=== PATIENT | male | born 1985 | race American Indian/Alaskan Native ===

== ENCOUNTER 2017-12-13 10:10 | Emergency (ER) | payer MEDICAID, OTHER ==
[2017-12-13 10:37] VITALS: BP 133/91
--- NOTE | 2017-12-13 10:47 | EDM.PDOC ---
ED HPI GENERAL MEDICAL PROBLEM - General Chief Complaint: Laceration Stated Complaint: HOLE/CUT IN TOE ON RT FOOT Time Seen by Provider: 12/13/17 10:35 Source of Information: Reports: Patient History Limitations: Reports: No Limitations - History of Present Illness INITIAL COMMENTS - FREE TEXT/NARRATIVE: 32 yo NA male with poorly controlled AODM presents with a one week duration of a shallow ulcer on the bottom of his R great toe. He states it is hurting more now than before. He is not sure how he got it. He cannot get into his primary in [place] until Jan 20, but has a podiatry appt for 12/21. His blood sugars are recently in the 200's which is for him apparently an improvement. 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 (see below) (soaking in water and later applied a bandage.) Right Feet Pain Score (Numeric/FACES): 6 - Related Data Allergies Allergy/AdvReac Type Severity Reaction Status Date / Time amoxicillin [Amoxicillin] Allergy Severe Cannot Verified 12/13/17 10:22 Remember Penicillins Allergy Severe Cannot Verified 12/13/17 10:22 Remember venom-honey bee Allergy Severe Swelling Verified 12/13/17 10:22 [bee venom (honey bee)] Home Meds: Home Meds Ibuprofen [Motrin] 800 mg PO TID PRN 04/23/13 [History] metFORMIN [Glucophage] 2,000 mg PO DAILY 04/23/13 [History] Albuterol Sulfate [Albuterol Sulfate HFA] 2 puff INH Q4H PRN 07/01/13 [History] Mometasone/Formoterol [Dulera 100-5 MCG] 2 puff INH BID 07/01/13 [History] Insulin Detemir [Levemir] 100 units SQ DAILY 12/13/17 [History] Liraglutide [Victoza 3-Juan M] 1.8 mg SQ DAILY 12/13/17 [History] glipiZIDE [Glucotrol XL] 5 mg PO DAILY 12/13/17 [History] Past Medical History HEENT History: Reports: Impaired Vision Respiratory History: Reports: COPD, Sleep Apnea Gastrointestinal History: Reports: None Musculoskeletal History: Reports: Arthritis, Back Pain, Chronic Psychiatric History: Reports: Anxiety, Depression, Panic Attack Endocrine/Metabolic History: Reports: Diabetes, Type II, Obesity/BMI 30+ Dermatologic History: Reports: Other (See Below) - Infectious Disease History Infectious Disease History: Reports: Chicken Pox, MRSA Other Infectious Disease History: MRSA to right upper back - Past Surgical History Head Surgeries/Procedures: Reports: None HEENT Surgical History: Reports: None Respiratory Surgical History: Reports: None GI Surgical History: Reports: Appendectomy Endocrine Surgical History: Reports: None Musculoskeletal Surgical History: Reports: None Dermatological Surgical History: Reports: None Social & Family History - Tobacco Use Smoking Status *Q: Current Some Day Smoker Years of Tobacco use: 18 Packs/Tins Daily: 0.2 Used Tobacco, but Quit: No Second Hand Smoke Exposure: Yes - Caffeine Use Caffeine Use: Reports: Coffee - Recreational Drug Use Recreational Drug Use: No ED ROS GENERAL - Review of Systems Review Of Systems: See Below Constitutional: Reports: No Symptoms Musculoskeletal: Reports: Foot Pain (R great toe pain) Skin: Reports: Wound (ulcer to bottom of R great toe, approx 0.25 cm, not deep) Neurological: Reports: No Symptoms ED EXAM, SKIN/RASH Exam: See Below Exam Limited By: No Limitations General Appearance: Alert, WD/WN, No Apparent Distress, Obese Extremities: Other (0.25 cm shallow ulcer to the sole of his R great toe, no drainage or erythema. ) Neurological: Alert, Oriented, CN II-XII Intact, Normal Cognition, No Motor/ Sensory Deficits Psychiatric: Normal Affect, Normal Mood Skin: Warm, Dry, Normal Color, No Rash, Wound/Incision (ulcer) Location, Skin: Lower Extremity, Right Associated features: Tenderness. No: Warmth, Swelling, Induration, Inflammation , Weeping Course - Vital Signs Last Recorded V/S: Last Vital Signs Temp 35.7 C 12/13/17 10:36 Pulse 84 12/13/17 10:36 Resp 16 12/13/17 10:36 BP 133/91 H 12/13/17 10:36 Pulse Ox 98 12/13/17 10:36 - Orders/Labs/Meds Orders: Active Orders 24 hr Category Date Time Status Toes Great Toe Rt T5 [CR] Stat Exams 12/13/17 10:40 Taken Meds: Medications Discontinued Medications Generic Name Dose Route Start Last Admin Trade Name Tova PRN Reason Stop Dose Admin Bacitracin 1 dose 12/13/17 11:02 Bacitracin Oint 1 Gm TOP 12/13/17 11:03 ONETIME ONE - Radiology Interpretation Free Text/Narrative:: R great toe X-ray-neg(reviewed with radiology) Departure - Departure Time of Disposition: 11:10 Disposition: Home, Self-Care 01 Condition: Good Clinical Impression: Toe ulcer Qualifiers: Laterality: right Non-pressure ulcer stage: limited to breakdown of skin Qualified Code(s): L97.511 - Non-pressure chronic ulcer of other part of right foot limited to breakdown of skin - Discharge Information *PRESCRIPTION DRUG MONITORING PROGRAM REVIEWED*: Not Applicable *COPY OF PRESCRIPTION DRUG MONITORING REPORT IN PATIENT MAURICIO: Not Applicable Instructions: Diabetes Mellitus and Foot Care Referrals: PCP,None [Primary Care Provider] - Forms: ED Department Discharge Additional Instructions: Wash foot with soap and water twice daily. Dry thoroughly and apply Bacitracin ointment then a new bandage. Keep your appt with Podiatry as scheduled. Take acetaminophen up to 1000 mg every 6 hrs as needed for pain relief. Keep blood sugars under good control to reduce your infection risk. - My Orders Last 24 Hours: My Active Orders 12/13/17 10:40 Toes Great Toe Rt T5 [CR] Stat - Assessment/Plan Last 24 Hours: My Active Orders 12/13/17 10:40 Toes Great Toe Rt T5 [CR] Stat
[2017-12-13] MEDS ORDERED: Bacitracin Oint 1 GM U/D Packet TOP ONE (11:02)
--- NOTE | 2017-12-13 11:06 | CR ---
Toes Great Toe Rt CLINICAL HISTORY: Pain, swelling, diabetes FINDINGS: There is moderate soft tissue swelling of the first toe. There may be some mild swelling of the distal aspect of the second toe. There is a soft tissue defect on the inferior medial aspect of the first toe. No bony erosion is identified. IMPRESSION: Soft tissue swelling Soft tissue defect likely an ulcer in the inferior medial aspect of the great toe no obvious evidence of osteomyelitis
[2017-12-13] MEDS ORDERED: Diphtheria,Pertussis(Acell),Tetanus Vaccine 0.5 ML SDV IM ONE (11:11)
== END 2017-12-13 11:20 | disposition home or self-care (01) ==
LOC: JP.ED 10:10
DX: E11.621 Type 2 diabetes mellitus with foot ulcer (principal); L97.511 Non-pressure chronic ulcer of other part of right foot limited to breakdown of skin; Z23 Encounter for immunization
CPT/HCPCS: 73660-26-T5; 73660-T5; 90471; 90715; 99284-25

== ENCOUNTER 2018-08-13 14:32 | Inpatient (IN) | payer MEDICAID ==
[2018-08-13] MEDS ORDERED: Sodium Chloride 0.9% 1,000 ML IV SCH (15:15)
--- NOTE | 2018-08-13 15:15 | EDM.PDOC ---
ED HPI GENERAL MEDICAL PROBLEM - General Chief Complaint: Skin Complaint Stated Complaint: VIA [facility] Time Seen by Provider: 08/13/18 15:11 Source of Information: Reports: Patient History Limitations: Reports: No Limitations - History of Present Illness INITIAL COMMENTS - FREE TEXT/NARRATIVE: pt arrived with a very infected left arm in the anticubutal area. He injected Meth and he developed a infection in the site/ He has been having chills. He was seen at the clinic and given antibiotic shot and was placed on doxycyline bid. He does not think he has improved. Onset: Gradual, Other ( This has gotten progrssively worse. ) Duration: Hour(s): Location: Reports: Upper Extremity, Left Associated Symptoms: Reports: Fever/Chills Left Middle Arm Pain Score (Numeric/FACES): 7 - Related Data Allergies Allergy/AdvReac Type Severity Reaction Status Date / Time amoxicillin [Amoxicillin] Allergy Severe Cannot Verified 08/13/18 14:46 Remember Penicillins Allergy Severe Cannot Verified 08/13/18 14:46 Remember venom-honey bee Allergy Severe Swelling Verified 08/13/18 14:46 [bee venom (honey bee)] Home Meds: Home Meds Liraglutide [Victoza 3-Juan M] 1.8 mg SQ DAILY 12/13/17 [History] Insuln Asp Prot/Insulin Aspart [NovoLOG Mix 70-30] 50 units SUBCUT BID 02/21/18 [History] Nortriptyline HCl [Pamelor] 10 mg PO BEDTIME 02/21/18 [History] Pregabalin [Lyrica] 300 mg PO BID 02/21/18 [History] Zolpidem Tartrate [Ambien] 10 mg PO BEDTIME 02/21/18 [History] Doxycycline [Vibramycin] 1 tab PO BID 08/13/18 [History] busPIRone [Buspar] 1 tab PO TID 08/13/18 [History] metFORMIN HCl [Metformin ER Osmotic] 2,000 mg PO ACBREAKFAST 08/13/18 [History] Past Medical History HEENT History: Reports: Impaired Vision Respiratory History: Reports: COPD, Sleep Apnea Gastrointestinal History: Reports: None Musculoskeletal History: Reports: Arthritis, Back Pain, Chronic, Fracture Neurological History: Reports: None Psychiatric History: Reports: Addiction, Anxiety, Depression, Panic Attack Endocrine/Metabolic History: Reports: Diabetes, Type II, Obesity/BMI 30+ Oncologic (Cancer) History: Reports: Malignant Melanoma Other Oncologic History: patient states he had a mole removed from right wrist area that was melanoma Dermatologic History: Reports: None - Infectious Disease History Infectious Disease History: Reports: Chicken Pox, MRSA Other Infectious Disease History: MRSA to right upper back - Past Surgical History Head Surgeries/Procedures: Reports: None HEENT Surgical History: Reports: None Respiratory Surgical History: Reports: None GI Surgical History: Reports: Appendectomy Endocrine Surgical History: Reports: None Neurological Surgical History: Reports: Scoliosis Musculoskeletal Surgical History: Reports: None Dermatological Surgical History: Reports: Skin Biopsy Social & Family History - Family History Family Medical History: Noncontributory - Tobacco Use Smoking Status *Q: Current Some Day Smoker Years of Tobacco use: 10 Packs/Tins Daily: 0.1 - Caffeine Use Caffeine Use: Reports: Coffee, Energy Drinks, Soda, Tea - Recreational Drug Use Recreational Drug Use: Yes Drug Use in Last 12 Months: Yes Recreational Drug Type: Reports: Marijuana/Hashish, Methamphetamine Recreational Drug Use Frequency: Daily ED ROS GENERAL - Review of Systems Review Of Systems: See Below Constitutional: Reports: Chills, Malaise HEENT: Reports: No Symptoms Respiratory: Reports: No Symptoms Cardiovascular: Reports: No Symptoms Endocrine: Reports: No Symptoms GI/Abdominal: Reports: No Symptoms : Reports: No Symptoms Musculoskeletal: Reports: Other (pt has a very painful left arm. This is the site of a meth injection) Neurological: Reports: No Symptoms Psychiatric: Reports: No Symptoms ED EXAM, SKIN/RASH Exam: See Below Text/Narrative:: pt arrived with marked swelling and some drainage present. He is on doxycyline and is not responding l Exam Limited By: No Limitations General Appearance: Alert, Moderate Distress Ears: Normal TMs Nose: Normal Inspection Throat/Mouth: Normal Inspection Head: Atraumatic Neck: Normal Inspection Respiratory/Chest: No Respiratory Distress Cardiovascular: Regular Rate, Rhythm, Tachycardia Peripheral Pulses: 0: Radial (R) GI/Abdominal: Soft, Non-Tender (Male) Exam: Deferred Rectal (Males) Exam: Deferred Back Exam: Normal Inspection Extremities: Other (pt has sig pain and swelling in the left anticuital) Neurological: Alert, Oriented, Normal Cognition Course - Vital Signs Last Recorded V/S: Last Vital Signs Temp 35.9 C 08/14/18 03:00 Pulse 100 08/14/18 03:00 Resp 20 08/14/18 03:00 BP 159/92 H 08/14/18 03:00 Pulse Ox 99 08/14/18 03:00 - Orders/Labs/Meds Orders: Active Orders 24 hr Category Date Time Status EKG 12 Lead [EK] Routine Ther 08/13/18 15:28 Stop Req Medication Orders Acetaminophen (Tylenol) 650 mg PO Q4H PRN PRN Reason: Pain (Mild 1-3)/fever Last Admin: 08/14/18 02:50 Dose: 650 mg Admin: 08/13/18 22:39 Dose: 650 mg Buspirone HCl (Buspar) 10 mg PO TID [facility] Last Admin: 08/13/18 21:07 Dose: 10 mg Clindamycin Phosphate 900 mg/ (Sodium Chloride) 106 mls @ 200 mls/hr IV Q8H [facility] Last Admin: 08/14/18 01:00 Dose: 200 mls/hr Sodium Chloride (Normal Saline) 1,000 mls @ 125 mls/hr IV ASDIRECTED [facility] Last Admin: 08/14/18 05:55 Dose: 125 mls/hr Infusion: 08/14/18 03:29 Dose: 125 mls/hr Admin: 08/13/18 19:29 Dose: 125 mls/hr Vancomycin HCl 2 gm/ Sodium (Chloride) 500 mls @ 250 mls/hr IV Q12H [facility] Insulin Human Lispro (Humalog) 0 unit SUBCUT QIDACANDBED [facility]; Protocol Last Admin: 08/13/18 21:08 Dose: 10 units Ketorolac Tromethamine (Toradol) 30 mg IVPUSH Q6H PRN PRN Reason: Pain (severe 7-10) Lactobacillus Rhamnosus (Culturelle) 1 cap PO BID [facility] Last Admin: 08/13/18 21:07 Dose: 1 cap Liraglutide (Victoza) 1.8 mg SUBCUT DAILY [facility] Metformin HCl (Glucophage Xr) 2,000 mg PO ACBREAKFAST [facility] Nicotine (Habitrol) 14 mg TRDERM Q24H [facility] Non-Formulary Medication (Nortriptyline Hcl [Pamelor]) 10 mg PO BEDTIME [facility] Ondansetron HCl (Zofran Odt) 4 mg PO Q6H PRN PRN Reason: Nausea able to take PO Oxycodone HCl (Oxycodone) 5 - 10 mg PO Q4H PRN PRN Reason: Pain (moderate 4-6) Last Admin: 08/14/18 02:50 Dose: 10 mg Pregabalin (Lyrica) 300 mg PO BID [facility] Last Admin: 08/13/18 21:07 Dose: 300 mg Zolpidem Tartrate (Ambien) 10 mg PO BEDTIME [facility] Last Admin: 08/13/18 21:07 Dose: 10 mg Labs: Laboratory Tests 08/13/18 08/13/18 Range/Units 15:41 15:41 WBC 17.5 H (4.5-11.0) K/uL RBC 5.56 (4.30-5.90) M/uL Hgb 14.9 (12.0-15.0) g/dL Hct 44.8 (40.0-54.0) % MCV 81 (80-98) fL MCH 27 (27-31) pg MCHC 33 (32-36) % Plt Count 344 (150-400) K/uL Neut % (Auto) 79 H (36-66) % Lymph % (Auto) 13 L (24-44) % Holmes % (Auto) 8 H (2-6) % Eos % (Auto) 0 L (2-4) % Baso % (Auto) 0 (0-1) % Sodium 132 L (140-148) mmol/L Potassium 4.0 (3.6-5.2) mmol/L Chloride 95 L (100-108) mmol/L Carbon Dioxide 25 (21-32) mmol/L Anion Gap 16.0 H (5.0-14.0) mmol/L BUN 12 (7-18) mg/dL Creatinine 0.8 (0.8-1.3) mg/dL Est Cr Clr Drug Dosing 127.06 mL/min Estimated GFR (MDRD) > 60 (>60) Glucose 314 H (74-106) mg/dL Calcium 9.3 (8.5-10.1) mg/dL Total Bilirubin 0.6 (0.2-1.0) mg/dL AST 18 (15-37) U/L ALT 52 (12-78) U/L Alkaline Phosphatase 167 H (46-116) U/L Total Protein 7.9 (6.4-8.2) g/dL Albumin 2.9 L (3.4-5.0) g/dL Globulin 5.0 H (2.3-3.5) g/dL Albumin/Globulin Ratio 0.6 L (1.2-2.2) Meds: Medications Generic Name Dose Route Start Last Admin Trade Name Freq PRN Reason Stop Dose Admin Acetaminophen 650 mg 08/13/18 18:21 08/14/18 02:50 Tylenol PO 650 mg Q4H PRN Administration Pain (Mild 1-3)/fever Buspirone HCl 10 mg 08/13/18 21:00 08/13/18 21:07 Buspar PO 10 mg TID [facility] Administration Clindamycin Phosphate 900 mg/ 106 mls @ 200 mls/hr 08/14/18 01:00 08/14/18 01 :00 Sodium Chloride IV 200 mls/hr Q8H [facility] Administration Sodium Chloride 1,000 mls @ 125 mls/hr 08/13/18 18:21 08/14/18 05:55 Normal Saline IV 125 mls/hr ASDIRECTED [facility] Administration Vancomycin HCl 2 gm/ Sodium 500 mls @ 250 mls/hr 08/14/18 07:00 Chloride IV Q12H [facility] Insulin Human Lispro 0 unit 08/13/18 20:00 08/13/18 21:08 Humalog SUBCUT 10 units QIDACANDBED [facility] Administration Protocol Ketorolac Tromethamine 30 mg 08/13/18 18:21 Toradol IVPUSH Q6H PRN Pain (severe 7-10) Lactobacillus Rhamnosus 1 cap 08/13/18 21:00 08/13/18 21:07 Culturelle PO 1 cap BID [facility] Administration Liraglutide 1.8 mg 08/14/18 09:00 Victoza SUBCUT DAILY [facility] Metformin HCl 2,000 mg 08/14/18 07:30 Glucophage Xr PO ACBREAKFAST [facility] Nicotine 14 mg 08/14/18 21:00 Habitrol TRDERM Q24H [facility] Non-Formulary Medication 10 mg 08/13/18 21:00 Nortriptyline Hcl [Pamelor] PO BEDTIME [facility] Ondansetron HCl 4 mg 08/13/18 18:21 Zofran Odt PO Q6H PRN Nausea able to take PO Oxycodone HCl 5 - 10 mg 08/13/18 18:21 08/14/18 02:50 Oxycodone PO 10 mg Q4H PRN Administration Pain (moderate 4-6) Pregabalin 300 mg 08/13/18 21:00 08/13/18 21:07 Lyrica PO 300 mg BID [facility] Administration Zolpidem Tartrate 10 mg 08/13/18 21:00 08/13/18 21:07 Ambien PO 10 mg BEDTIME [facility] Administration Discontinued Medications Generic Name Dose Route Start Last Admin Trade Name Tova PRN Reason Stop Dose Admin Sodium Chloride 1,000 mls @ 999 mls/hr 08/13/18 15:15 08/13/18 15:42 Normal Saline IV 999 mls/hr ASDIRECTED [facility] Administration Clindamycin Phosphate 600 mg/ 54 mls @ 100 mls/hr 08/13/18 15:49 08/13/18 16: 34 Sodium Chloride IV 08/13/18 16:21 100 mls/hr ONETIME ONE Administration Vancomycin HCl 2.5 gm/ Sodium 500 mls @ 200 mls/hr 08/13/18 19:00 08/13/18 20 :01 Chloride IV 08/13/18 21:29 200 mls/hr ONETIME ONE Administration Sodium Chloride Confirm 08/13/18 19:52 08/13/18 20:01 Normal Saline Administered 08/13/18 19:53 Not Given Dose 250 mls @ as directed .ROUTE .STK-MED ONE Insulin Glargine 20 units 08/13/18 21:00 08/13/18 21:08 Lantus Solostar SUBCUT 08/13/18 21:01 20 units BEDTIME [facility] Administration Insulin Human Regular 5 unit 08/13/18 16:25 08/13/18 20:45 Humulin R SUBCUT 08/13/18 16:26 Not Given ONETIME ONE Insulin Human Regular 10 unit 08/13/18 17:28 08/13/18 17:31 Humulin R SUBCUT 08/13/18 17:29 10 units ONETIME ONE Administration Ketorolac Tromethamine 30 mg 08/13/18 15:24 08/13/18 15:43 Toradol IVPUSH 08/13/18 15:25 30 mg ONETIME ONE Administration Lactobacillus Rhamnosus 1 cap 08/14/18 15:50 Culturelle PO 08/14/18 15:51 DAILY ONE Nicotine 14 mg 08/13/18 22:00 08/13/18 22:00 Habitrol TRDERM 08/13/18 22:01 14 mg ONETIME ONE Administration Oxycodone/Acetaminophen 1 tab 08/13/18 15:24 08/13/18 15:43 Percocet 325-5 Mg PO 08/13/18 15:25 1 tab ONETIME ONE Administration Vancomycin HCl Confirm 08/13/18 19:45 08/13/18 19:54 Vancomycin Administered 08/13/18 19:46 Not Given Dose 3 gm .ROUTE .[facility]-MED ONE - Re-Assessments/Exams Free Text/Narrative Re-Assessment/Exam: 08/13/18 16:28 wbc is elevated. His bs is 380. He has not been eating or drinking well. Departure - Departure Time of Disposition: 06:00 Disposition: Admitted As Inpatient 66 Condition: Fair Clinical Impression: Abscess of left arm - Discharge Information - My Orders Last 24 Hours: My Active Orders 08/13/18 15:28 EKG 12 Lead [EK] Routine - Assessment/Plan Last 24 Hours: My Active Orders 08/13/18 15:28 EKG 12 Lead [EK] Routine
[2018-08-13] MEDS ORDERED: Ketorolac 30 MG/ML SDV IVPUSH ONE (15:24)
[2018-08-13] MEDS ORDERED: Acetaminophen/oxyCODONE 325-5 MG Tab PO ONE (15:24)
[2018-08-13] MEDS ORDERED: Insulin Regular, Human 100 Units/ML 3 ML Vial SUBCUT ONE ×2 (16:25→17:28)
--- NOTE | 2018-08-13 17:40 | CRLUS ---
Indication: Possible abscess left inner elbow region. Technique: Ultrasound imaging of the area of concern at the left elbow was performed. Comparison: No comparison Findings and impression: Ultrasound of the inner left elbow in the area of erythema demonstrates a heterogeneous hypoechoic fluid collection without internal vascularity measuring 2.9 x 1.6 x 3.3 cm. This could represent abscess or hematoma if there is a history of trauma. There is overlying skin thickening and surrounding tissues appear edematous suggestive of an infectious or inflammatory process. Numerous prominent blood vessels are seen near the area of concern which may be secondary to reactive hyperemia. Dictated by Joe Cm MD @ 08/13/2018 5:39:21 PM Dictated by: Joe Cm MD @ 08/13/2018 17:39:30 (Electronically Signed)
--- NOTE | 2018-08-13 17:42 | PCM.HP ---
H&P History of Present Illness - General Date of Service: 08/13/18 Admit Problem/Dx: Admission Diagnosis/Problem Admission Diagnosis/Problem Abscess Source of Information: Patient, Provider History Limitations: Reports: No Limitations - History of Present Illness Initial Comments - Free Text/Narative: Chief complaint: My arm is infected Nick presents to the emergency room today with approximately one week of left arm redness, swelling and pain. He reports injecting methamphetamine intravenously in the left antecubital fossa about 10 days ago. 2 days later he started to develop some redness and swelling. This redness and swelling has progressed over the past 10 days to the point that he sought medical attention 2 days ago. He was started on doxycycline but despite this things have gotten worse. He describes severe pain in the left elbow which is sharp and throbbing. The pain radiates both up and down his arm from the elbow. He hasn't been taking anything at home to help the pain. Any sort of movement makes the pain worse. He has great difficulty moving his elbow because of the pain. He has had shaking chills but is not aware of any fevers. Appetite has been decreased the past 2 days and he's had very little to eat or drink. Stools were loose this morning but none since that time. No complaints of abdominal pain or nausea. He has not checked his blood sugars in the last week so is not sure how his diabetes has been doing. Workup in the emergency room revealed leukocytosis and ultrasound evidence for abscess in the left antecubital fossa. He has received clindamycin in the emergency room and will be admitted for IV antibiotics and surgical intervention in the morning. - Related Data Allergies/Adverse Reactions: Allergies Allergy/AdvReac Type Severity Reaction Status Date / Time amoxicillin [Amoxicillin] Allergy Severe Cannot Verified 08/13/18 14:46 Remember Penicillins Allergy Severe Cannot Verified 08/13/18 14:46 Remember venom-honey bee Allergy Severe Swelling Verified 08/13/18 14:46 [bee venom (honey bee)] Home Medications: Home Meds Liraglutide [Victoza 3-Juan M] 1.8 mg SQ DAILY 12/13/17 [History] Insuln Asp Prot/Insulin Aspart [NovoLOG Mix 70-30] 50 units SUBCUT BID 02/21/18 [History] Nortriptyline HCl [Pamelor] 10 mg PO BEDTIME 02/21/18 [History] Pregabalin [Lyrica] 300 mg PO BID 02/21/18 [History] Zolpidem Tartrate [Ambien] 10 mg PO BEDTIME 02/21/18 [History] Doxycycline [Vibramycin] 1 tab PO BID 08/13/18 [History] busPIRone [Buspar] 1 tab PO TID 08/13/18 [History] metFORMIN HCl [Metformin ER Osmotic] 2,000 mg PO ACBREAKFAST 08/13/18 [History] Past Medical History HEENT History: Reports: Impaired Vision Respiratory History: Reports: COPD, Sleep Apnea Gastrointestinal History: Reports: None Musculoskeletal History: Reports: Arthritis, Back Pain, Chronic, Fracture Neurological History: Reports: None Psychiatric History: Reports: Addiction, Anxiety, Depression, Panic Attack Endocrine/Metabolic History: Reports: Diabetes, Type II, Obesity/BMI 30+ Oncologic (Cancer) History: Reports: Malignant Melanoma Other Oncologic History: patient states he had a mole removed from right wrist area that was melanoma Dermatologic History: Reports: None - Infectious Disease History Infectious Disease History: Reports: Chicken Pox, MRSA Other Infectious Disease History: MRSA to right upper back - Past Surgical History Head Surgeries/Procedures: Reports: None HEENT Surgical History: Reports: None Respiratory Surgical History: Reports: None GI Surgical History: Reports: Appendectomy Endocrine Surgical History: Reports: None Neurological Surgical History: Reports: Scoliosis Musculoskeletal Surgical History: Reports: None Dermatological Surgical History: Reports: Skin Biopsy Social & Family History - Family History Family Medical History: Noncontributory - Tobacco Use Smoking Status *Q: Current Some Day Smoker Years of Tobacco use: 10 Packs/Tins Daily: 0.1 - Caffeine Use Caffeine Use: Reports: Coffee, Energy Drinks, Soda, Tea - Alcohol Use Alcohol Use History: Yes Days Per Week of Alcohol Use: 2 - Recreational Drug Use Recreational Drug Use: Yes Drug Use in Last 12 Months: Yes Recreational Drug Type: Reports: Marijuana/Hashish, Methamphetamine Recreational Drug Use Frequency: Daily H&P Review of Systems - Review of Systems: Review Of Systems: See Below Free Text/Narrative: A complete 12 point review of systems was obtained. Pertinent positives and negatives are noted in the history of present illness. All other systems were reviewed and were negative except as noted. Exam - Exam Exam: See Below - Vital Signs Vital Signs: Last Vital Signs Temp 36.5 C 08/13/18 14:59 Pulse 97 04/27/19 14:59 Resp 14 08/13/18 14:59 BP 149/94 H 08/13/18 14:59 Pulse Ox 97 08/13/18 14:59 Weight: 138.346 kg - Exam Quality Assessment: No: Supplemental Oxygen General: Alert, Oriented, Cooperative. No: Mild Distress HEENT: Conjunctiva Clear, Mucosa Moist & Magnet. No: Scleral Icterus Neck: Trachea Midline. No: Lymphadenopathy Lungs: Clear to Auscultation, Normal Respiratory Effort Cardiovascular: Regular Rate, Regular Rhythm GI/Abdominal Exam: Normal Bowel Sounds, Soft, Non-Tender, No Distention, Other ( Obese) Extremities: No Pedal Edema, Increased Warmth (Left antecubital fossa), Other ( Swelling, redness and warmth as well as some denuded skin with mild drainage from the left antecubital fossa) Skin: Warm, Dry, Rash (Redness, warmth and swelling involving the antecubital fossa) Neuro Extensive - Mental Status: Alert, Oriented x3, Nl Response to Commands Neuro Extensive - Motor, Sensory, Reflexes: No: Dysarthria, Abnormal Motor, Tremor Psychiatric: Alert, Normal Affect - Patient Data Lab Results Last 24 hrs: Laboratory Results - last 24 hr 08/13/18 08/13/18 Range/Units 15:41 15:41 WBC 17.5 H (4.5-11.0) K/uL RBC 5.56 (4.30-5.90) M/uL Hgb 14.9 (12.0-15.0) g/dL Hct 44.8 (40.0-54.0) % MCV 81 (80-98) fL MCH 27 (27-31) pg MCHC 33 (32-36) % Plt Count 344 (150-400) K/uL Neut % (Auto) 79 H (36-66) % Lymph % (Auto) 13 L (24-44) % Sebastian % (Auto) 8 H (2-6) % Eos % (Auto) 0 L (2-4) % Baso % (Auto) 0 (0-1) % Sodium 132 L (140-148) mmol/L Potassium 4.0 (3.6-5.2) mmol/L Chloride 95 L (100-108) mmol/L Carbon Dioxide 25 (21-32) mmol/L Anion Gap 16.0 H (5.0-14.0) mmol/L BUN 12 (7-18) mg/dL Creatinine 0.8 (0.8-1.3) mg/dL Est Cr Clr Drug Dosing 127.06 mL/min Estimated GFR (MDRD) > 60 (>60) Glucose 314 H (74-106) mg/dL Calcium 9.3 (8.5-10.1) mg/dL Total Bilirubin 0.6 (0.2-1.0) mg/dL AST 18 (15-37) U/L ALT 52 (12-78) U/L Alkaline Phosphatase 167 H (46-116) U/L Total Protein 7.9 (6.4-8.2) g/dL Albumin 2.9 L (3.4-5.0) g/dL Globulin 5.0 H (2.3-3.5) g/dL Albumin/Globulin Ratio 0.6 L (1.2-2.2) Result Diagrams: 08/13/18 15:41 08/13/18 15:41 Imaging Impressions Last 24 hrs: Ultrasound left antecubital fossa - images personally reviewed - there is evidence for fluid and debris in the antecubital fossa concerning for abscess. *Q Meaningful Use (ADM) - VTE *Q VTE Pharmacological Contraindications *Q: Patient Scheduled Surgery - VTE Risk Assess *Q Each Risk Factor Represents 1 Point: Minor Surgery Planned, Obesity ( BMI > 25 kg/m2) Total Score 1 Point Risk Factors: 2 Each Risk Factor Represents 2 Points: None Total Score 2 Point Risk Factors: 0 Each Risk Factor Represents 3 Points: None Total Score 3 Point Risk Factors: 0 Each Risk Factor Represents 5 Points: None Total Score 5 Point Risk Factors: 0 Venous Thromboembolism Risk Factor Score *Q: 2 - Problem List (1) Abscess of left arm SNOMED Code(s): 836660538 ICD Code: L02.414 - CUTANEOUS ABSCESS OF LEFT UPPER LIMB Status: Acute Current Visit: Yes (2) Poorly controlled type 2 diabetes mellitus SNOMED Code(s): 28097139, 508332889 ICD Code: E11.65 - TYPE 2 DIABETES MELLITUS WITH HYPERGLYCEMIA Status: Chronic Current Visit: Yes (3) Morbid obesity with BMI of 45.0-49.9, adult SNOMED Code(s): 658888510, 88206684770392 ICD Code: E66.01 - MORBID (SEVERE) OBESITY DUE TO EXCESS CALORIES; Z68.42 - BODY MASS INDEX (BMI) 45.0-49.9, ADULT Status: Chronic Current Visit: Yes Problem List Initiated/Reviewed/Updated: Yes Orders Last 24hrs: Active Orders 24 hr Category Date Time Status Patient Status Manage Transfer [TRANSFER] Routine ADT 08/13/18 17:29 Ordered EKG Documentation Completion [RC] ASDIRECTED Care 08/13/18 15:28 Active Lactobacillus Rhamnosus GG [Culturelle] Med 08/14/18 15:50 Once 1 cap PO DAILY ONE Sodium Chloride 0.9% [Normal Saline] 1,000 ml Med 08/13/18 15:15 Active IV ASDIRECTED Resuscitation Status Routine Resus Stat 08/13/18 17:34 Ordered EKG 12 Lead [EK] Routine Ther 08/13/18 15:28 Stop Req Medication Orders Sodium Chloride (Normal Saline) 1,000 mls @ 999 mls/hr IV ASDIRECTED SUKHDEV Last Admin: 08/13/18 15:42 Dose: 999 mls/hr Lactobacillus Rhamnosus (Culturelle) 1 cap PO DAILY ONE Stop: 08/14/18 15:51 Assessment/Plan Comment:: ASSESSMENT AND PLAN - Abscess and cellulitis of the left antecubital fossa - infection a result of injection of IV drugs about 10 days ago. He has leukocytosis but no other evidence for sepsis. Ultrasound confirmed the presence of abscess at the site. Surgical intervention is planned for tomorrow. -Vancomycin and clindamycin -Nothing by mouth after midnight -Surgical intervention with Dr. Bustamante tomorrow for incision and drainage -Pain control -Cultures will be obtained at the time of surgery Poorly controlled type 2 diabetes mellitus - patient does not check sugars regularly. Blood sugars over 300, likely some contribution from his active infection. -10 units of regular insulin now -20 units of Lantus tonight -Medium dose sliding scale insulin -Restart home dosing tomorrow when he is eating Morbid obesity with BMI between 46 and 50 - Maintenance issues - - DVT prophylaxis - mechanical - GI prophylaxis - not indicated - Nutrition - consistent carbohydrate diet now, nothing by mouth after midnight - Bautista catheter - not indicated CODE STATUS - full code Admission justification - This patient will be admitted for inpatient services and is medically appropriate meeting medical necessity for inpatient admission as outlined in my documentation. I reasonably expect the patient will require inpatient services that span a period time over 2 midnights. I reasonably expect this patient to be discharged or transferred within 96 hours [facility]. Disposition - I would anticipate discharge home after the hospital stay Primary care physician - Dr. Bustamante that [facility] Brandan Jimenez M.D.
[2018-08-13] MEDS ORDERED: Ondansetron 4 MG Tab.DIS PO PRN (18:21)
[2018-08-13] MEDS ORDERED: Vancomycin 2.5 GM in Sodium Chloride 0.9% 500 ML IV ONE (19:00)
[2018-08-13] MEDS: Sodium Chloride 0.9% 1,000 ML IV SCH (19:29)
[2018-08-13] MEDS ORDERED: Vancomycin 1 GM SDV ONE (19:45)
[2018-08-13] MEDS ORDERED: Sodium Chloride 0.9% 250 ML ONE (19:52)
[2018-08-13] MEDS ORDERED: Insulin Glargine,Human Rec. Analog 100 Units/ML 3 ML Pen SUBCUT SCH (21:00)
[2018-08-13] MEDS: Pregabalin 100 MG Cap PO SCH (21:07)
[2018-08-13] MEDS: Zolpidem 5 MG Tab PO SCH (21:07)
[2018-08-13] MEDS: Lactobacillus Rhamnosus GG (Probiotic) Cap PO SCH (21:07)
[2018-08-13] MEDS: busPIRone 10 MG Tab PO SCH (21:07)
[2018-08-13] MEDS: Insulin Lispro 100 Unit/ML 3 ML KwikPen SUBCUT SCH (21:08)
[2018-08-13] MEDS ORDERED: Nicotine 14 MG/24 Hr Patch TRDERM ONE (22:00)
[2018-08-13] MEDS: Acetaminophen 325 MG Tab PO PRN (22:39)
[2018-08-14] MEDS: Clindamycin Phosphate 900 MG in Sodium Chloride 0.9% 100 ML IV SCH ×3 (01:00→16:33)
[2018-08-14] MEDS: oxyCODONE 5 MG Tab PO PRN ×2 (02:50→07:23)
[2018-08-14] MEDS: Acetaminophen 325 MG Tab PO PRN ×2 (02:50→07:22)
[2018-08-14] MEDS: Sodium Chloride 0.9% 1,000 ML IV SCH ×2 (05:55→20:32)
[2018-08-14] MEDS ORDERED: Vancomycin 2 GM in Sodium Chloride 0.9% 500 ML IV SCH ×2 (07:00→08:30)
[2018-08-14] MEDS ORDERED: metFORMIN 500 MG Tab.ER PO SCH ×2 (07:30→17:00)
[2018-08-14] MEDS: busPIRone 10 MG Tab PO SCH ×3 (08:30→21:05)
[2018-08-14] MEDS: Pregabalin 100 MG Cap PO SCH ×2 (08:30→21:04)
[2018-08-14] MEDS: Insulin Lispro 100 Unit/ML 3 ML KwikPen SUBCUT SCH ×4 (08:32→21:08)
[2018-08-14] MEDS: Lactobacillus Rhamnosus GG (Probiotic) Cap PO SCH ×2 (08:37→21:05)
--- NOTE | 2018-08-14 11:10 | PCM.PN ---
- General Info Date of Service: 08/14/18 Subjective Update: There were no acute events overnight. Patient still has significant pain and swelling in the left arm. Redness is a little better today. Pain is a little better today and he was able to get some sleep. No fevers overnight. Surgical intervention planned later in the morning. Blood sugars have improved some but remain elevated. Functional Status: Reports: Pain Controlled, Tolerating Diet - Review of Systems General: Denies: Fever - Patient Data Vitals - Most Recent: Last Vital Signs Temp 36.1 C 08/14/18 07:09 Pulse 83 08/14/18 07:09 Resp 18 08/14/18 07:09 BP 135/73 08/14/18 07:09 Pulse Ox 99 08/14/18 07:09 Weight - Most Recent: 138.346 kg I&O - Last 24 Hours: Intake & Output 08/13/18 08/14/18 08/14/18 22:59 06:59 14:59 Intake Total 2040 1500 600 Output Total 550 Balance 2040 950 600 Lab Results Last 24 Hours: Laboratory Results - last 24 hr 08/13/18 08/13/18 08/14/18 Range/Units 15:41 15:41 05:49 WBC 17.5 H 15.7 H (4.5-11.0) K/uL RBC 5.56 4.80 (4.30-5.90) M/uL Hgb 14.9 13.1 (12.0-15.0) g/dL Hct 44.8 39.3 L (40.0-54.0) % MCV 81 82 (80-98) fL MCH 27 27 (27-31) pg MCHC 33 33 (32-36) % Plt Count 344 322 (150-400) K/uL Neut % (Auto) 79 H (36-66) % Lymph % (Auto) 13 L (24-44) % Cook % (Auto) 8 H (2-6) % Eos % (Auto) 0 L (2-4) % Baso % (Auto) 0 (0-1) % Sodium 132 L (140-148) mmol/L Potassium 4.0 (3.6-5.2) mmol/L Chloride 95 L (100-108) mmol/L Carbon Dioxide 25 (21-32) mmol/L Anion Gap 16.0 H (5.0-14.0) mmol/L BUN 12 (7-18) mg/dL Creatinine 0.8 (0.8-1.3) mg/dL Est Cr Clr Drug Dosing 127.06 mL/min Estimated GFR (MDRD) > 60 (>60) Glucose 314 H (74-106) mg/dL Calcium 9.3 (8.5-10.1) mg/dL Total Bilirubin 0.6 (0.2-1.0) mg/dL AST 18 (15-37) U/L ALT 52 (12-78) U/L Alkaline Phosphatase 167 H (46-116) U/L Total Protein 7.9 (6.4-8.2) g/dL Albumin 2.9 L (3.4-5.0) g/dL Globulin 5.0 H (2.3-3.5) g/dL Albumin/Globulin Ratio 0.6 L (1.2-2.2) 08/14/18 Range/Units 05:49 WBC (4.5-11.0) K/uL RBC (4.30-5.90) M/uL Hgb (12.0-15.0) g/dL Hct (40.0-54.0) % MCV (80-98) fL MCH (27-31) pg MCHC (32-36) % Plt Count (150-400) K/uL Neut % (Auto) (36-66) % Lymph % (Auto) (24-44) % Cook % (Auto) (2-6) % Eos % (Auto) (2-4) % Baso % (Auto) (0-1) % Sodium 135 L (140-148) mmol/L Potassium 4.2 (3.6-5.2) mmol/L Chloride 102 (100-108) mmol/L Carbon Dioxide 23 (21-32) mmol/L Anion Gap 14.2 H (5.0-14.0) mmol/L BUN 12 (7-18) mg/dL Creatinine 0.8 (0.8-1.3) mg/dL Est Cr Clr Drug Dosing 127.06 mL/min Estimated GFR (MDRD) > 60 (>60) Glucose 263 H (74-106) mg/dL Calcium 8.3 L (8.5-10.1) mg/dL Total Bilirubin (0.2-1.0) mg/dL AST (15-37) U/L ALT (12-78) U/L Alkaline Phosphatase (46-116) U/L Total Protein (6.4-8.2) g/dL Albumin (3.4-5.0) g/dL Globulin (2.3-3.5) g/dL Albumin/Globulin Ratio (1.2-2.2) Med Orders - Current: Current Medications Acetaminophen (Tylenol) 650 mg PO Q4H PRN PRN Reason: Pain (Mild 1-3)/fever Last Admin: 08/14/18 07:22 Dose: 650 mg Buspirone HCl (Buspar) 10 mg PO TID [facility] Last Admin: 08/14/18 08:30 Dose: 10 mg Clindamycin Phosphate 900 mg/ (Sodium Chloride) 106 mls @ 200 mls/hr IV Q8H [facility] Last Admin: 08/14/18 08:30 Dose: 200 mls/hr Sodium Chloride (Normal Saline) 1,000 mls @ 125 mls/hr IV ASDIRECTED [facility] Last Admin: 08/14/18 05:55 Dose: 125 mls/hr Vancomycin HCl 2 gm/ Sodium (Chloride) 500 mls @ 250 mls/hr IV Q12H [facility] Last Admin: 08/14/18 09:18 Dose: 250 mls/hr Insulin Human Lispro (Humalog) 0 unit SUBCUT QIDACANDBED [facility]; Protocol Last Admin: 08/14/18 08:32 Dose: 6 units Ketorolac Tromethamine (Toradol) 30 mg IVPUSH Q6H PRN PRN Reason: Pain (severe 7-10) Stop: 08/18/18 18:22 Lactobacillus Rhamnosus (Culturelle) 1 cap PO BID [facility] Last Admin: 08/14/18 08:37 Dose: 1 cap Liraglutide (Victoza) 1.8 mg SUBCUT DAILY [facility] Metformin HCl (Glucophage Xr) 2,000 mg PO QPM [facility] Nicotine (Habitrol) 14 mg TRDERM Q24H [facility] Non-Formulary Medication (Nortriptyline Hcl [Pamelor]) 10 mg PO BEDTIME [facility] Ondansetron HCl (Zofran Odt) 4 mg PO Q6H PRN PRN Reason: Nausea able to take PO Oxycodone HCl (Oxycodone) 5 - 10 mg PO Q4H PRN PRN Reason: Pain (moderate 4-6) Last Admin: 08/14/18 07:23 Dose: 10 mg Pregabalin (Lyrica) 300 mg PO BID [facility] Last Admin: 08/14/18 08:30 Dose: 300 mg Zolpidem Tartrate (Ambien) 10 mg PO BEDTIME [facility] Last Admin: 08/13/18 21:07 Dose: 10 mg Discontinued Medications Sodium Chloride (Normal Saline) 1,000 mls @ 999 mls/hr IV ASDIRECTED [facility] Last Admin: 08/13/18 15:42 Dose: 999 mls/hr Clindamycin Phosphate 600 mg/ (Sodium Chloride) 54 mls @ 100 mls/hr IV ONETIME ONE Stop: 08/13/18 16:21 Last Admin: 08/13/18 16:34 Dose: 100 mls/hr Vancomycin HCl 2.5 gm/ Sodium (Chloride) 500 mls @ 200 mls/hr IV ONETIME ONE Stop: 08/13/18 21:29 Last Admin: 08/13/18 20:01 Dose: 200 mls/hr Sodium Chloride (Normal Saline) Confirm Administered Dose 250 mls @ as directed .ROUTE .STK-MED ONE Stop: 08/13/18 19:53 Last Admin: 08/13/18 20:01 Dose: Not Given Insulin Glargine (Lantus Solostar) 20 units SUBCUT BEDTIME SUKHDEV Stop: 08/13/18 21:01 Last Admin: 08/13/18 21:08 Dose: 20 units Insulin Human Regular (Humulin R) 5 unit SUBCUT ONETIME ONE Stop: 08/13/18 16:26 Last Admin: 08/13/18 20:45 Dose: Not Given Insulin Human Regular (Humulin R) 10 unit SUBCUT ONETIME ONE Stop: 08/13/18 17:29 Last Admin: 08/13/18 17:31 Dose: 10 units Ketorolac Tromethamine (Toradol) 30 mg IVPUSH ONETIME ONE Stop: 08/13/18 15:25 Last Admin: 08/13/18 15:43 Dose: 30 mg Lactobacillus Rhamnosus (Culturelle) 1 cap PO DAILY ONE Stop: 08/14/18 15:51 Metformin HCl (Glucophage Xr) 2,000 mg PO ACBREAKFAST [facility] Last Admin: 08/14/18 08:29 Dose: 2,000 mg Nicotine (Habitrol) 14 mg TRDERM ONETIME ONE Stop: 08/13/18 22:01 Last Admin: 08/13/18 22:00 Dose: 14 mg Oxycodone/Acetaminophen (Percocet 325-5 Mg) 1 tab PO ONETIME ONE Stop: 08/13/18 15:25 Last Admin: 08/13/18 15:43 Dose: 1 tab Vancomycin HCl (Vancomycin) Confirm Administered Dose 3 gm .ROUTE .STK-MED ONE Stop: 08/13/18 19:46 Last Admin: 08/13/18 19:54 Dose: Not Given - Exam Quality Assessment: No: Supplemental Oxygen General: Alert, Oriented, Cooperative, No Acute Distress Lungs: Normal Respiratory Effort GI/Abdominal Exam: Soft, No Distention Extremities: No Pedal Edema, Other (left arm with redness, warmth and swelling in the AC fossa) Psy/Mental Status: Alert, Normal Affect - Problem List & Annotations (1) Abscess of left arm SNOMED Code(s): 001905868 Code(s): L02.414 - CUTANEOUS ABSCESS OF LEFT UPPER LIMB Status: Acute Current Visit: Yes (2) Poorly controlled type 2 diabetes mellitus SNOMED Code(s): 34775094, 112450737 Code(s): E11.65 - TYPE 2 DIABETES MELLITUS WITH HYPERGLYCEMIA Status: Chronic Current Visit: Yes (3) Morbid obesity with BMI of 45.0-49.9, adult SNOMED Code(s): 340228589, 85102786871181 Code(s): E66.01 - MORBID (SEVERE) OBESITY DUE TO EXCESS CALORIES; Z68.42 - BODY MASS INDEX (BMI) 45.0-49.9, ADULT Status: Chronic Current Visit: Yes - Problem List Review Problem List Initiated/Reviewed/Updated: Yes - My Orders Last 24 Hours: My Active Orders 08/13/18 17:34 Resuscitation Status Routine 08/13/18 18:21 Patient Status [ADT] Routine Antiembolic Devices [RC] .Routine Communication Order [RC] PRN Communication Order [RC] PRN Diabetes Education [RC] Click to Edit Intake and Output [RC] QSHIFT Notify Provider Consults [RC] ASDIRECTED Notify Provider Vital Signs [RC] ASDIRECTED Notify Provider [RC] PRN Oxygen Therapy [RC] PRN Up ad Roselia [RC] ASDIRECTED Vital Signs [RC] Q4H Consult to Physician [CONS] Routine Acetaminophen [Tylenol] 650 mg PO Q4H PRN Ketorolac [Toradol] 30 mg IVPUSH Q6H PRN Ondansetron [Zofran ODT] 4 mg PO Q6H PRN Sodium Chloride 0.9% [Normal Saline] 1,000 ml IV ASDIRECTED oxyCODONE 5 - 10 mg PO Q4H PRN Sequential Compression Device [OM.PC] Per Unit Routine VTE Pharmacological Contraindications [AST] Per Unit Routine 08/13/18 20:00 Insulin Lispro [HumaLOG] See Protocol SUBCUT QIDACANDBED 08/13/18 21:00 Lactobacillus Rhamnosus GG [Culturelle] 1 cap PO BID Nortriptyline HCl [Pamelor] 10 mg PO BEDTIME Pregabalin [Lyrica] 300 mg PO BID Zolpidem [Ambien] 10 mg PO BEDTIME busPIRone [Buspar] 10 mg PO TID 08/13/18 Dinner Nothing per Oral After Midnight Diet [DIET] 08/14/18 01:00 Clindamycin Phosphate [Cleocin] 900 mg Sodium Chloride 0.9% [Normal Saline] 100 ml IV Q8H 08/14/18 08:30 Vancomycin 2 gm Sodium Chloride 0.9% [Normal Saline] 500 ml IV Q12H 08/14/18 09:00 Liraglutide [Victoza] 1.8 mg SUBCUT DAILY 08/14/18 11:30 GLUCOSE POC LAB TO COLLECT [POC] QIDACANDBED 08/14/18 16:30 GLUCOSE POC LAB TO COLLECT [POC] QIDACANDBED 08/14/18 21:00 GLUCOSE POC LAB TO COLLECT [POC] QIDACANDBED 08/15/18 05:00 BASIC METABOLIC PANEL,BMP [CHEM] Timed CBC W/O DIFF,HEMOGRAM [HEME] Timed (1) 08/15/18 07:30 GLUCOSE POC LAB TO COLLECT [POC] QIDACANDBED 08/15/18 11:30 GLUCOSE POC LAB TO COLLECT [POC] QIDACANDBED 08/15/18 16:30 GLUCOSE POC LAB TO COLLECT [POC] QIDACANDBED 08/15/18 17:00 metFORMIN [Glucophage XR] 2,000 mg PO QPM 08/15/18 21:00 GLUCOSE POC LAB TO COLLECT [POC] QIDACANDBED 08/16/18 07:30 GLUCOSE POC LAB TO COLLECT [POC] QIDACANDBED 08/16/18 11:30 GLUCOSE POC LAB TO COLLECT [POC] QIDACANDBED 08/16/18 16:30 GLUCOSE POC LAB TO COLLECT [POC] QIDACANDBED 08/16/18 21:00 GLUCOSE POC LAB TO COLLECT [POC] QIDACANDBED 08/17/18 07:30 GLUCOSE POC LAB TO COLLECT [POC] QIDACANDBED 08/17/18 11:30 GLUCOSE POC LAB TO COLLECT [POC] QIDACANDBED 08/17/18 16:30 GLUCOSE POC LAB TO COLLECT [POC] QIDACANDBED 08/17/18 21:00 GLUCOSE POC LAB TO COLLECT [POC] QIDACANDBED 08/18/18 07:30 GLUCOSE POC LAB TO COLLECT [POC] QIDACANDBED 08/18/18 11:30 GLUCOSE POC LAB TO COLLECT [POC] QIDACANDBED 08/18/18 16:30 GLUCOSE POC LAB TO COLLECT [POC] QIDACANDBED 08/18/18 21:00 GLUCOSE POC LAB TO COLLECT [POC] QIDACANDBED 08/19/18 07:30 GLUCOSE POC LAB TO COLLECT [POC] QIDACANDBED - Plan Plan:: ASSESSMENT AND PLAN - Abscess and cellulitis of the left antecubital fossa - infection a result of injection of IV drugs about 10 days ago. White blood cell count slightly better this morning. Significant swelling but pain is better. Surgical intervention planned later this morning. -Vancomycin and clindamycin -Nothing by mouth after until after surgery -Surgical intervention with Dr. Bustamante later today for incision and drainage -Pain control -Cultures will be obtained at the time of surgery Poorly controlled type 2 diabetes mellitus - patient does not check sugars regularly and sugars have not been well-controlled. -20 units of Lantus tonight -Medium dose sliding scale insulin -Restart home dosing tomorrow when he is eating Morbid obesity with BMI between 46 and 50 - Maintenance issues - - DVT prophylaxis - mechanical - GI prophylaxis - not indicated - Nutrition - consistent carbohydrate diet now, nothing by mouth after midnight - Bautista catheter - not indicated Disposition - I would anticipate discharge home after the hospital stay Primary care physician - Dr. Bustamante that [facility] Brandan Jimenez M.D.
[2018-08-14] MEDS: Liraglutide (rDNA Origin) 0.6 MG/0.1 ML 3 ML Pen SUBCUT SCH (11:12)
[2018-08-14] MEDS: Ketorolac 30 MG/ML SDV IVPUSH PRN (12:37)
[2018-08-14] MEDS ORDERED: Bupivacaine 0.5%/EPINEPHrine 1:200,000 50 ML MDV ONE (12:41)
[2018-08-14] MEDS ORDERED: fentaNYL 250 MCG/5 ML SDV ONE (12:45)
[2018-08-14] MEDS ORDERED: Ondansetron 4 MG/2 ML SDV ONE (12:48)
[2018-08-14] MEDS ORDERED: Succinylcholine 200 MG/10 ML MDV ONE (12:48)
[2018-08-14] MEDS ORDERED: Neostigmine Methylsulfate 1 MG/ML 5 ML Syringe ONE (12:48)
[2018-08-14] MEDS ORDERED: Glycopyrrolate 0.2 MG/ML 5 ML MDV ONE (12:48)
[2018-08-14] MEDS ORDERED: Propofol 200 MG/20 ML SDV ONE (12:48)
[2018-08-14] MEDS ORDERED: Dexamethasone 4 MG/ML SDV ONE (12:48)
[2018-08-14] MEDS ORDERED: Rocuronium 50 MG/5 ML Vial ONE (12:48)
[2018-08-14] MEDS: [UNRECOGNIZED DRUG - REMARK] PO SCH ×2 (13:46→21:07)
[2018-08-14] MEDS ORDERED: Lactated Ringers 1,000 ML ONE (14:02)
[2018-08-14] MEDS ORDERED: fentaNYL 100 MCG/2 ML SDV ONE (14:17)
[2018-08-14] MEDS: Linezolid 600 MG in Premix Bag 1 BAG IV SCH (14:45)
[2018-08-14] MEDS ORDERED: HYDROmorphone/Normal Saline 15 MG/30 ML PCA IV PRN (15:42)
[2018-08-14] MEDS ORDERED: Naloxone 0.4 MG/ML SDV IV PRN (15:42)
[2018-08-14] MEDS ORDERED: Lactobacillus Rhamnosus GG (Probiotic) Cap PO ONE (15:50)
[2018-08-14] MEDS: Zolpidem 5 MG Tab PO SCH (21:04)
[2018-08-14] MEDS: Nicotine 14 MG/24 Hr Patch TRDERM SCH (21:06)
[2018-08-14] MEDS: Insulin Glargine,Human Rec. Analog 100 Units/ML 3 ML Pen SUBCUT SCH (21:08)
[2018-08-15] MEDS: Clindamycin Phosphate 900 MG in Sodium Chloride 0.9% 100 ML IV SCH ×3 (01:01→16:33)
[2018-08-15] MEDS: Linezolid 600 MG in Premix Bag 1 BAG IV SCH ×2 (02:21→15:15)
[2018-08-15] MEDS ORDERED: Ondansetron 4 MG/2 ML SDV IVPUSH PRN (04:17)
[2018-08-15] MEDS: Ketorolac 30 MG/ML SDV IVPUSH PRN ×2 (04:41→19:43)
[2018-08-15] MEDS ORDERED: Meperidine PF 50 MG/ML Syringe IVPUSH PRN (04:50)
[2018-08-15] MEDS: Sodium Chloride 0.9% 1,000 ML IV SCH ×2 (04:54→21:27)
[2018-08-15] MEDS ORDERED: fentaNYL 100 MCG/2 ML SDV ONE (07:13)
[2018-08-15] MEDS ORDERED: Propofol 200 MG/20 ML SDV ONE ×3 (07:13→09:54)
[2018-08-15] MEDS ORDERED: Midazolam 1 MG/ML 2 ML SDV ONE (07:13)
[2018-08-15] MEDS: Insulin Lispro 100 Unit/ML 3 ML KwikPen SUBCUT SCH ×4 (08:38→21:52)
[2018-08-15] MEDS ORDERED: Lidocaine 1% with EPINEPHrine 1:100,000 50 ML MDV ONE (08:56)
[2018-08-15] MEDS ORDERED: Bupivacaine 0.5% 50 ML MDV ONE (08:56)
[2018-08-15] MEDS ORDERED: Lactated Ringers 1,000 ML ONE (09:45)
--- NOTE | 2018-08-15 10:18 | PN ---
DATE OF SERVICE: 08/15/2018 SUBJECTIVE: Demarcus is n.p.o. He will be having a dressing change in his left upper arm, under general anesthesia. He has had difficulty with the Dilaudid every time he pushes the [employer] button, he would have an emesis. Demerol has been working well for him. He did also have a shot of Toradol. Blood sugars were 166, prior to that it was 254 and 195 and 293. Gram stain showed gram-positive cocci and gram-positive rods. He is on IV clindamycin and linezolid. REVIEW OF SYSTEMS: Remainder of review of systems negative for any pertinent positives. OBJECTIVE: GENERAL: Demarcus Diallo is a 33-year-old male, alert, orientated. VITAL SIGNS: TPR is 95.3, 81, 16, blood pressure 140/91. HEENT: Negative. NECK: Supple. HEART: Regular rate and rhythm. LUNGS: Clear. MUSCULOSKELETAL: Left mid and upper arm dressing have drained through the wrapped Kerlix and it is a light pink clear drainage. States swelling is much less. He can move his hand and fingers without feeling so tight. Extremities without peripheral edema. ASSESSMENT: Abscess, left arm; debridement of abscess, left arm on 08/14/2018. Surgeon, Darryl Bustamante MD. PLAN: 1. Dressing will be changed under general anesthesia. Orders to be written after that. 2. We will evaluate p.r.n. or in a.m. Rayna Beverly PA-C /[id number]
[2018-08-15] MEDS: Lactobacillus Rhamnosus GG (Probiotic) Cap PO SCH ×2 (10:49→22:05)
[2018-08-15] MEDS: busPIRone 10 MG Tab PO SCH ×3 (10:49→22:05)
[2018-08-15] MEDS: Pregabalin 100 MG Cap PO SCH ×2 (10:50→21:54)
[2018-08-15] MEDS: Liraglutide (rDNA Origin) 0.6 MG/0.1 ML 3 ML Pen SUBCUT SCH (10:52)
[2018-08-15] MEDS: oxyCODONE 5 MG Tab PO PRN ×3 (12:39→21:54)
[2018-08-15] MEDS: metFORMIN 500 MG Tab.ER PO SCH (16:32)
--- NOTE | 2018-08-15 17:03 | PCM.PN ---
- General Info Date of Service: 08/15/18 Subjective Update: Mr. Diallo feels significantly improved over the last 24 hours. He did go back to the operating room for further debridement and wound packing this morning. - Review of Systems General: Denies: Fever, Weakness, Chills Pulmonary: Reports: No Symptoms Cardiovascular: Reports: No Symptoms Gastrointestinal: Reports: No Symptoms Musculoskeletal: Reports: Arm Pain - Patient Data Vitals - Most Recent: Last Vital Signs Temp 96.4 F 08/15/18 15:17 Pulse 87 08/15/18 15:17 Resp 18 08/15/18 15:17 BP 133/76 08/15/18 15:17 Pulse Ox 99 08/15/18 15:17 Weight - Most Recent: 305 lb 0.011 oz I&O - Last 24 Hours: Intake & Output 08/15/18 08/15/18 08/15/18 06:59 14:59 22:59 Intake Total 1771 Balance 1771 Lab Results Last 24 Hours: Laboratory Results - last 24 hr 08/15/18 08/15/18 Range/Units 05:45 05:45 WBC 11.8 H (4.5-11.0) K/uL RBC 4.60 (4.30-5.90) M/uL Hgb 12.4 (12.0-15.0) g/dL Hct 37.9 L (40.0-54.0) % MCV 82 (80-98) fL MCH 27 (27-31) pg MCHC 33 (32-36) % Plt Count 326 (150-400) K/uL Sodium 138 L (140-148) mmol/L Potassium 4.0 (3.6-5.2) mmol/L Chloride 102 (100-108) mmol/L Carbon Dioxide 28 (21-32) mmol/L Anion Gap 12.0 (5.0-14.0) mmol/L BUN 11 (7-18) mg/dL Creatinine 0.6 L (0.8-1.3) mg/dL Est Cr Clr Drug Dosing 169.42 mL/min Estimated GFR (MDRD) > 60 (>60) Glucose 179 H (74-106) mg/dL Calcium 8.4 L (8.5-10.1) mg/dL Servando Results Last 24 Hours: Microbiology 08/14/18 13:33 Gram Stain - Final Arm, Left - Upper Med Orders - Current: Current Medications Acetaminophen (Tylenol) 650 mg PO Q4H PRN PRN Reason: Pain (Mild 1-3)/fever Last Admin: 08/14/18 07:22 Dose: 650 mg Bacitracin (Bacitracin Oint) 0 gm TOP BID [facility] Buspirone HCl (Buspar) 10 mg PO TID [facility] Last Admin: 08/15/18 13:33 Dose: 10 mg Clindamycin Phosphate 900 mg/ (Sodium Chloride) 106 mls @ 200 mls/hr IV Q8H [facility] Last Admin: 08/15/18 16:33 Dose: 200 mls/hr Sodium Chloride (Normal Saline) 1,000 mls @ 125 mls/hr IV ASDIRECTED [facility] Last Admin: 08/15/18 04:54 Dose: 125 mls/hr Linezolid 600 mg/ Premix 300 mls @ 300 mls/hr IV Q12H [facility] Last Admin: 08/15/18 15:15 Dose: 300 mls/hr Insulin Glargine (Lantus Solostar) 30 units SUBCUT BEDTIME [facility] Last Admin: 08/14/18 21:08 Dose: 30 units Insulin Human Lispro (Humalog) 0 unit SUBCUT QIDACANDBED [facility]; Protocol Last Admin: 08/15/18 16:33 Dose: 2 units Ketorolac Tromethamine (Toradol) 30 mg IVPUSH Q6H PRN PRN Reason: Pain (severe 7-10) Stop: 08/18/18 18:22 Last Admin: 08/15/18 04:41 Dose: 30 mg Lactobacillus Rhamnosus (Culturelle) 1 cap PO BID [facility] Last Admin: 08/15/18 10:49 Dose: 1 cap Liraglutide (Victoza) 1.8 mg SUBCUT DAILY [facility] Last Admin: 08/15/18 10:52 Dose: 1.8 unit Meperidine HCl (Demerol) 50 mg IVPUSH Q2H PRN PRN Reason: Pain Last Admin: 08/15/18 05:59 Dose: 50 mg Metformin HCl (Glucophage Xr) 2,000 mg PO QPM [facility] Last Admin: 08/15/18 16:32 Dose: 2,000 mg Nicotine (Habitrol) 14 mg TRDERM Q24H [facility] Last Admin: 08/14/18 21:06 Dose: 14 mg Non-Form: Nortriptyline Hcl 10 Mg Cap 10 mg PO BEDTIME [facility] Last Admin: 08/14/18 21:07 Dose: 10 mg Ondansetron HCl (Zofran Odt) 4 mg PO Q6H PRN PRN Reason: Nausea able to take PO Last Admin: 08/15/18 04:16 Dose: 4 mg Ondansetron HCl (Zofran) 4 mg IVPUSH Q4H PRN PRN Reason: Nausea/Vomiting Last Admin: 08/15/18 04:36 Dose: 4 mg Oxycodone HCl (Oxycodone) 5 - 10 mg PO Q4H PRN PRN Reason: Pain (moderate 4-6) Last Admin: 08/15/18 16:32 Dose: 10 mg Pregabalin (Lyrica) 300 mg PO BID [facility] Last Admin: 08/15/18 10:50 Dose: 300 mg Zolpidem Tartrate (Ambien) 10 mg PO BEDTIME [facility] Last Admin: 08/14/18 21:04 Dose: 10 mg Discontinued Medications Bupivacaine HCl (Marcaine 0.5%) Confirm Administered Dose 50 ml .ROUTE .STK-MED ONE Stop: 08/15/18 08:57 Bupivacaine HCl/Epinephrine Bitart (Marcaine 0.5%/Epinephrine 1:200,000) Confirm Administered Dose 50 ml .ROUTE .STK-MED ONE Stop: 08/14/18 12:42 Dexamethasone (Dexamethasone) Confirm Administered Dose 4 mg .ROUTE .STK-MED ONE Stop: 08/14/18 12:49 Fentanyl (Sublimaze) Confirm Administered Dose 250 mcg .ROUTE .STK-MED ONE Stop: 08/14/18 12:46 Fentanyl (Sublimaze) Confirm Administered Dose 100 mcg .ROUTE .STK-MED ONE Stop: 08/14/18 14:18 Fentanyl (Sublimaze) Confirm Administered Dose 100 mcg .ROUTE .STK-MED ONE Stop: 08/15/18 07:14 Glycopyrrolate (Robinul) Confirm Administered Dose 1 mg .ROUTE .STK-MED ONE Stop: 08/14/18 12:49 Hydromorphone HCl (Dilaudid [employer] Business Analyst 15 Mg In Ns 30 Ml) 0 mg IV ASDIRECTED PRN; Protocol PRN Reason: [employer]SE [employer] PAIN CONTROL Last Admin: 04/28/19 16:14 Dose: 15 mg Sodium Chloride (Normal Saline) 1,000 mls @ 999 mls/hr IV ASDIRECTED [facility] Last Admin: 08/13/18 15:42 Dose: 999 mls/hr Clindamycin Phosphate 600 mg/ (Sodium Chloride) 54 mls @ 100 mls/hr IV ONETIME ONE Stop: 08/13/18 16:21 Last Admin: 08/13/18 16:34 Dose: 100 mls/hr Vancomycin HCl 2.5 gm/ Sodium (Chloride) 500 mls @ 200 mls/hr IV ONETIME ONE Stop: 08/13/18 21:29 Last Admin: 08/13/18 20:01 Dose: 200 mls/hr Sodium Chloride (Normal Saline) Confirm Administered Dose 250 mls @ as directed .ROUTE .STK-MED ONE Stop: 08/13/18 19:53 Last Admin: 08/13/18 20:01 Dose: Not Given Vancomycin HCl 2 gm/ Sodium (Chloride) 500 mls @ 250 mls/hr IV Q12H [facility] Last Admin: 08/14/18 09:18 Dose: 250 mls/hr Linezolid (Zyvox) Confirm Administered Dose 300 mls @ as directed .ROUTE .STK- MED ONE Stop: 08/14/18 12:41 Lactated Ringer's (Ringers, Lactated) Confirm Administered Dose 1,000 mls @ as directed .ROUTE .STK-MED ONE Stop: 08/14/18 14:03 Linezolid (Zyvox) Confirm Administered Dose 300 mls @ as directed .ROUTE .STK- MED ONE Stop: 08/15/18 08:48 Lactated Ringer's (Ringers, Lactated) Confirm Administered Dose 1,000 mls @ as directed .ROUTE .STK-MED ONE Stop: 08/15/18 09:46 Insulin Glargine (Lantus Solostar) 20 units SUBCUT BEDTIME [facility] Stop: 08/13/18 21:01 Last Admin: 08/13/18 21:08 Dose: 20 units Insulin Human Regular (Humulin R) 5 unit SUBCUT ONETIME ONE Stop: 08/13/18 16:26 Last Admin: 08/13/18 20:45 Dose: Not Given Insulin Human Regular (Humulin R) 10 unit SUBCUT ONETIME ONE Stop: 08/13/18 17:29 Last Admin: 08/13/18 17:31 Dose: 10 units Ketorolac Tromethamine (Toradol) 30 mg IVPUSH ONETIME ONE Stop: 08/13/18 15:25 Last Admin: 08/13/18 15:43 Dose: 30 mg Lactobacillus Rhamnosus (Culturelle) 1 cap PO DAILY ONE Stop: 08/14/18 15:51 Lidocaine/Epinephrine (Xylocaine 1% With Epinephrine 1:100,000) Confirm Administered Dose 50 ml .ROUTE .STK-MED ONE Stop: 08/15/18 08:57 Linezolid (Zyvox) 600 mg IRR .STK-MED ONE Stop: 08/14/18 14:01 Last Admin: 08/15/18 10:01 Dose: 600 mg Metformin HCl (Glucophage Xr) 2,000 mg PO ACBREAKFAST [facility] Last Admin: 08/14/18 08:29 Dose: 2,000 mg Midazolam HCl (Versed 1 Mg/Ml) Confirm Administered Dose 2 mg .ROUTE .STK-MED ONE Stop: 08/15/18 07:14 Naloxone HCl (Narcan) 0.1 mg IV ASDIRECTED PRN PRN Reason: decreased respiratory rate Neostigmine Methylsulfate (Neostigmine) Confirm Administered Dose 5 mg .ROUTE .STK-MED ONE Stop: 08/14/18 12:49 Nicotine (Habitrol) 14 mg TRDERM ONETIME ONE Stop: 08/13/18 22:01 Last Admin: 08/13/18 22:00 Dose: 14 mg Ondansetron HCl (Zofran) Confirm Administered Dose 4 mg .ROUTE .STK-MED ONE Stop: 08/14/18 12:49 Oxycodone/Acetaminophen (Percocet 325-5 Mg) 1 tab PO ONETIME ONE Stop: 08/13/18 15:25 Last Admin: 08/13/18 15:43 Dose: 1 tab Propofol (Diprivan 20 Ml) Confirm Administered Dose 200 mg .ROUTE .STK-MED ONE Stop: 08/14/18 12:49 Propofol (Diprivan 20 Ml) Confirm Administered Dose 200 mg .ROUTE .STK-MED ONE Stop: 08/15/18 07:14 Propofol (Diprivan 20 Ml) Confirm Administered Dose 200 mg .ROUTE .STK-MED ONE Stop: 08/15/18 09:40 Propofol (Diprivan 20 Ml) Confirm Administered Dose 200 mg .ROUTE .STK-MED ONE Stop: 08/15/18 09:55 Rocuronium [place] (Zemuron) Confirm Administered Dose 50 mg .ROUTE .STK-MED ONE Stop: 08/14/18 12:49 Succinylcholine Chloride (Quelicin) Confirm Administered Dose 200 mg .ROUTE .STK -MED ONE Stop: 08/14/18 12:49 Vancomycin HCl (Vancomycin) Confirm Administered Dose 3 gm .ROUTE .STK-MED ONE Stop: 08/13/18 19:46 Last Admin: 08/13/18 19:54 Dose: Not Given - Exam General: Alert, Oriented, Cooperative, Mild Distress Lungs: Clear to Auscultation, Normal Respiratory Effort Cardiovascular: Regular Rate, Regular Rhythm, No Murmurs GI/Abdominal Exam: Soft, Non-Tender, No Organomegaly, No Distention Extremities: Arm Pain (Surgical dressing in place left arm) - Problem List Review Problem List Initiated/Reviewed/Updated: Yes - Plan Plan:: ASSESSMENT AND PLAN - Abscess and cellulitis of the left antecubital fossa - infection a result of injection of IV drugs about 10 days ago. Improved significantly over the last 24 hours, afebrile, white blood cell count almost normal -Vancomycin and clindamycin -Surgical follow-up per Dr. Bustamante -Pain control -Cultures pending Poorly controlled type 2 diabetes mellitus - patient does not check sugars regularly and sugars have not been well-controlled. -20 units of Lantus at bedtime -Medium dose sliding scale insulin -Restart home dosing tomorrow when he is eating -Continue metformin Morbid obesity with BMI between 46 and 50 - Maintenance issues - - DVT prophylaxis - mechanical - GI prophylaxis - not indicated - Nutrition - consistent carbohydrate diet now, nothing by mouth after midnight - Bautista catheter - not indicated Disposition - I would anticipate discharge home after the hospital stay Primary care physician - Dr. Bustamante [facility]
[2018-08-15] MEDS: Bacitracin Oint 28.35 GM Tube TOP SCH ×2 (17:31→21:56)
[2018-08-15] MEDS ORDERED: LORazepam 1 MG Tab PO SCH (19:00)
[2018-08-15] MEDS ORDERED: LORazepam 2 MG/ML SDV IV SCH (19:00)
[2018-08-15] MEDS: Gabapentin 400 MG Cap PO SCH (19:39)
[2018-08-15] MEDS: Thiamine 100 MG Tab PO SCH (19:39)
[2018-08-15] MEDS: Folic Acid 1 MG Tab PO SCH (19:39)
[2018-08-15] MEDS: LORazepam 2 MG/ML SDV IVPUSH PRN (19:40)
[2018-08-15] MEDS: Zolpidem 5 MG Tab PO SCH (21:53)
[2018-08-15] MEDS: Nicotine 14 MG/24 Hr Patch TRDERM SCH (21:55)
[2018-08-15] MEDS: [UNRECOGNIZED DRUG - REMARK] PO SCH (21:55)
[2018-08-15] MEDS: Insulin Glargine,Human Rec. Analog 100 Units/ML 3 ML Pen SUBCUT SCH (21:57)
[2018-08-16] MEDS: Clindamycin Phosphate 900 MG in Sodium Chloride 0.9% 100 ML IV SCH ×3 (01:09→17:31)
[2018-08-16] MEDS: Linezolid 600 MG in Premix Bag 1 BAG IV SCH ×2 (02:12→15:34)
[2018-08-16] MEDS: oxyCODONE 5 MG Tab PO PRN ×4 (02:13→19:13)
[2018-08-16] MEDS: Gabapentin 400 MG Cap PO SCH ×3 (06:26→17:31)
[2018-08-16] MEDS: Acetaminophen 325 MG Tab PO PRN ×2 (07:43→21:15)
[2018-08-16] MEDS: LORazepam 2 MG/ML SDV IVPUSH PRN ×2 (07:43→21:16)
[2018-08-16] MEDS: Insulin Lispro 100 Unit/ML 3 ML KwikPen SUBCUT SCH ×4 (08:04→21:00)
[2018-08-16] MEDS: Liraglutide (rDNA Origin) 0.6 MG/0.1 ML 3 ML Pen SUBCUT SCH (09:13)
[2018-08-16] MEDS: Bacitracin Oint 28.35 GM Tube TOP SCH ×2 (09:13→21:03)
[2018-08-16] MEDS: busPIRone 10 MG Tab PO SCH ×3 (09:15→21:02)
[2018-08-16] MEDS: Lactobacillus Rhamnosus GG (Probiotic) Cap PO SCH ×2 (09:15→21:02)
[2018-08-16] MEDS: Folic Acid 1 MG Tab PO SCH (09:15)
[2018-08-16] MEDS: Thiamine 100 MG Tab PO SCH (09:15)
[2018-08-16] MEDS: Pregabalin 100 MG Cap PO SCH ×2 (09:15→21:15)
--- NOTE | 2018-08-16 14:41 | PCM.PN ---
- General Info Date of Service: 08/16/18 Subjective Update: Mr. Diallo is remaining stable since yesterday. Anxiety better managed with use of lorazepam as needed. Final culture results and sensitivities are pending - Review of Systems General: Denies: Fever, Chills Pulmonary: Reports: No Symptoms Cardiovascular: Reports: No Symptoms Gastrointestinal: Reports: No Symptoms Musculoskeletal: Reports: Arm Pain - Patient Data Vitals - Most Recent: Last Vital Signs Temp 96.7 F 08/16/18 14:18 Pulse 93 08/16/18 14:18 Resp 16 08/16/18 14:18 BP 146/91 H 08/16/18 14:18 Pulse Ox 100 08/16/18 14:18 Weight - Most Recent: 305 lb 0.011 oz I&O - Last 24 Hours: Intake & Output 08/15/18 08/16/18 08/16/18 22:59 06:59 14:59 Intake Total 2200 2461 Balance 2200 2461 Servando Results Last 24 Hours: Microbiology 08/14/18 13:33 Gram Stain - Final Arm, Left - Upper Wound Culture - Preliminary Anaerobic Culture - Preliminary NO GROWTH AFTER 1 DAY Med Orders - Current: Current Medications Acetaminophen (Tylenol) 650 mg PO Q4H PRN PRN Reason: Pain (Mild 1-3)/fever Last Admin: 08/16/18 07:43 Dose: 650 mg Bacitracin (Bacitracin Oint) 0 gm TOP BID [facility] Last Admin: 08/16/18 09:13 Dose: 1 appful Buspirone HCl (Buspar) 10 mg PO TID [facility] Last Admin: 08/16/18 14:17 Dose: 10 mg Folic Acid (Folic Acid) 1 mg PO DAILY [facility] Last Admin: 08/16/18 09:15 Dose: 1 mg Gabapentin (Neurontin) 400 mg PO Q8H [facility] Last Admin: 08/16/18 09:15 Dose: 400 mg Clindamycin Phosphate 900 mg/ (Sodium Chloride) 106 mls @ 200 mls/hr IV Q8H [facility] Last Admin: 08/16/18 09:13 Dose: 200 mls/hr Linezolid 600 mg/ Premix 300 mls @ 300 mls/hr IV Q12H [facility] Last Admin: 08/16/18 02:12 Dose: 300 mls/hr Insulin Glargine (Lantus Solostar) 30 units SUBCUT BEDTIME [facility] Last Admin: 08/15/18 21:57 Dose: 30 units Insulin Human Lispro (Humalog) 0 unit SUBCUT QIDACANDBED [facility]; Protocol Last Admin: 08/16/18 11:28 Dose: Not Given Ketorolac Tromethamine (Toradol) 30 mg IVPUSH Q6H PRN PRN Reason: Pain (severe 7-10) Stop: 08/18/18 18:22 Last Admin: 08/15/18 19:43 Dose: 30 mg Lactobacillus Rhamnosus (Culturelle) 1 cap PO BID [facility] Last Admin: 08/16/18 09:15 Dose: 1 cap Liraglutide (Victoza) 1.8 mg SUBCUT DAILY [facility] Last Admin: 08/16/18 09:13 Dose: 1.8 unit Lorazepam (Ativan) 1 mg IVPUSH Q2H PRN PRN Reason: Anxiety Last Admin: 08/16/18 07:43 Dose: 1 mg Meperidine HCl (Demerol) 50 mg IVPUSH Q2H PRN PRN Reason: Pain Last Admin: 08/15/18 05:59 Dose: 50 mg Metformin HCl (Glucophage Xr) 2,000 mg PO QPM [facility] Last Admin: 08/15/18 16:32 Dose: 2,000 mg Nicotine (Habitrol) 14 mg TRDERM Q24H [facility] Last Admin: 08/15/18 21:55 Dose: 14 mg Non-Form: Nortriptyline Hcl 10 Mg Cap 10 mg PO BEDTIME [facility] Last Admin: 08/15/18 21:55 Dose: 10 mg Ondansetron HCl (Zofran Odt) 4 mg PO Q6H PRN PRN Reason: Nausea able to take PO Last Admin: 08/15/18 04:16 Dose: 4 mg Ondansetron HCl (Zofran) 4 mg IVPUSH Q4H PRN PRN Reason: Nausea/Vomiting Last Admin: 08/15/18 04:36 Dose: 4 mg Oxycodone HCl (Oxycodone) 5 - 10 mg PO Q4H PRN PRN Reason: Pain (moderate 4-6) Last Admin: 08/16/18 14:17 Dose: 10 mg Pregabalin (Lyrica) 300 mg PO BID [facility] Last Admin: 08/16/18 09:15 Dose: 300 mg Thiamine HCl (Vitamin B-1) 100 mg PO DAILY [facility] Last Admin: 08/16/18 09:15 Dose: 100 mg Zolpidem Tartrate (Ambien) 10 mg PO BEDTIME [facility] Last Admin: 08/15/18 21:53 Dose: 10 mg Discontinued Medications Bupivacaine HCl (Marcaine 0.5%) Confirm Administered Dose 50 ml .ROUTE .STK-MED ONE Stop: 08/15/18 08:57 Bupivacaine HCl/Epinephrine Bitart (Marcaine 0.5%/Epinephrine 1:200,000) Confirm Administered Dose 50 ml .ROUTE .STK-MED ONE Stop: 08/14/18 12:42 Dexamethasone (Dexamethasone) Confirm Administered Dose 4 mg .ROUTE .STK-MED ONE Stop: 08/14/18 12:49 Fentanyl (Sublimaze) Confirm Administered Dose 250 mcg .ROUTE .STK-MED ONE Stop: 08/14/18 12:46 Fentanyl (Sublimaze) Confirm Administered Dose 100 mcg .ROUTE .STK-MED ONE Stop: 08/14/18 14:18 Fentanyl (Sublimaze) Confirm Administered Dose 100 mcg .ROUTE .STK-MED ONE Stop: 08/15/18 07:14 Gabapentin (Neurontin) 400 mg PO Q8H [facility] Last Admin: 08/16/18 06:26 Dose: Not Given Glycopyrrolate (Robinul) Confirm Administered Dose 1 mg .ROUTE .STK-MED ONE Stop: 08/14/18 12:49 Hydromorphone HCl (Dilaudid [place] Roll Maker 15 Mg In Ns 30 Ml) 0 mg IV ASDIRECTED PRN; Protocol PRN Reason: [employer]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 PAIN CONTROL Last Admin: 08/14/18 16:14 Dose: 15 mg Sodium Chloride (Normal Saline) 1,000 mls @ 999 mls/hr IV ASDIRECTED [facility] Last Admin: 08/13/18 15:42 Dose: 999 mls/hr Clindamycin Phosphate 600 mg/ (Sodium Chloride) 54 mls @ 100 mls/hr IV ONETIME ONE Stop: 08/13/18 16:21 Last Admin: 08/13/18 16:34 Dose: 100 mls/hr Sodium Chloride (Normal Saline) 1,000 mls @ 125 mls/hr IV ASDIRECTED [facility] Last Admin: 08/15/18 21:27 Dose: 125 mls/hr Vancomycin HCl 2.5 gm/ Sodium (Chloride) 500 mls @ 200 mls/hr IV ONETIME ONE Stop: 08/13/18 21:29 Last Admin: 08/13/18 20:01 Dose: 200 mls/hr Sodium Chloride (Normal Saline) Confirm Administered Dose 250 mls @ as directed .ROUTE .STK-MED ONE Stop: 08/13/18 19:53 Last Admin: 08/13/18 20:01 Dose: Not Given Vancomycin HCl 2 gm/ Sodium (Chloride) 500 mls @ 250 mls/hr IV Q12H [facility] Last Admin: 08/14/18 09:18 Dose: 250 mls/hr Linezolid (Zyvox) Confirm Administered Dose 300 mls @ as directed .ROUTE .STK- MED ONE Stop: 08/14/18 12:41 Lactated Ringer's (Ringers, Lactated) Confirm Administered Dose 1,000 mls @ as directed .ROUTE .STK-MED ONE Stop: 08/14/18 14:03 Linezolid (Zyvox) Confirm Administered Dose 300 mls @ as directed .ROUTE .STK- MED ONE Stop: 08/15/18 08:48 Lactated Ringer's (Ringers, Lactated) Confirm Administered Dose 1,000 mls @ as directed .ROUTE .STK-MED ONE Stop: 08/15/18 09:46 Insulin Glargine (Lantus Solostar) 20 units SUBCUT BEDTIME [facility] Stop: 08/13/18 21:01 Last Admin: 08/13/18 21:08 Dose: 20 units Insulin Human Regular (Humulin R) 5 unit SUBCUT ONETIME ONE Stop: 08/13/18 16:26 Last Admin: 08/13/18 20:45 Dose: Not Given Insulin Human Regular (Humulin R) 10 unit SUBCUT ONETIME ONE Stop: 08/13/18 17:29 Last Admin: 08/13/18 17:31 Dose: 10 units Ketorolac Tromethamine (Toradol) 30 mg IVPUSH ONETIME ONE Stop: 08/13/18 15:25 Last Admin: 08/13/18 15:43 Dose: 30 mg Lactobacillus Rhamnosus (Culturelle) 1 cap PO DAILY ONE Stop: 08/14/18 15:51 Lidocaine/Epinephrine (Xylocaine 1% With Epinephrine 1:100,000) Confirm Administered Dose 50 ml .ROUTE .STK-MED ONE Stop: 08/15/18 08:57 Linezolid (Zyvox) 600 mg IRR .STK-MED ONE Stop: 08/14/18 14:01 Last Admin: 08/15/18 10:01 Dose: 600 mg Lorazepam (Ativan) 0 mg IV ASDIRECTED [facility]; Protocol Lorazepam (Ativan) 0 mg PO ASDIRECTED [facility]; Protocol Metformin HCl (Glucophage Xr) 2,000 mg PO ACBREAKFAST [facility] Last Admin: 08/14/18 08:29 Dose: 2,000 mg Midazolam HCl (Versed 1 Mg/Ml) Confirm Administered Dose 2 mg .ROUTE .STK-MED ONE Stop: 08/15/18 07:14 Naloxone HCl (Narcan) 0.1 mg IV ASDIRECTED PRN PRN Reason: decreased respiratory rate Neostigmine Methylsulfate (Neostigmine) Confirm Administered Dose 5 mg .ROUTE .STK-MED ONE Stop: 08/14/18 12:49 Nicotine (Habitrol) 14 mg TRDERM ONETIME ONE Stop: 08/13/18 22:01 Last Admin: 08/13/18 22:00 Dose: 14 mg Ondansetron HCl (Zofran) Confirm Administered Dose 4 mg .ROUTE .STK-MED ONE Stop: 08/14/18 12:49 Oxycodone/Acetaminophen (Percocet 325-5 Mg) 1 tab PO ONETIME ONE Stop: 08/13/18 15:25 Last Admin: 08/13/18 15:43 Dose: 1 tab Propofol (Diprivan 20 Ml) Confirm Administered Dose 200 mg .ROUTE .STK-MED ONE Stop: 08/14/18 12:49 Propofol (Diprivan 20 Ml) Confirm Administered Dose 200 mg .ROUTE .STK-MED ONE Stop: 08/15/18 07:14 Propofol (Diprivan 20 Ml) Confirm Administered Dose 200 mg .ROUTE .STK-MED ONE Stop: 08/15/18 09:40 Propofol (Diprivan 20 Ml) Confirm Administered Dose 200 mg .ROUTE .STK-MED ONE Stop: 08/15/18 09:55 Rocuronium [place] (Zemuron) Confirm Administered Dose 50 mg .ROUTE .STK-MED ONE Stop: 08/14/18 12:49 Succinylcholine Chloride (Quelicin) Confirm Administered Dose 200 mg .ROUTE .STK -MED ONE Stop: 08/14/18 12:49 Vancomycin HCl (Vancomycin) Confirm Administered Dose 3 gm .ROUTE .STK-MED ONE Stop: 08/13/18 19:46 Last Admin: 08/13/18 19:54 Dose: Not Given - Exam General: Alert, Oriented, Cooperative, No Acute Distress Lungs: Clear to Auscultation, Normal Respiratory Effort Cardiovascular: Regular Rate, Regular Rhythm, No Murmurs GI/Abdominal Exam: Soft, Non-Tender, No Organomegaly, No Distention Extremities: Arm Pain (Surgical dressing in place left arm) Skin: Warm, Dry - Problem List Review Problem List Initiated/Reviewed/Updated: Yes - My Orders Last 24 Hours: My Active Orders 08/15/18 18:46 CIWAA Assessment [RC] Q4H Cardiac Monitoring [RC] .As Directed Notify Provider [RC] .PRN 08/15/18 19:00 Folic Acid 1 mg PO DAILY Thiamine [Vitamin B-1] 100 mg PO DAILY 08/15/18 19:21 LORazepam [Ativan] 1 mg IVPUSH Q2H PRN 08/16/18 09:00 Gabapentin [Neurontin] 400 mg PO Q8H 08/16/18 14:36 Convert IV to Saline Lock [OM.PC] Routine - Plan Plan:: ASSESSMENT AND PLAN - Abscess and cellulitis of the left antecubital fossa - infection a result of injection of IV drug use. Much improved over the last 2 days, final ID and sensitivities and culture pending -Vancomycin and clindamycin -Surgical follow-up per Dr. Bustamante -Pain control -Cultures pending Poorly controlled type 2 diabetes mellitus - patient does not check sugars regularly and sugars have not been well-controlled. -20 units of Lantus at bedtime -Medium dose sliding scale insulin -Restart home dosing tomorrow when he is eating -Continue metformin Morbid obesity with BMI between 46 and 50 - Maintenance issues - - DVT prophylaxis - mechanical - GI prophylaxis - not indicated - Nutrition - consistent carbohydrate diet now, nothing by mouth after midnight - Bautista catheter - not indicated Disposition - I would anticipate discharge home after the hospital stay Primary care physician - Dr. Bustamante [facility]
[2018-08-16] MEDS: metFORMIN 500 MG Tab.ER PO SCH (17:32)
--- NOTE | 2018-08-16 19:04 | PN ---
DATE OF SERVICE: 08/16/2018 This is a response to a consult by Dr. Darryl Bustamante and Dr. Eran Callahan regarding diabetic foot care. Thank you Dr. Callahan and Dr. Bustamante for the referral of this patient to our service. SUBJECTIVE: The patient is alert and oriented x3. In no acute distress. The patient relates that he has not had routine foot care for his feet anytime recently. Relates he has a sore on the bottom of his right big toe and has some cracks and calluses, that his nails are thick and long. PAST MEDICAL HISTORY: Significant for obesity. REVIEW OF SYSTEMS: ENDOCRINE: Patient relates history of diabetes mellitus. NEUROLOGICAL: Patient relates history of numbness and tingling in his feet. FAMILY HISTORY: Patient denies history of bleeding or clotting disorders. SOCIAL HISTORY: The patient has a history of illicit drug use. OBJECTIVE: GENERAL: Patient is alert and oriented x3. In no acute distress. VITAL SIGNS: Per EMR. VASCULAR: Examination revealed the pedal pulses were palpable DP and PT bilaterally. Capillary fill time was less than 3 seconds digits 1, 4, 5 on the left and 1, 3, 4, 5 on the right. DERMATOLOGICAL: Examination revealed that there was a fissure with an opening ended on the plantar aspect of the right great toe. This measures approximately 1 mm x 15 mm and after removal of the hyperkeratotic and necrotic edges had healthy bleeding tissue. There is no purulence. No malodor. No signs of infection. Hyperkeratotic lesions with fissuring is present on the great toe bilaterally on the right 3rd toe and also on the left 4th toe. After these were debrided there was healthy intact skin underneath. There was no purulence. No malodor. No signs of infection. Nails were thickened with yellow discoloration elongated 1, 3, 4, 5 on the right and 1, 4, 5 on the left. ASSESSMENT: 1. Diabetes mellitus. 2. Diabetic polyneuropathy. 3. Noncompliance. 4. Calluses for a total of five. 5. Onychomycosis. 6. Fissure with open wound plantar aspect, right great toe. No signs of infection. PLAN: Patient was examined and evaluated. Calluses are debrided for a total of five nails were debrided for a total of seven. Mycotic nails were debrided for a total of seven and dressings were applied. There was a small amount of bleeding after debriding the calluses, so these areas were dressed with bacitracin ointment, 4x4s and Coban. The patient was told that we highly recommend that he follow up with a retail project merchandiser immediately after discharge, so he can set up a regular routine care and we recommend that he follow up with if possible Dr. Charo mayes Tolar. He related that he thinks that he can get in to Dr. Charo mayes Tolar after discharge. We told him that is a good option for him. The patient was agreeable to this. The patient was told to call if he has any other questions or concerns. Kartik Chang DPM /[id number]
[2018-08-16] MEDS ORDERED: Nortriptyline 10 MG Cap PO SCH (21:00)
[2018-08-16] MEDS: Nicotine 14 MG/24 Hr Patch TRDERM SCH (21:03)
[2018-08-16] MEDS: Insulin Glargine,Human Rec. Analog 100 Units/ML 3 ML Pen SUBCUT SCH (21:05)
[2018-08-16] MEDS: Zolpidem 5 MG Tab PO SCH (21:15)
[2018-08-17] MEDS: Clindamycin Phosphate 900 MG in Sodium Chloride 0.9% 100 ML IV SCH (02:06)
[2018-08-17] MEDS: Gabapentin 400 MG Cap PO SCH ×2 (02:07→09:58)
[2018-08-17] MEDS: oxyCODONE 5 MG Tab PO PRN ×2 (02:11→06:52)
[2018-08-17] MEDS: Linezolid 600 MG in Premix Bag 1 BAG IV SCH (03:11)
[2018-08-17] MEDS: Insulin Lispro 100 Unit/ML 3 ML KwikPen SUBCUT SCH (07:56)
[2018-08-17 08:13] VITALS: BP 153/83
[2018-08-17] MEDS ORDERED: Sulfamethoxazole/Trimethoprim 800-160 MG Tab PO SCH (09:00)
[2018-08-17] MEDS: Bacitracin Oint 28.35 GM Tube TOP SCH (09:57)
[2018-08-17] MEDS: busPIRone 10 MG Tab PO SCH (09:57)
[2018-08-17] MEDS: Liraglutide (rDNA Origin) 0.6 MG/0.1 ML 3 ML Pen SUBCUT SCH (09:57)
[2018-08-17] MEDS: Folic Acid 1 MG Tab PO SCH (09:57)
[2018-08-17] MEDS: Lactobacillus Rhamnosus GG (Probiotic) Cap PO SCH (09:57)
[2018-08-17] MEDS: Thiamine 100 MG Tab PO SCH (09:57)
[2018-08-17] MEDS: Pregabalin 100 MG Cap PO SCH (10:15)
--- NOTE | 2018-08-17 12:24 | DISCH ---
ADMISSION DIAGNOSES: 1. Abscess, left arm. 2. Impaired vision. 3. Chronic obstructive pulmonary disease. 4. Sleep apnea. 5. Arthritis. 6. Chronic back pain. 7. Diabetes type 2, uncontrolled. 8. History of malignant melanoma. 9. Psychiatric history positive for anxiety, depression, panic attack, and methamphetamine addiction. DISCHARGE DIAGNOSES: 1. Drainage and debridement of deep subfacial abscess, left antecubital fascia associated with developing pseudoaneurysm of brachial artery and necrosis of basilic vein. He had a ligation developing into pseudoaneurysm of the left brachial artery. Date of surgery: 08/14/2018. Darryl Bustamante MD, surgeon. 2. Debridement of necrotizing infection, left antecubital fossa and dressing change under general anesthesia on 08/15/2018. HISTORY: Demarcus presented to the emergency room on 08/13/2018, stating his arm was infected and it was swollen and painful. He states he was injecting methamphetamine intravenously into the left antecubital fossa about 10 days ago. Two days later, he developed redness and swelling. The redness and swelling have progressed over the past 10 days. He was started on doxycycline, but the infection continued to increase. After preoperative evaluation and discussion of possible risks and possible complications, he wished to proceed with surgical procedure on 08/14 and again on 08/15. Diabetes has not been controlled. He was treated with insulin coverage appropriately. He remained afebrile. Vital signs were stable. Pain was managed. Dressings were changed twice a day. He had no developing complications. Culture of the wound did show methicillin-resistant Staphylococcus aureus and Streptococcus viridans. On 08/16/2018, he did have a Podiatry consult, Dr. Kartik Chang, did see the patient and calluses were debrided for a total of 5 nails were debrided. Mycotic nails were debrided x7. He will be followed up with Dr. Mancilla at [place]. Demarcus Diallo was able to be discharged to home with home health care on 08/17/2018. PHYSICAL EXAMINATION: GENERAL: Demarcus Diallo is a pleasant 33-year-old male. VITAL SIGNS: Height 5 feet 8.11 inches, weight is 305 pounds. TPR 94 to 95, 16, blood pressure 153/83. HEENT: Negative. NECK: Supple. HEART: Regular rate and rhythm. LUNGS: Clear. SKIN: Left antecubital area incision is deep, clean, dry, healing well. No signs of infection. Dressings on feet were clean and dry. ABDOMEN: Negative. EXTREMITIES: Otherwise negative. DISPOSITION: Discharged to home with home health care. FOLLOWUP APPOINTMENT: With Darryl Bustamante MD on 08/24/2018 at 10:15 a.m. HOME PRESCRIPTIONS: 1. Tylenol 650 mg every 4 hours p.r.n. pain. 2. Bacitracin ointment to use as directed twice daily. 3. Oxycodone 5 mg oral q.4 hours p.r.n. pain #42. 4. Septra DS 1 tablet b.i.d. for 14 days, 20 pills given. 5. He is to resume NovoLog Mix 70/30, 50 units subcu twice daily. 6. Victoza 1.8 subcu daily/. 7. Nortriptyline/Pamelor 10 mg oral at bedtime. 8. Lyrica 300 mg oral twice daily. 9. Ambien 10 mg at bedtime. 10.BuSpar 1 tablet oral 3 times a day, 10 mg tablets. 11.Metformin 2000 mg daily for breakfast. DISCHARGE DIET: Diet after discharge: Diabetic diet. Drink 8 to 10 glasses of water a day. Activity as tolerated. Driving: Do not drive while on narcotic pain medication. Shower/bathing: May shower. DISCHARGE INSTRUCTIONS: 1. Notify provider if any fever, increased pain, nausea, or vomiting. Keep site clean and dry. Wound incision care is change dressing on the left arm twice a day. May shower, then pat off excessive water and place dry gauze on open incision and wrap with Kerlix. 2. Change dressing on toes and feet once a day. 3. Use incentive spirometer 10 times every hour while awake.
--- NOTE | 2018-08-17 18:18 | PN ---
DATE OF SERVICE: 08/16/2018 The patient has been afebrile with stable vital signs. The wound is fairly clean at this point. We will begin b.i.d. dressing changes. Sensitivities are not yet back, so we will continue the Zyvox and clindamycin pending C and S results. We will also begin to get some discharge planning set up. We will likely have help with the dressing changes upon discharge, which may be toward the end of the week. Darryl Bustamante MD /[id number]
--- NOTE | 2018-08-18 09:16 | OR ---
DATE OF PROCEDURE: 08/14/2018 SURGEON: Darryl Bustamante MD PREOPERATIVE DIAGNOSIS: Abscess, left antecubital fossa. POSTOPERATIVE DIAGNOSES: Deep/subfascial abscess, left antecubital fossa, associated with developing pseudoaneurysm of brachial artery. OPERATIVE PROCEDURES: 1. Drainage and debridement of subfascial abscess, left antecubital fossa (83192). 2. Ligation and excision of pseudoaneurysm, left brachial artery ([id number]). ANESTHESIA: General. EMS EDUCATOR: KOSTA Cason. INDICATION FOR PROCEDURE: This is a 33-year-old who had been injecting some methamphetamine into his area around the basilic vein in the left antecubital fossa, where he must have had some extravasation of the area, and has developed a large abscess in the antecubital fossa. He has history of MRSA in the past. The plan is to proceed with drainage of this and any additional procedures that might be necessary based on the present anatomy and the operative findings. Potential risks of the procedure including bleeding, infection, possible injury to the nerves or arteries in this area were gone over, and the patient wishes to proceed. DETAILS OF PROCEDURE: The patient was taken to the operating room, and after general endotracheal anesthesia was induced, initially an oblique incision was made over the abscess. A large amount of creamy and purulent material was obtained. Culture of this was sent. An ellipse of skin over the length of the abscess was then excised to facilitate subsequent wound care. The patient was noted to have a more or less destroyed basilic vein, which was divided and ligated proximally and distally to the incision. Underneath the plane where the nerves and brachial artery pass, there was some additional purulent material, and that strand of tissue containing the brachial artery and adjacent nerves was more or less out away from any other tissue, i.e., fully open to the air upon drainage of the abscess. The brachial artery did have some blood around it, and it had a small amount of leakage consistent with a pseudoaneurysm developing at that area. This was felt best to be excised and the ends buried into the surrounding soft tissues. The artery was divided proximally and distally to the point where it was going in and out of the wound, and that area was excised. The remaining ends were then buried in the soft tissues with all of this being done with 3-0 Vicryl sutures. At that point, no further problems were noted. He was confirmed to have a nonpalpable, but triphasic radial artery signal by Doppler, and his hand appeared to be clinically well perfused, i.e., there appeared to be no evidence of significant ischemia, and he likely has satisfactory collaterals around the area of the elbow to provide blood flow to the more distal forearm and hand. Given this, reconstructive efforts regarding brachial artery in this case would not be necessary. The wound was then packed with iodoform gauze. The plan will be to reexplore this tomorrow, to at least do dressing change under anesthesia. Darryl Bustamante MD /[id number]
--- NOTE | 2018-08-22 11:36 | OR ---
DATE OF PROCEDURE: 08/15/2018 PREOPERATIVE DIAGNOSIS: Necrotizing infection left antecubital fossa. POSTOPERATIVE DIAGNOSIS: 1. Debridement and drainage of necrotizing infection of left antecubital fossa (58951). 2. Dressing change under anesthesia ([id number]). ANESTHESIA: Local plus IV sedation. INDICATION FOR PROCEDURE: This is a 33-year-old, presenting with extensive necrosis and abscess formation along with a brachial artery pseudoaneurysm related to methamphetamine injection into the left antecubital fossa. The patient underwent drainage of this along with excision of the brachial artery involvement pseudoaneurysm yesterday. He is to undergo a second look at this area where the patient as indicated and dressing change under anesthesia. Potential risks of the procedure were reviewed with the patient and he wishes to proceed. DETAILS OF PROCEDURE: The patient was taken to the operating room. After some IV sedation was administered, the operative dressing from yesterday was taken down. There were some scattered areas of necrotic tissue, which were then debrided. This included down to the level of the deep fascia and a plane behind where the artery and nerves had been passing through. The nerves in this area appeared to be intact and the coverage of the excised artery remained satisfactory in terms of coverage over those ends. The area was irrigated with Zyvox containing saline solution, and following this then packed open with Nu Gauze soaked with Zyvox solution as well and the dressing then applied. Small amount of local anesthetic had been placed along the wound edges where the debridement was undertaken. Otherwise, the patient had primarily IV sedation for the Anesthesia. The patient was taken to the recovery room in satisfactory condition. There were no evident complications. Darryl Bustamante MD /[id number]
== END 2018-08-17 10:30 | disposition home health service (06) | DRG 580 ==
LOC: JP.ED 14:32 → JP.MS 17:29
PROVIDERS: ADMIT Internal Medicine; ATTEND Hospitalist
PROC: 0K9B0ZX Drainage of Left Lower Arm and Wrist Muscle, Open Approach, Diagnostic (ICD-10-PCS; principal; 2018-08-14)
PROC: 03L80ZZ Occlusion of Left Brachial Artery, Open Approach (ICD-10-PCS; 2018-08-14)
PROC: 03B80ZZ Excision of Left Brachial Artery, Open Approach (ICD-10-PCS; 2018-08-14)
PROC: 03L80ZZ Occlusion of Left Brachial Artery, Open Approach (ICD-10-PCS; 2018-08-14)
PROC: 03B80ZZ Excision of Left Brachial Artery, Open Approach (ICD-10-PCS; 2018-08-14)
PROC: 0JDH0ZZ Extraction of Left Lower Arm Subcutaneous Tissue and Fascia, Open Approach (ICD-10-PCS; 2018-08-15)
PROC: 2W0 Placement, Anatomical Regions, Change (ICD-10-PCS; 2018-08-15)
PROC: 0HBRXZZ Excision of Toe Nail, External Approach (ICD-10-PCS; 2018-08-16)
PROC: 0HBRXZZ Excision of Toe Nail, External Approach (ICD-10-PCS; 2018-08-16)
PROC: 0HBRXZZ Excision of Toe Nail, External Approach (ICD-10-PCS; 2018-08-16)
PROC: 0HBRXZZ Excision of Toe Nail, External Approach (ICD-10-PCS; 2018-08-16)
PROC: 0HBRXZZ Excision of Toe Nail, External Approach (ICD-10-PCS; 2018-08-16)
PROC: 0HBRXZZ Excision of Toe Nail, External Approach (ICD-10-PCS; 2018-08-16)
PROC: 0HBRXZZ Excision of Toe Nail, External Approach (ICD-10-PCS; 2018-08-16)
PROC: 0HBNXZZ Excision of Left Foot Skin, External Approach (ICD-10-PCS; 2018-08-16)
PROC: 0HBMXZZ Excision of Right Foot Skin, External Approach (ICD-10-PCS; 2018-08-16)
DX: L02.414 Cutaneous abscess of left upper limb (principal); Z68.42 Body mass index [BMI] 45.0-49.9, adult; F15.20 Other stimulant dependence, uncomplicated; E11.52 Type 2 diabetes mellitus with diabetic peripheral angiopathy with gangrene; I96 Gangrene, not elsewhere classified; L03.114 Cellulitis of left upper limb; B95.4 Other streptococcus as the cause of diseases classified elsewhere; B95.62 Methicillin resistant Staphylococcus aureus infection as the cause of diseases classified elsewhere; I72.8 Aneurysm of other specified arteries; E11.65 Type 2 diabetes mellitus with hyperglycemia; Z79.4 Long term (current) use of insulin; L84 Corns and callosities; R23.4 Changes in skin texture; B35.1 Tinea unguium; L60.8 Other nail disorders; F17.210 Nicotine dependence, cigarettes, uncomplicated; Z86.14 Personal history of Methicillin resistant Staphylococcus aureus infection; M19.90 Unspecified osteoarthritis, unspecified site; M54.9 Dorsalgia, unspecified; G89.29 Other chronic pain; F32.9 Major depressive disorder, single episode, unspecified; F41.9 Anxiety disorder, unspecified; H54.7 Unspecified visual loss; E66.01 Morbid (severe) obesity due to excess calories; Z88.1 Allergy status to other antibiotic agents; Z91.030 Bee allergy status; Z88.0 Allergy status to penicillin; E11.42 Type 2 diabetes mellitus with diabetic polyneuropathy; Z91.19 Patient's noncompliance with other medical treatment and regimen; J44.9 Chronic obstructive pulmonary disease, unspecified; G47.30 Sleep apnea, unspecified
CPT/HCPCS: 36415; 76881-RT; 80048; 80053; 82962; 85025; 85027; 87070; 87075; 87077; 87186; 87205; 88304; 88305; 93005; 94762; 96361; 96365; 96375; 99285-25; A9270-GY; J0330; J1100; J1170; J1815; J1815-GY; J1885; J2020; J2060; J2175; J2250; J2405; J2704; J2710; J3010; J3370; J3490; J7030; J7040; J7050; J7120

== ENCOUNTER 2018-08-26 10:34 | Emergency (ER) | payer MEDICAID ==
[2018-08-26 10:47] VITALS: BP 141/84
--- NOTE | 2018-08-26 11:28 | EDM.PDOC ---
ED HPI GENERAL MEDICAL PROBLEM - General Chief Complaint: Lower Extremity Injury/Pain Stated Complaint: LEFT FOOT GREAT TOE RED SWOLLEN Time Seen by Provider: 08/26/18 11:03 Source of Information: Reports: Patient, Old Records, RN Notes Reviewed History Limitations: Reports: No Limitations - History of Present Illness INITIAL COMMENTS - FREE TEXT/NARRATIVE: 33-year-old gentleman presents emergency department today complaint of left foot pain predominantly in the great toe, he has had multiple amputations on both feet secondary to poorly controlled diabetes mellitus type 2 was recently admitted the hospital first part of this month he did have diabetic foot care done on 08/16/2018 has been on antibiotics of Bactrim. States over the last couple days he's had increased swelling redness with chills and pain primarily in his great toe left foot Left Toe-Hailux Pain Score (Numeric/FACES): 8 - Related Data Allergies Allergy/AdvReac Type Severity Reaction Status Date / Time amoxicillin [Amoxicillin] Allergy Severe Cannot Verified 08/26/18 10:52 Remember Penicillins Allergy Severe Cannot Verified 08/26/18 10:52 Remember venom-honey bee Allergy Severe Swelling Verified 08/26/18 10:52 [bee venom (honey bee)] hydromorphone [From Dilaudid] Allergy Nausea and Verified 08/26/18 10:52 Vomiting Home Meds: Home Meds Liraglutide [Victoza 3-Juan M] 1.8 mg SQ DAILY 12/13/17 [History] Insuln Asp Prot/Insulin Aspart [NovoLOG Mix 70-30] 100 units SUBCUT BID [History] Nortriptyline HCl [Pamelor] 10 mg PO BEDTIME 02/21/18 [History] Pregabalin [Lyrica] 300 mg PO BID 02/21/18 [History] Zolpidem Tartrate [Ambien] 10 mg PO BEDTIME 02/21/18 [History] busPIRone [Buspar] 1 tab PO TID 08/13/18 [History] metFORMIN HCl [Metformin ER Osmotic] 2,000 mg PO ACBREAKFAST 08/13/18 [History] Acetaminophen [Tylenol] 650 mg PO Q4H PRN tablet 08/17/18 [Rx] Bacitracin [Bacitracin Oint] 0 gm TOP BID tube 08/17/18 [Rx] Sulfamethoxazole/Trimethoprim [Septra DS] 1 tab PO BID #28 tablet 08/17/18 [Rx] Past Medical History HEENT History: Reports: Impaired Vision Respiratory History: Reports: COPD, Sleep Apnea Musculoskeletal History: Reports: Arthritis, Back Pain, Chronic, Fracture Psychiatric History: Reports: Addiction, Anxiety, Depression, Panic Attack Endocrine/Metabolic History: Reports: Diabetes, Type II, Obesity/BMI 30+ Immunologic History: Reports: Other (See Below) Other Immunologic History: h/o mrsa Oncologic (Cancer) History: Reports: Malignant Melanoma Other Oncologic History: patient states he had a mole removed from right wrist area that was melanoma Dermatologic History: Reports: None - Infectious Disease History Infectious Disease History: Reports: MRSA Other Infectious Disease History: MRSA to right upper back - Past Surgical History GI Surgical History: Reports: Appendectomy Neurological Surgical History: Reports: Scoliosis Dermatological Surgical History: Reports: Skin Biopsy Social & Family History - Family History Family Medical History: Noncontributory - Tobacco Use Smoking Status *Q: Current Some Day Smoker Years of Tobacco use: 15 Packs/Tins Daily: 0.1 - Caffeine Use Caffeine Use: Reports: Coffee, Energy Drinks, Soda - Recreational Drug Use Recreational Drug Use: Yes Recreational Drug Type: Reports: Marijuana/Hashish, Methamphetamine Recreational Drug Use Frequency: Daily Review of Systems - Review of Systems Review Of Systems: See Below Constitutional: Reports: Chills. Denies: Fever Musculoskeletal: Reports: Foot Pain Skin: Reports: Pallor, Rash, Erythema, Wound ED EXAM, GENERAL - Physical Exam Exam: See Below Free Text/Narrative:: Examination of the left foot the great toe is markedly edematous there is a developing diabetic ulcer on the distal tip of the great toe there is black eschar surrounding that is well it is red and painful to the touch. Pulses diminished +1 redness increases to midfoot length digits 2 and 3 are missing status post amputation Course - Vital Signs Last Recorded V/S: Last Vital Signs Temp 98 F 08/26/18 10:51 Pulse 104 H 08/26/18 10:51 Resp 16 08/26/18 10:51 BP 141/84 H 08/26/18 10:51 Pulse Ox 100 08/26/18 10:51 - Orders/Labs/Meds Orders: Active Orders 24 hr Category Date Time Status Vital Signs [RC] Q1H Care 08/26/18 11:39 Active Labs: Laboratory Tests 08/26/18 08/26/18 08/26/18 Range/Units 11:53 11:53 11:53 WBC 9.8 (4.5-11.0) K/uL RBC 5.06 (4.30-5.90) M/uL Hgb 13.5 (12.0-15.0) g/dL Hct 41.6 (40.0-54.0) % MCV 82 (80-98) fL MCH 27 (27-31) pg MCHC 33 (32-36) % Plt Count 500 H (150-400) K/uL Neut % (Auto) 73 H (36-66) % Lymph % (Auto) 19 L (24-44) % [place] % (Auto) 7 H (2-6) % Eos % (Auto) 2 (2-4) % Baso % (Auto) 0 (0-1) % Sodium 139 L (140-148) mmol/L Potassium 4.6 (3.6-5.2) mmol/L Chloride 102 (100-108) mmol/L Carbon Dioxide 28 (21-32) mmol/L Anion Gap 13.6 (5.0-14.0) mmol/L BUN 10 (7-18) mg/dL Creatinine 0.9 (0.8-1.3) mg/dL Est Cr Clr Drug Dosing 112.94 mL/min Estimated GFR (MDRD) > 60 (>60) Glucose 248 H (74-106) mg/dL Lactic Acid 2.2 H (0.4-2.0) mmol/L Calcium 8.9 (8.5-10.1) mg/dL Total Bilirubin 0.2 D (0.2-1.0) mg/dL AST 28 (15-37) U/L ALT 79 H (12-78) U/L Alkaline Phosphatase 154 H (46-116) U/L C-Reactive Protein 1.92 H (0.0-0.3) mg/dL Total Protein 7.6 (6.4-8.2) g/dL Albumin 2.9 L (3.4-5.0) g/dL Globulin 4.7 H (2.3-3.5) g/dL Albumin/Globulin Ratio 0.6 L (1.2-2.2) Departure - Departure Time of Disposition: 14:20 Disposition: Home, Self-Care 01 Condition: Poor Clinical Impression: Diabetic foot ulcer Qualifiers: Diabetic foot ulcer location: toe Diabetes mellitus type: type 2 Laterality: left Non-pressure ulcer stage: with bone involvement without evidence of necrosis Qualified Code(s): E11.621 - Type 2 diabetes mellitus with foot ulcer; L97.526 - Non-pressure chronic ulcer of other part of left foot with bone involvement without evidence of necrosis - Discharge Information Referrals: Bernarda Bustamante I CHANGE MANAGEMENT CONSULTANT [Primary Care Provider] - Forms: ED Department Discharge Additional Instructions: Start antibiotics of Augmentin please follow-up with Dr. Bustamante in the clinic on Wednesday, please call the clinic on Wednesday for an appointment time - My Orders Last 24 Hours: My Active Orders 08/26/18 11:39 Vital Signs [RC] Q1H - Assessment/Plan Last 24 Hours: My Active Orders 08/26/18 11:39 Vital Signs [RC] Q1H Plan: Assessment Acuity = acute Site and laterality = diabetic foot ulcer great toe left foot Etiology = bacterial cause Manifestations = pain Location of injury = Home Lab values = CBC unremarkable lactic acid slightly elevated at 2.2 CRP elevated 192 versus CMP is unremarkable except for shows no osteomyelitis Plan I did review with him options initially had planned on doing an admission here for further evaluation and possible amputation of that toe. However the hospital is on Red alert and there are no beds available at this time. I offered him transfer to another facility he declined therefore the plan is to follow up with Dr. Bustamante who I spoke with at 1410 for him to follow-up with in the clinic on Wednesday will add additional antibiotic of Augmentin This note was dictated using [employer] voice recognition software please call with any questions on syntax or grammar.
--- NOTE | 2018-08-26 12:39 | CRLCR ---
Indication: Left 1st toe pain Technique: Three views left 1st toe Comparison: None Findings: Soft tissue swelling of the left 1st toe. There is soft tissue ulceration of the tip of the left 1st toe. There are several tiny radiopaque foreign bodies either in or on the surface of the skin at this level. No bony erosion, fracture, or subluxation. Status post resection of the middle and distal 2nd and 3rd phalanges. Impression: Soft tissue ulceration of the tip of the left 1st toe. No evidence for osteomyelitis. Dictated by Yary Schmitz MD @ Aug 26 2018 12:34PM Signed by Dr. Yary Schmitz @ Aug 26 2018 12:37PM
== END 2018-08-26 15:02 | disposition home or self-care (01) ==
LOC: JP.ED 10:34
DX: E11.621 Type 2 diabetes mellitus with foot ulcer (principal); L97.526 Non-pressure chronic ulcer of other part of left foot with bone involvement without evidence of necrosis; F17.210 Nicotine dependence, cigarettes, uncomplicated; F41.9 Anxiety disorder, unspecified; F32.9 Major depressive disorder, single episode, unspecified; J44.9 Chronic obstructive pulmonary disease, unspecified; Z79.4 Long term (current) use of insulin; Z79.899 Other long term (current) drug therapy; Z88.1 Allergy status to other antibiotic agents; Z88.0 Allergy status to penicillin; Z91.030 Bee allergy status; Z88.6 Allergy status to analgesic agent
CPT/HCPCS: 36415; 73660-TA; 80053; 83605; 85025; 86140; 99283-25

== ENCOUNTER 2018-08-29 10:25 | Inpatient (IN) | payer MEDICAID ==
[2018-08-29] MEDS ORDERED: Acetaminophen 325 MG Tab PO PRN (12:12)
[2018-08-29] MEDS ORDERED: Lactated Ringers 1,000 ML IV SCH (12:15)
[2018-08-29] MEDS ORDERED: Naloxone 0.4 MG/ML SDV IV PRN (12:33)
[2018-08-29] MEDS ORDERED: Acetaminophen 650 MG Supp RECTAL PRN (12:36)
[2018-08-29] MEDS: Pantoprazole 40 MG Vial IV SCH (14:43)
[2018-08-29] MEDS: Linezolid 600 MG in Premix Bag 1 BAG IV SCH ×2 (14:43→23:07)
[2018-08-29] MEDS: Morphine PF 150 MG/30 ML PCA Syringe IV PRN (14:43)
[2018-08-29] MEDS: Meropenem 500 MG in Sodium Chloride 0.9% 50 ML IV SCH ×2 (14:43→20:32)
[2018-08-29] MEDS ORDERED: 50% Dextrose in Water 50 ML Syringe IVPUSH PRN (17:07)
[2018-08-29] MEDS ORDERED: Glucose Gel 15 GM in 37.5 GM Tube PO PRN (17:07)
[2018-08-29] MEDS ORDERED: Glucagon,Human Recombinant 1 MG Vial IM PRN (17:07)
[2018-08-29] MEDS: Insulin Lispro 100 Unit/ML 3 ML KwikPen SUBCUT PRN ×2 (17:52→21:36)
[2018-08-29] MEDS: Magnesium Sulfate/Water 2 GM in Premix Bag 1 BAG IV SCH (17:52)
--- NOTE | 2018-08-29 17:58 | CONS ---
DATE OF SERVICE: 08/29/2018 REFERRING PHYSICIAN: CONSULTING PHYSICIAN: Rayna Beverly PA-C HISTORY OF PRESENT ILLNESS: Demarcus presented to the clinic today with a left great toe infection. He said that he went to the emergency room over the weekend, but there were no beds available, so he followed up in the clinic today. He has had a diabetic ulcer on his left great toe for a couple of weeks that has increasingly gotten worse. He said it is painful to where the pain will go from his toe all the way up to his knee. He reports pain on a pain scale 1 to 10 a 9/10. Blood sugars have been running in the 200s and he did have a fever on Wednesday. He is not sure if he has a fever now, but he states he has been having chills and is very tired. He is unable to check his blood sugars because he needs a new meter. PAST MEDICAL HISTORY: 1. Abscess, left arm. 2. FP drainage and debridement, subfascial abscess. 3. Left antecubital fossa ligation and excision of pseudoaneurysm of the left brachial artery 08/15/2018. 4. Poorly-controlled diabetes type 2. 5. Morbid obesity, BMI 44. 6. Tobacco use disorder, regular marijuana use. 7. Chronic low back pain. ALLERGIES: TO AMOXICILLIN, PENICILLIN, AND HONEY BEE VENOM. DILAUDID CAUSES NAUSEA AND VOMITING. CURRENT MEDICATIONS: 1. Klonopin 1 mg b.i.d. 2. Tylenol 650 mg every 6 hours p.r.n. pain. 3. Motrin 800 mg 1 tab every 8 hours p.r.n. pain. 4. Bacitracin apply topical to left antecubital area. 5. Ambien 10 mg p.r.n. sleep at bedtime. 6. Lyrica 300 mg by mouth twice a day. 7. Nortriptyline Pamelor 10 mg twice daily. 8. Insulin NovoLog mix 70/30. 9. FlexPen inject 50 units under the skin twice a day. 10.Victoza 1.8 mg subcu daily. 11.Revatio 20 mg take 2-1/2 tablets by mouth 1 hour prior to intercourse. SOCIAL HISTORY: Single, unemployed. Children, 4-year-old daughter, Gregoria, whom he is raising. Smokes weed, 2 joints a day. Cigarettes socially, every 2 days. Alcohol, none. Caffeine, drinks Red Bull, coffee, and Mountain Dew. PAST SURGICAL HISTORY: 1. Most recent surgery, postop drainage and debridement of subfascial abscess, left antecubital fossa ligation, and excision of pseudoaneurysm, left brachial artery, 08/15/2018. This was done for debridement and drainage of necrotizing infection of antecubital fossa secondary to injecting methamphetamine. 2. Amputation, toe, MP-P, second toe. 3. Toe amputation, 02/03/2018; left second and third; right second toe and then leg debridement, right. 4. Incision and drainage on 03/18/2018. 5. Drain skin abscess, 11/13/2013. FAMILY HISTORY: Positive for diabetes. There is no heart disease, lung disease, kidney disease, or cancer. REVIEW OF SYSTEMS: GENERAL: Has had no weight loss, but reports fever, chills, night sweats, and fatigue. EYES: Negative. NECK: Negative. CHEST: No chest pain, shortness of breath, fast or irregular heart beat. LUNGS: No cough. ABDOMEN: No nausea, vomiting, diarrhea, constipation. No red or black stools. EXTREMITIES: Left great toe infected, red, swollen, painful. Left antecubital area has Azar wrap. The surgical incision is healing well. NEURO: Intact. PSYCHIATRIC: Mood and affect appropriate. ASSESSMENT: 1. Left great toe abscess, diabetic foot ulcer. 2. Healing incision of left arm. 3. Poorly-controlled type 2 diabetes. 4. Morbid obesity, body mass index is 44. 5. Tobacco use disorder. 6. Chronic low back pain. 7. Osteomyelitis, left great toe. PLAN: 1. Admit to inpatient, Darryl Bustamante MD for osteomyelitis, left great toe. Code status full. 2. Diet consistent with carb 2000 calories. 3. Activity up ad rodger. 4. Vital signs q.6 hours. 5. IV hydration, lactated Ringer's 100 mL per hour. 6. Check CBC, CMP, mag phos now. 7. Tylenol 650 mg p.o. q.4 hours p.r.n. pain. 8. SCDs. 9. Intake and output every shift. 10.Protonix 40 mg IV q.24 hours. 11.Change dressing left antecubital area b.i.d. 12.Meropenem 500 mg q.6 hours IV. 13.Zyvox 600 mg q.12 hours IV. 14.Accu-Cheks q.i.d. 15.Lactated Ringer's 100 mL per hour until 2200. 16.Schedule amputation of left great toe, general anesthesia, Darryl Bustamante MD on Wednesday08/30/2018. Case to follow, n.p.o. after midnight. 17.D5 LR 100 mL per hour at 2200. 18.NovoLog mix 70/30, 25 units at bedtime which is half his normal dose. 19.Insulin sliding scale. 20.Clonazepam 1 mg b.i.d. 21.Ibuprofen 800 mg q.8 hours p.r.n. pain. 22.Ambien 10 mg at bedtime p.r.n. sleep. 23.Lyrica 300 mg p.o. b.i.d. 24.Nortriptyline 10 mg b.i.d. p.o. 25.Victoza 1.8 mg subcutaneous one time daily. 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 27.Good pulmonary toilet. 28.Incentive spirometer use 10 times every hour while awake. 29.May shower. We will evaluate p.r.n. or in a.m. 30.Plan of stay is 3 nights and 4 days pending any complications. Rayna Beverly PA-C /[id number]
[2018-08-29] MEDS: Nortriptyline 10 MG Cap PO SCH (20:31)
[2018-08-29] MEDS ORDERED: ClonazePAM 1 MG Tab PO SCH (21:00)
[2018-08-29] MEDS ORDERED: Pregabalin 100 MG Cap PO SCH (21:00)
[2018-08-29] MEDS: Insulin Aspart Protamine/Insulin Aspart 70-30 100 Units/ML 10 ML Vial SUBCUT SCH (21:35)
[2018-08-29] MEDS: Dextrose 5%-Lactated Ringers 1,000 ML IV SCH (21:36)
[2018-08-29] MEDS: Zolpidem 5 MG Tab PO PRN (21:36)
[2018-08-30] MEDS: Magnesium Sulfate/Water 2 GM in Premix Bag 1 BAG IV SCH ×4 (00:15→17:16)
[2018-08-30] MEDS: Meropenem 500 MG in Sodium Chloride 0.9% 50 ML IV SCH ×4 (02:05→20:32)
--- NOTE | 2018-08-30 07:34 | PCM.PN ---
- General Info Date of Service: 08/30/18 Functional Status: Reports: Pain Controlled - Review of Systems General: Reports: No Symptoms Pulmonary: Reports: No Symptoms Cardiovascular: Reports: No Symptoms Gastrointestinal: Reports: No Symptoms Genitourinary: Reports: No Symptoms Musculoskeletal: Reports: Foot Pain Neurological: Reports: No Symptoms Systems Review Comment:: Demarcus Diallo is a 33 year old male who will have a left great toe amputation on . He has a significant history of uncontrolled type 2 diabetes. He states he slept well last night for the first time in a couple of night due to the pain medication. He states his pain is well controlled. Vital signs are stable. He states that he does not have any concerns in regards to the operation and is ready for the procedure. - Patient Data Vitals - Most Recent: Last Vital Signs Temp 35.8 C 08/30/18 07:22 Pulse 83 08/30/18 07:22 Resp 16 08/30/18 07:22 BP 120/71 08/30/18 07:22 Pulse Ox 97 08/30/18 07:25 Weight - Most Recent: 131.258 kg I&O - Last 24 Hours: Intake & Output 08/29/18 08/30/18 08/30/18 22:59 06:59 14:59 Intake Total 1853 2254 Balance 1853 2254 Lab Results Last 24 Hours: Laboratory Results - last 24 hr 08/29/18 08/29/18 08/30/18 Range/Units 11:20 11:20 04:15 WBC 7.1 9.3 (4.5-11.0) K/uL RBC 4.98 4.89 (4.30-5.90) M/uL Hgb 13.5 13.5 (12.0-15.0) g/dL Hct 40.3 38.9 L (40.0-54.0) % MCV 81 80 (80-98) fL MCH 27 28 (27-31) pg MCHC 34 35 (32-36) % Plt Count 458 H (150-400) K/uL Neut % (Auto) 64 (36-66) % Lymph % (Auto) 27 (24-44) % [place] % (Auto) 8 H (2-6) % Eos % (Auto) 2 (2-4) % Baso % (Auto) 1 (0-1) % Sodium 135 L (140-148) mmol/L Potassium 4.4 (3.6-5.2) mmol/L Chloride 100 (100-108) mmol/L Carbon Dioxide 27 (21-32) mmol/L Anion Gap 12.4 (5.0-14.0) mmol/L BUN 19 H D (7-18) mg/dL Creatinine 0.7 L (0.8-1.3) mg/dL Est Cr Clr Drug Dosing TNP Estimated GFR (MDRD) > 60 (>60) Glucose 249 H (74-106) mg/dL Calcium 9.1 (8.5-10.1) mg/dL Phosphorus 3.2 (2.5-4.9) mg/dL Magnesium 1.6 L (1.8-2.4) mg/dL Total Bilirubin 0.2 (0.2-1.0) mg/dL AST 50 H D (15-37) U/L ALT 126 H (12-78) U/L Alkaline Phosphatase 176 H (46-116) U/L Total Protein 7.3 (6.4-8.2) g/dL Albumin 2.9 L (3.4-5.0) g/dL Globulin 4.4 H (2.3-3.5) g/dL Albumin/Globulin Ratio 0.7 L (1.2-2.2) 08/30/18 Range/Units 04:15 WBC (4.5-11.0) K/uL RBC (4.30-5.90) M/uL Hgb (12.0-15.0) g/dL Hct (40.0-54.0) % MCV (80-98) fL MCH (27-31) pg MCHC (32-36) % Plt Count (150-400) K/uL Neut % (Auto) (36-66) % Lymph % (Auto) (24-44) % [place] % (Auto) (2-6) % Eos % (Auto) (2-4) % Baso % (Auto) (0-1) % Sodium 134 L (140-148) mmol/L Potassium 4.9 (3.6-5.2) mmol/L Chloride 100 (100-108) mmol/L Carbon Dioxide 24 (21-32) mmol/L Anion Gap 14.9 H (5.0-14.0) mmol/L BUN 12 (7-18) mg/dL Creatinine 0.6 L (0.8-1.3) mg/dL Est Cr Clr Drug Dosing 169.42 Estimated GFR (MDRD) > 60 (>60) Glucose 239 H (74-106) mg/dL Calcium 8.8 (8.5-10.1) mg/dL Phosphorus (2.5-4.9) mg/dL Magnesium (1.8-2.4) mg/dL Total Bilirubin 0.5 D (0.2-1.0) mg/dL AST 78 H (15-37) U/L ALT 161 H (12-78) U/L Alkaline Phosphatase 132 H (46-116) U/L Total Protein 6.7 (6.4-8.2) g/dL Albumin 2.6 L (3.4-5.0) g/dL Globulin 4.1 H (2.3-3.5) g/dL Albumin/Globulin Ratio 0.6 L (1.2-2.2) Med Orders - Current: Current Medications Acetaminophen (Tylenol) 650 mg PO Q6H PRN PRN Reason: LESSER PAIN Acetaminophen (Tylenol) 650 mg RECTAL Q4H PRN PRN Reason: ANALGESIA/FEVER Clonazepam (Klonopin) 1 mg PO BID [facility] Last Admin: 08/29/18 20:32 Dose: 1 mg Dextrose (Glutose 15) 15 gm PO ASDIRECTED PRN PRN Reason: HYPOGLYCEMIA Dextrose/Water (Dextrose 50% In Water) 50 ml IVPUSH ASDIRECTED PRN PRN Reason: HYPOGLYCEMIA Glucagon (Glucagen) 1 mg IM ASDIRECTED PRN PRN Reason: HYPOGLYCEMIA Dextrose/Lactated Ringer's (Dextrose 5%-Lactated Ringers) 1,000 mls @ 100 mls/ hr IV ASDIRECTED [facility] Last Admin: 08/29/18 21:36 Dose: 100 mls/hr Meropenem 500 mg/ Sodium (Chloride) 50 mls @ 100 mls/hr IV Q6H [facility] Last Admin: 08/30/18 02:05 Dose: 100 mls/hr Linezolid 600 mg/ Premix 300 mls @ 300 mls/hr IV Q12H [facility] Last Admin: 08/29/18 23:07 Dose: 300 mls/hr Magnesium Sulfate 2 gm/ Premix 50 mls @ 25 mls/hr IV Q6H [facility] Stop: 09/01/18 13:59 Last Admin: 08/30/18 05:20 Dose: 25 mls/hr Ibuprofen (Motrin) 800 mg PO Q8H PRN PRN Reason: PAIN Insulin Aspart (Novolog Mix 70-30) 25 unit SUBCUT BEDTIME [facility] Last Admin: 08/29/18 21:35 Dose: 25 units Insulin Human Lispro (Humalog) 0 unit SUBCUT QIDACANDBED PRN; Protocol PRN Reason: LOW CORRECTIONAL DOSING Last Admin: 08/29/18 21:36 Dose: 2 units Liraglutide (Victoza) 1.8 mg SUBCUT DAILY [facility] Morphine Sulfate (Morphine Pasting Inspector 150 Mg In 30 Ml) 0 mg IV ASDIRECTED PRN; Protocol PRN Reason: Pain Last Admin: 08/29/18 14:43 Dose: 150 mg Naloxone HCl (Narcan) 0.1 mg IV ASDIRECTED PRN PRN Reason: decreased respiratory rate Nortriptyline HCl (Nortriptyline) 10 mg PO BID [facility] Last Admin: 08/29/18 20:31 Dose: 10 mg Pantoprazole Sodium (Protonix Iv) 40 mg IV Q24H [facility] Last Admin: 08/29/18 14:43 Dose: 40 mg Pregabalin (Lyrica) 300 mg PO BID [facility] Last Admin: 08/29/18 20:31 Dose: 300 mg Zolpidem Tartrate (Ambien) 10 mg PO BEDTIME PRN PRN Reason: SLEEP Last Admin: 08/29/18 21:36 Dose: 10 mg Discontinued Medications Lactated Ringer's (Ringers, Lactated) 1,000 mls @ 100 mls/hr IV ASDIRECTED [facility] Stop: 08/29/18 22:00 Last Admin: 08/29/18 12:34 Dose: 100 mls/hr - Exam General: Alert, Oriented Lungs: Clear to Auscultation, Normal Respiratory Effort Cardiovascular: Regular Rate, Regular Rhythm Extremities: Other (Left great toe is wrapped for surgery) Neurological: No New Focal Deficit Psy/Mental Status: Alert, Normal Mood - Problem List Review Problem List Initiated/Reviewed/Updated: Yes - Assessment Assessment:: 1. Uncontrolled Diabetes Type 2 2. Osteomyelitis of left great toe - Plan Plan:: 1. Left great toe amputation on 08/30/2018, Surgeon: Darryl Bustamante MD 2. Recheck in AM or as needed
[2018-08-30] MEDS ORDERED: Midazolam 1 MG/ML 2 ML SDV ONE ×2 (08:19→11:06)
[2018-08-30] MEDS ORDERED: fentaNYL 100 MCG/2 ML SDV ONE (08:19)
[2018-08-30] MEDS ORDERED: Propofol 200 MG/20 ML SDV ONE ×3 (08:19→11:18)
[2018-08-30] MEDS ORDERED: Bupivacaine 0.5% 50 ML MDV ONE (08:21)
[2018-08-30] MEDS ORDERED: Meropenem 500 MG SDV ONE (08:31)
[2018-08-30] MEDS: Dextrose 5%-Lactated Ringers 1,000 ML IV SCH ×2 (10:33→16:35)
[2018-08-30] MEDS ORDERED: Hydrogen Peroxide 3% Top Soln 240 ML Bottle ONE (11:44)
[2018-08-30] MEDS ORDERED: Ondansetron 4 MG Tab.DIS PO PRN (13:27)
[2018-08-30] MEDS ORDERED: ClonazePAM 1 MG Tab PO ONE (13:45)
[2018-08-30] MEDS ORDERED: Pregabalin 100 MG Cap PO ONE (13:45)
[2018-08-30] MEDS: Ondansetron 4 MG/2 ML SDV IVPUSH PRN ×2 (13:53→17:37)
[2018-08-30] MEDS: Pantoprazole 40 MG Vial IV SCH (13:55)
[2018-08-30] MEDS: Nortriptyline 10 MG Cap PO SCH ×2 (13:58→20:35)
[2018-08-30] MEDS: Liraglutide (rDNA Origin) 0.6 MG/0.1 ML 3 ML Pen SUBCUT SCH (14:03)
[2018-08-30] MEDS: Linezolid 600 MG in Premix Bag 1 BAG IV SCH ×2 (14:05→23:13)
[2018-08-30] MEDS: Insulin Lispro 100 Unit/ML 3 ML KwikPen SUBCUT PRN ×2 (17:26→21:34)
[2018-08-30] MEDS: Pregabalin 100 MG Cap PO SCH (20:32)
[2018-08-30] MEDS: Ibuprofen 800 MG Tab PO PRN (20:32)
[2018-08-30] MEDS: ClonazePAM 1 MG Tab PO SCH (20:33)
[2018-08-30] MEDS: Zolpidem 5 MG Tab PO PRN (20:33)
[2018-08-30] MEDS: Insulin Aspart Protamine/Insulin Aspart 70-30 100 Units/ML 10 ML Vial SUBCUT SCH (21:29)
[2018-08-31] MEDS: Magnesium Sulfate/Water 2 GM in Premix Bag 1 BAG IV SCH ×2 (00:18→06:03)
[2018-08-31] MEDS: Meropenem 500 MG in Sodium Chloride 0.9% 50 ML IV SCH ×2 (02:01→07:10)
[2018-08-31] MEDS: Dextrose 5%-Lactated Ringers 1,000 ML IV SCH (02:06)
[2018-08-31] MEDS: Morphine PF 150 MG/30 ML PCA Syringe IV PRN (04:14)
[2018-08-31] MEDS: Ondansetron 4 MG/2 ML SDV IVPUSH PRN (06:09)
[2018-08-31 07:15] VITALS: BP 128/80
[2018-08-31] MEDS ORDERED: Acetaminophen/oxyCODONE 325-5 MG Tab PO PRN (07:51)
[2018-08-31] MEDS: Ibuprofen 800 MG Tab PO PRN (08:49)
[2018-08-31] MEDS: Pregabalin 100 MG Cap PO SCH (08:49)
[2018-08-31] MEDS: Nortriptyline 10 MG Cap PO SCH (08:50)
[2018-08-31] MEDS: ClonazePAM 1 MG Tab PO SCH (08:50)
[2018-08-31] MEDS: Liraglutide (rDNA Origin) 0.6 MG/0.1 ML 3 ML Pen SUBCUT SCH (08:51)
[2018-08-31] MEDS ORDERED: Sulfamethoxazole/Trimethoprim 800-160 MG Tab PO SCH ×3 (09:00→21:00)
[2018-08-31] MEDS ORDERED: Levofloxacin 500 MG Tab PO SCH ×2 (10:30→16:00)
--- NOTE | 2018-09-01 14:55 | DISCH ---
ADMISSION DIAGNOSES: 1. Osteomyelitis, left great toe. 2. Diabetes type 2, poorly controlled. 3. Morbid obesity, BMI 43. 4. Tobacco use disorder. 5. Regular marijuana use. 6. Chronic low back pain. 7. Status post incision and drainage of left antecubital area. DISCHARGE DIAGNOSIS: Amputation of left great toe, 08/30/2018. Surgeon, Darryl Bustamante MD. HISTORY: Demarcus Diallo is a 33-year-old male who is diabetic, who has osteomyelitis of left great toe. After preoperative evaluation and discussion of possible risks and possible complications, he wished to proceed with surgical procedure. HOSPITAL COURSE: Demarcus had his surgery on 08/30/2018. He had no operative complications. On postoperative day 1, blood sugars were 176, 129, and 176. He was medicated with insulin per sliding scale. His pain was controlled using a morphine B2B [employer] and he was changed to Percocet prior to discharge. Demarcus was afebrile and was ready to be discharged to home on postoperative day 1. Gram stain showed no white blood cells seen and no bacteria. OBJECTIVE: GENERAL: Demarcus Diallo is a 33-year-old male. VITAL SIGNS: Height is 5 feet 8.11 inches, weight is 289 pounds. BMI is 43. TPR is 95.6, 89, 16. Blood pressure 128/80. HEENT: Negative. NECK: Supple. HEART: Regular rate and rhythm. LUNGS: Clear. ABDOMEN: Deferred. : Deferred. EXTREMITIES: Left great toe dressing is dry and intact. NEUROLOGIC: Intact. PSYCHIATRIC: Mood and affect appropriate. DISPOSITION: Discharged to home. CONDITION: Stable and improving. FOLLOWUP: Follow up on 09/05/2018, with Darryl Bustamante MD. He will be having an upper endoscopy for diabetic gastroparesis and dressing change of left great toe under IV and local sedation, n.p.o. after midnight. MEDICATIONS: New prescriptions: 1. Tylenol 650 mg oral q.6 hours p.r.n. pain. 2. Percocet 5/325 mg one tablet every 4 hours p.r.n. pain, #42. 3. Motrin 800 mg oral q.8 hours as needed for pain, #40. 4. Levaquin 500 mg oral q. daily, #14. 5. Septra DS. 6. Sulfamethoxazole/trimethoprim one tablet oral twice daily, #28. He is to resume home medication: Bacitracin ointment to affected area p.r.n., NovoLog mix 70/30 100 units twice daily, Victoza 1.8 units subcu daily, nortriptyline (Pamelor) 10 mg oral at bedtime, Lyrica 300 mg oral twice daily, Ambien 10 mg oral at bedtime, BuSpar one tablet oral 3 times a day, metformin ER 200 mg oral before breakfast. DIET: Diabetic diet, 2000 calories. Drink 8 to 10 glasses of water a day. ACTIVITIES: Other activity, wear surgical shoe on left foot. Use scooter as indicated. Limit activity or excessive walking. Driving, do not drive until cleared by surgeon. Shower/bathing, no showering, no tub baths or swimming until Wednesday after dressing change, then as directed. DISCHARGE INSTRUCTIONS: Notify provider if any fever, increased pain, nausea, or vomiting. Keep site clean and dry. SPECIAL INSTRUCTIONS: 1. Change dressing on left arm twice a day. 2. Check blood sugars at least 2 times a day and as needed. 3. Follow up on 09/05/2018 for an upper endoscopy and dressing change under anesthesia with Darryl Bustamante MD, IV and local sedation.
--- NOTE | 2018-09-05 08:50 | OR ---
DATE OF PROCEDURE: 08/30/2018 PREOPERATIVE DIAGNOSIS: Osteomyelitis of left great toe. POSTOPERATIVE DIAGNOSIS: Osteomyelitis of left great toe. PROCEDURE PERFORMED: Transmetatarsal amputation, left great toe ([id number]). ANESTHESIA: Ankle block plus sedation. MANAGER OF COMPLIANCE: KOSTA Cason. INDICATIONS FOR PROCEDURE: This is a 33-year-old patient with severe type 2 diabetes mellitus status post previous amputation of toes, presenting with osteomyelitis involving the left great toe. After preoperative evaluation and discussion, the plan is to proceed with transmetatarsal amputation. At this point, the cellulitis appears to be below the planned plane of amputation. Potential risks of the procedure including bleeding, infection and healing of the amputation, requiring a potentially higher level of amputation, including above or below knee amputations were all gone over, along with possibility of cardiopulmonary, septic, or hemorrhagic complications leading to , and the patient wishes to proceed. DETAILS OF PROCEDURE: The patient was taken to the operating room and placed in a supine position. IV sedation was administered, after which an ankle block was placed, and the left foot and joint areas were prepped and draped. The elliptical incision beginning at the level of the proximal end of the metatarsal bone medially was made and then carried across the toe, both in front and back, and then uniting in a plane just medial to the base of the second toe. The soft tissue was then divided down to level of the bone. Good blood supply was confirmed with adequate pulsatile arterial flow being identified. The digital vessels were suture-ligated with some 4-0 Vicryl stitch, as were some additional small arterial branches. At this plane of dissection, there was no gross infection. The soft tissues were then divided away from metatarsal bone proximally to allow successful flap closure and the metatarsal bone was then divided with bone cutter and delivered from the field. At the end of the procedure, the toe was opened off the field and deep cultures obtained. At this point, the area was irrigated with antibiotic-containing saline solution. The flap closure was accomplished with 2 layers of deeper soft tissue sutures, consisting of 4-0 Vicryl stitch, and the skin then closed with christine. Dressing was applied. The patient was taken to the recovery room in satisfactory condition. There were no evident complications. Darryl Bustamante MD /[id number]
== END 2018-08-31 11:21 | disposition home or self-care (01) | DRG 617 ==
LOC: JP.MS 10:25 → JP.SDS 10:25 → EDSTATUS 11:28
PROVIDERS: ADMIT Surgery; ATTEND Surgery
PROC: 0Y6Q0Z0 Detachment at Left 1st Toe, Complete, Open Approach (ICD-10-PCS; principal; 2018-08-30)
DX: E11.621 Type 2 diabetes mellitus with foot ulcer (principal); M86.9 Osteomyelitis, unspecified; Z68.41 Body mass index [BMI] 40.0-44.9, adult; L02.414 Cutaneous abscess of left upper limb; L97.529 Non-pressure chronic ulcer of other part of left foot with unspecified severity; E11.65 Type 2 diabetes mellitus with hyperglycemia; Z79.4 Long term (current) use of insulin; E11.69 Type 2 diabetes mellitus with other specified complication; M54.9 Dorsalgia, unspecified; G89.29 Other chronic pain; F17.210 Nicotine dependence, cigarettes, uncomplicated; F12.90 Cannabis use, unspecified, uncomplicated; E66.01 Morbid (severe) obesity due to excess calories; Z79.899 Other long term (current) drug therapy; Z91.030 Bee allergy status; Z88.5 Allergy status to narcotic agent; Z88.0 Allergy status to penicillin; Z88.1 Allergy status to other antibiotic agents; Z89.422 Acquired absence of other left toe(s); Z89.421 Acquired absence of other right toe(s)
CPT/HCPCS: 36415; 80053; 82962; 83735; 84100; 85025; 85027; 87070; 87075; 87077; 87186; 87205; 88305; 88311; 94762; 97161-GP; A9270-GY; C9113; J1815; J1815-GY; J2020; J2185; J2250; J2270; J2405; J2704; J3010; J3475; J3490; J7042; J7050; J7120

== ENCOUNTER 2018-09-05 10:50 | Day surgery (SDC) | payer MEDICAID ==
[~2018-09-05 10:50] MED LIST: Dextrose 5%-Lactated Ringers 1,000 ML IV SCH; Glycopyrrolate 0.2 MG/ML 2 ML SDV IVPUSH ONE; Midazolam 1 MG/ML 2 ML SDV ONE; Propofol 200 MG/20 ML SDV ONE; fentaNYL 100 MCG/2 ML SDV ONE
[2018-09-05] MEDS ORDERED: fentaNYL 100 MCG/2 ML SDV ONE (11:27)
[2018-09-05] MEDS ORDERED: Midazolam 1 MG/ML 2 ML SDV ONE (11:27)
[2018-09-05] MEDS ORDERED: Propofol 200 MG/20 ML SDV ONE (11:27)
[2018-09-05] MEDS ORDERED: Glycopyrrolate 0.2 MG/ML 2 ML SDV IVPUSH ONE (11:45)
[2018-09-05 15:04] VITALS: BP 124/68
--- NOTE | 2018-09-07 11:25 | OR ---
DATE OF PROCEDURE: 09/05/2018 PREOPERATIVE DIAGNOSES: 1. Nausea and vomiting with history of type 2 diabetes mellitus. 2. Status post recent transmetatarsal amputation of left great toe. POSTOPERATIVE DIAGNOSES: 1. Large volume of retained gastric contents consistent with severe diabetic gastroparesis. 2. Focal antral gastritis. 3. Status post transmetatarsal amputation of the left great toe. OPERATIVE PROCEDURES: 1. Upper GI endoscopy with antral biopsies for CLOtest (17269). 2. Dressing change of left foot under anesthesia (95087). ANESTHESIA: IV sedation. INDICATIONS FOR PROCEDURE: This is a 33-year-old presenting with ongoing problems with nausea and postprandial bloating and a longstanding history of complicated type 2 diabetes mellitus, is undergoing upper GI endoscopy to evaluate for possibility of gastroparesis. The patient also is status post transmetatarsal amputation of the left great toe last week and the operative dressing has remained in place and that will be taken down with dressing change under anesthesia today concurrently with the upper endoscopy. Potential risks of the procedure including bleeding and perforation were discussed, and the patient wishes to proceed. DETAILS OF PROCEDURE: The patient was taken to the operating room and placed in a left lateral decubitus position. IV sedation was administered, after which the upper GI endoscope was passed orally through the length of the esophagus, entered into the stomach with retroflexion view of the fundus, thereafter through the pyloric channel and into the proximal duodenum. Findings included normal hypopharynx, larynx, upper esophageal sphincter, and esophageal body, the EG junction. Small hiatal hernia was present. There was some bile reflux into the esophagus. As one entered the stomach, there was a large volume of old undigested food as well as a large amount of bile. There was some generalized redness, but this was more focally present in the antrum. No erosions or ulcers were seen. Pyloric channel was widely opened, i.e. there was no mechanical obstruction. The visualized portions of the duodenum were unremarkable. At this point, biopsies were obtained from the antrum and sent for CLOtest for H. pylori. Minimal bleeding from the biopsy sites was seen and the procedure was then concluded. The dressing on the transmetatarsal amputation site was then taken down and incision was found to be quite clean. new compression dressing was applied and we will see the patient back in 48 hours. At the followup appointment, we will discuss treatment options regarding the gastroparesis. He may be best benefitted by high proximal gastrectomy with Power-en-Y gastric bypass. Darryl Bustamante MD /[id number]
== END 2018-09-05 15:24 | disposition home or self-care (01) ==
LOC: JP.SDS 10:50
PROVIDERS: ATTEND Surgery
DX: K29.70 Gastritis, unspecified, without bleeding (principal); K44.9 Diaphragmatic hernia without obstruction or gangrene; E11.43 Type 2 diabetes mellitus with diabetic autonomic (poly)neuropathy; K31.84 Gastroparesis; F17.200 Nicotine dependence, unspecified, uncomplicated; Z89.412 Acquired absence of left great toe
CPT/HCPCS: 15852; 43239; 87081; J2250; J2704; J3010; J3490; J7042

== ENCOUNTER 2018-09-13 05:44 | Inpatient (IN) | payer MEDICAID ==
[2018-09-13] MEDS ORDERED: Celecoxib 200 MG Cap PO ONE (06:35)
[2018-09-13] MEDS ORDERED: Pregabalin 100 MG Cap PO ONE (06:36)
[2018-09-13] MEDS ORDERED: Acetaminophen 500 MG Tab PO ONE (06:40)
[2018-09-13] MEDS ORDERED: Scopolamine 1.5 MG Transdermal Patch TRDERM ONE (06:45)
[2018-09-13] MEDS ORDERED: Dextrose 5%-Lactated Ringers 1,000 ML IV SCH (07:00)
[2018-09-13] MEDS ORDERED: cefOXitin 2 GM Vial ONE (07:03)
[2018-09-13] MEDS ORDERED: Albuterol/Ipratropium 3.0-0.5 MG/3 ML Neb Soln NEB ONE (07:05)
[2018-09-13] MEDS ORDERED: Neostigmine Methylsulfate 1 MG/ML 5 ML Syringe ONE (07:13)
[2018-09-13] MEDS ORDERED: Glycopyrrolate 0.2 MG/ML 5 ML MDV ONE (07:13)
[2018-09-13] MEDS ORDERED: Propofol 200 MG/20 ML SDV ONE (07:13)
[2018-09-13] MEDS ORDERED: Rocuronium 50 MG/5 ML Vial ONE ×2 (07:13→08:19)
[2018-09-13] MEDS ORDERED: Ondansetron 4 MG/2 ML SDV ONE (07:13)
[2018-09-13] MEDS ORDERED: Lactated Ringers 1,000 ML IV SCH (07:15)
[2018-09-13] MEDS ORDERED: Lactated Ringers 1,000 ML ONE (07:15)
[2018-09-13] MEDS ORDERED: cefOXitin 2 GM in Sodium Chloride 0.9% 50 ML IV ONE (07:45)
[2018-09-13] MEDS ORDERED: Ketamine 50 MG in Sodium Chloride 0.9% 49.5 ML IV SCH (08:00)
[2018-09-13] MEDS ORDERED: Lidocaine 2% 100 MG/5 ML Syringe IVPUSH SCH (08:00)
[2018-09-13] MEDS ORDERED: Ketamine 500 MG/5 ML MDV IV SCH (08:00)
[2018-09-13] MEDS ORDERED: fentaNYL 250 MCG/5 ML SDV ONE (08:17)
[2018-09-13] MEDS ORDERED: Labetalol 20 MG/4 ML Syringe ONE (08:56)
[2018-09-13] MEDS ORDERED: Insulin Glargine,Human Rec. Analog 100 Units/ML 3 ML Pen SUBCUT ONE ×2 (09:30→21:00)
[2018-09-13] MEDS ORDERED: fentaNYL 100 MCG/2 ML SDV IVPUSH ONE ×2 (10:23→10:39)
[2018-09-13] MEDS ORDERED: hydrOXYzine HCl 100 MG/2 ML SDV IM ONE (10:23)
[2018-09-13] MEDS ORDERED: Insulin Lispro 100 Unit/ML 3 ML KwikPen SUBCUT ONE ×2 (10:30→17:00)
[2018-09-13] MEDS ORDERED: hydrOXYzine HCl 100 MG/2 ML SDV IM PRN (11:43)
[2018-09-13] MEDS ORDERED: Glucagon,Human Recombinant 1 MG Vial IM PRN (11:50)
[2018-09-13] MEDS ORDERED: Ondansetron 4 MG/2 ML SDV IVPUSH PRN (11:50)
[2018-09-13] MEDS ORDERED: Labetalol 20 MG/4 ML Syringe IVPUSH PRN (11:50)
[2018-09-13] MEDS ORDERED: Albuterol/Ipratropium 3.0-0.5 MG/3 ML Neb Soln INH PRN (11:50)
[2018-09-13] MEDS ORDERED: 50% Dextrose in Water 50 ML Syringe IVPUSH PRN (11:50)
[2018-09-13] MEDS ORDERED: Metoclopramide 10 MG/2 ML SDV IVPUSH PRN (11:50)
[2018-09-13] MEDS ORDERED: diphenhydrAMINE 50 MG/ML SDV IVPUSH PRN (11:50)
[2018-09-13] MEDS ORDERED: HYDROmorphone 1 MG/ML Syringe IV PRN (11:58)
[2018-09-13] MEDS ORDERED: Morphine 2 MG/ML Syringe IVPUSH PRN (11:58)
[2018-09-13] MEDS ORDERED: HYDROmorphone 0.5 MG/0.5 ML Syringe IVPUSH PRN (11:58)
[2018-09-13] MEDS: Lidocaine 0.4%/D5W 2 GM/500 ML BAG IV SCH (12:00)
[2018-09-13] MEDS: Morphine 4 MG/ML Syringe IVPUSH PRN ×4 (12:15→20:00)
[2018-09-13] MEDS: Lactated Ringers 1,000 ML IV SCH ×2 (12:35→23:09)
[2018-09-13] MEDS ORDERED: Pantoprazole 40 MG Vial IVPUSH SCH (14:00)
[2018-09-13] MEDS: Acetaminophen 325 MG Tab PO SCH ×2 (14:03→19:49)
[2018-09-13] MEDS: cefOXitin 2 GM in Sodium Chloride 0.9% 50 ML IV SCH ×2 (14:12→19:49)
[2018-09-13] MEDS: Albuterol/Ipratropium 3.0-0.5 MG/3 ML Neb Soln INH SCH ×2 (15:13→21:13)
[2018-09-13] MEDS: busPIRone 10 MG Tab PO SCH ×2 (15:36→21:14)
[2018-09-13] MEDS: Tranexamic Acid 1,000 MG in Sodium Chloride 0.9% 50 ML IV SCH ×2 (15:37→18:08)
[2018-09-13] MEDS ORDERED: MVI, Adult with Vitamin K 10 ML, Thiamine 200 MG, Chromium/Copper/Mang/Selen/Zn 1 ML in... IV SCH ×4 (16:00)
[2018-09-13] MEDS: metFORMIN 500 MG Tab PO SCH (16:37)
[2018-09-13] MEDS ORDERED: Insulin Lispro 100 Units/ML 3 ML Vial SUBCUT ONE (16:44)
[2018-09-13] MEDS: Pregabalin 100 MG Cap PO SCH (21:13)
[2018-09-13] MEDS: Insulin Lispro 100 Unit/ML 3 ML KwikPen SUBCUT PRN (21:50)
[2018-09-14] MEDS: cefOXitin 2 GM in Sodium Chloride 0.9% 50 ML IV SCH ×2 (01:04→07:49)
[2018-09-14] MEDS: Acetaminophen 325 MG Tab PO SCH ×4 (01:04→19:30)
[2018-09-14] MEDS: Morphine 4 MG/ML Syringe IVPUSH PRN (01:10)
[2018-09-14] MEDS ORDERED: Iohexol 647 MG/ML 50 ML SDV PO SCH ×2 (01:45)
--- NOTE | 2018-09-14 02:03 | CRLCR ---
Indication: Power-en-Y gastric bypass. Technique: Abdomen 3 view Comparison: None Findings/Impression: 3 submitted images of the abdomen show a drain in the left upper quadrant with oral contrast in the distal stomach extending into small bowel. There is progressive filling of the small bowel during the examination without gross extravasation. Dictated by Anatoliy Milton MD @ Sep 14 2018 2:00AM Signed by Dr. Anatoliy Milton @ Sep 14 2018 2:02AM
[2018-09-14] MEDS: Lactated Ringers 1,000 ML IV SCH (05:00)
[2018-09-14] MEDS ORDERED: Lactated Ringers 1,000 ML IV SCH (07:30)
--- NOTE | 2018-09-14 07:33 | PCM.SURGPN ---
- General Info Date of Service: 09/14/18 Date of Surgery/Procedure: 09/13/18 POD#: 1 Post-Op Diagnosis: Gastroparesis Admission Diagnosis/Problem: Gastroparesis Functional Status: Reports: Pain Controlled (Patient rates pain 8/10. He is sitting comfortably in bed but is requesting more for pain.), Tolerating Diet, Ambulating, Urinating, Incentive Spirometry - Review of Systems General: Reports: No Symptoms HEENT: Reports: Headaches (Left sided temporal headache), Other (Dry mouth). Denies: Ear Pain, Eye Pain, Sore Throat, Visual Changes Pulmonary: Reports: No Symptoms Cardiovascular: Reports: No Symptoms Gastrointestinal: Reports: Abdominal Pain, Flatus. Denies: Nausea, Vomiting Genitourinary: Reports: No Symptoms - Patient Data Vitals - Most Recent: Last Vital Signs Temp 36.6 C 09/14/18 04:00 Pulse 104 H 09/14/18 05:00 Resp 18 09/14/18 05:00 BP 110/59 L 09/14/18 05:00 Pulse Ox 96 09/14/18 07:22 Weight - Most Recent: 128.99 kg I&O - Last 24 Hours: Intake & Output 09/13/18 09/14/18 09/14/18 22:59 06:59 14:59 Intake Total 8069 603 9427 Output Total 385 320 Balance [phone] Imaging Impressions - Last 24 Hrs: Progressive filling of the small bowel without gross extravasation. Lab Results Last 24 Hrs: Laboratory Results - last 24 hr 09/13/18 09/14/18 09/14/18 Range/Units 06:48 04:00 04:00 WBC 15.0 H (4.5-11.0) K/uL RBC 4.57 (4.30-5.90) M/uL Hgb 12.7 (12.0-15.0) g/dL Hct 37.9 L (40.0-54.0) % MCV 83 (80-98) fL MCH 28 (27-31) pg MCHC 34 (32-36) % Plt Count 245 (150-400) K/uL Neut % (Auto) 81 H (36-66) % Lymph % (Auto) 10 L (24-44) % [place] % (Auto) 9 H (2-6) % Eos % (Auto) 0 L (2-4) % Baso % (Auto) 0 (0-1) % Sodium 135 L (140-148) mmol/L Potassium 4.3 (3.6-5.2) mmol/L Chloride 100 (100-108) mmol/L Carbon Dioxide 25 (21-32) mmol/L Anion Gap 14.3 H (5.0-14.0) mmol/L BUN 14 (7-18) mg/dL Creatinine 0.9 (0.8-1.3) mg/dL Est Cr Clr Drug Dosing 112.94 mL/min Estimated GFR (MDRD) > 60 (>60) Glucose 319 H (74-106) mg/dL Calcium 8.5 (8.5-10.1) mg/dL Phosphorus 3.7 (2.5-4.9) mg/dL Magnesium 1.5 L (1.8-2.4) mg/dL Total Bilirubin 2.7 H D (0.2-1.0) mg/dL AST 376 H D (15-37) U/L ALT 1160 H (12-78) U/L Alkaline Phosphatase 263 H D (46-116) U/L NT-Pro-B Natriuret Pep 19 (5-125) pg/mL Total Protein 6.1 L (6.4-8.2) g/dL Albumin 2.7 L (3.4-5.0) g/dL Globulin 3.4 (2.3-3.5) g/dL Albumin/Globulin Ratio 0.8 L (1.2-2.2) Blood Type O POSITIVE Gel Antibody Screen Negative Med Orders - Current: Current Medications Acetaminophen (Tylenol) 650 mg PO Q6H [facility] Last Admin: 09/14/18 01:04 Dose: 650 mg Albuterol/Ipratropium (Duoneb 3.0-0.5 Mg/3 Ml) 3 ml INH QIDRT [facility] Last Admin: 09/13/18 21:13 Dose: 3 ml Albuterol/Ipratropium (Duoneb 3.0-0.5 Mg/3 Ml) 3 ml INH ASDIRECTED PRN PRN Reason: BREATHING Alogliptin Benzoate (Alogliptin) 25 mg PO DAILY [facility] Last Admin: 09/13/18 14:03 Dose: 25 mg Buspirone HCl (Buspar) 10 mg PO TID [facility] Last Admin: 09/13/18 21:14 Dose: 10 mg Celecoxib (Celebrex) 200 mg PO DAILY@0800 [facility] Cyanocobalamin (Vitamin B12) 1,000 mcg IM ONETIME ONE Stop: 09/15/18 09:01 Dextrose/Water (Dextrose 50% In Water) 50 ml IVPUSH ONETIME PRN PRN Reason: ACCUCHECK LESS THAN 70 Diphenhydramine HCl (Benadryl) 50 mg IVPUSH Q4H PRN PRN Reason: ITCHING Glucagon (Glucagen) 1 mg IM ONETIME PRN PRN Reason: ACCUCHECK LESS THAN 70 Heparin Sodium (Porcine) (Heparin Sodium) 5,000 units SUBCUT Q12H [facility] Hydroxyzine HCl (Vistaril) 100 mg IM Q4H PRN PRN Reason: pain Last Admin: 09/13/18 11:54 Dose: 100 mg Lidocaine HCl/Dextrose (Lidocaine 2 Gm/D5w 500 Ml) 2 gm in 500 mls @ 15 mls/hr IV .Q24H [facility] Stop: 09/14/18 11:00 Last Admin: 09/13/18 12:00 Dose: 1 mg/min, 15 mls/hr Cefoxitin Sodium 2 gm/ Sodium (Chloride) 50 mls @ 100 mls/hr IV Q6H [facility] Stop: 09/14/18 08:29 Last Admin: 09/14/18 01:04 Dose: 100 mls/hr Lactated Ringer's (Ringers, Lactated) 1,000 mls @ 100 mls/hr IV ASDIRECTED [facility] Multivitamins/Minerals 10 ml/Thiamine HCl 200 mg/ Chromium/Copper/Manganese/ Seleni/Zn 1 ml/ Lactated Ringer's 1,013 mls @ 100 mls/hr IV DAILY@1600 [facility] Insulin Glargine (Lantus Solostar) 50 units SUBCUT DAILY ONE Stop: 09/14/18 08:01 Insulin Human Lispro (Humalog) 0 unit SUBCUT Q6H PRN; Protocol PRN Reason: CORRECTIONAL DOSING Last Admin: 09/13/18 21:50 Dose: 12 unit Iohexol (Omnipaque-300) 50 ml PO .ASDIRECTED [facility] Iohexol (Omnipaque-300) 50 ml PO .ASDIRECTED [facility] Iohexol (Omnipaque-300) 50 ml PO .ASDIRECTED [facility] Iohexol (Omnipaque-300) 50 ml PO .ASDIRECTED [facility] Labetalol HCl (Normodyne) 5 mg IVPUSH Q5M PRN PRN Reason: SBP over 160 OR DBP over 95 Metformin HCl (Glucophage) 1,000 mg PO BIDMEALS [facility] Last Admin: 09/13/18 16:37 Dose: 1,000 mg Metoclopramide HCl (Reglan) 10 mg IVPUSH Q6H PRN PRN Reason: NAUSEA NOT CONTROL BY ZOFRAN Miscellaneous Information (Remove Patch) 1 ea TRDERM ONETIME ONE Stop: 09/15/18 10:01 Morphine Sulfate (Morphine) 2 mg IVPUSH Q2H PRN PRN Reason: MODERATE PAIN Morphine Sulfate (Morphine) 4 mg IVPUSH Q2H PRN PRN Reason: SEVERE PAIN Last Admin: 09/14/18 01:10 Dose: 4 mg Scopolamine Patch (Check) 1 each TOP DAILY [facility] Stop: 09/15/18 11:51 Ondansetron HCl (Zofran) 4 mg IVPUSH Q4H PRN PRN Reason: Nausea/Vomiting Pantoprazole Sodium (Protonix Iv) 40 mg IVPUSH Q24H [facility] Last Admin: 09/13/18 14:07 Dose: 40 mg Pregabalin (Lyrica) 300 mg PO BID [facility] Last Admin: 09/13/18 21:13 Dose: 300 mg Discontinued Medications Acetaminophen (Tylenol Extra Strength) 1,000 mg PO ONETIME ONE Stop: 09/13/18 06:41 Last Admin: 09/13/18 07:10 Dose: 1,000 mg Albuterol/Ipratropium (Duoneb 3.0-0.5 Mg/3 Ml) 3 ml NEB ONETIME ONE Stop: 09/13/18 07:06 Last Admin: 09/13/18 07:27 Dose: 3 ml Cefoxitin Sodium (Mefoxin) Confirm Administered Dose 2 gm .ROUTE .STK-MED ONE Stop: 09/13/18 07:04 Last Admin: 09/13/18 10:58 Dose: 2 gm Celecoxib (Celebrex) 200 mg PO ONETIME ONE Stop: 09/13/18 06:36 Last Admin: 09/13/18 07:10 Dose: 200 mg Ropivacaine 60 ml/Dexamethasone 8 mg/Epinephrine HCl 0.4 mg/ Sodium Chloride 17.6 ml 0 ml NERVRT ASDIRECTED SUKHDEV Last Admin: 09/13/18 08:27 Dose: 80 syringe Fentanyl (Sublimaze) Confirm Administered Dose 250 mcg .ROUTE .STK-MED ONE Stop: 09/13/18 08:18 Fentanyl (Sublimaze) 50 mcg IVPUSH ONETIME ONE Stop: 09/13/18 10:24 Last Admin: 09/13/18 10:29 Dose: 50 mcg Fentanyl (Sublimaze) 50 mcg IVPUSH ONETIME ONE Stop: 09/13/18 10:40 Last Admin: 09/13/18 10:42 Dose: 50 mcg Fentanyl Citrate (Fentanyl) Confirm Administered Dose 500 mcg .ROUTE .[facility] ONE Stop: 09/13/18 07:13 Glycopyrrolate (Robinul) Confirm Administered Dose 1 [address] .[address] .[facility] ONE Stop: 09/13/18 07:14 Hydroxyzine HCl (Vistaril) 100 mg IM ONETIME ONE Stop: 09/13/18 10:24 Last Admin: 09/13/18 10:32 Dose: 100 mg Ketamine HCl 50 mg/ Sodium (Chloride) 50 mls @ 20.4 mls/hr IV ASDIRECTED [facility] Cefoxitin Sodium 2 gm/ Sodium (Chloride) 50 mls @ 100 mls/hr IV ONETIME ONE Stop: 09/13/18 08:14 Last Admin: 09/13/18 08:26 Dose: 100 mls/hr Dextrose/Lactated Ringer's (Dextrose 5%-Lactated Ringers) 1,000 mls @ 100 mls/ hr IV ASDIRECTED [facility] Insulin Human Regular 100 unit (/ Sodium Chloride) 100 mls @ 0 mls/hr IV TITRATE SUKHDEV; Protocol Lactated Ringer's (Ringers, Lactated) 1,000 mls @ 100 mls/hr IV ASDIRECTED [facility] Last Admin: 09/13/18 07:18 Dose: 100 mls/hr Lactated Ringer's (Ringers, Lactated) Confirm Administered Dose 1,000 mls @ as directed .ROUTE .[facility] ONE Stop: 09/13/18 07:16 Lactated Ringer's (Ringers, Lactated) 1,000 mls @ 175 mls/hr IV ASDIRECTED [facility] Last Admin: 09/14/18 05:00 Dose: 175 mls/hr Multivitamins/Minerals 10 ml/Thiamine HCl 200 mg/ Chromium/Copper/Manganese/ Seleni/Zn 1 ml/ Lactated Ringer's 1,013 mls @ 175 mls/hr IV DAILY@1600 [facility] Last Admin: 09/13/18 16:39 Dose: 175 mls/hr Tranexamic Acid 1,000 mg/ (Sodium Chloride) 60 mls @ 200 mls/hr IV Q3H [facility] Stop: 09/13/18 18:47 Last Admin: 09/13/18 18:08 Dose: 200 mls/hr Insulin Glargine (Lantus Solostar) 35 units SUBCUT ONETIME ONE Stop: 09/13/18 09:31 Last Admin: 09/13/18 09:30 Dose: 35 units Insulin Glargine (Lantus Solostar) 40 units SUBCUT ONETIME ONE Stop: 09/13/18 21:01 Last Admin: 09/13/18 21:49 Dose: 40 units Insulin Human Lispro (Humalog) 12 unit SUBCUT ONETIME ONE Stop: 09/13/18 10:31 Last Admin: 09/13/18 10:37 Dose: 12 units Insulin Human Lispro (Humalog) 20 unit SUBCUT ONETIME ONE Stop: 09/13/18 16:45 Insulin Human Lispro (Humalog) 20 unit SUBCUT ONETIME ONE Stop: 09/13/18 17:01 Last Admin: 09/13/18 16:54 Dose: 20 units Ketamine HCl (Ketalar) 34 mg IV ASDIRECTED [facility] Labetalol HCl (Normodyne) Confirm Administered Dose 20 mg .ROUTE .STK-MED ONE Stop: 09/13/18 08:57 Lidocaine HCl (Xylocaine 2%) 140 mg IVPUSH ASDIRECTED [facility] Neostigmine Methylsulfate (Neostigmine) Confirm Administered Dose 5 mg .ROUTE .STK-MED ONE Stop: 09/13/18 07:14 Ondansetron HCl (Zofran) Confirm Administered Dose 4 mg .ROUTE .STK-MED ONE Stop: 09/13/18 07:14 Pharmacy Consult (Consult To Pharmacy) 1 each .XX ASDIRECTED [facility] Stop: 09/13/18 11:46 Pregabalin (Lyrica) 300 mg PO ONETIME ONE Stop: 09/13/18 06:37 Last Admin: 09/13/18 07:11 Dose: 300 mg Propofol (Diprivan 20 Ml) Confirm Administered Dose 200 mg .ROUTE .STK-MED ONE Stop: 09/13/18 07:14 Rocuronium [place] (Zemuron) Confirm Administered Dose 50 mg .ROUTE .STK-MED ONE Stop: 09/13/18 07:14 Rocuronium [place] (Zemuron) Confirm Administered Dose 50 mg .ROUTE .STK-MED ONE Stop: 09/13/18 08:20 Scopolamine (Transderm-Scop) 1.5 mg TRDERM ONETIME ONE Stop: 09/13/18 06:46 Last Admin: 09/13/18 07:12 Dose: 1.5 mg - Exam Wound/Incisions: Healing Well, Dressing Dry and Intact, Drainage (No new drainage overnight. ) General: Alert, Oriented, Cooperative, No Acute Distress HEENT: Pupils Equal, Pupils Reactive, EOMI, Mucous Membr. Moist/[place] Neck: Supple, Trachea Midline Lungs: Clear to Auscultation, Normal Respiratory Effort Cardiovascular: Regular Rate, Regular Rhythm, No Murmurs GI/Abdominal Exam: Normal Bowel Sounds, Soft, Tender (Mostly on LUQ) Neurological: No New Focal Deficit Psy/Mental Status: Alert, Normal Affect, Normal Mood - Problem List Review Problem List Initiated/Reviewed/Updated: Yes - My Orders Last 24 Hours: Active Orders 24 hr Category Date Time Status Patient Status [ADT] Routine ADT 09/13/18 10:10 Active Ambulate [RC] ASDIRECTED Care 09/13/18 11:34 Active Cardiac Monitoring Discontinue [RC] Click to Edit Care 09/14/18 09:00 Active Cardiac Monitoring [RC] .As Directed Care 09/13/18 11:34 Active Communication Order [RC] ASDIRECTED Care 09/13/18 11:58 Active Communication Order [RC] ASDIRECTED Care 09/14/18 06:00 Active Communication Order [RC] ROUTINE Care 09/13/18 11:34 Active Dietary Supplements [RC] BIDMEALS Care 09/13/18 07:00 Active Dorsiflex/Plantar flex x 10 [RC] QSHIFT Care 09/13/18 11:34 Active Drain Management [RC] ASDIRECTED Care 09/13/18 11:34 Active Dressing Change [Wound Care] [RC] Q12H Care 09/13/18 11:47 Active Head of Bed Elevation [RC] CONTINUOUS Care 09/13/18 11:34 Active Insert Urinary Catheter [OM.PC] Per Unit Routine Care 09/13/18 11:34 Ordered Intake and Output [RC] ASDIRECTED Care 09/13/18 11:34 Active Notify Provider Intake and Out [RC] ASDIRECTED Care 09/13/18 11:34 Active Notify Provider [RC] PRN Care 09/13/18 11:34 Active Oxygen Therapy [RC] ASDIRECTED Care 09/13/18 11:34 Active POC Glucose [Blood Glucose Check, Bedside] [RC] Q6H Care 09/13/18 16:00 Active RT Aerosol Therapy [RC] ASDIRECTED Care 09/13/18 07:06 Active RT BiPAP/CPAP [RC] ASDIRECTED Care 09/13/18 11:34 Active RT Incentive Spirometry [RC] ASDIRECTED Care 09/13/18 11:34 Active RT Incentive Spirometry [RC] Q1HWA Care 09/13/18 11:34 Active [place] Director Discontinue [Cardiac Monitoring Care 09/14/18 07:14 Active Discontinue] [RC] Click to Edit Turn, Cough, Deep Breathe [RC] Q1HWA Care 09/13/18 11:34 Active Up to Chair [RC] TIDMEALS Care 09/13/18 11:34 Active Vital Signs [RC] Q1H Care 09/13/18 11:34 Active Vital Signs [RC] Q4H Care 09/14/18 07:16 Active Consult to Bariatric Services [CONS] Routine Cons 09/13/18 11:34 Active Consult to Pl[facility] Helper [CONS] Routine Cons 09/13/18 11:34 Active Respiratory Care Assess and Treatment [CONS] Routine Cons 09/13/18 11:34 Active Bariatric Diet [DIET] Diet 09/13/18 Lunch Active Bariatric Diet [DIET] Diet 09/14/18 Breakfast Active GLUCOSE POC LAB TO COLLECT [POC] Q6H Lab 09/14/18 10:00 Ordered GLUCOSE POC LAB TO COLLECT [POC] Q6H Lab 09/14/18 16:00 Ordered GLUCOSE POC LAB TO COLLECT [POC] Q6H Lab 09/14/18 22:00 Ordered Acetaminophen [Tylenol] Med 09/13/18 14:00 Active 650 mg PO Q6H Albuterol/Ipratropium [DuoNeb 3.0-0.5 MG/3 ML] Med 09/13/18 11:50 Active 3 ml INH ASDIRECTED PRN Albuterol/Ipratropium [DuoNeb 3.0-0.5 MG/3 ML] Med 09/13/18 15:00 Active 3 ml INH QIDRT Alogliptin Benzoate [Alogliptin] Med 09/13/18 14:00 Active 25 mg PO DAILY Celecoxib [CeleBREX] Med 09/14/18 08:00 Active 200 mg PO DAILY@0800 Cyanocobalamin (Vitamin B12) [Vitamin B12] Med 09/15/18 09:00 Once 1,000 mcg IM ONETIME ONE Dextrose 50% in Water Med 09/13/18 11:50 Active 50 ml IVPUSH ONETIME PRN Glucagon,Human Recombinant [GlucaGen] Med 09/13/18 11:50 Active 1 mg IM ONETIME PRN Heparin Sodium Med 09/13/18 16:00 Hold 5,000 units SUBCUT Q12H Insulin Glarg,Human.Rec.Analog [LantUS Solostar] Med 09/14/18 08:00 Once 50 units SUBCUT DAILY ONE Insulin Lispro [HumaLOG] Med 09/13/18 11:50 Active 0 unit SUBCUT Q6H PRN Iohexol [Omnipaque-300] Med 09/14/18 01:45 Active 50 ml PO .ASDIRECTED Iohexol [Omnipaque-300] Med 09/14/18 01:45 Active 50 ml PO .ASDIRECTED Iohexol [Omnipaque-300] Med 09/15/18 04:00 Active 50 ml PO .ASDIRECTED Iohexol [Omnipaque-300] Med 09/15/18 04:00 Active 50 ml PO .ASDIRECTED Labetalol [Normodyne] Med 09/13/18 11:50 Active 5 mg IVPUSH Q5M PRN Lactated Ringers [Ringers, Lactated] 1,000 ml Med 09/14/18 07:30 Active IV ASDIRECTED Lidocaine 0.4%/D5W [Lidocaine 2 GM/D5W 500 ML] Med 09/13/18 08:00 Active 2 gm in 500 ml IV 1 mg/min MVI, Adult with Vitamin K [Infuvite Adult] 10 ml Med 09/14/18 16:00 Active Thiamine [Vitamin B-1] 200 mg Chromium/Copper/Ghanshyam/Selen/Zn [Multitrace-5 Concentrate ] 1 ml Lactated Ringers [Ringers, Lactated] 1,000 ml IV DAILY@1600 Metoclopramide [Reglan] Med 09/13/18 11:50 Active 10 mg IVPUSH Q6H PRN Morphine Med 09/13/18 11:58 Active 2 mg IVPUSH Q2H PRN Morphine Med 09/13/18 11:58 Active 4 mg IVPUSH Q2H PRN Non-Formulary Medication [NF Drug] Med 09/13/18 11:50 Active 1 each TOP DAILY Ondansetron [Zofran] Med 09/13/18 11:50 Active 4 mg IVPUSH Q4H PRN Pantoprazole [ProTONIX IV] Med 09/13/18 14:00 Active 40 mg IVPUSH Q24H Pregabalin [Lyrica] Med 09/13/18 21:00 Active 300 mg PO BID Remove Patch Med 09/15/18 10:00 Once 1 ea TRDERM ONETIME ONE busPIRone [Buspar] Med 09/13/18 15:00 Active 10 mg PO TID cefOXitin [Mefoxin] 2 gm Med 09/13/18 14:00 Active Sodium Chloride 0.9% [Normal Saline] 50 ml IV Q6H diphenhydrAMINE [Benadryl] Med 09/13/18 11:50 Active 50 mg IVPUSH Q4H PRN hydrOXYzine HCl [Vistaril] Med 09/13/18 11:43 Active 100 mg IM Q4H PRN metFORMIN [Glucophage] Med 09/13/18 17:00 Active 1,000 mg PO BIDMEALS Abdominal Binder [OM.PC] Routine Oth 09/13/18 11:34 Ordered Oral Care [OM.PC] BID Oth 09/13/18 11:45 Ordered Oral Care [OM.PC] BID Oth 09/14/18 11:45 Ordered PT Screening [OM.PC] Routine Oth 09/13/18 11:34 Active Remove Dressing [OM.PC] Routine Ot 09/14/18 07:17 Ordered Sequential Compression Device [OM.PC] Routine Ot 09/13/18 06:35 Ordered Sequential Compression Device [OM.PC] Routine Oth 09/13/18 11:34 Ordered Specialty Bed [OM.PC] Routine Ot 09/13/18 11:34 Ordered Resuscitation Status Routine Resus Stat 09/13/18 11:34 Ordered Medication Orders Acetaminophen (Tylenol) 650 mg PO Q6H [facility] Last Admin: 09/14/18 01:04 Dose: 650 mg Admin: 09/13/18 19:49 Dose: 650 mg Admin: 09/13/18 14:03 Dose: 650 mg Albuterol/Ipratropium (Duoneb 3.0-0.5 Mg/3 Ml) 3 ml INH QIDRT [facility] Last Admin: 09/13/18 21:13 Dose: 3 ml Admin: 09/13/18 15:13 Dose: 3 ml Albuterol/Ipratropium (Duoneb 3.0-0.5 Mg/3 Ml) 3 ml INH ASDIRECTED PRN PRN Reason: BREATHING Alogliptin Benzoate (Alogliptin) 25 mg PO DAILY [facility] Last Admin: 09/13/18 14:03 Dose: 25 mg Buspirone HCl (Buspar) 10 mg PO TID [facility] Last Admin: 09/13/18 21:14 Dose: 10 mg Admin: 09/13/18 15:36 Dose: 10 mg Celecoxib (Celebrex) 200 mg PO DAILY@0800 [facility] Cyanocobalamin (Vitamin B12) 1,000 mcg IM ONETIME ONE Stop: 09/15/18 09:01 Dextrose/Water (Dextrose 50% In Water) 50 ml IVPUSH ONETIME PRN PRN Reason: ACCUCHECK LESS THAN 70 Diphenhydramine HCl (Benadryl) 50 mg IVPUSH Q4H PRN PRN Reason: ITCHING Glucagon (Glucagen) 1 mg IM ONETIME PRN PRN Reason: ACCUCHECK LESS THAN 70 Heparin Sodium (Porcine) (Heparin Sodium) 5,000 units SUBCUT Q12H [facility] Hydroxyzine HCl (Vistaril) 100 mg IM Q4H PRN PRN Reason: pain Last Admin: 09/13/18 11:54 Dose: 100 mg Lidocaine HCl/Dextrose (Lidocaine 2 Gm/D5w 500 Ml) 2 gm in 500 mls @ 15 mls/hr IV .Q24H [facility] Stop: 09/14/18 11:00 Last Admin: 09/13/18 12:00 Dose: 1 mg/min, 15 mls/hr Cefoxitin Sodium 2 gm/ Sodium (Chloride) 50 mls @ 100 mls/hr IV Q6H [facility] Stop: 09/14/18 08:29 Last Admin: 09/14/18 01:04 Dose: 100 mls/hr Admin: 09/13/18 19:49 Dose: 100 mls/hr Admin: 09/13/18 14:12 Dose: 100 mls/hr Lactated Ringer's (Ringers, Lactated) 1,000 mls @ 100 mls/hr IV ASDIRECTED [facility] Multivitamins/Minerals 10 ml/Thiamine HCl 200 mg/ Chromium/Copper/Manganese/ Seleni/Zn 1 ml/ Lactated Ringer's 1,013 mls @ 100 mls/hr IV DAILY@1600 [facility] Insulin Glargine (Lantus Solostar) 50 units SUBCUT DAILY ONE Stop: 09/14/18 08:01 Insulin Human Lispro (Humalog) 0 unit SUBCUT Q6H PRN; Protocol PRN Reason: CORRECTIONAL DOSING Last Admin: 09/13/18 21:50 Dose: 12 unit Iohexol (Omnipaque-300) 50 ml PO .ASDIRECTED [facility] Iohexol (Omnipaque-300) 50 ml PO .ASDIRECTED [facility] Iohexol (Omnipaque-300) 50 ml PO .ASDIRECTED [facility] Iohexol (Omnipaque-300) 50 ml PO .ASDIRECTED [facility] Labetalol HCl (Normodyne) 5 mg IVPUSH Q5M PRN PRN Reason: SBP over 160 OR DBP over 95 Metformin HCl (Glucophage) 1,000 mg PO BIDMEALS [facility] Last Admin: 09/13/18 16:37 Dose: 1,000 mg Metoclopramide HCl (Reglan) 10 mg IVPUSH Q6H PRN PRN Reason: NAUSEA NOT CONTROL BY ZOFRAN Miscellaneous Information (Remove Patch) 1 ea TRDERM ONETIME ONE Stop: 09/15/18 10:01 Morphine Sulfate (Morphine) 2 mg IVPUSH Q2H PRN PRN Reason: MODERATE PAIN Morphine Sulfate (Morphine) 4 mg IVPUSH Q2H PRN PRN Reason: SEVERE PAIN Last Admin: 09/14/18 01:10 Dose: 4 mg Admin: 09/13/18 20:00 Dose: 4 mg Admin: 09/13/18 16:34 Dose: 4 mg Admin: 09/13/18 14:35 Dose: 4 mg Admin: 09/13/18 12:15 Dose: 4 mg Scopolamine Patch (Check) 1 each TOP DAILY [facility] Stop: 09/15/18 11:51 Ondansetron HCl (Zofran) 4 mg IVPUSH Q4H PRN PRN Reason: Nausea/Vomiting Pantoprazole Sodium (Protonix Iv) 40 mg IVPUSH Q24H [facility] Last Admin: 09/13/18 14:07 Dose: 40 mg Pregabalin (Lyrica) 300 mg PO BID [facility] Last Admin: 09/13/18 21:13 Dose: 300 mg - Assessment Assessment (Free Text/Narrative):: Demarcus Diallo is a 30 yo male presenting post op day one after a RYGB for gastroparesis and management of diabetes. He appears to be healing well. He had some bloody drainage in his KIA drain this morning but it hasn't added much since yesterday night. He has some pain which he describes as internal pain which is typical with this procedure. Pain appears to be well controlled. His blood glucose was 319 this morning which is down from admission but not at goal. His liver enzymes are elevated along with alk phos; albumin and protein are decreased. Kidney function looks good. He has a good attitude toward recovery and appears to be well prepared for meals at home following our guidelines. In addition to his RYGB he has two wounds including a toe amputation and antecubital debridement which both appear to be healing well. He may be ready for discharge on Wednesday if his glucose is under control. - Plan Plan (Free Text/Narrative):: 1. RYGB -DC telemetry -VS and O2 Q4H -Decrease IV to 100cc/hr -Step II diet; no solids -DC Abdominal dressing; protect foot dressing -DC morphine IV -Oxycodone 5mg PO -Pl[facility] Helper referral 2. Type II DM -Lantus 50 U in the morning; 40 U at night 3. Psych diagnosis -SHACTOR Seroquel 100 mg -SHACTOR Lyrica 300 mg PO BID -Klonopin 1 mg PO BID
[2018-09-14] MEDS: Albuterol/Ipratropium 3.0-0.5 MG/3 ML Neb Soln INH SCH ×4 (07:36→22:22)
[2018-09-14] MEDS: Celecoxib 200 MG Cap PO SCH (07:42)
[2018-09-14] MEDS: oxyCODONE 5 MG Tab PO PRN ×4 (07:43→22:23)
[2018-09-14] MEDS: metFORMIN 500 MG Tab PO SCH ×2 (07:44→18:32)
[2018-09-14] MEDS: Lidocaine 0.4%/D5W 2 GM/500 ML BAG IV SCH (07:47)
[2018-09-14] MEDS ORDERED: Insulin Glargine,Human Rec. Analog 100 Units/ML 3 ML Pen SUBCUT ONE ×2 (08:00→21:00)
[2018-09-14] MEDS: Pregabalin 100 MG Cap PO SCH ×2 (09:14→22:23)
[2018-09-14] MEDS: ClonazePAM 1 MG Tab PO SCH ×2 (09:14→22:23)
[2018-09-14] MEDS: busPIRone 10 MG Tab PO SCH ×3 (09:14→22:22)
[2018-09-14] MEDS: SCOPOLAMINE PATCH CHECK TOP SCH (09:15)
[2018-09-14] MEDS: Magnesium Sulfate/Water 2 GM in Premix Bag 1 BAG IV SCH ×3 (11:37→22:34)
[2018-09-14] MEDS: Pantoprazole 40 MG Delayed-Release Granules 1 Packet PO SCH (11:39)
[2018-09-14] MEDS: Insulin Lispro 100 Unit/ML 3 ML KwikPen SUBCUT PRN (13:33)
[2018-09-14] MEDS: Heparin Sodium 5,000 Units/ML Vial SUBCUT SCH (15:21)
[2018-09-14] MEDS ORDERED: MVI, Adult with Vitamin K 10 ML, Thiamine 200 MG, Chromium/Copper/Mang/Selen/Zn 1 ML in... IV SCH ×4 (16:00)
[2018-09-14] MEDS ORDERED: QUEtiapine 100 MG Tab PO SCH (21:00)
[2018-09-15] MEDS: oxyCODONE 5 MG Tab PO PRN ×3 (03:14→12:21)
[2018-09-15] MEDS: Acetaminophen 325 MG Tab PO SCH ×2 (03:14→08:11)
[2018-09-15] MEDS: Heparin Sodium 5,000 Units/ML Vial SUBCUT SCH (03:15)
[2018-09-15] MEDS ORDERED: Iohexol 647 MG/ML 50 ML SDV PO SCH ×2 (04:00)
[2018-09-15] MEDS: Magnesium Sulfate/Water 2 GM in Premix Bag 1 BAG IV SCH ×2 (05:58→12:21)
[2018-09-15] MEDS: Albuterol/Ipratropium 3.0-0.5 MG/3 ML Neb Soln INH SCH ×2 (07:18→11:41)
[2018-09-15] MEDS: busPIRone 10 MG Tab PO SCH (08:11)
[2018-09-15] MEDS: Celecoxib 200 MG Cap PO SCH (08:11)
[2018-09-15] MEDS: metFORMIN 500 MG Tab PO SCH (08:11)
[2018-09-15] MEDS: ClonazePAM 1 MG Tab PO SCH (08:11)
[2018-09-15] MEDS: Pregabalin 100 MG Cap PO SCH (08:12)
[2018-09-15] MEDS: SCOPOLAMINE PATCH CHECK TOP SCH (08:12)
[2018-09-15] MEDS ORDERED: Cyanocobalamin (Vitamin B12) 1,000 MCG/ML SDV IM ONE (09:00)
--- NOTE | 2018-09-15 10:35 | OR ---
DATE OF PROCEDURE: 09/13/2018 SURGEON: Darryl Bustamante MD PREOPERATIVE DIAGNOSIS: Severe diabetic gastroparesis. POSTOPERATIVE DIAGNOSES: 1. Severe diabetic gastroparesis. 2. Marked hepatomegaly. 3. Foreshortened small bowel mesentery secondary to extensive fatty infiltration. 4. Paraesophageal diaphragmatic hernia. 5. Mediastinal lipoma. 6. Peritoneal implant on transverse mesocolon. PROCEDURES: Diagnostic laparoscopy with: 1. Partial gastrectomy with Power-en-Y gastrojejunostomy (16788). 2. Yobani-Cut needle liver biopsy (91579). 3. Small bowel resection (39321). 4. Repair of paraesophageal diaphragmatic hernia (27061). 5. Excision of mediastinal lipoma (48567). 6. Excision of peritoneal implant overlying transverse mesocolon (70299). ANESTHESIA: General. MINE SUPERINTENDENT: NANI Locke3. INDICATIONS FOR PROCEDURE: This is a 33-year-old, presenting with progressively worsening type 2 diabetes mellitus, among other complications. He has development of a gastroparesis with the patient having upper endoscopy last week showing a large volume of retained food within the stomach. At age 33, we felt this would be best treated by surgical management, as given various issues and his young age, it is unlikely that medical management would be satisfactory. Plan is to proceed with a partial gastrectomy with Power-en-Y gastrojejunostomy and other procedures as indicated based on the operative findings. Potential risks of the procedure including bleeding, infection, leaks from various GI tract closures, problems with bowel obstruction over time, as well as the possibility of cardiopulmonary, septic, or hemorrhagic complications leading to were discussed, and the patient wishes to proceed. DETAILS OF PROCEDURE: The patient was taken to the operating room, and after general endotracheal anesthesia was induced, the abdomen was prepped and draped. A Bautista catheter was inserted. At 15 cm inferior and 5 cm left of the xiphoid process, a transverse incision was made and the peritoneal cavity entered under direct vision with an Optiview trocar, inflated to 15 mmHg pressure with CO2. Laparoscope was reinserted. No underlying trocar insertion site injuries were seen. Following this, 5 additional trocars were placed across the upper and mid abdomen, and then general exploration was undertaken. The patient was noted to have marked hepatomegaly. Yobani-Cut needle liver biopsies were obtained from the left lobe of liver. Minimal bleeding from the biopsy site was controlled with electrocautery. Bilateral transversus abdominis plane blocks were then placed. The transverse colon was then retracted anteriorly. The patient was noted to have a linear peritoneal implant on the peritoneal surface of the transverse mesocolon. This was excised using Harmonic scalpel, and on elongating the lesion to measure its length, it was noted to be 5.5 cm. At that point, the small bowel was identified from the ligament of Treitz and traced out 200 cm distal to that point, divided transversely with KIERAN stapler. Small bowel was then traced out additional 225 cm, where the [id number] enteroenterostomy was accomplished with internal firing of the Endo-KIERAN 60 mm stapler. Common opening was then closed transversely with KIERAN stapler as well, angles anastomosed, and mesenteric defect approximated with some 0 Ethibond suture, along with fibrin sealant. At the initiation of this jejunojejunostomy, it was noted that the small bowel mesentery was extremely thickened and immobile due to fatty infiltration. Given this, prior to the anastomosis, roughly 10 cm of the biliopancreatic limb was resected, after division of the underlying mesentery. This was divided with a KIERAN stapler and that segment of small bowel divided. This then allowed much more mobile jejunojejunostomy, such that the proximal gastrojejunostomy would be under less tension. At this point, the liver was retracted anteriorly. The patient was noted to have a moderate- sized paraesophageal diaphragmatic hernia. The peritoneum overlying this was incised and reflected downward. As the diaphragmatic hernia was reduced, he was noted to have some perigastric fat, some of the gastric fundus, and tongue of omentum located within it. Once the diaphragmatic hernia was reduced, the patient was noted to have a roughly ping-pong ball- sized mediastinal lipoma. To facilitate more adequate crural repair, this was excised, and the crural repair was then accomplished with 0 Ethibond sutures, reinforced with PTFE pledgets. At this point, the proximal stomach was divided at a point roughly 2 to 3 cm below the esophagogastric junction, beginning on the lesser curvature side and then angling up towards the angle of His. A portion of the stomach below this was also excised, as to remove some of the fundus, which at this point was quite strikingly dilated and grossly inflamed in appearance. All of the gastric division, other than the last 2 firings of the proximal staple line, were done with KIERAN black loads, due to the thickness of the stomach. It was noted that the stomach itself was, despite placement of nasogastric tube per Anesthesia, filled with large volume of solid material, which was not readily aspiratable by the NG tube. At this point, the anvil of a 25 mm EEA stapler was attached to Wythe Sump type tube. The latter was brought down through the mouth and taken out a small opening in the proximal gastric remnant, and the main body of the EEA stapler was passed through a small opening in the divided end of the Power limb, brought up the anvil and united with it, thus creating the gastrojejunostomy. Upon removal of the stapler, double donuts of mucosa were noted within it. The small bowel was closed off with a vascular staple line. Gastrojejunostomy was then reinforced with some 3-0 Vicryl seromuscular stitch, along with fibrin sealant. A leak test was accomplished with injection of 120 mL of air in the gastric pouch, while it was submerged with cefoxitin-containing saline solution. No leaks were identified. Two [place] drains were then placed adjacent to gastrojejunostomy and taken out through subcostal trocar sites. With no further problems noted, trocars were removed, and peritoneal cavity was deflated. Incisions were closed with some 4-0 Vicryl skin stitch, which was also used to affix the drains. The patient was then taken to the recovery room in satisfactory condition. Darryl Bustamante MD /[id number]
[2018-09-15 10:53] VITALS: BP 128/84
[2018-09-15] MEDS: Pantoprazole 40 MG Delayed-Release Granules 1 Packet PO SCH (12:22)
--- NOTE | 2018-09-15 13:50 | PCM.SURGPN ---
- General Info Date of Service: 09/15/18 Date of Surgery/Procedure: 09/13/18 POD#: 2 Post-Op Diagnosis: Gastroparesis with type II DM Functional Status: Reports: Pain Controlled (Pain relatively well controlled though he rates his pain 8/10. ), Tolerating Diet, Ambulating, Urinating, Incentive Spirometry Pain Score: 8 - Review of Systems General: Reports: No Symptoms HEENT: Reports: No Symptoms Pulmonary: Reports: No Symptoms Cardiovascular: Reports: No Symptoms Gastrointestinal: Reports: Abdominal Pain (Some abdominal pain in LUQ similar to the pain documented yesterday (09/14/18). Had a well formed stool yesterday. ) . Denies: Constipation, Diarrhea Genitourinary: Reports: No Symptoms Musculoskeletal: Reports: No Symptoms. Denies: Leg Pain - Patient Data Vitals - Most Recent: Last Vital Signs Temp 35.6 C 09/15/18 10:51 Pulse 90 09/15/18 10:51 Resp 18 09/15/18 10:51 BP 128/84 09/15/18 10:51 Pulse Ox 99 09/15/18 10:51 Weight - Most Recent: 128.99 kg I&O - Last 24 Hours: Intake & Output 09/14/18 09/15/18 09/15/18 22:59 06:59 14:59 Intake Total 840 2121 Output Total 605 65 30 Balance 235 2055 Med Orders - Current: Current Medications Acetaminophen (Tylenol) 650 mg PO Q6H [facility] Last Admin: 09/15/18 08:11 Dose: 650 mg Albuterol/Ipratropium (Duoneb 3.0-0.5 Mg/3 Ml) 3 ml INH QIDRT [facility] Last Admin: 09/15/18 11:41 Dose: Not Given Albuterol/Ipratropium (Duoneb 3.0-0.5 Mg/3 Ml) 3 ml INH ASDIRECTED PRN PRN Reason: BREATHING Alogliptin Benzoate (Alogliptin) 25 mg PO DAILY [facility] Last Admin: 09/15/18 08:11 Dose: 25 mg Buspirone HCl (Buspar) 10 mg PO TID [facility] Last Admin: 09/15/18 08:11 Dose: 10 mg Celecoxib (Celebrex) 200 mg PO DAILY@0800 [facility] Last Admin: 09/15/18 08:11 Dose: 200 mg Clonazepam (Klonopin) 1 mg PO BID [facility] Last Admin: 09/15/18 08:11 Dose: 1 mg Dextrose/Water (Dextrose 50% In Water) 50 ml IVPUSH ONETIME PRN PRN Reason: ACCUCHECK LESS THAN 70 Diphenhydramine HCl (Benadryl) 50 mg IVPUSH Q4H PRN PRN Reason: ITCHING Glucagon (Glucagen) 1 mg IM ONETIME PRN PRN Reason: ACCUCHECK LESS THAN 70 Heparin Sodium (Porcine) (Heparin Sodium) 5,000 units SUBCUT Q12H [facility] Last Admin: 09/15/18 03:15 Dose: 5,000 units Hydroxyzine HCl (Vistaril) 100 mg IM Q4H PRN PRN Reason: pain Last Admin: 09/13/18 11:54 Dose: 100 mg Lactated Ringer's (Ringers, Lactated) 1,000 mls @ 100 mls/hr IV ASDIRECTED [facility] Last Admin: 09/15/18 01:57 Dose: 100 mls/hr Multivitamins/Minerals 10 ml/Thiamine HCl 200 mg/ Chromium/Copper/Manganese/ Seleni/Zn 1 ml/ Lactated Ringer's 1,013 mls @ 100 mls/hr IV DAILY@1600 [facility] Last Admin: 09/14/18 15:21 Dose: 100 mls/hr Magnesium Sulfate 2 gm/ Premix 50 mls @ 25 mls/hr IV Q6H [facility] Stop: 09/16/18 13:00 Last Admin: 09/15/18 12:21 Dose: Not Given Insulin Human Lispro (Humalog) 0 unit SUBCUT Q6H PRN; Protocol PRN Reason: CORRECTIONAL DOSING Last Admin: 09/14/18 13:33 Dose: 5 unit Iohexol (Omnipaque-300) 50 ml PO .ASDIRECTED [facility] Stop: 09/15/18 16:00 Labetalol HCl (Normodyne) 5 mg IVPUSH Q5M PRN PRN Reason: SBP over 160 OR DBP over 95 Metformin HCl (Glucophage) 1,000 mg PO BIDMEALS [facility] Last Admin: 09/15/18 08:11 Dose: 1,000 mg Metoclopramide HCl (Reglan) 10 mg IVPUSH Q6H PRN PRN Reason: NAUSEA NOT CONTROL BY ZOFRAN Ondansetron HCl (Zofran) 4 mg IVPUSH Q4H PRN PRN Reason: Nausea/Vomiting Oxycodone HCl (Oxycodone) 5 mg PO Q3H PRN PRN Reason: PAIN Last Admin: 09/15/18 12:21 Dose: 5 mg Pantoprazole Sodium (Protonix Granules) 40 mg PO Q24H [facility] Last Admin: 09/15/18 12:22 Dose: Not Given Pregabalin (Lyrica) 300 mg PO BID [facility] Last Admin: 09/15/18 08:12 Dose: 300 mg Quetiapine Fumarate (Seroquel) 100 mg PO BEDTIME [facility] Last Admin: 09/14/18 22:29 Dose: 100 mg Discontinued Medications Acetaminophen (Tylenol Extra Strength) 1,000 mg PO ONETIME ONE Stop: 09/13/18 06:41 Last Admin: 09/13/18 07:10 Dose: 1,000 mg Albuterol/Ipratropium (Duoneb 3.0-0.5 Mg/3 Ml) 3 ml NEB ONETIME ONE Stop: 09/13/18 07:06 Last Admin: 09/13/18 07:27 Dose: 3 ml Cefoxitin Sodium (Mefoxin) Confirm Administered Dose 2 gm .ROUTE .STK-MED ONE Stop: 09/13/18 07:04 Last Admin: 09/13/18 10:58 Dose: 2 gm Celecoxib (Celebrex) 200 mg PO ONETIME ONE Stop: 09/13/18 06:36 Last Admin: 09/13/18 07:10 Dose: 200 mg Ropivacaine 60 ml/Dexamethasone 8 mg/Epinephrine HCl 0.4 mg/ Sodium Chloride 17.6 ml 0 ml NERVRT ASDIRECTED [facility] Last Admin: 09/13/18 08:27 Dose: 80 syringe Cyanocobalamin (Vitamin B12) 1,000 mcg IM ONETIME ONE Stop: 09/15/18 09:01 Last Admin: 09/15/18 08:12 Dose: 1,000 mcg Fentanyl (Sublimaze) Confirm Administered Dose 250 mcg .ROUTE .STK-MED ONE Stop: 09/13/18 08:18 Fentanyl (Sublimaze) 50 mcg IVPUSH ONETIME ONE Stop: 09/13/18 10:24 Last Admin: 09/13/18 10:29 Dose: 50 mcg Fentanyl (Sublimaze) 50 mcg IVPUSH ONETIME ONE Stop: 09/13/18 10:40 Last Admin: 09/13/18 10:42 Dose: 50 mcg Fentanyl Citrate (Fentanyl) Confirm Administered Dose 500 mcg .ROUTE .[facility] ONE Stop: 09/13/18 07:13 Glycopyrrolate (Robinul) Confirm Administered Dose 1 mg .ROUTE .[facility] ONE Stop: 09/13/18 07:14 Hydroxyzine HCl (Vistaril) 100 mg IM ONETIME ONE Stop: 09/13/18 10:24 Last Admin: 09/13/18 10:32 Dose: 100 mg Lidocaine HCl/Dextrose (Lidocaine 2 Gm/D5w 500 Ml) 2 gm in 500 mls @ 15 mls/hr IV .Q24H [facility] Stop: 09/14/18 11:00 Last Admin: 09/14/18 07:47 Dose: Not Given Ketamine HCl 50 mg/ Sodium (Chloride) 50 mls @ 20.4 mls/hr IV ASDIRECTED [facility] Cefoxitin Sodium 2 gm/ Sodium (Chloride) 50 mls @ 100 mls/hr IV ONETIME ONE Stop: 09/13/18 08:14 Last Admin: 09/13/18 08:26 Dose: 100 mls/hr Dextrose/Lactated Ringer's (Dextrose 5%-Lactated Ringers) 1,000 mls @ 100 mls/ hr IV ASDIRECTED [facility] Insulin Human Regular 100 unit (/ Sodium Chloride) 100 mls @ 0 mls/hr IV TITRATE [facility]; Protocol Lactated Ringer's (Ringers, Lactated) 1,000 mls @ 100 mls/hr IV ASDIRECTED [facility] Last Admin: 09/13/18 07:18 Dose: 100 mls/hr Lactated Ringer's (Ringers, Lactated) Confirm Administered Dose 1,000 mls @ as directed .ROUTE .[facility] ONE Stop: 09/13/18 07:16 Lactated Ringer's (Ringers, Lactated) 1,000 mls @ 175 mls/hr IV ASDIRECTED [facility] Last Infusion: 09/14/18 08:00 Dose: 100 mls/hr Multivitamins/Minerals 10 ml/Thiamine HCl 200 mg/ Chromium/Copper/Manganese/ Seleni/Zn 1 ml/ Lactated Ringer's 1,013 mls @ 175 mls/hr IV DAILY@1600 [facility] Last Admin: 09/13/18 16:39 Dose: 175 mls/hr Cefoxitin Sodium 2 gm/ Sodium (Chloride) 50 mls @ 100 mls/hr IV Q6H [facility] Stop: 09/14/18 08:29 Last Admin: 09/14/18 07:49 Dose: 100 mls/hr Tranexamic Acid 1,000 mg/ (Sodium Chloride) 60 mls @ 200 mls/hr IV Q3H [facility] Stop: 09/13/18 18:47 Last Admin: 09/13/18 18:08 Dose: 200 mls/hr Insulin Glargine (Lantus Solostar) 35 units SUBCUT ONETIME ONE Stop: 09/13/18 09:31 Last Admin: 09/13/18 09:30 Dose: 35 units Insulin Glargine (Lantus Solostar) 40 units SUBCUT ONETIME ONE Stop: 09/13/18 21:01 Last Admin: 09/13/18 21:49 Dose: 40 units Insulin Glargine (Lantus Solostar) 50 units SUBCUT DAILY ONE Stop: 09/14/18 08:01 Last Admin: 09/14/18 07:43 Dose: 50 units Insulin Glargine (Lantus Solostar) 40 units SUBCUT ONETIME ONE Stop: 09/14/18 21:01 Last Admin: 09/14/18 22:24 Dose: 40 units Insulin Human Lispro (Humalog) 12 unit SUBCUT ONETIME ONE Stop: 09/13/18 10:31 Last Admin: 09/13/18 10:37 Dose: 12 units Insulin Human Lispro (Humalog) 20 unit SUBCUT ONETIME ONE Stop: 09/13/18 16:45 Insulin Human Lispro (Humalog) 20 unit SUBCUT ONETIME ONE Stop: 09/13/18 17:01 Last Admin: 09/13/18 16:54 Dose: 20 units Iohexol (Omnipaque-300) 50 ml PO .ASDIRECTED [facility] Iohexol (Omnipaque-300) 50 ml PO .ASDIRECTED [facility] Iohexol (Omnipaque-300) 50 ml PO .ASDIRECTED [facility] Ketamine HCl (Ketalar) 34 mg IV ASDIRECTED [facility] Labetalol HCl (Normodyne) Confirm Administered Dose 20 mg .ROUTE .STK-MED ONE Stop: 09/13/18 08:57 Lidocaine HCl (Xylocaine 2%) 140 mg IVPUSH ASDIRECTED [facility] Miscellaneous Information (Remove Patch) 1 ea TRDERM ONETIME ONE Stop: 09/15/18 10:01 Last Admin: 09/15/18 09:37 Dose: Not Given Morphine Sulfate (Morphine) 2 mg IVPUSH Q2H PRN PRN Reason: MODERATE PAIN Morphine Sulfate (Morphine) 4 mg IVPUSH Q2H PRN PRN Reason: SEVERE PAIN Last Admin: 09/14/18 01:10 Dose: 4 mg Neostigmine Methylsulfate (Neostigmine) Confirm Administered Dose 5 mg .ROUTE .STK-MED ONE Stop: 09/13/18 07:14 Scopolamine Patch (Check) 1 each TOP DAILY [facility] Stop: 09/15/18 11:51 Last Admin: 09/15/18 08:12 Dose: Not Given Ondansetron HCl (Zofran) Confirm Administered Dose 4 mg .ROUTE .STK-MED ONE Stop: 09/13/18 07:14 Pantoprazole Sodium (Protonix Iv) 40 mg IVPUSH Q24H [facility] Last Admin: 09/13/18 14:07 Dose: 40 mg Pharmacy Consult (Consult To Pharmacy) 1 each .XX ASDIRECTED [facility] Stop: 09/13/18 11:46 Pregabalin (Lyrica) 300 mg PO ONETIME ONE Stop: 09/13/18 06:37 Last Admin: 09/13/18 07:11 Dose: 300 mg Propofol (Diprivan 20 Ml) Confirm Administered Dose 200 mg .ROUTE .STK-MED ONE Stop: 09/13/18 07:14 Rocuronium [place] (Zemuron) Confirm Administered Dose 50 mg .ROUTE .STK-MED ONE Stop: 09/13/18 07:14 Rocuronium [place] (Zemuron) Confirm Administered Dose 50 mg .ROUTE .STK-MED ONE Stop: 09/13/18 08:20 Scopolamine (Transderm-Scop) 1.5 mg TRDERM ONETIME ONE Stop: 09/13/18 06:46 Last Admin: 09/13/18 07:12 Dose: 1.5 mg - Exam Wound/Incisions: Healing Well, Drainage (150 ml out of his KIA.) General: Alert, Oriented, Cooperative, No Acute Distress Lungs: Clear to Auscultation, Normal Respiratory Effort Cardiovascular: Regular Rate, Regular Rhythm GI/Abdominal Exam: Normal Bowel Sounds, Tender. No: Guarding Extremities: Normal Inspection, No Pedal Edema - Problem List Review Problem List Initiated/Reviewed/Updated: Yes - My Orders Last 24 Hours: Active Orders 24 hr Category Date Time Status Communication Order [RC] ASDIRECTED Care 09/15/18 07:01 Active Communication Order [RC] ASDIRECTED Care 09/16/18 06:30 Active May Shower [RC] ASDIRECTED Care 09/15/18 06:58 Active Ready for Discharge [RC] PER UNIT ROUTINE Care 09/15/18 11:27 Active GLUCOSE POC LAB TO COLLECT [POC] Q6H Lab 09/15/18 04:36 Received GLUCOSE POC LAB TO COLLECT [POC] Q6H Lab 09/15/18 16:00 Ordered GLUCOSE POC LAB TO COLLECT [POC] Q6H Lab 09/15/18 22:00 Ordered Iohexol [Omnipaque-300] Med 09/15/18 04:00 Active 50 ml PO .ASDIRECTED [facility], Adult with Vitamin K [Infuvite Adult] 10 ml Med 09/14/18 16:00 Active Thiamine [Vitamin B-1] 200 mg Chromium/Copper/Ghanshyam/Selen/Zn [Multitrace-5 Concentrate ] 1 ml Lactated Ringers [Ringers, Lactated] 1,000 ml IV DAILY@1600 QUEtiapine [SEROquel] Med 09/14/18 21:00 Active 100 mg PO BEDTIME Drain Removal [OM.PC] Routine Oth 09/15/18 11:28 Ordered Peripheral IV Discontinue [OM.PC] Routine Oth 09/15/18 11:28 Ordered Medication Orders Acetaminophen (Tylenol) 650 mg PO Q6H [facility] Last Admin: 09/15/18 08:11 Dose: 650 mg Admin: 09/15/18 03:14 Dose: 650 mg Admin: 09/14/18 19:30 Dose: 650 mg Admin: 09/14/18 15:21 Dose: 650 mg Admin: 09/14/18 07:42 Dose: 650 mg Admin: 09/14/18 01:04 Dose: 650 mg Admin: 09/13/18 19:49 Dose: 650 mg Admin: 09/13/18 14:03 Dose: 650 mg Albuterol/Ipratropium (Duoneb 3.0-0.5 Mg/3 Ml) 3 ml INH QIDRT [facility] Last Admin: 09/15/18 11:41 Dose: Not Given Admin: 09/15/18 07:18 Dose: Not Given Admin: 09/14/18 22:22 Dose: 3 ml Admin: 09/14/18 14:28 Dose: Not Given Admin: 09/14/18 10:51 Dose: Not Given Admin: 09/14/18 07:36 Dose: 3 ml Admin: 09/13/18 21:13 Dose: 3 ml Admin: 09/13/18 15:13 Dose: 3 ml Albuterol/Ipratropium (Duoneb 3.0-0.5 Mg/3 Ml) 3 ml INH ASDIRECTED PRN PRN Reason: BREATHING Alogliptin Benzoate (Alogliptin) 25 mg PO DAILY [facility] Last Admin: 09/15/18 08:11 Dose: 25 mg Admin: 09/14/18 09:14 Dose: 25 mg Admin: 09/13/18 14:03 Dose: 25 mg Buspirone HCl (Buspar) 10 mg PO TID [facility] Last Admin: 09/15/18 08:11 Dose: 10 mg Admin: 09/14/18 22:22 Dose: 10 mg Admin: 09/14/18 13:32 Dose: 10 mg Admin: 09/14/18 09:14 Dose: 10 mg Admin: 09/13/18 21:14 Dose: 10 mg Admin: 09/13/18 15:36 Dose: 10 mg Celecoxib (Celebrex) 200 mg PO DAILY@0800 [facility] Last Admin: 09/15/18 08:11 Dose: 200 mg Admin: 09/14/18 07:42 Dose: 200 mg Clonazepam (Klonopin) 1 mg PO BID [facility] Last Admin: 09/15/18 08:11 Dose: 1 mg Admin: 09/14/18 22:23 Dose: 1 mg Admin: 09/14/18 09:14 Dose: 1 mg Dextrose/Water (Dextrose 50% In Water) 50 ml IVPUSH ONETIME PRN PRN Reason: ACCUCHECK LESS THAN 70 Diphenhydramine HCl (Benadryl) 50 mg IVPUSH Q4H PRN PRN Reason: ITCHING Glucagon (Glucagen) 1 mg IM ONETIME PRN PRN Reason: ACCUCHECK LESS THAN 70 Heparin Sodium (Porcine) (Heparin Sodium) 5,000 units SUBCUT Q12H [facility] Last Admin: 09/15/18 03:15 Dose: 5,000 units Admin: 09/14/18 15:21 Dose: 5,000 units Hydroxyzine HCl (Vistaril) 100 mg IM Q4H PRN PRN Reason: pain Last Admin: 09/13/18 11:54 Dose: 100 mg Lactated Ringer's (Ringers, Lactated) 1,000 mls @ 100 mls/hr IV ASDIRECTED [facility] Last Admin: 09/15/18 01:57 Dose: 100 mls/hr Multivitamins/Minerals 10 ml/Thiamine HCl 200 mg/ Chromium/Copper/Manganese/ Seleni/Zn 1 ml/ Lactated Ringer's 1,013 mls @ 100 mls/hr IV DAILY@1600 [facility] Last Admin: 09/14/18 15:21 Dose: 100 mls/hr Magnesium Sulfate 2 gm/ Premix 50 mls @ 25 mls/hr IV Q6H [facility] Stop: 09/16/18 13:00 Last Admin: 09/15/18 12:21 Dose: Admin: 09/15/18 05:58 Dose: 25 mls/hr Infusion: 09/15/18 00:34 Dose: 25 mls/hr Admin: 09/14/18 22:34 Dose: 25 mls/hr Infusion: 09/14/18 20:32 Dose: 25 mls/hr Admin: 09/14/18 18:32 Dose: 25 mls/hr Infusion: 09/14/18 13:37 Dose: 25 mls/hr Admin: 09/14/18 11:37 Dose: 25 mls/hr Insulin Human Lispro (Humalog) 0 unit SUBCUT Q6H PRN; Protocol PRN Reason: CORRECTIONAL DOSING Last Admin: 09/14/18 13:33 Dose: 5 unit Admin: 09/13/18 21:50 Dose: 12 unit Iohexol (Omnipaque-300) 50 ml PO .ASDIRECTED [facility] Stop: 09/15/18 16:00 Labetalol HCl (Normodyne) 5 mg IVPUSH Q5M PRN PRN Reason: SBP over 160 OR DBP over 95 Metformin HCl (Glucophage) 1,000 mg PO BIDMEALS [facility] Last Admin: 09/15/18 08:11 Dose: 1,000 mg Admin: 09/14/18 18:32 Dose: 1,000 mg Admin: 09/14/18 07:44 Dose: 1,000 mg Admin: 09/13/18 16:37 Dose: 1,000 mg Metoclopramide HCl (Reglan) 10 mg IVPUSH Q6H PRN PRN Reason: NAUSEA NOT CONTROL BY ZOFRAN Ondansetron HCl (Zofran) 4 mg IVPUSH Q4H PRN PRN Reason: Nausea/Vomiting Oxycodone HCl (Oxycodone) 5 mg PO Q3H PRN PRN Reason: PAIN Last Admin: 09/15/18 12:21 Dose: 5 mg Admin: 09/15/18 08:12 Dose: 5 mg Admin: 09/15/18 03:14 Dose: 5 mg Admin: 09/14/18 22:23 Dose: 5 mg Admin: 09/14/18 18:08 Dose: 5 mg Admin: 09/14/18 11:38 Dose: 5 mg Admin: 09/14/18 07:43 Dose: 5 mg Pantoprazole Sodium (Protonix Granules) 40 mg PO Q24H [facility] Last Admin: 09/15/18 12:22 Dose: Not Given Admin: 09/14/18 11:39 Dose: 40 mg Pregabalin (Lyrica) 300 mg PO BID [facility] Last Admin: 09/15/18 08:12 Dose: 300 mg Admin: 09/14/18 22:23 Dose: 300 mg Admin: 09/14/18 09:14 Dose: 300 mg Admin: 09/13/18 21:13 Dose: 300 mg Quetiapine Fumarate (Seroquel) 100 mg PO BEDTIME [facility] Last Admin: 09/14/18 22:29 Dose: 100 mg - Assessment Assessment (Free Text/Narrative):: Demarcus Diallo is a 33 yo male post op day 2 s/p RYGB. He is continuing to heal well. His main complaint today is his pain which he rates 8/10 which is unchanged from yesterday. He is currently taking oral oxycodone for pain. The pain is worst in his LUQ. Patient appears well though and not in pain and was able to sleep throughout the night. No guarding on physical exam. His diabetes is under much better control. He had multiple readings less than 200 over night. He can be transitioned to his outpatient medications which will be metformin and Januvia. This will need to be monitored regularly since his RYGB will hopefully lead to remission of his DM. He is likely able to discharge tomorrow and he requests getting discharged before 10 to coordinate with his transportation. - Plan Plan (Free Text/Narrative):: 1. RYGB -VS and O2 Q4H -IV fluids 100cc/hr -Step II diet; no solids -Patient permitted to shower -Oxycodone 5mg PO -Leave christine in until f/u visit to allow more time to heal 2. Type II DM -Metformin -Januvia 3. Psych diagnosis -[employer] Seroquel 100 mg -[employer] Lyrica 300 mg PO BID -Klonopin 1 mg PO BID 4. Toe amputation -Change dressing before discharge
--- NOTE | 2018-09-16 14:56 | DISCH ---
ADMISSION DIAGNOSES: 1. Diabetes type 2, uncontrolled. 2. Morbid obesity, BMI 43.2. 3. Diabetic foot ulcer. 4. Chronic low back pain. 5. Abscess, left arm. 6. Status post amputation of left great toe. DISCHARGE DIAGNOSES: 1. Diagnostic laparoscopy with: a. Partial gastrectomy with Power-en-Y gastrojejunostomy. b. Yobani-Cut needle liver biopsy. c. Small bowel resection. d. Repair of paraesophageal diaphragmatic hernia. e. Excision of mediastinal lipoma. f. Excision of peritoneal implant overlying transverse mesocolon for severe diabetic gastroparesis. 2. Marked hepatomegaly. 3. Foreshortened small bowel mesentery secondary to extensive fatty infiltration. 4. Periesophageal diaphragmatic hernia. 5. Mediastinal lipoma. 6. Peritoneal implant on transverse mesocolon. Date of surgery, 09/13/2018. Surgeon, Darryl Bustamante MD. HISTORY: Demarcus Diallo is a 33-year-old male presenting with progressively worsening type 2 diabetes mellitus and complications of diabetic foot ulcers with most recent amputation of left great toe. He has developed gastroparesis with an upper endoscopy showing large volume of retained food within the stomach. After preoperative evaluation and discussion of possible risks and possible complications, he wished to proceed with surgical procedure. HOSPITAL COURSE: Demarcus had his surgery on 09/13/2018. He had no operative complications. On postoperative day 1, his upper GI was normal. He was started on a step-2 gastric bypass diet with no cereal. His insulin was adjusted according to his blood sugars. On postoperative day 2, Demarcus was discharged to home due to some family problems. His blood sugars remained to be elevated, but were improving. In the past 24 hours, it was 227, 179, 187, 137, and 89 prior to discharge. Vital signs were stable. Oral intake adequate at 1320, urine output 1575, and KIA drain over the past 24 hours put out 150 mL of a pink serosanguineous drainage. He received diabetic education and dietary education. He was able to be discharged to home without any complications on 09/15/2018. PHYSICAL EXAMINATION: GENERAL: Demarcus Diallo is a 33-year-old male, height is 5 feet 8 inches. Weight is 284 pounds. VITAL SIGNS: TPR is 96.1, 90, 18, blood pressure 128/84. HEENT: Negative. NECK: Supple. HEART: Regular rate and rhythm. LUNGS: Clear. ABDOMEN: Trocar christine intact, 4x4 over KIA drain site. Abdominal binder is on. EXTREMITIES: Without peripheral edema. DISPOSITION: Discharged to home. CONDITION: Stable and improving. FOLLOWUP: Followup appointment with Rayna Beverly PA-C, 09/21/2018 at 10 a.m. HOME MEDICATIONS: 1. Oxycodone 5 mg p.o. q.4 hours p.r.n. pain, #42. 2. Celebrex 200 mg p.o. daily, #14. 3. Januvia 100 mg p.o. daily, #30, 11 refills. 4. Metformin 1000 mg b.i.d. 5. BuSpar 1 tablet p.o. t.i.d. 6. Revatio (sildenafil) 50 mg p.o. p.r.n. 7. Seroquel 100 mg at bedtime. 8. Lyrica 300 mg p.o. b.i.d. 9. Pamelor 10 mg p.o. b.i.d. 10.Clonazepam 1 mg p.o. b.i.d. 11.Bacitracin apply topical b.i.d. 12.Tylenol 650 mg q.6 hours. DIET: Step-2 gastric bypass diet until 09/28/2018. Drink 8 to 10 glasses of water a day. ACTIVITY: No lifting greater than 10 pounds for 2 weeks. Other activity, walk as tolerated. Driving, do not drive for 1 week and while on narcotic pain medication. Shower/bathing, may shower. Wound incision care, keep operative site clean and dry. Wear abdominal binder for 2 weeks and then as tolerated. Notify provider if any fever, increased pain, nausea, or vomiting. SPECIAL INSTRUCTIONS: 1. Check blood sugars twice a day and bring record of blood sugars to appointment. 2. Call clinic at [phone] with results of blood sugars tomorrow, 09/16/2018. 3. Keep a record of protein and water intake. 4. Use incentive spirometer 10 times every hour while awake.
== END 2018-09-15 12:30 | disposition home or self-care (01) | DRG 982 ==
LOC: JP.MS 05:44 → JP.SDS 05:44 → EDSTATUS 10:00 → JP.MS 10:00
PROVIDERS: ADMIT Surgery; ATTEND Surgery
PROC: 0D164ZA Bypass Stomach to Jejunum, Percutaneous Endoscopic Approach (ICD-10-PCS; principal; 2018-09-13)
PROC: 0FB24ZX Excision of Left Lobe Liver, Percutaneous Endoscopic Approach, Diagnostic (ICD-10-PCS; 2018-09-13)
PROC: 0BQT4ZZ Repair Diaphragm, Percutaneous Endoscopic Approach (ICD-10-PCS; 2018-09-13)
PROC: 0DB64ZZ Excision of Stomach, Percutaneous Endoscopic Approach (ICD-10-PCS; 2018-09-13)
PROC: 0DBL4ZX Excision of Transverse Colon, Percutaneous Endoscopic Approach, Diagnostic (ICD-10-PCS; 2018-09-13)
PROC: 0DB94ZZ Excision of Duodenum, Percutaneous Endoscopic Approach (ICD-10-PCS; 2018-09-13)
PROC: 0WBC4ZX Excision of Mediastinum, Percutaneous Endoscopic Approach, Diagnostic (ICD-10-PCS; 2018-09-13)
DX: E11.43 Type 2 diabetes mellitus with diabetic autonomic (poly)neuropathy (principal); K44.0 Diaphragmatic hernia with obstruction, without gangrene; L02.414 Cutaneous abscess of left upper limb; Z68.41 Body mass index [BMI] 40.0-44.9, adult; E11.65 Type 2 diabetes mellitus with hyperglycemia; E11.621 Type 2 diabetes mellitus with foot ulcer; K31.84 Gastroparesis; E11.40 Type 2 diabetes mellitus with diabetic neuropathy, unspecified; K59.8 Other specified functional intestinal disorders; Z79.84 Long term (current) use of oral hypoglycemic drugs; R16.0 Hepatomegaly, not elsewhere classified; K66.8 Other specified disorders of peritoneum; K63.89 Other specified diseases of intestine; E66.01 Morbid (severe) obesity due to excess calories; D17.4 Benign lipomatous neoplasm of intrathoracic organs; J45.998 Other asthma; F32.9 Major depressive disorder, single episode, unspecified; F41.9 Anxiety disorder, unspecified; M54.5 Low back pain; G89.29 Other chronic pain; K59.00 Constipation, unspecified; F12.90 Cannabis use, unspecified, uncomplicated; Z22.322 Carrier or suspected carrier of Methicillin resistant Staphylococcus aureus; Z89.412 Acquired absence of left great toe; Z91.030 Bee allergy status; Z88.0 Allergy status to penicillin; Z79.899 Other long term (current) drug therapy
CPT/HCPCS: 36415; 74240; 80053; 82962; 83735; 83880; 84100; 85025; 86850; 86900; 86901; 94640; 94762; A9270-GY; C9113; J0171; J0694; J1100; J1644; J1815; J1815-GY; J2001; J2270; J2405; J2704; J2710; J2795; J3010; J3410; J3411; J3420; J3475; J3490; J7030; J7050; J7120; J7620-GY

== ENCOUNTER 2018-09-29 15:34 | Inpatient (IN) | payer MEDICAID ==
[2018-09-29] MEDS: Lactated Ringers 1,000 ML IV SCH (17:00)
[2018-09-29] MEDS: Linezolid 600 MG in Premix Bag 1 BAG IV SCH (17:02)
[2018-09-29] MEDS: Meropenem 500 MG in Sodium Chloride 0.9% 50 ML IV SCH ×2 (18:29→23:18)
[2018-09-29] MEDS: Acetaminophen/HYDROcodone 325-5 MG Tab PO PRN (19:36)
[2018-09-29] MEDS: Pregabalin 100 MG Cap PO SCH (20:30)
[2018-09-29] MEDS: Nortriptyline 10 MG Cap PO SCH (20:31)
[2018-09-29] MEDS: ClonazePAM 1 MG Tab PO SCH (20:31)
--- NOTE | 2018-09-29 21:24 | PCM.HP ---
H&P History of Present Illness - General Date of Service: 09/29/18 Admit Problem/Dx: Admission Diagnosis/Problem Admission Diagnosis/Problem Diabetic foot infection Source of Information: Patient - History of Present Illness Initial Comments - Free Text/Narative: Two days ago Nick states that his incision started draining a clear yellow drainage and area became red, swollen, warm and tender. the area that was pink increased and went to [facility] and the corn detasseler there told him he was going to have to have his "foot chopped out". Pain is a 8/10. Taking Doxycycline 100 mg bid po. Symptom Onset Date: 10/27/18 Duration of Symptoms: Reports: Day(s): (2) Quality: Reports: Burning, Dull, Pressure, Stabbing, Throbbing Severity: Mild Improves with: Reports: None Worsens with: Reports: Movement Left Foot Pain Score (Numeric/FACES): 9 - Related Data Allergies/Adverse Reactions: Allergies Allergy/AdvReac Type Severity Reaction Status Date / Time amoxicillin [Amoxicillin] Allergy Severe Cannot Verified 09/05/18 11:14 Remember Penicillins Allergy Severe Cannot Verified 09/05/18 11:14 Remember venom-honey bee Allergy Severe Swelling Verified 09/05/18 11:14 [bee venom (honey bee)] hydromorphone [From Dilaudid] AdvReac Nausea and Verified 09/13/18 11:28 Vomiting Home Medications: Home Meds Nortriptyline HCl [Pamelor] 10 mg PO BID 02/21/18 [History] Pregabalin [Lyrica] 300 mg PO BID 02/21/18 [History] busPIRone [Buspar] 1 tab PO TID 08/13/18 [History] Acetaminophen [Tylenol] 650 mg PO Q6H PRN tablet 08/31/18 [Rx] Bacitracin [Bacitracin Oint] 1 applic TOP BID 09/02/18 [History] SitaGLIPtin [Januvia] 100 mg PO DAILY 11 Days #30 tab 09/15/18 [Rx] Escitalopram Oxalate [Lexapro] 20 mg PO DAILY 09/29/18 [History] Zolpidem Tartrate 10 mg PO BEDTIME 09/29/18 [History] Past Medical History HEENT History: Reports: Impaired Vision Cardiovascular History: Reports: None Respiratory History: Reports: COPD, Sleep Apnea Gastrointestinal History: Reports: None Genitourinary History: Reports: None Musculoskeletal History: Reports: Amputation Neurological History: Reports: None Psychiatric History: Reports: Addiction, Anxiety, Depression, Panic Attack Endocrine/Metabolic History: Reports: Diabetes, Type II, Obesity/BMI 30+ Immunologic History: Reports: Other (See Below) Other Immunologic History: h/o mrsa Oncologic (Cancer) History: Reports: Malignant Melanoma Other Oncologic History: patient states he had a mole removed from right wrist area that was melanoma Dermatologic History: Reports: None - Infectious Disease History Infectious Disease History: Reports: MRSA Other Infectious Disease History: MRSA to right upper back - Past Surgical History Head Surgeries/Procedures: Reports: None HEENT Surgical History: Reports: None Respiratory Surgical History: Reports: None GI Surgical History: Reports: Appendectomy, Bariatric Procedure Neurological Surgical History: Reports: Scoliosis Musculoskeletal Surgical History: Reports: Amputation Other Musculoskeletal Surgeries/Procedures:: 08-25-18 left great toe amputation, previous left toe amputations on left foot. 2nd digit on right foot Dermatological Surgical History: Reports: Skin Biopsy Social & Family History - Family History Family Medical History: Noncontributory - Tobacco Use Smoking Status *Q: Current Every Day Smoker Years of Tobacco use: 20 Packs/Tins Daily: 0 Used Tobacco, but Quit: No Second Hand Smoke Exposure: No - Caffeine Use Caffeine Use: Reports: Coffee Other Caffeine Use: 1 cup/day - Alcohol Use Days Per Week of Alcohol Use: 0 - Recreational Drug Use Recreational Drug Use: Yes Drug Use in Last 12 Months: Yes Recreational Drug Type: Reports: Marijuana/Hashish, Other (see below) Other Recreational Drug Type: THC pills Recreational Drug Use Frequency: Daily Recreational Drug Last Use: midnight yesterday H&P Review of Systems - Review of Systems: Review Of Systems: See Below General: Reports: No Symptoms HEENT: Reports: No Symptoms, Sore Throat Pulmonary: Reports: No Symptoms Gastrointestinal: Reports: Decreased Appetite Genitourinary: Reports: No Symptoms Musculoskeletal: Reports: Foot Pain (LEFT) Skin: Reports: No Symptoms Psychiatric: Reports: No Symptoms Neurological: Reports: No Symptoms Hematologic/Lymphatic: Reports: No Symptoms Immunologic: Reports: No Symptoms Exam - Exam Exam: See Below - Vital Signs Vital Signs: Last Vital Signs Temp 97.7 F 09/29/18 19:47 Pulse 82 09/29/18 19:47 Resp 20 09/29/18 19:47 BP 120/64 09/29/18 19:47 Pulse Ox 97 09/29/18 19:47 Weight: 258 lb - Exam Quality Assessment: DVT Prophylaxis General: Alert, Oriented, Cooperative HEENT: PERRLA, Conjunctiva Clear Neck: Supple, Trachea Midline, +2 Carotid Pulse wo Bruit, Lymphadenopathy Lungs: Clear to Auscultation, Normal Respiratory Effort Cardiovascular: Regular Rate, Regular Rhythm GI/Abdominal Exam: Normal Bowel Sounds, Soft (Male) Exam: Deferred Rectal (Males) Exam: Deferred Back Exam: Normal Inspection, Full Range of Motion Extremities: Normal Inspection, Normal Range of Motion Skin: Warm, Dry, Intact Neurological: Cranial Nerves Intact, Reflexes Equal Bilateral Neuro Extensive - Mental Status: Alert, Oriented x3, Normal Mood/Affect Neuro Extensive - Motor, Sensory, Reflexes: CN II-XII Intact, Normal Gait, Normal Reflexes Psychiatric: Alert, Normal Affect, Anxious - Patient Data Lab Results Last 24 hrs: Laboratory Results - last 24 hr 09/29/18 09/29/18 Range/Units 16:15 16:15 WBC 12.3 H (4.5-11.0) K/uL RBC 5.07 (4.30-5.90) M/uL Hgb 13.8 (12.0-15.0) g/dL Hct 42.1 (40.0-54.0) % MCV 83 (80-98) fL MCH 27 (27-31) pg MCHC 33 (32-36) % Plt Count 353 (150-400) K/uL Neut % (Auto) 72 H (36-66) % Lymph % (Auto) 19 L (24-44) % [place] % (Auto) 8 H (2-6) % Eos % (Auto) 1 L (2-4) % Baso % (Auto) 0 (0-1) % Sodium 137 L (140-148) mmol/L Potassium 3.9 (3.6-5.2) mmol/L Chloride 103 (100-108) mmol/L Carbon Dioxide 22 (21-32) mmol/L Anion Gap 15.9 H (5.0-14.0) mmol/L BUN 23 H D (7-18) mg/dL Creatinine 0.8 (0.8-1.3) mg/dL Est Cr Clr Drug Dosing 127.06 mL/min Estimated GFR (MDRD) > 60 (>60) Glucose 102 (74-106) mg/dL Calcium 9.2 (8.5-10.1) mg/dL Phosphorus 3.3 (2.5-4.9) mg/dL Magnesium 1.9 (1.8-2.4) mg/dL Total Bilirubin 2.9 H (0.2-1.0) mg/dL AST 58 H D (15-37) U/L ALT 260 H (12-78) U/L Alkaline Phosphatase 226 H (46-116) U/L Total Protein 7.4 (6.4-8.2) g/dL Albumin 3.3 L (3.4-5.0) g/dL Globulin 4.1 H (2.3-3.5) g/dL Albumin/Globulin Ratio 0.8 L (1.2-2.2) Result Diagrams: 09/29/18 16:15 09/29/18 16:15 Problem List Initiated/Reviewed/Updated: Yes Orders Last 24hrs: Assessment: Infection sp Left Great toe infection Diabetes II SP Partial Gastrectomy Unspecified Malabsorption Vitamin B 12 Deficiency Vitamin D Deficiency Plan: Admit to [facility] Inpatient Plan of hospitalization 3 nights and 4 days. Active Orders 24 hr Category Date Time Status Patient Status [ADT] Routine ADT 09/29/18 15:15 Active Communication Order [RC] DAILY Care 09/29/18 15:57 Active Intake and Output [RC] QSHIFT Care 09/29/18 15:54 Active Oxygen Therapy [RC] PRN Care 09/29/18 15:47 Active Up ad Roselia [RC] ASDIRECTED Care 09/29/18 15:47 Active VTE/DVT Education [RC] Per Unit Routine Care 09/29/18 15:47 Active Vital Signs [RC] Q4H Care 09/29/18 15:47 Active Consult to Punchboard Stuffer [CONS] Routine Cons 09/30/18 09:00 Active Bariatric Diet [DIET] Diet 09/29/18 Dinner Active GLUCOSE POC LAB TO COLLECT [POC] QIDACANDBED Lab 09/29/18 21:00 Ordered Acetaminophen/HYDROcodone [Beltrami 325-5 MG] Med 09/29/18 18:45 Active 1 - 2 tab PO Q4H PRN Alogliptin Benzoate [Alogliptin] Med 09/30/18 09:00 Active 25 mg PO DAILY ClonazePAM [KlonoPIN] Med 09/29/18 21:00 Active 1 mg PO BID Cyanocobalamin (Vitamin B12) [Vitamin B12] Med 09/30/18 09:00 Once 1,000 mcg IM ONETIME ONE Lactated Ringers [Ringers, Lactated] 1,000 ml Med 09/29/18 16:00 Active IV ASDIRECTED Linezolid [Zyvox] 600 mg Med 09/29/18 17:00 Active Premix Bag 1 bag IV Q12H Meropenem [Merrem] 500 mg Med 09/29/18 18:00 Active Sodium Chloride 0.9% [Normal Saline] 50 ml IV Q6H Multivitamins with Iron [Child Chew Iron] Med 09/30/18 09:00 Active 2 tab PO DAILY Nortriptyline Med 09/29/18 21:00 Active 10 mg PO BID Pregabalin [Lyrica] Med 09/29/18 21:00 Active 300 mg PO BID Zolpidem [Ambien] Med 09/29/18 16:01 Active 10 mg PO BEDTIME PRN Resuscitation Status Routine Resus Stat 09/29/18 15:47 Ordered Medication Orders Hydrocodone Bitart/Acetaminophen (Beltrami 325-5 Mg) 1 - 2 tab PO Q4H PRN PRN Reason: Pain Last Admin: 09/29/18 19:36 Dose: 1 tab Alogliptin Benzoate (Alogliptin) 25 mg PO DAILY [facility] Clonazepam (Klonopin) 1 mg PO BID [facility] Last Admin: 09/29/18 20:31 Dose: 1 mg Cyanocobalamin (Vitamin B12) 1,000 mcg IM ONETIME ONE Stop: 09/30/18 09:01 Linezolid 600 mg/ Premix 300 mls @ 300 mls/hr IV Q12H [facility] Last Admin: 09/29/18 17:02 Dose: 300 mls/hr Meropenem 500 mg/ Sodium (Chloride) 50 mls @ 100 mls/hr IV Q6H SUKHDEV Last Admin: 09/29/18 18:29 Dose: 100 mls/hr Lactated Ringer's (Ringers, Lactated) 1,000 mls @ 60 mls/hr IV ASDIRECTED [facility] Last Admin: 09/29/18 17:00 Dose: 60 mls/hr Multivitamins/Iron (Child Chew Iron) 2 tab PO DAILY [facility] Nortriptyline HCl (Nortriptyline) 10 mg PO BID [facility] Last Admin: 09/29/18 20:31 Dose: 10 mg Pregabalin (Lyrica) 300 mg PO BID SUKHDEV Last Admin: 09/29/18 20:30 Dose: 300 mg Zolpidem Tartrate (Ambien) 10 mg PO BEDTIME PRN PRN Reason: SLEEP Rayna Silva 09/29/18
[2018-09-29] MEDS: Zolpidem 5 MG Tab PO PRN (23:22)
[2018-09-30] MEDS: Linezolid 600 MG in Premix Bag 1 BAG IV SCH ×2 (05:28→16:18)
[2018-09-30] MEDS: Meropenem 500 MG in Sodium Chloride 0.9% 50 ML IV SCH ×3 (06:52→18:13)
[2018-09-30] MEDS: Acetaminophen/HYDROcodone 325-5 MG Tab PO PRN ×3 (07:30→20:18)
--- NOTE | 2018-09-30 08:25 | PN ---
DATE OF SERVICE: 09/30/2018 SUBJECTIVE: Demarcus was admitted yesterday for infection in his left foot following amputation of his left great toe. He reports he is feeling better, less pain and afebrile. Blood sugar was 96. Oral intake of 1086 and urine output not recorded. He is on meropenem and Zyvox until the culture and sensitivities come back. Demarcus has also recent partial gastrectomy for diabetic gastroparesis. REVIEW OF SYSTEMS: Remainder of review of systems negative for any pertinent positives and negatives. OBJECTIVE: GENERAL: Demarcus Diallo is a 33-year-old male. He is alert and orientated. VITAL SIGNS: TPR 97.3, 81, 18, blood pressure 113/66. HEENT: Negative. NECK: Supple. HEART: Regular rate and rhythm. LUNGS: Clear. EXTREMITIES: Left foot dressing was off and dressing was reapplied by Darryl Bustamante MD. There is less swelling and redness. Shows some improvement. ASSESSMENT: 1. Infection left foot status post amputation of left great toe. 2. Diabetes type 2, status post partial gastrectomy, unspecified. 3. Surgical malabsorption. 4. B12 deficiency. 5. Vitamin D deficiency. PLAN: 1. Dressing will be changed daily per Darryl Bustamante MD after reports to have dressing off and supplies in room for him to be able to change that dressing. 2. Discontinue Januvia. 3. Rx vitamin B12, 1000 mcg IM 1 time today and BREANNA hose knee-high to right leg. 4. We will evaluate p.r.n. or in a.m. Rayna Beverly PA-C /[id number]
[2018-09-30] MEDS: Multivitamins with Iron Tab.Chew PO SCH (08:58)
[2018-09-30] MEDS: Nortriptyline 10 MG Cap PO SCH ×2 (09:00→20:27)
[2018-09-30] MEDS ORDERED: Cyanocobalamin (Vitamin B12) 1,000 MCG/ML SDV IM ONE (09:00)
[2018-09-30] MEDS: ClonazePAM 1 MG Tab PO SCH ×2 (09:04→20:26)
[2018-09-30] MEDS: Pregabalin 100 MG Cap PO SCH ×2 (09:04→20:27)
[2018-09-30] MEDS: Zolpidem 5 MG Tab PO PRN (22:16)
[2018-10-01] MEDS: Meropenem 500 MG in Sodium Chloride 0.9% 50 ML IV SCH ×2 (00:05→05:34)
[2018-10-01] MEDS: Lactated Ringers 1,000 ML IV SCH (02:55)
[2018-10-01] MEDS: Linezolid 600 MG in Premix Bag 1 BAG IV SCH (04:23)
[2018-10-01] MEDS: Acetaminophen/HYDROcodone 325-5 MG Tab PO PRN ×4 (07:24→22:06)
[2018-10-01] MEDS ORDERED: Levofloxacin/Dextrose 5%-Water 500 MG in Premix Bag 1 BAG IV SCH (09:00)
[2018-10-01] MEDS: Multivitamins with Iron Tab.Chew PO SCH (09:41)
[2018-10-01] MEDS: Clindamycin HCl 150 MG Cap PO SCH ×3 (09:41→22:04)
[2018-10-01] MEDS: Ciprofloxacin in D5W 400 MG in Premix Bag 1 BAG IV SCH ×4 (09:43→22:04)
[2018-10-01] MEDS: ClonazePAM 1 MG Tab PO SCH ×2 (09:51→22:05)
[2018-10-01] MEDS: Pregabalin 100 MG Cap PO SCH ×2 (09:51→22:05)
[2018-10-01] MEDS: Nortriptyline 10 MG Cap PO SCH ×2 (11:01→22:06)
[2018-10-01] MEDS: Zolpidem 5 MG Tab PO PRN (22:05)
[2018-10-02] MEDS: Acetaminophen/HYDROcodone 325-5 MG Tab PO PRN ×5 (03:12→22:38)
[2018-10-02] MEDS: Lactated Ringers 1,000 ML IV SCH ×2 (03:18→22:36)
[2018-10-02] MEDS: ClonazePAM 1 MG Tab PO SCH ×2 (09:20→22:37)
[2018-10-02] MEDS: Pregabalin 100 MG Cap PO SCH ×2 (09:20→22:38)
[2018-10-02] MEDS: Multivitamins with Iron Tab.Chew PO SCH (09:20)
[2018-10-02] MEDS: Escitalopram 20 MG Tab PO SCH (09:21)
[2018-10-02] MEDS: Clindamycin HCl 150 MG Cap PO SCH ×3 (09:21→22:37)
[2018-10-02] MEDS: Nortriptyline 10 MG Cap PO SCH ×2 (09:21→22:37)
[2018-10-02] MEDS: Ciprofloxacin in D5W 400 MG in Premix Bag 1 BAG IV SCH ×4 (09:21→22:39)
[2018-10-02] MEDS: Zolpidem 5 MG Tab PO PRN (22:39)
[2018-10-03] MEDS: Acetaminophen/HYDROcodone 325-5 MG Tab PO PRN ×3 (08:03→19:48)
[2018-10-03] MEDS: Ciprofloxacin in D5W 400 MG in Premix Bag 1 BAG IV SCH ×4 (08:04→21:34)
[2018-10-03] MEDS ORDERED: Lidocaine 1% with EPINEPHrine 1:100,000 50 ML MDV ONE (10:30)
[2018-10-03] MEDS ORDERED: Bupivacaine 0.5% 50 ML MDV ONE (10:30)
[2018-10-03] MEDS ORDERED: Lidocaine 1% 50 ML MDV ONE (10:35)
--- NOTE | 2018-10-03 10:42 | PN ---
DATE OF SERVICE: 10/03/2018 SUBJECTIVE: Demarcus is n.p.o. He will be having incision and drainage of his left foot incision status post toe amputation. Culture and sensitivity showed moderate white blood cells, rare gram-positive cocci. He has been afebrile. Blood sugars 107, 94, and 97 in the past 24 hours. The pain is controlled. He has no other concerns or questions. OBJECTIVE: GENERAL: Demarcus Diallo is a 33-year-old male. He is alert and orientated. VITAL SIGNS: TPR 97.2, 66, 16, blood pressure 129/73. HEENT: Negative. NECK: Supple. HEART: Regular rate and rhythm. LUNGS: Clear. EXTREMITIES: Left foot dressing dry and intact. ASSESSMENT: 1. Infection, left foot, status post amputation of left great toe. 2. Diabetes type 2, status post partial gastrectomy. 3. Unspecified surgical malabsorption. 4. B12 deficiency. 5. Vitamin D deficiency. PLAN: Remain n.p.o. till after surgical procedure. Orders to be written postop. Rayna Beverly PA-C /[id number]
[2018-10-03] MEDS ORDERED: Midazolam 1 MG/ML 2 ML SDV ONE (10:57)
[2018-10-03] MEDS ORDERED: fentaNYL 100 MCG/2 ML SDV ONE (10:57)
[2018-10-03] MEDS ORDERED: Propofol 200 MG/20 ML SDV ONE ×2 (10:58→11:31)
[2018-10-03] MEDS: Pregabalin 100 MG Cap PO SCH ×2 (12:41→21:32)
[2018-10-03] MEDS: ClonazePAM 1 MG Tab PO SCH ×2 (12:41→21:32)
[2018-10-03] MEDS: Clindamycin HCl 150 MG Cap PO SCH ×3 (12:43→21:31)
[2018-10-03] MEDS: Multivitamins with Iron Tab.Chew PO SCH (12:43)
[2018-10-03] MEDS: Escitalopram 20 MG Tab PO SCH (12:44)
[2018-10-03] MEDS: Nortriptyline 10 MG Cap PO SCH ×2 (12:48→21:32)
[2018-10-03] MEDS: Lactated Ringers 1,000 ML IV SCH (14:15)
[2018-10-03] MEDS: Magnesium Sulfate/Water 2 GM in Premix Bag 1 BAG IV SCH ×2 (16:01→22:36)
[2018-10-03] MEDS: Zolpidem 5 MG Tab PO PRN (21:41)
[2018-10-04] MEDS: Magnesium Sulfate/Water 2 GM in Premix Bag 1 BAG IV SCH ×2 (03:41→09:51)
[2018-10-04] MEDS: Acetaminophen/HYDROcodone 325-5 MG Tab PO PRN ×3 (03:45→12:30)
[2018-10-04] MEDS: Pregabalin 100 MG Cap PO SCH (08:00)
[2018-10-04] MEDS: Escitalopram 20 MG Tab PO SCH (08:00)
[2018-10-04] MEDS: ClonazePAM 1 MG Tab PO SCH (08:00)
[2018-10-04] MEDS: Clindamycin HCl 150 MG Cap PO SCH ×2 (08:00→13:22)
[2018-10-04] MEDS: Multivitamins with Iron Tab.Chew PO SCH (08:00)
[2018-10-04] MEDS: Nortriptyline 10 MG Cap PO SCH (08:00)
[2018-10-04] MEDS: Ciprofloxacin in D5W 400 MG in Premix Bag 1 BAG IV SCH ×2 (08:02)
[2018-10-04 10:42] VITALS: BP 120/66
[2018-10-04] MEDS: Lactated Ringers 1,000 ML IV SCH (12:24)
--- NOTE | 2018-10-04 13:21 | PN ---
DATE OF SERVICE: 10/02/2018 The patient has been afebrile with stable vital signs. Still has purulent drainage from the medial corner of his foot and that was cultured. This is an area that will need to be opened up tomorrow to provide better drainage and perhaps debridement. Otherwise, his blood sugars remain good just twice a day at this point. Darryl Bustamante MD /[id number]
--- NOTE | 2018-10-04 13:24 | PN ---
DATE OF SERVICE: 10/04/2018 The patient has been afebrile with stable vital signs. Blood sugar control remains good. The foot looks quite a bit less inflamed today. Question is whether or not we will be able to get now the open area to heal secondarily without smoldering underlying bone infection as such. We will continue the present antibiotics. Pending C and S results, one would expect we probably get sensitivities available either today or tomorrow on the cultures done Wednesday. Otherwise, we will continue daily dressing changes. Wound today had much less purulent drainage after a more adequate drainage that had been accomplished yesterday. Darryl Bustamante MD /[id number]
[2018-10-04] MEDS ORDERED: Ondansetron 4 MG Tab.DIS PO ONE (13:34)
--- NOTE | 2018-10-04 13:39 | PN ---
DATE OF SERVICE: 10/01/2018 The patient has been afebrile with stable vital signs. No major problems were noted with regard to his foot. Zyvox was reported to have an adverse interaction with his Lexapro. The cultures obtained on showed a Staph aureus sensitive to both Cipro and Levaquin. The previous cultures done at the time of amputation also showed an enterococcus, which one would expect to be sensitive to Cipro, so we will discontinue the meropenem and Zyvox, and start him on Levaquin and Cipro, and recheck the wound tomorrow morning. Otherwise, he will try to advance to a step-4 diet. His blood sugars were rechecked and all were in the area around 100 or less. Darryl Bustamante MD /[id number]
--- NOTE | 2018-10-05 09:42 | DISCH ---
FINAL DIAGNOSES: 1. Cellulitis and wound breakdown at site of left transmetatarsal amputation of great toe. 2. Recent bariatric surgery status. 3. Type 2 diabetes mellitus, nearly resolved, status post weight loss surgery. 4. History of hypertension. 5. Diabetic polyneuropathy. 6. Status post excision of pseudoaneurysm, brachial artery, left. OPERATIVE PROCEDURES DURING THIS HOSPITALIZATION: Done on 10/03/2018, incision and drainage and debridement of focal abscess and necrosis of soft tissue (skin, subcutaneous tissue, and fascia) at amputation site of left great toe. SUMMARY: This is a 33-year-old male presenting with cellulitis at recent transmetatarsal amputation in the first toe on the left foot. He had been doing well but started having some increased redness and pain, was seen in the clinic, and was admitted for IV antibiotics and additional management. The patient underwent debridement of this, as he began to develop some purulent drainage on Wednesday. He has had the purulent drainage yesterday, i.e. Wednesday. Cultures on this are still pending. The previous cultures obtained would make this organism sensitive to both Cipro and clindamycin. Zyvox would be the ideal agent, but it has a major drug interaction with Lexapro, which he is on. The patient at this point insists on going home somewhat prematurely, due to problems with family issues, i.e. his daughter has no one to take care of her at this point on the [facility], and he will be sent home on his usual medications plus Cipro 500 mg p.o. b.i.d. x10 days, clindamycin 450 mg p.o. q.i.d. x10 days, Zofran 4 mg ODT q.4 hours p.r.n. nausea #30, [place] 5/325 one to two tablets q.4 hours p.r.n. pain #40, and he is instructed not to take Tylenol while taking [place] and will be taking his usual medications. He will be sent home with some dressings to change, if he is unable to get home care on any given day. Otherwise, home care on the [facility] is being set up for daily dressing changes. He will be following up with Rayna Beverly, as well as possibly with Dr. Bustamante, in [facility], next 10/11/2018.
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
== END 2018-10-04 15:17 | disposition home health service (06) | DRG 580 ==
LOC: JP.MS 15:34
PROVIDERS: ADMIT Surgery; ATTEND Surgery
PROC: 0JDR0ZZ Extraction of Left Foot Subcutaneous Tissue and Fascia, Open Approach (ICD-10-PCS; principal; 2018-10-03)
DX: L03.032 Cellulitis of left toe (principal); K91.2 Postsurgical malabsorption, not elsewhere classified; E11.69 Type 2 diabetes mellitus with other specified complication; E11.43 Type 2 diabetes mellitus with diabetic autonomic (poly)neuropathy; E11.42 Type 2 diabetes mellitus with diabetic polyneuropathy; K31.84 Gastroparesis; Z79.84 Long term (current) use of oral hypoglycemic drugs; Z98.890 Other specified postprocedural states; Z89.412 Acquired absence of left great toe; Z98.84 Bariatric surgery status; F17.210 Nicotine dependence, cigarettes, uncomplicated; J44.9 Chronic obstructive pulmonary disease, unspecified; H54.7 Unspecified visual loss; G47.30 Sleep apnea, unspecified; Z86.14 Personal history of Methicillin resistant Staphylococcus aureus infection; Z85.820 Personal history of malignant melanoma of skin; E53.8 Deficiency of other specified B group vitamins; E55.9 Vitamin D deficiency, unspecified; F32.9 Major depressive disorder, single episode, unspecified; F41.9 Anxiety disorder, unspecified; F41.0 Panic disorder [episodic paroxysmal anxiety]; Z89.422 Acquired absence of other left toe(s); Z89.421 Acquired absence of other right toe(s); Z90.3 Acquired absence of stomach [part of]; E66.9 Obesity, unspecified; Z68.39 Body mass index [BMI] 39.0-39.9, adult; Z88.1 Allergy status to other antibiotic agents; Z91.030 Bee allergy status; Z88.5 Allergy status to narcotic agent; B95.61 Methicillin susceptible Staphylococcus aureus infection as the cause of diseases classified elsewhere; B95.2 Enterococcus as the cause of diseases classified elsewhere
CPT/HCPCS: 36415; 80053; 82962; 83735; 84100; 85025; 85027; 87070; 87075; 87077; 87186; 87205; 88304; 88312; 97161-GP; A9270-GY; J0744; J2001; J2020; J2185; J2250; J2704; J3010; J3420; J3475; J3490; J7050; J7120

== ENCOUNTER 2018-10-23 11:37 | Inpatient (IN) | payer MEDICAID ==
--- NOTE | 2018-10-23 12:36 | EDM.PDOC ---
ED HPI GENERAL MEDICAL PROBLEM - General Chief Complaint: Skin Complaint Stated Complaint: [facility] Time Seen by Provider: 10/23/18 12:30 Source of Information: Reports: Patient History Limitations: Reports: No Limitations - History of Present Illness INITIAL COMMENTS - FREE TEXT/NARRATIVE: PT ARRIVED CONCERNED WITH HOW THE WOUND LOOKED. hE DID NOT GET TO HIS APPT WITH dR Tomlinson ON WED. hE WAS FRIGHTENED ABOUT HOW MUCH OF HIS FOOT HE WOULD LOOSE. Onset: Gradual, Other ( hE FEELS LIKE THERE WAS ALOT MORE DRAINAGE. hE HAD A CONCERN ABOUT THE BONE BEING EXPOSED. ) Duration: Hour(s): Location: Reports: Lower Extremity, Right Associated Symptoms: Reports: No Other Symptoms Left Foot Pain Score (Numeric/FACES): 8 - Related Data Allergies Allergy/AdvReac Type Severity Reaction Status Date / Time amoxicillin [Amoxicillin] Allergy Severe Cannot Verified 10/23/18 11:44 Remember Penicillins Allergy Severe Cannot Verified 10/23/18 11:44 Remember venom-honey bee Allergy Severe Swelling Verified 10/23/18 11:44 [bee venom (honey bee)] hydromorphone [From Dilaudid] AdvReac Nausea and Verified 10/23/18 11:44 Vomiting Home Meds: Home Meds Nortriptyline HCl [Pamelor] 10 mg PO TID 02/21/18 [History] Pregabalin [Lyrica] 300 mg PO BID 02/21/18 [History] busPIRone [Buspar] 1 tab PO TID PRN 08/13/18 [History] Acetaminophen [Tylenol] 650 mg PO Q6H PRN tablet 08/31/18 [Rx] Bacitracin [Bacitracin Oint] 1 applic TOP BID 09/02/18 [History] Escitalopram Oxalate [Lexapro] 20 mg PO DAILY 09/29/18 [History] Zolpidem Tartrate 10 mg PO BEDTIME 09/29/18 [History] Past Medical History HEENT History: Reports: Impaired Vision Cardiovascular History: Reports: None Respiratory History: Reports: COPD, Sleep Apnea Gastrointestinal History: Reports: None Genitourinary History: Reports: None Musculoskeletal History: Reports: Amputation Neurological History: Reports: None Psychiatric History: Reports: Addiction, Anxiety, Depression, Panic Attack Endocrine/Metabolic History: Reports: Diabetes, Type II, Obesity/BMI 30+ Immunologic History: Reports: Other (See Below) Other Immunologic History: h/o mrsa Oncologic (Cancer) History: Reports: Malignant Melanoma Other Oncologic History: patient states he had a mole removed from right wrist area that was melanoma Dermatologic History: Reports: None - Infectious Disease History Infectious Disease History: Reports: Chicken Pox, Measles, MRSA, Mumps Other Infectious Disease History: MRSA to right upper back - Past Surgical History Head Surgeries/Procedures: Reports: None HEENT Surgical History: Reports: None Respiratory Surgical History: Reports: None GI Surgical History: Reports: Appendectomy, Bariatric Procedure Neurological Surgical History: Reports: Scoliosis Musculoskeletal Surgical History: Reports: Amputation Other Musculoskeletal Surgeries/Procedures:: 08-25-18 left great toe amputation, previous left toe amputations on left foot. 2nd digit on right foot Dermatological Surgical History: Reports: Skin Biopsy Social & Family History - Family History Family Medical History: Noncontributory - Tobacco Use Smoking Status *Q: Current Every Day Smoker Years of Tobacco use: 20 Packs/Tins Daily: 0.5 Used Tobacco, but Quit: No - Caffeine Use Caffeine Use: Reports: Coffee, Tea Other Caffeine Use: 1 cup/day - Recreational Drug Use Recreational Drug Use: Yes Drug Use in Last 12 Months: Yes Recreational Drug Type: Reports: Marijuana/Hashish Recreational Drug Use Frequency: Daily ED ROS GENERAL - Review of Systems Review Of Systems: See Below Constitutional: Reports: No Symptoms HEENT: Reports: No Symptoms Respiratory: Reports: No Symptoms Cardiovascular: Reports: No Symptoms Endocrine: Reports: No Symptoms GI/Abdominal: Reports: No Symptoms : Reports: No Symptoms Musculoskeletal: Reports: Other (PT HAS INCREASED PAIN AND DRAINAGE FROM THE RT FOOT. ) ED EXAM, SKIN/RASH Exam: See Below Text/Narrative:: PT ARRIVED BY AMBULANCE WITH INCREASED PAIN AND DRAINAGE FROM THE WOUND ON THE RT FOOT. hE THOUGHT HE COULD SEE BONE. hE NOTES THAT THE DRAINAGE WAS VERY SMELLY. tHE AMOUNT OF DRAINAGE HAS INCREASED AND IT IS MORE PAINFUL Exam Limited By: No Limitations General Appearance: Alert, Anxious, Moderate Distress Ears: Normal TMs Nose: Normal Inspection Throat/Mouth: Normal Inspection Head: Atraumatic Neck: Normal Inspection Respiratory/Chest: No Respiratory Distress Cardiovascular: Regular Rate, Rhythm GI/Abdominal: Soft, Non-Tender (Male) Exam: Deferred Rectal (Males) Exam: Deferred Back Exam: Normal Inspection Extremities: Other ( THE WOUND ON THE RT FOOT DOES HAVE A FAIR AMOUNT OF SMELLY DRAINAGE PRESENT. ) Neurological: Alert, Oriented, Normal Cognition Course - Vital Signs Last Recorded V/S: Last Vital Signs Temp 35.2 C 10/23/18 11:53 Pulse 82 10/23/18 11:53 Resp 16 10/23/18 11:53 BP 134/71 10/23/18 11:53 Pulse Ox 100 10/23/18 11:53 - Orders/Labs/Meds Orders: Active Orders 24 hr Category Date Time Status UA W/MICROSCOPIC [URIN] Urgent Lab 10/23/18 11:52 Ordered Labs: Laboratory Tests 10/23/18 10/23/18 Range/Units 12:04 12:04 WBC 8.6 (4.5-11.0) K/uL RBC 4.85 (4.30-5.90) M/uL Hgb 13.3 (12.0-15.0) g/dL Hct 40.2 (40.0-54.0) % MCV 83 (80-98) fL MCH 27 (27-31) pg MCHC 33 (32-36) % Plt Count 278 (150-400) K/uL Neut % (Auto) 57 (36-66) % Lymph % (Auto) 30 (24-44) % [place] % (Auto) 11 H (2-6) % Eos % (Auto) 2 (2-4) % Baso % (Auto) 0 (0-1) % Sodium 139 L (140-148) mmol/L Potassium 4.1 (3.6-5.2) mmol/L Chloride 105 (100-108) mmol/L Carbon Dioxide 28 (21-32) mmol/L Anion Gap 10.1 (5.0-14.0) mmol/L BUN 17 D (7-18) mg/dL Creatinine 0.6 L (0.8-1.3) mg/dL Est Cr Clr Drug Dosing 169.42 mL/min Estimated GFR (MDRD) > 60 (>60) Glucose 96 (74-106) mg/dL Calcium 8.6 (8.5-10.1) mg/dL Total Bilirubin 0.9 (0.2-1.0) mg/dL AST 22 (15-37) U/L ALT 70 (12-78) U/L Alkaline Phosphatase 121 H (46-116) U/L Total Protein 6.6 (6.4-8.2) g/dL Albumin 3.0 L (3.4-5.0) g/dL Globulin 3.6 H (2.3-3.5) g/dL Albumin/Globulin Ratio 0.8 L (1.2-2.2) - Re-Assessments/Exams Free Text/Narrative Re-Assessment/Exam: 10/23/18 12:59 PT ARRIVED AND THE WOUND WAS CHECKED. dR Tomlinson WAS CONTACTEDAND PT WILL BE ADMITTED BY dR Schneider AND HE WILL CONSULT ON HIM TOMORROW. hIS LAB WORK LOOKS GOOD. Departure - Departure Time of Disposition: 13:01 Disposition: Admitted As Inpatient 66 Condition: Fair Clinical Impression: Amputation stump infection - Discharge Information Referrals: PCP,None [Primary Care Provider] - Forms: ED Department Discharge Care Plan Goals: ADMIT TO dR SCHNEIDER. - My Orders Last 24 Hours: My Active Orders 10/23/18 11:52 UA W/MICROSCOPIC [URIN] Urgent - Assessment/Plan Last 24 Hours: My Active Orders 10/23/18 11:52 UA W/MICROSCOPIC [URIN] Urgent
--- NOTE | 2018-10-23 13:41 | PCM.HP ---
H&P History of Present Illness - General Date of Service: 10/23/18 Admit Problem/Dx: Admission Diagnosis/Problem Admission Diagnosis/Problem Diabetic foot infection Source of Information: Patient, Provider History Limitations: Reports: No Limitations - History of Present Illness Initial Comments - Free Text/Narative: CC: My foot hurts HPI: Demarcus presents to the emergency room today with 4 days of increasing pain, swelling and drainage from his left great toe wound. He had his toe amputated about 2 months ago. The toe had been doing well until 4 days ago when the wound opened up and started to drain clear to yellow fluid. He has noticed a foul odor coming from the wound. Initially he had mild achy pain but this has progressed to severe achy pain with sharp shooting pains superimposed. The pain radiates throughout his foot. The pain gets worse when he puts any pressure on it. He hasn't taken anything to help with the pain but has noticed that it hurts less when he stays off of his foot. He has not had any fevers but has had some chills. He does not report any abdominal pain, nausea or vomiting. No complaints of shortness of breath. No skin rash. Workup in the emergency room was concerning for an infection involving the surgical site on the left foot where the great toe was amputated. There is no evidence for sepsis at this time. The patient will be started on antibiotics and admitted to the hospital with surgical consultation planned for tomorrow morning. Left Foot Pain Score (Numeric/FACES): 8 - Related Data Allergies/Adverse Reactions: Allergies Allergy/AdvReac Type Severity Reaction Status Date / Time amoxicillin [Amoxicillin] Allergy Severe Cannot Verified 10/23/18 11:44 Remember Penicillins Allergy Severe Cannot Verified 10/23/18 11:44 Remember venom-honey bee Allergy Severe Swelling Verified 10/23/18 11:44 [bee venom (honey bee)] hydromorphone [From Dilaudid] AdvReac Nausea and Verified 10/23/18 11:44 Vomiting Home Medications: Home Meds Nortriptyline HCl [Pamelor] 10 mg PO TID 02/21/18 [History] Pregabalin [Lyrica] 300 mg PO BID 02/21/18 [History] busPIRone [Buspar] 1 tab PO TID PRN 08/13/18 [History] Acetaminophen [Tylenol] 650 mg PO Q6H PRN tablet 08/31/18 [Rx] Bacitracin [Bacitracin Oint] 1 applic TOP BID 09/02/18 [History] Escitalopram Oxalate [Lexapro] 20 mg PO DAILY 09/29/18 [History] Zolpidem Tartrate 10 mg PO BEDTIME 09/29/18 [History] Past Medical History HEENT History: Reports: Impaired Vision Cardiovascular History: Reports: None Respiratory History: Reports: COPD, Sleep Apnea Gastrointestinal History: Reports: None Genitourinary History: Reports: None Musculoskeletal History: Reports: Amputation Neurological History: Reports: None Psychiatric History: Reports: Addiction, Anxiety, Depression, Panic Attack Endocrine/Metabolic History: Reports: Diabetes, Type II, Obesity/BMI 30+ Immunologic History: Reports: Other (See Below) Other Immunologic History: h/o mrsa Oncologic (Cancer) History: Reports: Malignant Melanoma Other Oncologic History: patient states he had a mole removed from right wrist area that was melanoma Dermatologic History: Reports: None - Infectious Disease History Infectious Disease History: Reports: Chicken Pox, Measles, MRSA, Mumps Other Infectious Disease History: MRSA to right upper back - Past Surgical History Head Surgeries/Procedures: Reports: None HEENT Surgical History: Reports: None Respiratory Surgical History: Reports: None GI Surgical History: Reports: Appendectomy, Bariatric Procedure Neurological Surgical History: Reports: Scoliosis Musculoskeletal Surgical History: Reports: Amputation Other Musculoskeletal Surgeries/Procedures:: 08-25-18 left great toe amputation, previous left toe amputations on left foot. 2nd digit on right foot Dermatological Surgical History: Reports: Skin Biopsy Social & Family History - Family History Family Medical History: Noncontributory - Tobacco Use Smoking Status *Q: Current Every Day Smoker Years of Tobacco use: 20 Packs/Tins Daily: 0.5 Used Tobacco, but Quit: No - Caffeine Use Caffeine Use: Reports: Coffee, Tea Other Caffeine Use: 1 cup/day - Alcohol Use Alcohol Use History: Yes - Recreational Drug Use Recreational Drug Use: Yes Drug Use in Last 12 Months: Yes Recreational Drug Type: Reports: Marijuana/Hashish Recreational Drug Use Frequency: Daily H&P Review of Systems - Review of Systems: Review Of Systems: See Below Free Text/Narrative: A complete 12 point review of systems was obtained. Pertinent positives and negatives are noted in the history of present illness. All other systems were reviewed and were negative except as noted. Exam - Exam Exam: See Below - Vital Signs Vital Signs: Last Vital Signs Temp 35.2 C 10/23/18 11:53 Pulse 82 10/23/18 11:53 Resp 16 10/23/18 11:53 BP 134/71 10/23/18 11:53 Pulse Ox 100 10/23/18 11:53 Weight: 110.677 kg - Exam Quality Assessment: No: Supplemental Oxygen General: Alert, Oriented, Cooperative, Mild Distress HEENT: Conjunctiva Clear, Mucosa Moist & [place], Scleral Icterus Neck: Supple, Trachea Midline. No: Lymphadenopathy Lungs: Clear to Auscultation, Normal Respiratory Effort Cardiovascular: Regular Rate, Regular Rhythm, Systolic Murmur GI/Abdominal Exam: Normal Bowel Sounds, Soft, Non-Tender, No Distention Back Exam: Normal Inspection, Full Range of Motion Extremities: No Pedal Edema, Increased Warmth (left great toe on dorsum of foot) Peripheral Pulses: 1+: Dorsalis Pedis (L), Dorsalis Pedis (R) Skin: Warm, Dry, Rash (erythema around the wound on the left great toe ), Wound (open wound left great toe with mild clear/yellow drainage. ) Neuro Extensive - Mental Status: Alert, Oriented x3, Nl Response to Commands Neuro Extensive - Motor, Sensory, Reflexes: No: Dysarthria, Abnormal Motor, Tremor Psychiatric: Alert, Normal Affect - Patient Data Lab Results Last 24 hrs: Laboratory Results - last 24 hr 10/23/18 10/23/18 10/23/18 Range/Units 12:04 12:04 13:12 WBC 8.6 (4.5-11.0) K/uL RBC 4.85 (4.30-5.90) M/uL Hgb 13.3 (12.0-15.0) g/dL Hct 40.2 (40.0-54.0) % MCV 83 (80-98) fL MCH 27 (27-31) pg MCHC 33 (32-36) % Plt Count 278 (150-400) K/uL Neut % (Auto) 57 (36-66) % Lymph % (Auto) 30 (24-44) % [place] % (Auto) 11 H (2-6) % Eos % (Auto) 2 (2-4) % Baso % (Auto) 0 (0-1) % Sodium 139 L (140-148) mmol/L Potassium 4.1 (3.6-5.2) mmol/L Chloride 105 (100-108) mmol/L Carbon Dioxide 28 (21-32) mmol/L Anion Gap 10.1 (5.0-14.0) mmol/L BUN 17 D (7-18) mg/dL Creatinine 0.6 L (0.8-1.3) mg/dL Est Cr Clr Drug Dosing 169.42 mL/min Estimated GFR (MDRD) > 60 (>60) Glucose 96 (74-106) mg/dL Calcium 8.6 (8.5-10.1) mg/dL Total Bilirubin 0.9 (0.2-1.0) mg/dL AST 22 (15-37) U/L ALT 70 (12-78) U/L Alkaline Phosphatase 121 H (46-116) U/L C-Reactive Protein 6.34 H (0.0-0.3) mg/dL Total Protein 6.6 (6.4-8.2) g/dL Albumin 3.0 L (3.4-5.0) g/dL Globulin 3.6 H (2.3-3.5) g/dL Albumin/Globulin Ratio 0.8 L (1.2-2.2) Result Diagrams: 10/23/18 12:04 10/23/18 12:04 Imaging Impressions Last 24 hrs: X-ray left foot - 3 images personally reviewed - there does appear to be some bony destruction involving the medial aspect of the distal portion of the first metatarsal. *Q Meaningful Use (ADM) - VTE *Q VTE Pharmacological Contraindications *Q: Patient Scheduled Surgery - VTE Risk Assess *Q Each Risk Factor Represents 1 Point: Minor Surgery Planned, Obesity ( BMI > 25 kg/m2) Total Score 1 Point Risk Factors: 2 Each Risk Factor Represents 2 Points: None Total Score 2 Point Risk Factors: 0 Each Risk Factor Represents 3 Points: None Total Score 3 Point Risk Factors: 0 Each Risk Factor Represents 5 Points: None Total Score 5 Point Risk Factors: 0 Venous Thromboembolism Risk Factor Score *Q: 2 - Problem List (1) Osteomyelitis of foot, left, acute SNOMED Code(s): 3912007807126754 ICD Code: M86.172 - OTHER ACUTE OSTEOMYELITIS, LEFT ANKLE AND FOOT Status: Acute Current Visit: Yes (2) Status post partial gastrectomy SNOMED Code(s): 781865206989069, 50127906, 704954994104254 ICD Code: Z90.3 - ACQUIRED ABSENCE OF STOMACH [PART OF] Status: Chronic Current Visit: No Problem Details: with RNY Gastrojejenostomy (3) Diabetes mellitus type 2 in obese SNOMED Code(s): 35005110 ICD Code: E11.9 - TYPE 2 DIABETES MELLITUS WITHOUT COMPLICATIONS; E66.9 - OBESITY, UNSPECIFIED Status: Chronic Current Visit: No Problem List Initiated/Reviewed/Updated: Yes Orders Last 24hrs: Active Orders 24 hr Category Date Time Status Patient Status Manage Transfer [TRANSFER] Routine ADT 10/23/18 13:31 Ordered Foot Comp Min 3V Lt [CR] Stat Exams 10/23/18 13:30 Ordered UA W/MICROSCOPIC [URIN] Urgent Lab 10/23/18 11:52 Ordered Resuscitation Status Routine Resus Stat 10/23/18 13:34 Ordered Assessment/Plan Comment:: ASSESSMENT AND PLAN - Osteomyelitis left first metatarsal - x-ray shows bony destruction involving the medial aspect of the first metatarsal at the distal end. Patient has increased redness, swelling and drainage as well as significant pain in that area. No evidence for sepsis at this time. Amputation was completed about a month and half ago. -Broad-spectrum antibiotic therapy with vancomycin and meropenem -Pain control -Blood cultures if he has a fever -Surgical consultation with Dr. Bustamante in the morning Type 2 diabetes mellitus - Patient is no longer on medications following his gastric bypass at the end of August. Blood sugar today is normal. Morbid obesity - Status post partial gastrectomy with Power-en-Y configuration because of gastroparesis. He has lost more than 60 pounds over the last month. Maintenance issues - - DVT prophylaxis - mechanical with possible surgery coming up - GI prophylaxis - not indicated - Nutrition - regular diet tonight, nothing by mouth after midnight - Bautista catheter - not indicated CODE STATUS - full code Admission justification - This patient will be admitted for inpatient services and is medically appropriate meeting medical necessity for inpatient admission as outlined in my documentation. I reasonably expect the patient will require inpatient services that span a period time over 2 midnights. I reasonably expect this patient to be discharged or transferred within 96 hours [facility]. Disposition - I would anticipate discharge home after the hospital stay Primary care physician - Bernarda Bustamante MD at [facility] Brandan Jimenez M.D.
--- NOTE | 2018-10-23 14:17 | CRLCR ---
INDICATION: diabetic infection, assess for osteomyelitis FINDINGS: Three views of the right foot show amputation of the 1st digit at the metatarsal head. Amputation of the 2nd 3rd digits at the proximal interphalangeal joints. No evidence of acute fracture or dislocation. Bony erosion along the medial aspect to the head of the right 1st metatarsal could represent a focal area of osteomyelitis. Vascular calcifications. No other bony or soft tissue abnormalities identified. Dictated by Thomas Berumen MD @ 10/23/2018 2:15:04 PM Dictated by: Thomas Berumen MD @ 10/23/2018 14:15:13 (Electronically Signed)
[2018-10-23] MEDS ORDERED: Magnesium Hydroxide 400 MG/5 ML Susp 30 ML Cup PO PRN (14:20)
[2018-10-23] MEDS ORDERED: Ondansetron 4 MG Tab.DIS PO PRN (14:20)
[2018-10-23] MEDS ORDERED: Acetaminophen 325 MG Tab PO PRN (14:20)
[2018-10-23] MEDS ORDERED: Vancomycin 2.5 GM in Sodium Chloride 0.9% 500 ML IV ONE (15:00)
[2018-10-23] MEDS: Lactated Ringers 1,000 ML IV SCH (15:21)
[2018-10-23] MEDS: Nortriptyline 10 MG Cap PO SCH ×2 (15:26→20:05)
[2018-10-23] MEDS: oxyCODONE 5 MG Tab PO PRN (15:45)
[2018-10-23] MEDS: Pregabalin 100 MG Cap PO SCH (20:07)
[2018-10-23] MEDS: Morphine 4 MG/ML Syringe IVPUSH PRN (20:10)
[2018-10-23] MEDS: Zolpidem 5 MG Tab PO PRN (22:46)
[2018-10-24] MEDS: Morphine 4 MG/ML Syringe IVPUSH PRN (04:15)
[2018-10-24] MEDS: Lactated Ringers 1,000 ML IV SCH (04:16)
[2018-10-24] MEDS: oxyCODONE 5 MG Tab PO PRN ×3 (06:55→21:05)
[2018-10-24] MEDS: Pregabalin 100 MG Cap PO SCH ×2 (09:26→21:13)
[2018-10-24] MEDS: Nortriptyline 10 MG Cap PO SCH ×3 (09:26→21:07)
[2018-10-24] MEDS: Escitalopram 20 MG Tab PO SCH (09:26)
[2018-10-24] MEDS: Linezolid 600 MG in Premix Bag 1 BAG IV SCH ×2 (11:14→23:16)
--- NOTE | 2018-10-24 13:02 | PN ---
DATE OF SERVICE: 10/24/2018 The patient was admitted with an obvious open wound in his left transmetatarsal amputation site on the left foot. At this point, it clearly is not and extends down to the bone. At this point, with the wound open, there is no real cellulitis proximal to this. We will run the antibiotics through today and plan to proceed with a forefoot amputation tomorrow. Potential risks including bleeding, infection, possibility of not healing requiring below-knee amputation were all reviewed with the patient, and he wishes to proceed. We will switch the vancomycin to Zyvox presently so as to get a little bit better soft tissue coverage. Darryl Bustamante MD /[id number]
[2018-10-24] MEDS: Zolpidem 5 MG Tab PO PRN (21:06)
[2018-10-25] MEDS: Morphine 4 MG/ML Syringe IVPUSH PRN ×3 (01:17→12:32)
[2018-10-25] MEDS: Dextrose 5%-Lactated Ringers 1,000 ML IV SCH ×2 (02:51→22:06)
--- NOTE | 2018-10-25 08:33 | PN ---
DATE OF SERVICE: 10/25/2018 SUBJECTIVE: Demarcus will be having a left forefoot amputation. Case to follow today. He is n.p.o. He has no questions today, preoperative evaluation and discussion of possible risks and complications reviewed with Demarcus by Darryl Bustamante M.D. OBJECTIVE: GENERAL: Demarcus Diallo is a 33-year-old male. He is alert and orientated. VITAL SIGNS: TPR 95, 68, 18. Blood pressure 119/76. HEENT: Negative. NECK: Supple. HEART: Regular rate and rhythm. LUNGS: Clear. ABDOMEN: Negative. EXTREMITIES: Left foot dressing dry and intact. ASSESSMENT: Infection in open wound, left transmetatarsal amputation site. PLAN: Remain n.p.o. Orders to be written postoperatively. Rayna Beverly PA-C /[id number]
[2018-10-25] MEDS: Nortriptyline 10 MG Cap PO SCH ×3 (08:37→22:00)
[2018-10-25] MEDS: Escitalopram 20 MG Tab PO SCH (08:37)
[2018-10-25] MEDS: Pregabalin 100 MG Cap PO SCH ×2 (08:37→21:59)
[2018-10-25] MEDS: Linezolid 600 MG in Premix Bag 1 BAG IV SCH ×2 (10:06→22:05)
[2018-10-25] MEDS ORDERED: fentaNYL 250 MCG/5 ML SDV ONE (10:23)
[2018-10-25] MEDS ORDERED: Glycopyrrolate 0.2 MG/ML 5 ML MDV ONE (10:24)
[2018-10-25] MEDS ORDERED: Succinylcholine 200 MG/10 ML MDV ONE (10:24)
[2018-10-25] MEDS ORDERED: Ondansetron 4 MG/2 ML SDV ONE (10:24)
[2018-10-25] MEDS ORDERED: Rocuronium 50 MG/5 ML Vial ONE (10:24)
[2018-10-25] MEDS ORDERED: Propofol 200 MG/20 ML SDV ONE (10:24)
[2018-10-25] MEDS ORDERED: Dexamethasone 4 MG/ML SDV ONE (10:24)
[2018-10-25] MEDS ORDERED: Neostigmine Methylsulfate 1 MG/ML 5 ML Syringe ONE (10:24)
[2018-10-25] MEDS ORDERED: Lidocaine 1% 2 ML ONE (12:33)
[2018-10-25] MEDS: Meropenem 500 MG SDV ONE ×2 (14:09→14:45)
[2018-10-25] MEDS ORDERED: Hydrogen Peroxide 3% Top Soln 240 ML Bottle ONE (15:25)
[2018-10-25] MEDS ORDERED: hydrOXYzine HCl 100 MG/2 ML SDV IM ONE (15:37)
[2018-10-25] MEDS ORDERED: fentaNYL 100 MCG/2 ML SDV IVPUSH ONE (15:38)
[2018-10-25] MEDS ORDERED: Ketorolac 60 MG/2 ML SDV ONE (16:06)
[2018-10-25] MEDS ORDERED: Naloxone 0.4 MG/ML SDV IVPUSH PRN (16:07)
[2018-10-25] MEDS ORDERED: Morphine 2 MG/ML Syringe IVPUSH ONE (16:12)
[2018-10-25] MEDS ORDERED: Naloxone 0.4 MG/ML SDV IV PRN (16:13)
[2018-10-25] MEDS: Morphine PF 150 MG/30 ML PCA Syringe IV PRN (16:31)
[2018-10-25] MEDS ORDERED: fentaNYL 100 MCG/2 ML SDV IV ONE (16:45)
[2018-10-25] MEDS: busPIRone 10 MG Tab PO PRN (21:59)
[2018-10-25] MEDS: Zolpidem 5 MG Tab PO PRN (21:59)
[2018-10-25] MEDS: Ondansetron 4 MG/2 ML SDV IV PRN (22:00)
[2018-10-26] MEDS ORDERED: Dextrose 5%-Lactated Ringers 1,000 ML IV SCH (07:41)
[2018-10-26] MEDS: Pregabalin 100 MG Cap PO SCH ×2 (08:14→22:00)
[2018-10-26] MEDS: Escitalopram 20 MG Tab PO SCH (08:15)
[2018-10-26] MEDS: Nortriptyline 10 MG Cap PO SCH ×3 (08:15→22:00)
[2018-10-26] MEDS: Ondansetron 4 MG/2 ML SDV IV PRN ×2 (08:17→18:06)
--- NOTE | 2018-10-26 08:52 | PN ---
DATE OF SERVICE: 10/25/2018 SUBJECTIVE: Demarcus is postoperative day 1. 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 KIA drain put out 70 mL of a red drainage. The KIA drain will be left in until approximately Wednesday morning. He is to have no weightbearing on his left lower extremity. He has no questions or concerns. OBJECTIVE: GENERAL: Demarcus Diallo is a 33-year-old male, postop day 1. VITAL SIGNS: TPR 96.8, 93, 18, blood pressure 130/69. HEENT: Negative. NECK: Supple. HEART: Regular rate and rhythm. LUNGS: Clear. ABDOMEN: Negative. He does show me 1 trocar site that is firm and a little bit tender. No hernias noted. EXTREMITIES: Left lower extremity dressing dry and intact. KIA drain intact as above. ASSESSMENT: Chopart midfoot amputation of left foot for nonhealing transmetatarsal amputation of left foot. Date of surgery 10/25/2018. PLAN: 1. No weightbearing. Decrease IV to TKO. 2. Good pulmonary toilet. 3. We will evaluate p.r.n. or in a.m. Rayna Beverly PA-C /[id number]
[2018-10-26] MEDS: Linezolid 600 MG in Premix Bag 1 BAG IV SCH ×2 (09:55→22:01)
[2018-10-26] MEDS: busPIRone 10 MG Tab PO PRN ×3 (10:58→22:01)
[2018-10-26] MEDS: Morphine PF 150 MG/30 ML PCA Syringe IV PRN (11:44)
[2018-10-26] MEDS: Zolpidem 5 MG Tab PO PRN (22:01)
[2018-10-27] MEDS: Morphine PF 150 MG/30 ML PCA Syringe IV PRN ×2 (05:54→21:59)
--- NOTE | 2018-10-27 07:58 | PN ---
DATE OF SERVICE: 10/27/2018 SUBJECTIVE: Demarcus is doing quite well. His pain is controlled. Vital signs have been stable. REVIEW OF SYSTEMS: Remainder of review of systems negative for any pertinent positives and negatives. OBJECTIVE: GENERAL: Demarcus Diallo is a pleasant 33-year-old male. Alert and orientated. SKIN: Warm and dry. VITAL SIGNS: TPR is 95.5, 83, 18, and blood pressure is 115/69. HEENT: Negative. NECK: Supple. HEART: Regular rate and rhythm. LUNGS: Clear. ABDOMEN: Negative. EXTREMITIES: Left foot amputation. Dressing is dry and intact. ASSESSMENT: Chopart midfoot amputation of left foot for nonhealing transmetatarsal amputation of left foot. Date of surgery 10/25/2018. Surgeon, Darryl Bustamante MD. PLAN: 1. Discontinue Zyvox. 2. BuSpar 10 mg every 8 hours scheduled. 3. Cipro 400 mg q.12 hours IV. 4. Doxycycline 100 mg IV q.12 hours. 5. Vitamin B12, 1000 mcg IM. 6. Good pulmonary toilet. 7. We will evaluate p.r.n. or in a.m. Rayna Beverly PA-C /[id number]
[2018-10-27] MEDS: busPIRone 10 MG Tab PO SCH ×3 (08:44→21:20)
[2018-10-27] MEDS: Ciprofloxacin in D5W 400 MG in Premix Bag 1 BAG IV SCH ×4 (08:44→21:15)
[2018-10-27] MEDS: Escitalopram 20 MG Tab PO SCH (08:44)
[2018-10-27] MEDS: Nortriptyline 10 MG Cap PO SCH ×3 (08:44→21:19)
[2018-10-27] MEDS: Lactobacillus Rhamnosus GG (Probiotic) Cap PO SCH ×2 (08:44→21:20)
[2018-10-27] MEDS: Pregabalin 100 MG Cap PO SCH ×2 (08:49→21:20)
[2018-10-27] MEDS: Ondansetron 4 MG/2 ML SDV IV PRN (08:49)
[2018-10-27] MEDS ORDERED: Cyanocobalamin (Vitamin B12) 1,000 MCG/ML SDV IM ONE (09:00)
[2018-10-27] MEDS: Doxycycline 100 MG in Sodium Chloride 0.9% 100 ML IV SCH ×2 (10:01→22:23)
[2018-10-27] MEDS: Zolpidem 5 MG Tab PO PRN (21:20)
[2018-10-28] MEDS: busPIRone 10 MG Tab PO SCH ×3 (08:04→22:46)
[2018-10-28] MEDS: Escitalopram 20 MG Tab PO SCH (08:04)
[2018-10-28] MEDS: Nortriptyline 10 MG Cap PO SCH ×3 (08:05→22:45)
[2018-10-28] MEDS: Lactobacillus Rhamnosus GG (Probiotic) Cap PO SCH ×2 (08:05→22:45)
--- NOTE | 2018-10-28 08:13 | PN ---
DATE OF SERVICE: 10/28/2018 SUBJECTIVE: Demarcus is reporting increased amount of pain. He states that the morphine SAMPLE CASE PORTER does help but he falls asleep and then when he wakes up, he said he plays catch up for 1 to 2 hours. He is requesting to change to Percocet. He thinks it lasts longer. Vital signs have been stable. He has been afebrile. Oral intake 3570, and urine output 2050. KIA drain has put out 20 mL of a dark red drainage. REVIEW OF SYSTEMS: Remainder of review of systems negative for any pertinent positives and negatives. OBJECTIVE: GENERAL: Demarcus Diallo is a pleasant 33-year-old male. He is alert, orientated, sitting up in bed. VITAL SIGNS: TPR is 96.4, 103, 16, blood pressure is 122/65. HEENT: Negative. NECK: Supple. HEART: Regular rate and rhythm. LUNGS: Clear. ABDOMEN: Deferred. EXTREMITIES: Left surgical dressing lower extremity, clean and dry. ASSESSMENT: 1. Chopart midfoot amputation of left foot for nonhealing transmetatarsal amputation of left foot. Date of surgery: 10/25/2018. Surgeon: Darryl Bustamante MD. 2. Status post partial gastrectomy. 3. Diabetes type 2. PLAN: 1. Discontinue SAMPLE CASE PORTER and continuous pulse ox. 2. Percocet 5/325 mg 1 to 2 every 4 hours p.r.n. pain. 3. May shower, keeping dressing left lower extremity clean and dry. 4. Have supplies ready in the patient's room on 10/29/2018 for dressing change. He will need Kerlix, a 3-inch Azar, 4x4s, and Coban. Time of dressing change is 06:30, and to be changed by Darryl Bustamante MD. 5. We will evaluate p.r.n. or in a.m. Rayna Beverly PA-C /[id number]
[2018-10-28] MEDS: Acetaminophen/oxyCODONE 325-5 MG Tab PO PRN ×5 (08:19→22:45)
[2018-10-28] MEDS: Pregabalin 100 MG Cap PO SCH ×2 (08:20→22:45)
[2018-10-28] MEDS: Ciprofloxacin in D5W 400 MG in Premix Bag 1 BAG IV SCH ×4 (10:24→22:46)
[2018-10-28] MEDS: Doxycycline 100 MG in Sodium Chloride 0.9% 100 ML IV SCH ×2 (11:33→23:57)
[2018-10-28] MEDS: Zolpidem 5 MG Tab PO PRN (22:45)
[2018-10-29] MEDS: Acetaminophen/oxyCODONE 325-5 MG Tab PO PRN ×6 (02:31→21:57)
[2018-10-29] MEDS ORDERED: Sodium Chloride 0.9% 10 ML Syringe IV PRN (08:07)
[2018-10-29] MEDS: Escitalopram 20 MG Tab PO SCH (09:24)
[2018-10-29] MEDS: Lactobacillus Rhamnosus GG (Probiotic) Cap PO SCH ×2 (09:25→21:59)
[2018-10-29] MEDS: Magnesium Oxide 400 MG Tab PO SCH (09:25)
[2018-10-29] MEDS: Nortriptyline 10 MG Cap PO SCH ×3 (09:26→21:57)
[2018-10-29] MEDS: busPIRone 10 MG Tab PO SCH ×3 (09:26→21:58)
[2018-10-29] MEDS: Ciprofloxacin in D5W 400 MG in Premix Bag 1 BAG IV SCH ×4 (09:27→20:24)
[2018-10-29] MEDS: Pregabalin 100 MG Cap PO SCH ×2 (09:28→21:56)
[2018-10-29] MEDS: Doxycycline 100 MG in Sodium Chloride 0.9% 100 ML IV SCH ×2 (11:25→21:54)
[2018-10-29] MEDS: Zolpidem 5 MG Tab PO PRN (21:58)
[2018-10-30] MEDS: Acetaminophen/oxyCODONE 325-5 MG Tab PO PRN ×5 (01:54→21:02)
[2018-10-30] MEDS: Pregabalin 100 MG Cap PO SCH ×2 (10:23→21:13)
[2018-10-30] MEDS: Magnesium Oxide 400 MG Tab PO SCH (10:28)
[2018-10-30] MEDS: busPIRone 10 MG Tab PO SCH ×3 (10:28→21:03)
[2018-10-30] MEDS: Nortriptyline 10 MG Cap PO SCH ×3 (10:28→21:04)
[2018-10-30] MEDS: Escitalopram 20 MG Tab PO SCH (10:29)
[2018-10-30] MEDS: Lactobacillus Rhamnosus GG (Probiotic) Cap PO SCH ×2 (10:29→21:03)
[2018-10-30] MEDS: Ciprofloxacin in D5W 400 MG in Premix Bag 1 BAG IV SCH ×2 (10:30)
[2018-10-30] MEDS: Doxycycline 100 MG in Sodium Chloride 0.9% 100 ML IV SCH (12:03)
[2018-10-30] MEDS: Ciprofloxacin 500 MG Tab PO SCH (21:04)
[2018-10-30] MEDS: Doxycycline 100 MG Cap PO SCH (21:05)
[2018-10-30] MEDS: Zolpidem 5 MG Tab PO PRN (21:13)
[2018-10-31] MEDS: Acetaminophen/oxyCODONE 325-5 MG Tab PO PRN ×3 (00:58→09:04)
[2018-10-31] MEDS: Ciprofloxacin in D5W 400 MG in Premix Bag 1 BAG IV SCH ×2 (07:04)
[2018-10-31] MEDS: Pregabalin 100 MG Cap PO SCH (08:36)
[2018-10-31] MEDS: Lactobacillus Rhamnosus GG (Probiotic) Cap PO SCH ×2 (08:36→08:39)
[2018-10-31] MEDS: Magnesium Oxide 400 MG Tab PO SCH ×2 (08:37→08:39)
[2018-10-31] MEDS: Nortriptyline 10 MG Cap PO SCH (08:37)
[2018-10-31] MEDS: Escitalopram 20 MG Tab PO SCH (08:37)
[2018-10-31] MEDS: busPIRone 10 MG Tab PO SCH (08:37)
[2018-10-31] MEDS: Ciprofloxacin 500 MG Tab PO SCH (08:37)
[2018-10-31] MEDS: Doxycycline 100 MG Cap PO SCH (10:27)
[2018-10-31 10:29] VITALS: BP 136/69; PULSE 92
--- NOTE | 2018-10-31 12:32 | PN ---
DATE OF SERVICE: 10/30/2018 The patient has been afebrile with stable vital signs. We will keep the dressing in place today and recheck that tomorrow. We will fit him with crutches tomorrow. He will likely be able to be discharged home at that time. some oral antibiotics at that point. Darryl Bustamante MD /[id number]
--- NOTE | 2018-10-31 14:02 | DISCH ---
ADMITTING DIAGNOSES: 1. Left diabetic foot infection. 2. Status post Power-en-Y partial gastrectomy. 3. Unspecified surgical malabsorption. 4. B12 deficiency. 5. Diabetes type 2, controlled by Power-en-Y gastric bypass surgery. 6. Sleep apnea. 7. Anxiety. 8. Depression. 9. Panic attacks. 10.History of addiction. 11.Malignant melanoma. 12.History of murmur. DISCHARGE DIAGNOSES: Chopart midfoot amputation of left foot for nonhealing transmetatarsal amputation of left foot. Date of surgery: 10/25/2018. Surgeon: Darryl Bustamante MD. HISTORY: Demarcus Diallo had a metatarsal amputation of left foot. It became infected, incision opened up and was nonhealing. After preoperative evaluation and discussion of possible risks and possible complications, he wished to proceed with surgical procedure. HOSPITAL COURSE: Demarcus had his surgery on 10/25/2018. He had no operative complications. He was treated with IV antibiotic therapy, was nonweightbearing. His appetite and activity were good. Pain was well managed. He remained to be afebrile. Blood sugars were within normal limits and he was able to be discharged to home with home health care on 10/31/2018. PHYSICAL EXAMINATION: GENERAL: Demarcus Diallo is a pleasant 33-year-old male, alert, orientated. VITAL SIGNS: Height is 5 feet 9 inches, weight is 244 pounds. TPR is 96.9, 80, 16, blood pressure 127/78. HEENT: Negative. NECK: Supple. HEART: Regular rate and rhythm. LUNGS: Clear. ABDOMEN: Soft, nontender. EXTREMITIES: Left foot amputation dressing was taken down and changed by Darryl Bustamante MD. Barbara intact. No infection. Very minimal red drainage from the left side of the incision. DISPOSITION: Discharged to home with home health care. CONDITION: Stable and improving. HOME MEDICATIONS: 1. Percocet 5/325 mg one every 6 hours p.r.n. pain, #28. 2. Tylenol 650 mg q.4 hours p.r.n. pain. 3. Buspar one tablet oral 3 times daily, #30. 4. Cipro 500 mg b.i.d. for 5 days, #10. 5. Culturelle two tablets oral twice a day, 120 capsules. 6. Magnesium oxide 400 mg oral daily, #90 with 4 refills. He is to resume home medications of nortriptyline; 1. Pamelor 10 mg 3 times a day. 2. Lyrica 300 mg oral twice daily. 3. Zolpidem 10 mg oral at bedtime. 4. Klonopin 1 mg twice daily. DIET: Step 4 gastric bypass diet. Drink 8 to 10 glasses of water a day. ACTIVITY: Nonweightbearing, left foot. Prescription for wheelchair given. Shower/bathing: May shower. DISCHARGE INSTRUCTIONS: Notify provider if any fever, increased pain, nausea, vomiting, drainage, increased swelling or redness to incision site. Keep site clean and dry. Change dressing daily, to be done by home health care nurse. Check blood sugars twice daily. Bring monitor to clinic when you have an appointment. Dressing change order per home health care. Daily dressing changes, 4 x 4 gauze over barbara and incision wrapped securely with Kerlix, then firmly wrapped with Azar wrap to avoid edema and stump, secure with Coban dressing.
--- NOTE | 2018-11-01 09:09 | PN ---
DATE OF SERVICE: 10/29/2018 The patient has been afebrile with stable vital signs. No major problems have been noted overnight. The KIA drainage is minimal, and that was removed today. The dressing was taken down. The wound is clean in appearance with no significant drainage. New dressing is applied, and we will take that off probably on Wednesday. We will have Physical Therapy see the patient again on Wednesday regarding and perhaps starting some very light weightbearing with the aid of crutches and/or wheelchair. We will discontinue the meropenem and continue the antibiotics aimed at the Staph. Darryl Bustamante MD /[id number]
--- NOTE | 2018-11-04 23:36 | OR ---
DATE OF PROCEDURE: 10/25/2018 PREOPERATIVE DIAGNOSIS: Nonhealing transmetatarsal amputation, left foot. POSTOPERATIVE DIAGNOSIS: Nonhealing transmetatarsal amputation, left foot. PROCEDURE PERFORMED: Chopart's midfoot amputation, left foot ([id number]). ANESTHESIA: General. INDICATION FOR PROCEDURE: This is a 33-year-old patient with significant diabetic complications to his lower extremities with a nonhealing transmetatarsal amputation of the area of the great toe, left foot. At this point, the wound was then opened and the cellulitis has been fairly well controlled and the plan is to proceed with a midfoot amputation. Potential risks of the procedure including bleeding, infection, possible nonhealing, this requiring a higher level of amputation, some functional deformity related to the toe amputation were all reviewed with the patient and he wishes to proceed. DETAILS OF PROCEDRUE: The patient was taken to the operating room and placed in a supine position. After general endotracheal anesthesia was induced, initially a sterile drape was placed over the distal-most foot covering the area of the open nonhealing transmetatarsal amputation. The left foot and calf were then prepped and draped. Volar and plantar flaps were then constructed. It became evident after initial dissection, that we would need to go as high as a Chopart's type amputation in order to get adequate soft tissue coverage with the skin and subcutaneous tissue, which was not currently significantly inflamed. After initial skin flaps were raised and dissected backwards, the musculotendinous tissues were divided. Eventually the amputation was performed through the talocalcaneonavicular joint and the calcaneocuboid joint. Once the initial amputation was completed, the wound was irrigated with Zyvox and meropenem containing saline solution. The extensor hallucis longus and tibialis anterior tendons were reattached to the talar neck with 2-0 Vicryl stitch, and the extensor digitorum longus was attached to the calcaneus again with 2-0 Vicryl stitch, and because of the patient's propensity for an infection, particularly with MRSA, we elected at this point not to divide the Achilles tendon that procedure for later time should the patient develop a significant equinovarus deformity as a result of the unopposed mild plantar flexion of the Achilles tendon. Once the above attachments were completed, the wound was once again irrigated with Zyvox and meropenem containing saline solution. The patient did appear to have very good arterial blood supply and hemostasis at this point was satisfactory after use of variety of [id number] stitches and cautery as indicated. The incision was then closed with layers of 3-0 Vicryl stitch deep and then christine for the skin. A 10-[place]Dan drain was taken out upon the area above the amputation and sutured there with 4-0 Vicryl stitch. A pressure dressing was applied and the patient was taken to the recovery room in satisfactory condition. Physician assistant superintendent, Rayna Beverly, played an essential role in assisting in this case helping to position the patient, retract structures as needed, as well as suturing and cutting sutures as well as stapling as indicated. Her presence improved patient safety and decreased operative time. Darryl Bustamante MD /[id number]
== END 2018-10-31 11:30 | disposition home health service (06) | DRG 617 ==
LOC: JP.ED 11:37 → JP.MS 13:31
PROVIDERS: ADMIT Internal Medicine; ATTEND Internal Medicine
PROC: 0Y6N0Z0 Detachment at Left Foot, Complete, Open Approach (ICD-10-PCS; principal; 2018-10-25)
DX: E11.69 Type 2 diabetes mellitus with other specified complication (principal); M86.172 Other acute osteomyelitis, left ankle and foot; L97.526 Non-pressure chronic ulcer of other part of left foot with bone involvement without evidence of necrosis; C49.9 Malignant neoplasm of connective and soft tissue, unspecified; B95.61 Methicillin susceptible Staphylococcus aureus infection as the cause of diseases classified elsewhere; Z98.84 Bariatric surgery status; Z98.0 Intestinal bypass and anastomosis status; E11.621 Type 2 diabetes mellitus with foot ulcer; F17.210 Nicotine dependence, cigarettes, uncomplicated; Z86.14 Personal history of Methicillin resistant Staphylococcus aureus infection; J44.9 Chronic obstructive pulmonary disease, unspecified; G47.30 Sleep apnea, unspecified; F41.9 Anxiety disorder, unspecified; F32.9 Major depressive disorder, single episode, unspecified; H54.7 Unspecified visual loss; F41.0 Panic disorder [episodic paroxysmal anxiety]; E66.9 Obesity, unspecified; Z68.37 Body mass index [BMI] 37.0-37.9, adult; Z89.412 Acquired absence of left great toe; Z89.422 Acquired absence of other left toe(s); Z88.1 Allergy status to other antibiotic agents; Z91.030 Bee allergy status; Z88.5 Allergy status to narcotic agent; Z88.0 Allergy status to penicillin
CPT/HCPCS: 36415; 73630-LT; 80048; 80053; 81001; 83735; 84100; 85025; 85027; 86140; 87070; 87075; 87077; 87186; 87205; 87493; 88307; 88311; 94762; 97161-GP; 97530-GP; 97535-GP; 99283; 99284-25; A9270-GY; J0330; J0744; J1100; J1885; J2001; J2020; J2185; J2270; J2405; J2704; J2710; J3010; J3370; J3410; J3420; J3490; J7030; J7040; J7042; J7050; J7120

== ENCOUNTER 2018-11-06 12:48 | Emergency (ER) | payer MEDICAID ==
[2018-11-06 12:52] VITALS: BP 133/89; PULSE 85
--- NOTE | 2018-11-06 13:35 | EDM.PDOC ---
ED HPI GENERAL MEDICAL PROBLEM - General Chief Complaint: General Stated Complaint: VIA [facility] Time Seen by Provider: 11/06/18 13:35 Source of Information: Reports: Patient History Limitations: Reports: No Limitations - History of Present Illness INITIAL COMMENTS - FREE TEXT/NARRATIVE: pt is here and feeling quite upset. He had a recent further amputation of his rt foot. He is having difficulty walking. He is falling alot. He had too give up the care of his daughter to his mother Last nit about 7 pm he developed numbness in the post cervical area. Onset: Other ( started last nite. ) Duration: Hour(s): Location: Reports: Upper Extremity, Right Associated Symptoms: Reports: Headaches, Other (pt has a low grade headache. ) Lower Back Pain Score (Numeric/FACES): 8 - Related Data Allergies Allergy/AdvReac Type Severity Reaction Status Date / Time amoxicillin [Amoxicillin] Allergy Severe Cannot Verified 11/06/18 13:03 Remember Penicillins Allergy Severe Cannot Verified 11/06/18 13:03 Remember venom-honey bee Allergy Severe Swelling Verified 11/06/18 13:03 [bee venom (honey bee)] hydromorphone [From Dilaudid] AdvReac Nausea and Verified 11/06/18 13:03 Vomiting Home Meds: Home Meds Nortriptyline HCl [Pamelor] 10 mg PO TID 02/21/18 [History] Pregabalin [Lyrica] 300 mg PO BID 02/21/18 [History] Acetaminophen [Tylenol] 650 mg PO Q6H PRN tablet 08/31/18 [Rx] Escitalopram Oxalate [Lexapro] 20 mg PO DAILY 09/29/18 [History] Zolpidem Tartrate 10 mg PO BEDTIME 09/29/18 [History] clonazePAM [Klonopin] 1 mg PO BID 10/26/18 [History] Acetaminophen [Tylenol] 650 mg PO Q4H PRN tablet 10/31/18 [Rx] Acetaminophen/oxyCODONE [Percocet 325-5 MG] 1 tab PO Q6HR PRN #28 tablet [Rx] Ciprofloxacin [Ciprofloxacin HCl] 500 mg PO BID@0730,2000 #10 tablet 10/31/18 [ Rx] Lactobacillus Rhamnosus GG [Culturelle] 2 cap PO BID #120 cap 07/15/19 [Rx] Magnesium Oxide 400 mg PO DAILY #90 tablet 10/31/18 [Rx] busPIRone [Buspar] 1 tab PO TID #30 tablet 10/31/18 [Rx] Past Medical History HEENT History: Reports: Impaired Vision Cardiovascular History: Reports: None Respiratory History: Reports: COPD, Sleep Apnea Gastrointestinal History: Reports: None Genitourinary History: Reports: None Musculoskeletal History: Reports: Amputation Neurological History: Reports: None Psychiatric History: Reports: Addiction, Anxiety, Depression, Panic Attack Endocrine/Metabolic History: Reports: Diabetes, Type II, Obesity/BMI 30+ Immunologic History: Reports: Other (See Below) Other Immunologic History: h/o mrsa Oncologic (Cancer) History: Reports: Malignant Melanoma Other Oncologic History: patient states he had a mole removed from right wrist area that was melanoma Dermatologic History: Reports: None - Infectious Disease History Infectious Disease History: Reports: Chicken Pox, Measles, MRSA, Mumps Other Infectious Disease History: MRSA to right upper back - Past Surgical History Head Surgeries/Procedures: Reports: None HEENT Surgical History: Reports: None Respiratory Surgical History: Reports: None GI Surgical History: Reports: Appendectomy, Bariatric Procedure Neurological Surgical History: Reports: Scoliosis Musculoskeletal Surgical History: Reports: Amputation Other Musculoskeletal Surgeries/Procedures:: 08-25-18 left great toe amputation, previous left toe amputations on left foot. 2nd digit on right foot Dermatological Surgical History: Reports: Skin Biopsy Social & Family History - Family History Family Medical History: Noncontributory - Tobacco Use Smoking Status *Q: Former Smoker Used Tobacco, but Quit: Yes Month/Year Tobacco Last Used: 5 weeks ago - Caffeine Use Caffeine Use: Reports: Coffee Other Caffeine Use: 1 cup/day - Recreational Drug Use Recreational Drug Type: Reports: Heroin, Marijuana/Hashish, Methamphetamine, Other (see below) Other Recreational Drug Type: crack any thing he can get a hold of ED ROS GENERAL - Review of Systems Review Of Systems: See Below Constitutional: Reports: No Symptoms HEENT: Reports: No Symptoms Respiratory: Reports: No Symptoms Cardiovascular: Reports: No Symptoms Endocrine: Reports: No Symptoms GI/Abdominal: Reports: No Symptoms : Reports: No Symptoms Musculoskeletal: Reports: No Symptoms Skin: Reports: No Symptoms Neurological: Reports: Other (numbnessin his rt arm. ) Psychiatric: Reports: Anxiety ED EXAM, GENERAL - Physical Exam Exam: See Below Free Text/Narrative:: pt arrived with numbness in the rt arm which started last pm. He has normal range of motion and normal strength. Exam Limited By: No Limitations General Appearance: Alert, No Apparent Distress, Anxious Ears: Normal TMs Nose: Normal Inspection Throat/Mouth: Normal Inspection Head: Atraumatic Neck: Other (pt has tenderness and muscle spasm in the rt post cervical area. He has normal strength in his rt arm. ) Respiratory/Chest: No Respiratory Distress Cardiovascular: Regular Rate, Rhythm GI/Abdominal: Soft, Non-Tender (Male) Exam: Deferred Rectal (Males) Exam: Deferred Back Exam: Normal Inspection Extremities: Other (pt has normal movement and strength of his rt arm. He has good pulses present. ) Neurological: Alert, Oriented, Normal Cognition, Other (pt states he has a low grade headache. ) Course - Vital Signs Last Recorded V/S: Last Vital Signs Temp 34.9 C L 11/06/18 12:58 Pulse 85 11/06/18 12:58 Resp 16 11/06/18 12:58 BP 133/89 11/06/18 12:58 Pulse Ox 100 11/06/18 12:58 - Orders/Labs/Meds Labs: Laboratory Tests 11/06/18 11/06/18 11/06/18 Range/Units 13:23 13:23 14:33 WBC 8.8 (4.5-11.0) K/uL RBC 4.98 (4.30-5.90) M/uL Hgb 14.1 D (12.0-15.0) g/dL Hct 41.5 (40.0-54.0) % MCV 83 (80-98) fL MCH 28 (27-31) pg MCHC 34 (32-36) % Plt Count 358 (150-400) K/uL Neut % (Auto) 61 (36-66) % Lymph % (Auto) 29 (24-44) % [place] % (Auto) 9 H (2-6) % Eos % (Auto) 1 L (2-4) % Baso % (Auto) 0 (0-1) % Sodium 140 (140-148) mmol/L Potassium 3.7 (3.6-5.2) mmol/L Chloride 105 (100-108) mmol/L Carbon Dioxide 25 (21-32) mmol/L Anion Gap 10.2 (5.0-14.0) mmol/L BUN 10 (7-18) mg/dL Creatinine 0.7 L (0.8-1.3) mg/dL Est Cr Clr Drug Dosing 145.21 mL/min Estimated GFR (MDRD) > 60 (>60) Glucose 114 H (74-106) mg/dL Calcium 9.5 D (8.5-10.1) mg/dL Total Bilirubin 0.8 D (0.2-1.0) mg/dL AST 22 (15-37) U/L ALT 52 (12-78) U/L Alkaline Phosphatase 162 H (46-116) U/L Total Protein 7.6 (6.4-8.2) g/dL Albumin 3.2 L (3.4-5.0) g/dL Globulin 4.4 H (2.3-3.5) g/dL Albumin/Globulin Ratio 0.7 L (1.2-2.2) Urine Color Yellow Urine Appearance Clear Urine pH 9.0 H (4.5-8.0) Ur Specific [place] 1.005 L (1.008-1.030) Urine Protein Negative (NEGATIVE) mg/dL Urine Glucose (UA) Normal (NEGATIVE) mg/dL Urine Ketones 50 H (NEGATIVE) mg/dL Urine Occult Blood Negative (NEGATIVE) Urine Nitrite Negative (NEGAITVE) Urine Bilirubin Negative (NEGATIVE) Urine Urobilinogen Normal (NORMAL) mg/dL Ur Leukocyte Esterase Negative (NEGATIVE) Urine RBC Not seen (0-5) Urine WBC 5-10 H (0-5) Ur Epithelial Cells Many Amorphous Sediment Not seen Urine Bacteria Few Urine Mucus Not seen - Re-Assessments/Exams Free Text/Narrative Re-Assessment/Exam: 11/06/18 15:19 cat scan of the head and neck is neg. Departure - Departure Time of Disposition: 15:13 Disposition: Home, Self-Care 01 Condition: Fair Clinical Impression: Numbness and tingling of right arm - Discharge Information Referrals: PCP,None [Primary Care Provider] - Forms: ED Department Discharge Care Plan Goals: moist warm packs to the rtpost cervical area. massage to loosen up the muscle, range of motion of rt arm.
--- NOTE | 2018-11-06 14:58 | CRLCT ---
INDICATION: Right arm numbness. COMPARISON: None. TECHNIQUE: Noncontrast CT of the head. FINDINGS: Normal brain parenchymal morphology. No acute intracranial hemorrhage, acute infarct, focal edema, mass effect, or fracture. No midline shift. No abnormal ventricular dilatation. Normal calvarium and skull base. Visualized venous sinuses and mastoid air cells are clear. IMPRESSION: 1. No acute intracranial abnormality. 2. Normal brain parenchymal morphology Dictated by Aníbal Bustillo MD @ 11/06/2018 2:57:01 PM Please note that all CT scans at this facility use dose modulation, iterative reconstruction, and/or weight-based dosing when appropriate to reduce radiation dose to as low as reasonably achievable. Dictated by: Aníbal Bustillo MD @ 11/06/2018 14:57:10 (Electronically Signed)
--- NOTE | 2018-11-06 15:00 | CRLCT ---
INDICATION: Right arm numbness. COMPARISON: None. TECHNIQUE: Noncontrast CT cervical spine. FINDINGS: Mild cervical curve convex to the right which may be due to patient position. Incidental plain common straightening of the normal cervical lordosis. Normal vertebral body facet alignment. No fractures. No vertebral body loss of height. No spondylosis. No prevertebral soft tissue swelling. C1-2: No spinal canal narrowing. C2-3, C3-4: No spinal canal or neural foraminal narrowing. C4-5: No spinal canal or neural foraminal narrowing. C5-6: No spinal canal or neural foraminal narrowing. C6-7: No spinal canal or neural foraminal narrowing. C7-T1: No spinal canal or neural foraminal narrowing. Lung apices are clear. Normal visualized soft tissues of the neck. IMPRESSION: 1. Straightening of the normal cervical lordosis. Otherwise normal alignment. 2. No fractures. 3. No vertebral body loss of height. No spondylolisthesis. 4. No spinal canal or neural foraminal narrowing at all levels. Dictated by Aníbal Bustillo MD @ 11/06/2018 3:00:03 PM Please note that all CT scans at this facility use dose modulation, iterative reconstruction, and/or weight-based dosing when appropriate to reduce radiation dose to as low as reasonably achievable. Dictated by: Aníbal Bustillo MD @ 11/06/2018 15:00:11 (Electronically Signed)
== END 2018-11-06 16:47 | disposition home or self-care (01) ==
LOC: JP.ED 12:48
DX: R20.0 Anesthesia of skin (principal)
CPT/HCPCS: 36415; 70450; 72125; 80053; 81001; 85025; 99282; 99284-25

== ENCOUNTER 2019-01-04 14:30 | Emergency (ER) | payer MEDICAID | END 2019-01-04 14:55 | disposition left against medical advice (07) | LOC: JP.ED 14:30 | DX: Z53.21 Procedure and treatment not carried out due to patient leaving prior to being seen by health care provider (principal) ==

== ENCOUNTER 2019-02-01 12:09 | Inpatient (IN) | payer MEDICAID ==
[2019-02-01] MEDS ORDERED: Zolpidem 5 MG Tab PO PRN (12:45)
--- NOTE | 2019-02-01 14:22 | PCM.CONS ---
H&P History of Present Illness - General Date of Service: 02/01/19 Admit Problem/Dx: Admission Diagnosis/Problem Admission Diagnosis/Problem Abscess - History of Present Illness Initial Comments - Free Text/Narative: Mr. Diallo is a 33-year-old gentleman who I been asked to see by Dr. Bustamante for further suggestions concerning evaluation and management of cellulitis of the right hand wrist and forearm. Mr. Diallo is status post Power-en-Y gastric bypass surgery, with resolution of his diabetes, hypertension, hypercholesterolemia. He reports injecting IV methamphetamine into a vein in his right hand about 12 days ago. 2 days after the injection he began to develop swelling and pain in the hand. Over the past 10 days inflammation pain and swelling in the hand has become progressively worse. He was seen and evaluated in the clinic and treated with a seven-day course of oral Septra. Despite this swelling and pain have progressed. He was seen in the clinic earlier today and referred for hospitalization with IV antibiotics. Ultrasound of the hand was obtained and shows evidence of fluid collection, probable abscess. 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 He currently has an open area on the right first toe. Right Hand Pain Score (Numeric/FACES): 8 - Related Data Allergies/Adverse Reactions: Allergies Allergy/AdvReac Type Severity Reaction Status Date / Time amoxicillin [Amoxicillin] Allergy Severe Cannot Verified 11/06/18 13:03 Remember Penicillins Allergy Severe Cannot Verified 11/06/18 13:03 Remember venom-honey bee Allergy Severe Swelling Verified 11/06/18 13:03 [bee venom (honey bee)] hydromorphone [From Dilaudid] AdvReac Nausea and Verified 11/06/18 13:03 Vomiting Home Medications: Home Meds Nortriptyline HCl [Pamelor] 10 mg PO TID 02/21/18 [History] Pregabalin [Lyrica] 300 mg PO BID 02/21/18 [History] Acetaminophen [Tylenol] 650 mg PO Q6H PRN tablet 08/31/18 [Rx] Escitalopram Oxalate [Lexapro] 20 mg PO DAILY 09/29/18 [History] Zolpidem Tartrate 10 mg PO BEDTIME 09/29/18 [History] clonazePAM [Klonopin] 1 mg PO BID 10/26/18 [History] Acetaminophen [Tylenol] 650 mg PO Q4H PRN tablet 10/31/18 [Rx] Acetaminophen/oxyCODONE [Percocet 325-5 MG] 1 tab PO Q6HR PRN #28 tablet [Rx] Ciprofloxacin [Ciprofloxacin HCl] 500 mg PO BID@0730,2000 #10 tablet 10/31/18 [ Rx] Lactobacillus Rhamnosus GG [Culturelle] 2 cap PO BID #120 cap 10/31/18 [Rx] Magnesium Oxide 400 mg PO DAILY #90 tablet 10/31/18 [Rx] busPIRone [Buspar] 1 tab PO TID #30 tablet 10/31/18 [Rx] Past Medical History HEENT History: Reports: Impaired Vision Cardiovascular History: Reports: None Respiratory History: Reports: COPD, Sleep Apnea Gastrointestinal History: Reports: None Genitourinary History: Reports: None Musculoskeletal History: Reports: Amputation Neurological History: Reports: None Psychiatric History: Reports: Addiction, Anxiety, Depression, Panic Attack Endocrine/Metabolic History: Reports: Diabetes, Type II, Obesity/BMI 30+ Immunologic History: Reports: Other (See Below) Other Immunologic History: h/o mrsa Oncologic (Cancer) History: Reports: Malignant Melanoma Other Oncologic History: patient states he had a mole removed from right wrist area that was melanoma Dermatologic History: Reports: Cellulitis - Infectious Disease History Infectious Disease History: Reports: MRSA Other Infectious Disease History: Pt stated he was tested negative/been cleared of MRSA - Past Surgical History Head Surgeries/Procedures: Reports: None HEENT Surgical History: Reports: None Respiratory Surgical History: Reports: None GI Surgical History: Reports: Appendectomy, Bariatric Procedure Neurological Surgical History: Reports: Scoliosis Musculoskeletal Surgical History: Reports: Amputation Other Musculoskeletal Surgeries/Procedures:: 08-25-18 left great toe amputation, previous left toe amputations on left foot. 2nd digit on right foot Dermatological Surgical History: Reports: Skin Biopsy Social & Family History - Family History Family Medical History: Noncontributory - Tobacco Use Smoking Status *Q: Current Every Day Smoker Years of Tobacco use: 20 Packs/Tins Daily: 1 Second Hand Smoke Exposure: No - Caffeine Use Caffeine Use: Reports: Coffee, Energy Drinks, Soda, Tea Other Caffeine Use: 1 cup/day - Recreational Drug Use Recreational Drug Use: Yes Recreational Drug Type: Reports: Marijuana/Hashish, Methamphetamine Recreational Drug Use Frequency: Daily H&P Review of Systems - Review of Systems: Review Of Systems: See Below General: Reports: Fever, Chills, Malaise, Weakness, Diaphoresis HEENT: Reports: No Symptoms Pulmonary: Reports: No Symptoms Cardiovascular: Reports: No Symptoms Gastrointestinal: Reports: No Symptoms Genitourinary: Reports: No Symptoms, Other (Swelling and pain right and wrist and forearm) Exam - Exam Exam: See Below - Vital Signs Vital Signs: Last Vital Signs Temp 98.1 F 02/01/19 12:26 Pulse 93 02/01/19 12:26 Resp 16 02/01/19 12:26 BP 143/98 H 02/01/19 12:26 Pulse Ox 100 02/01/19 12:26 Weight: 220 lb - Exam General: Alert, Oriented, Cooperative, Moderate Distress Neck: Supple, Trachea Midline, +2 Carotid Pulse wo Bruit Lungs: Clear to Auscultation, Normal Respiratory Effort Cardiovascular: Regular Rate, Regular Rhythm, Normal S1, Normal S2. No: Systolic Murmur, Diastolic Murmur GI/Abdominal Exam: Soft, Non-Tender, No Organomegaly, No Distention Extremities: Other (Swelling, erythema, tenderness right hand wrist and forearm) - Patient Data Result Diagrams: 02/01/19 14:12 02/01/19 14:12 Consult PN Assessment/Plan Procedures: Procedures AMPUTATION OF TOE (02/22/18) ASSAY OF LACTIC ACID (08/26/18) BLOOD TYPING SEROLOGIC ABO (09/07/18) BLOOD TYPING SEROLOGIC RH(D) (09/07/18) C-REACTIVE PROTEIN (08/26/18) COMPLETE CBC W/AUTO DIFF WBC (11/06/18) COMPREHEN METABOLIC PANEL (11/06/18) CT HEAD/BRAIN W/O DYE (11/06/18) CT NECK SPINE W/O DYE (11/06/18) CULTR BACTERIA EXCEPT BLOOD (11/12/13) CULTURE AEROBIC IDENTIFY (09/29/18) CULTURE OTHR SPECIMN AEROBIC (09/29/18) CULTURE SCREEN ONLY (09/05/18) DECALCIFY TISSUE (02/22/18) DRAINAGE OF SKIN ABSCESS (11/12/13) DRESSING CHANGE NOT FOR BURN (09/05/18) EGD BIOPSY SINGLE/MULTIPLE (09/05/18) EMERGENCY DEPT VISIT (11/06/18) EMERGENCY DEPT VISIT (08/26/18) EMERGENCY DEPT VISIT (12/13/17) EMERGENCY DEPT VISIT (07/01/13) GLUCOSE BLOOD TEST (02/22/18) HYDRATE IV INFUSION ADD-ON (11/12/13) IMMUNIZATION ADMIN (12/13/17) METABOLIC PANEL TOTAL CA (11/12/13) MICROBE SUSCEPTIBLE ELENA (09/29/18) RBC ANTIBODY SCREEN (09/07/18) REAGENT STRIP/BLOOD GLUCOSE (11/12/13) ROUTINE VENIPUNCTURE (11/06/18) SMEAR GRAM STAIN (09/29/18) SPECIAL STAINS GROUP 1 (11/12/13) TDAP VACCINE 7 YRS/> IM (12/13/17) THER/PROPH/DIAG INJ SC/IM (04/23/13) THER/PROPH/DIAG IV INF ADDON (11/12/13) THER/PROPH/DIAG IV INF INIT (11/12/13) TISSUE EXAM BY PATHOLOGIST (02/22/18) TISSUE EXAM BY PATHOLOGIST (11/12/13) TX/PROPH/DG ADDL SEQ IV INF (11/12/13) URINALYSIS AUTO W/SCOPE (11/06/18) X-RAY EXAM OF TOE(S) (08/26/18) X-RAY EXAM OF WRIST (07/01/13) Problem List Initiated/Reviewed/Updated: Yes My Orders Last 24 Hours: My Active Orders 02/01/19 14:11 CBC WITH AUTO DIFF [HEME] Stat COMPREHENSIVE METABOLIC PN,CMP [CHEM] Stat CRP [C-REACTIVE PROTEIN] [CHEM] Stat MAGNESIUM [CHEM] Stat Blood Culture x2 Reflex Set [OM.PC] Urgent 02/01/19 14:12 CULTURE BLOOD [BC] Stat CULTURE BLOOD [BC] Stat 02/01/19 14:15 Lactobacillus Rhamnosus GG [Culturelle] 1 cap PO BID Meropenem [Merrem] 1 gm Sodium Chloride 0.9% [Normal Saline] 100 ml IV Q8H 02/01/19 15:00 Vancomycin 1 gm IV .PHARMACY TO DOSE Plan: ASSESSMENT AND RECOMMENDATIONS CELLULITIS RIGHT HAND-ultrasound shows evidence of probable abscess. Swelling with pain and fever present over the past 10 days, progressed despite oral antibiotic therapy with Septra. Onset of infection followed injection of methamphetamine dorsum of the right hand. -Blood cultures pending -IV fluids for hydration -Debridement of abscess in a.m. by Dr. Bustamante -IV vancomycin and meropenem pending culture results -MRI of the hand wrist and forearm to evaluate further for abscess, osteomyelitis, and tenosynovitis Requesting Provider: MENDEL Date Consult Requested: 02/01/19 Reason for Consult: Cellulitis right hand Patient History Reviewed: Yes Notified Requestor: Yes
--- NOTE | 2019-02-01 14:50 | CRLUS ---
INDICATION: Right hand abscess. History of IV drug abuse. Swelling and pain at injection site. TECHNIQUE: Grayscale and color-flow Doppler ultrasound examination of the dorsal right hand. COMPARISON: None. FINDINGS: A 3.5 x 3.1 x 0.9 cm fluid collection containing mixed echogenicity is demonstrated in the dorsal aspect of the right hand. Color-flow Doppler demonstrates hyperemia in the surrounding soft tissues. This is consistent with an abscess. IMPRESSION: 3.5 x 3.1 x 0.9 cm fluid collection, consistent with an abscess, in the dorsal aspect of the right hand. Dictated by Theron Ricci MD @ Feb 01 2019 2:44PM Signed by Dr. Theron Ricci @ Feb 01 2019 2:48PM
[2019-02-01] MEDS ORDERED: Vancomycin 1 GM SDV IV SCH (15:00)
[2019-02-01] MEDS: Acetaminophen 500 MG Tab PO SCH ×3 (15:58→21:36)
[2019-02-01] MEDS: Lactobacillus Rhamnosus GG (Probiotic) Cap PO SCH ×2 (15:58→21:33)
[2019-02-01] MEDS: busPIRone 10 MG Tab PO SCH ×2 (15:58→21:34)
[2019-02-01] MEDS ORDERED: Vancomycin 2 GM in Sodium Chloride 0.9% 500 ML IV ONE (16:00)
[2019-02-01] MEDS: Meropenem 1 GM in Sodium Chloride 0.9% 100 ML IV SCH ×2 (16:35→23:14)
[2019-02-01] MEDS: Dextrose 5%-Lactated Ringers 1,000 ML IV SCH (16:35)
[2019-02-01] MEDS: Pregabalin 100 MG Cap PO SCH (21:34)
[2019-02-02] MEDS: Acetaminophen 500 MG Tab PO SCH ×4 (00:03→14:15)
[2019-02-02] MEDS: Dextrose 5%-Lactated Ringers 1,000 ML IV SCH (07:30)
[2019-02-02] MEDS: Meropenem 1 GM in Sodium Chloride 0.9% 100 ML IV SCH ×2 (07:30→15:38)
--- NOTE | 2019-02-02 10:03 | PN ---
DATE OF SERVICE: 02/02/2019 SUBJECTIVE: Demarcus presented to the emergency room yesterday with cellulitis in his right hand. He is n.p.o. and will be having an MRI of this morning. He states the pain is controlled. He has been afebrile. White count was 8.4, blood sugar was 105. REVIEW OF SYSTEMS: All 12 systems were reviewed and negative for any other pertinent positives and negatives. OBJECTIVE: GENERAL: Demarcus Diallo is a 33-year-old male. He is alert and orientated. VITAL SIGNS: TPR; 96.7, 81, 18. Blood pressure 132/80. HEENT: Negative. NECK: Supple. HEART: Regular rate and rhythm. LUNGS: Clear. ABDOMEN: Negative. SKIN: Right hand, the dressing is dry and intact. EXTREMITIES: Negative. History of left partial foot amputation and is negative and has healed well. ASSESSMENT: Cellulitis, right hand. PLAN: Rx Xanax 0.25 mg oral. call or contact centre operator to MRI. To call Dr. Bustamante after MRI is completed. We will evaluate p.r.n. or in a.m. Rayna Beverly PA-C /[phone]
[2019-02-02] MEDS: busPIRone 10 MG Tab PO SCH ×2 (10:44→14:15)
[2019-02-02] MEDS ORDERED: ALPRAZolam 0.25 MG Tab PO ONE (10:45)
[2019-02-02] MEDS: Lactobacillus Rhamnosus GG (Probiotic) Cap PO SCH (11:55)
[2019-02-02] MEDS: Pregabalin 100 MG Cap PO SCH (11:56)
[2019-02-02] MEDS ORDERED: Gadoteridol 279.3 MG/ML 20 ML SDV IV SCH (12:15)
--- NOTE | 2019-02-02 12:36 | PCM.CONSN ---
- General Info Date of Service: 02/02/19 Subjective Update: Mr. Diallo has been stable since admission, he reports less pain and swelling in his right hand. Vital signs have been stable and he has remained afebrile. He was unable to complete the MRI last night because of discomfort and is willing to try again today. Functional Status: Reports: Ambulating, Urinating - Review of Systems General: Denies: Fever, Chills Pulmonary: Reports: No Symptoms Cardiovascular: Reports: No Symptoms Gastrointestinal: Reports: No Symptoms Musculoskeletal: Reports: Other (Right hand pain and swelling) - Patient Data Vitals - Most Recent: Last Vital Signs Temp 96.7 F 02/02/19 10:50 Pulse 78 02/02/19 10:50 Resp 18 02/02/19 10:50 BP 134/89 02/02/19 10:50 Pulse Ox 100 02/02/19 10:50 Weight - Most Recent: 220 lb I&O - Last 24 Hours: Intake & Output 02/01/19 02/02/19 02/02/19 22:59 06:59 14:59 Intake Total 2945 1152 Balance 2945 1152 Lab Results Last 24 Hours: Laboratory Results - last 24 hr 02/01/19 02/01/19 02/02/19 Range/Units 14:12 14:12 04:33 WBC 9.8 8.4 (4.5-11.0) K/uL RBC 4.78 4.40 (4.30-5.90) M/uL Hgb 13.8 12.7 (12.0-15.0) g/dL Hct 41.3 38.0 L (40.0-54.0) % MCV 86 86 (80-98) fL MCH 29 29 (27-31) pg MCHC 33 33 (32-36) % Plt Count 416 H 375 (150-400) K/uL Neut % (Auto) 72 H (36-66) % Lymph % (Auto) 21 L (24-44) % [place] % (Auto) 6 (2-6) % Eos % (Auto) 1 L (2-4) % Baso % (Auto) 0 (0-1) % Sodium 140 (140-148) mmol/L Potassium 4.3 (3.6-5.2) mmol/L Chloride 106 (100-108) mmol/L Carbon Dioxide 26 (21-32) mmol/L Anion Gap 8.0 (5.0-14.0) mmol/L BUN 13 (7-18) mg/dL Creatinine 0.6 L (0.8-1.3) mg/dL Est Cr Clr Drug Dosing 172.27 mL/min Estimated GFR (MDRD) > 60 (>60) Glucose 151 H (74-106) mg/dL Calcium 8.9 (8.5-10.1) mg/dL Phosphorus (2.5-4.9) mg/dL Magnesium 1.8 (1.8-2.4) mg/dL Total Bilirubin 0.3 D (0.2-1.0) mg/dL AST 12 L (15-37) U/L ALT 18 (12-78) U/L Alkaline Phosphatase 114 (46-116) U/L C-Reactive Protein 3.12 H (0.0-0.3) mg/dL Total Protein 7.2 (6.4-8.2) g/dL Albumin 3.0 L (3.4-5.0) g/dL Globulin 4.2 H (2.3-3.5) g/dL Albumin/Globulin Ratio 0.7 L (1.2-2.2) 02/02/19 Range/Units 04:33 WBC (4.5-11.0) K/uL RBC (4.30-5.90) M/uL Hgb (12.0-15.0) g/dL Hct (40.0-54.0) % MCV (80-98) fL MCH (27-31) pg MCHC (32-36) % Plt Count (150-400) K/uL Neut % (Auto) (36-66) % Lymph % (Auto) (24-44) % [place] % (Auto) (2-6) % Eos % (Auto) (2-4) % Baso % (Auto) (0-1) % Sodium 142 (140-148) mmol/L Potassium 4.0 (3.6-5.2) mmol/L Chloride 108 (100-108) mmol/L Carbon Dioxide 26 (21-32) mmol/L Anion Gap 8.4 (5.0-14.0) mmol/L BUN 12 (7-18) mg/dL Creatinine 0.6 L (0.8-1.3) mg/dL Est Cr Clr Drug Dosing 172.27 mL/min Estimated GFR (MDRD) > 60 (>60) Glucose 105 (74-106) mg/dL Calcium 8.3 L (8.5-10.1) mg/dL Phosphorus 4.2 (2.5-4.9) mg/dL Magnesium 1.8 (1.8-2.4) mg/dL Total Bilirubin 0.3 (0.2-1.0) mg/dL AST 13 L (15-37) U/L ALT 16 (12-78) U/L Alkaline Phosphatase 102 (46-116) U/L C-Reactive Protein (0.0-0.3) mg/dL Total Protein 6.3 L (6.4-8.2) g/dL Albumin 2.5 L (3.4-5.0) g/dL Globulin 3.8 H (2.3-3.5) g/dL Albumin/Globulin Ratio 0.7 L (1.2-2.2) Med Orders - Current: Current Medications Acetaminophen (Tylenol Extra Strength) 1,000 mg PO Q6H [facility] Last Admin: 02/02/19 11:56 Dose: Not Given Buspirone HCl (Buspar) 10 mg PO TID [facility] Last Admin: 02/02/19 10:44 Dose: 10 mg Dextrose/Lactated Ringer's (Dextrose 5%-Lactated Ringers) 1,000 mls @ 100 mls/ hr IV ASDIRECTED [facility] Last Admin: 02/02/19 07:30 Dose: 100 mls/hr Meropenem 1 gm/ Sodium (Chloride) 100 mls @ 200 mls/hr IV Q8H [facility] Last Admin: 02/02/19 07:30 Dose: 200 mls/hr Vancomycin HCl 1.5 gm/ Sodium (Chloride) 250 mls @ 250 mls/hr IV Q8H [facility] Last Admin: 02/02/19 09:20 Dose: 250 mls/hr Influenza Virus Vaccine (Fluzone Quad 5323-1158 Syringe) 60 mcg IM .ONCE ONE Stop: 02/02/19 14:01 Lactobacillus Rhamnosus (Culturelle) 1 cap PO BID [facility] Last Admin: 02/02/19 11:55 Dose: Not Given Pregabalin (Lyrica) 300 mg PO BID [facility] Last Admin: 02/02/19 11:56 Dose: Not Given Zolpidem Tartrate (Ambien) 10 mg PO BEDTIME PRN PRN Reason: SLEEP Last Admin: 02/01/19 21:34 Dose: 10 mg Discontinued Medications Alprazolam (Xanax) 0.25 mg PO ONETIME ONE Stop: 02/02/19 10:46 Last Admin: 02/02/19 10:43 Dose: 0.25 mg Gadoteridol (Prohance) 20 ml IV . DIRECTED [facility] Last Admin: 02/02/19 12:24 Dose: 20 ml Vancomycin HCl 2 gm/ Sodium (Chloride) 500 mls @ 333.333 mls/hr IV ONETIME ONE Stop: 02/01/19 17:29 Last Admin: 02/01/19 18:38 Dose: 333.333 mls/hr Vancomycin HCl (Vancomycin) 1 gm IV .PHARMACY TO DOSE [facility] Stop: 02/01/19 16:00 - Exam Quality Assessment: DVT Prophylaxis General: Alert, Oriented, Mild Distress Lungs: Clear to Auscultation, Normal Respiratory Effort Cardiovascular: Regular Rate, Regular Rhythm, No Murmurs GI/Abdominal Exam: Soft, Non-Tender, No Organomegaly, No Distention Extremities: Other (Less pain and swelling noted in the right hand) Consult PN Assessment/Plan Procedures: Procedures AMPUTATION OF TOE (02/22/18) ASSAY OF LACTIC ACID (08/26/18) BLOOD TYPING SEROLOGIC ABO (09/07/18) BLOOD TYPING SEROLOGIC RH(D) (09/07/18) C-REACTIVE PROTEIN (08/26/18) COMPLETE CBC W/AUTO DIFF WBC (11/06/18) COMPREHEN METABOLIC PANEL (11/06/18) CT HEAD/BRAIN W/O DYE (11/06/18) CT NECK SPINE W/O DYE (11/06/18) CULTR BACTERIA EXCEPT BLOOD (11/12/13) CULTURE AEROBIC IDENTIFY (09/29/18) CULTURE OTHR SPECIMN AEROBIC (09/29/18) CULTURE SCREEN ONLY (09/05/18) DECALCIFY TISSUE (02/22/18) DRAINAGE OF SKIN ABSCESS (11/12/13) DRESSING CHANGE NOT FOR BURN (09/05/18) EGD BIOPSY SINGLE/MULTIPLE (09/05/18) EMERGENCY DEPT VISIT (11/06/18) EMERGENCY DEPT VISIT (08/26/18) EMERGENCY DEPT VISIT (12/13/17) EMERGENCY DEPT VISIT (07/01/13) GLUCOSE BLOOD TEST (02/22/18) HYDRATE IV INFUSION ADD-ON (11/12/13) IMMUNIZATION ADMIN (12/13/17) METABOLIC PANEL TOTAL CA (11/12/13) MICROBE SUSCEPTIBLE ELENA (09/29/18) RBC ANTIBODY SCREEN (09/07/18) REAGENT STRIP/BLOOD GLUCOSE (11/12/13) ROUTINE VENIPUNCTURE (11/06/18) SMEAR GRAM STAIN (09/29/18) SPECIAL STAINS GROUP 1 (11/12/13) TDAP VACCINE 7 YRS/> IM (12/13/17) THER/PROPH/DIAG INJ SC/IM (04/23/13) THER/PROPH/DIAG IV INF ADDON (11/12/13) THER/PROPH/DIAG IV INF INIT (11/12/13) TISSUE EXAM BY PATHOLOGIST (02/22/18) TISSUE EXAM BY PATHOLOGIST (11/12/13) TX/PROPH/DG ADDL SEQ IV INF (11/12/13) URINALYSIS AUTO W/SCOPE (11/06/18) X-RAY EXAM OF TOE(S) (08/26/18) X-RAY EXAM OF WRIST (07/01/13) Problem List Initiated/Reviewed/Updated: Yes My Orders Last 24 Hours: My Active Orders 02/01/19 14:11 Blood Culture x2 Reflex Set [OM.PC] Urgent 02/01/19 14:12 CULTURE BLOOD [BC] Stat CULTURE BLOOD [BC] Stat 02/01/19 14:40 Upr Ext Joint w wo Cont Rt [MR] Routine 02/01/19 15:00 Meropenem [Merrem] 1 gm Sodium Chloride 0.9% [Normal Saline] 100 ml IV Q8H 02/01/19 15:24 Upr Ext Non Joint w wo Cont Rt [MR] Routine 02/01/19 16:00 Lactobacillus Rhamnosus GG [Culturelle] 1 cap PO BID 02/02/19 11:33 Upr Ext Joint w wo Cont Rt [MR] Routine 02/02/19 12:00 Antiembolic Devices [RC] .Routine Sequential Compression Device [OM.PC] Routine 02/02/19 Breakfast NPO After Midnight [Nothing per Oral After Midnight Diet] [DIET] 02/03/19 07:30 VANCOMYCIN TROUGH [CHEM] Routine Plan: ASSESSMENT AND RECOMMENDATIONS CELLULITIS RIGHT HAND-ultrasound shows evidence of probable abscess. Swelling with pain and fever present over the past 10 days, progressed despite oral antibiotic therapy with Septra. Onset of infection followed injection of methamphetamine dorsum of the right hand. He is going to try and complete MRI of his hand today -Blood cultures pending -IV fluids for hydration -Debridement of abscess in a.m. by Dr. Bustamante -IV vancomycin and meropenem pending culture results -MRI of the hand wrist and forearm to evaluate further for abscess, osteomyelitis, and tenosynovitis
--- NOTE | 2019-02-02 13:47 | CRLMR ---
HISTORY:Infection from needle injection. TECHNIQUE:Axial, sagittal and coronal T1, T2 fat-sat, stir and T2 medic images were obtained of the right wrist with and without contrast administration. 20 cc of ProHance was administered intravenously. COMPARISON:02/01/2019 ultrasound. FINDINGS: Tendons: Mild fluid signal surrounds the extensor digitorum tendons consistent with tenosynovitis (series 8, image 17). Flexor tendons are intact. There is no significant tendon tear. No tendon dislocation. - Intrinsic wrist ligaments: Scapholunate and lunotriquetral ligaments are intact. No widening of the intervals. - Triangular fibrocartilage complex: The TFC is intact. Its radial and ulnar attachments are maintained. No abnormality within the pre styloid recess. No disruption of the ulnar collateral ligaments of the wrist. - Osseous structures: No acute fracture or avascular necrosis. No evidence of osteomyelitis. - Joint spaces: The DRUJ is maintained. Radiocarpal, midcarpal and carpal-metacarpal articulations are maintained. - Soft tissues: Diffuse extensive dorsal subcutaneous edema and enhancement, with a T2 hyperintense, peripherally enhancing collection dorsal to the 3rd through 5th metacarpals measuring 3.5 x 1.5 by 4.7 cm (series 15, image 6, series 14, image 26). - IMPRESSION: 1. Peripherally enhancing collection in the dorsal soft tissues measuring up to 4.7 cm consistent with abscess. 2. Extensive dorsal subcutaneous edema and enhancement consistent with cellulitis. 3. Mild tenosynovitis of the extensor digitorum tendons. 4. No evidence of osteomyelitis. Dictated by Jah Singh MD @ Feb 02 2019 1:27PM Signed by Dr. Jah Singh @ Feb 02 2019 1:46PM
[2019-02-02] MEDS ORDERED: FLU Vacc QS2019-20(6MOS+)/PF 60 MCG/0.5 ML SYRINGE IM ONE (14:00)
--- NOTE | 2019-02-02 14:00 | HP ---
HISTORY OF PRESENT ILLNESS: Demarcus was admitted to [facility] last evening. He was admitted as a direct admit from walk-in clinic for management of cellulitis of right hand, wrist and forearm. He states that approximately 10 days ago, the inflammation started in his hand. He was injecting IV methamphetamine into a vein and it was about 12 days ago and 2 days after that, the hand becomes swollen, painful and it has increasingly gotten worse. He was treated with Septra for 7 days, but cellulitis continued to progress. An ultrasound of the hand showed evidence of fluid collection, possible abscess, and he does have a history of MRSA. Currently, he is resting comfortably on bed, n.p.o. for a CT scan. ALLERGIES: AMOXICILLIN, PENICILLIN, HONEY BEE, AND DILAUDID. CURRENT MEDICATIONS: Pamelor 10 mg p.o. t.i.d., Lyrica 300 mg p.o. b.i.d., Tylenol 650 mg q.6 hours p.r.n. pain, Lexapro 20 mg oral daily, Ambien 10 mg at bedtime, clonazepam 1 mg p.o. b.i.d., Tylenol 650 mg p.o. q.4 hours, Culturelle 2 caps b.i.d., magnesium oxide 400 p.o. daily, BuSpar 1 tablet p.o. t.i.d. He said he is taking multivitamin, vitamin B12, calcium, thiamine. REVIEW OF SYSTEMS: HEENT: Impaired vision. CARDIOVASCULAR: None. RESPIRATORY: History of COPD and sleep apnea. GI: Recently had a Power-en-Y gastric bypass surgery. He is having no dysphagia, nausea, vomiting, diarrhea, or constipation. : Negative. MUSCULOSKELETAL: Has left partial lower foot amputated. NEUROLOGIC: Has bilateral neuropathy. PSYCHIATRIC: History of chemical dependency addiction, anxiety, depression, panic attacks. ENDOCRINE: He did have diabetes type 2, but after having a partial gastrectomy, he no longer has diabetes and had 64 weight loss. ONCOLOGIC: Reports malignant melanoma. States the site of melanoma was on his right wrist. 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 PAST MEDICAL HISTORY: Unspecified surgical malabsorption, B12 deficiency, vitamin D deficiency, SP diabetes type 2, BMI of 33, depression, anxiety, and chemical dependency. FAMILY HISTORY: Noncontributory. SOCIAL HISTORY: Single, 4-year-old daughter, lives alone. Smokes 1 pack per day. Caffeine use; drinks coffee, energy drinks, soda and tea. Recreational drugs; marijuana, hashish and methamphetamine. PHYSICAL EXAMINATION: GENERAL: Denies any fever, chills, night sweats, or fatigue. EYES: Negative. NECK: Negative. LUNGS: No shortness of breath or cough. No chest pain. ABDOMEN: No nausea, vomiting, diarrhea, constipation, red or black stools. EXTREMITIES: Right hand wrist dressing is dry and intact. It was not examined at the time of rounds. He will be going down for an MRI. NEURO: Intact. PSYCHIATRIC: Mood and affect are appropriate. ASSESSMENT: 1. Cellulitis, right hand, possible abscess. 2. Progression of cellulitis despite antibiotic therapy with Septra. 3. Onset of infection following injection of methamphetamine, dorsum of the right hand. 4. Unspecified surgical malabsorption. 5. Vitamin B12 deficiency, vitamin D deficiency, vitamin B1 deficiency. 6. Diabetes type 2, resolved. 7. Left partial foot amputation. 8. Nicotine addiction. 9. History of marijuana and methamphetamine use. PLAN: Remain n.p.o. for MRI, to call with results of MRI. We will evaluate p.r.n. or in a.m. Rayna Beverly PA-C /[id number]
--- NOTE | 2019-02-02 15:04 | PCM.DCSUM1 ---
Discharge Summary - Hospital Course Brief History: Mr. Diallo is a 33-year-old gentleman who was admitted as a direct admission from the clinic with swelling and pain in his right hand secondary to cellulitis and underlying abscess. - Discharge Data Discharge Date: 02/02/19 Discharge Disposition: DC/Tfer to Acute Hospital 02 Condition: Serious - Referral to Home Health Primary Care Physician: PCP None - Discharge Diagnosis/Problem(s) (1) Cellulitis of right hand SNOMED Code(s): 30870948 ICD Code: L03.113 - CELLULITIS OF RIGHT UPPER LIMB Status: Acute Current Visit: Yes (2) Extensor tenosynovitis of right wrist SNOMED Code(s): 382482629 ICD Code: M65.831 - OTHER SYNOVITIS AND TENOSYNOVITIS, RIGHT FOREARM Status : Acute Current Visit: Yes (3) Abscess of right hand SNOMED Code(s): 78132048274351709 ICD Code: L02.511 - CUTANEOUS ABSCESS OF RIGHT HAND Status: Acute Current Visit: Yes - Patient Summary/Data Consults: Consultations 02/01/19 12:27 Consult to Physician [CONS] Routine Consulting Provider: Eran Callahan Call Completed to Consulting Physician: No Hospital Course: Mr. Diallo is a 33-year-old gentleman who was admitted as a direct admission from the surgical clinic with pain and swelling of the right hand secondary to underlying cellulitis and abscess. Mr. Diallo is status post Power-en-Y gastric bypass surgery, with resolution of his diabetes, hypertension, hypercholesterolemia. He reports injecting IV methamphetamine into a vein in his right hand about 12 days ago. 2 days after the injection he began to develop swelling and pain in the hand. Over the past 10 days inflammation pain and swelling in the hand has become progressively worse. He was seen and evaluated in the clinic and treated with a seven-day course of oral Septra. Despite this swelling and pain have progressed. He was seen in the clinic and referred for hospitalization with IV antibiotics. Ultrasound of the hand was obtained and shows evidence of fluid collection, probable abscess. 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 He currently has an open area on the right first toe. On admission he was laced on IV fluids for hydration, blood cultures were obtained, and he was started on broad-spectrum IV antibiotic therapy with vancomycin and meropenem. MRI was ordered for further evaluation to assess the abscess and rule out T no synovitis. MRI was partially obtained on the evening after admission, but was incomplete as the patient was unable to lie long enough to complete the study. This morning this study was completed and results are now available. MRI shows evidence of cellulitis of the dorsum of the hand with abscess also involving the dorsum. There was evidence of mild extensor tenosynovitis also seen. Because of the tenosynovitis he will be transferred to a tertiary care center for further subspecialty evaluation and management. There had been modest improvement in the swelling and pain of the hand in the last 24 hours since admission. Activity will be as tolerated and he will remain on a bariatric diet. - Patient Instructions Diet, Other: Bariatric Diet Activity: As Tolerated Other/Special Instructions: Transfer to [facility], via [facility] - Discharge Plan *PRESCRIPTION DRUG MONITORING PROGRAM REVIEWED*: Not Applicable *COPY OF PRESCRIPTION DRUG MONITORING REPORT IN PATIENT MAURICIO: Not Applicable Home Medications: Home Meds Nortriptyline HCl [Pamelor] 10 mg PO TID 02/21/18 [History] Pregabalin [Lyrica] 300 mg PO BID 02/21/18 [History] Acetaminophen [Tylenol] 650 mg PO Q6H PRN tablet 08/31/18 [Rx] Escitalopram Oxalate [Lexapro] 20 mg PO DAILY 09/29/18 [History] Zolpidem Tartrate 10 mg PO BEDTIME 09/29/18 [History] clonazePAM [Klonopin] 1 mg PO BID 10/26/18 [History] Acetaminophen [Tylenol] 650 mg PO Q4H PRN tablet 10/31/18 [Rx] Acetaminophen/oxyCODONE [Percocet 325-5 MG] 1 tab PO Q6HR PRN #28 tablet [Rx] Lactobacillus Rhamnosus GG [Culturelle] 2 cap PO BID #120 cap 10/31/18 [Rx] Magnesium Oxide 400 mg PO DAILY #90 tablet 10/31/18 [Rx] busPIRone [Buspar] 1 tab PO TID #30 tablet 10/31/18 [Rx] Lactobacillus Rhamnosus GG [Culturelle] 1 cap PO BID cap 02/02/19 [Rx] Meropenem [Merrem] 1 gm IV Q8H sdv 02/02/19 [Rx] Vancomycin 1.5 gm IV Q8H sdv 02/02/19 [Rx] - Discharge Summary/Plan Comment DC Time >30 min.: No - Patient Data Vitals - Most Recent: Last Vital Signs Temp 97.4 F 02/02/19 14:10 Pulse 85 02/02/19 14:10 Resp 18 02/02/19 14:10 BP 121/91 H 02/02/19 14:10 Pulse Ox 100 02/02/19 14:10 Weight - Most Recent: 219 lb 15.988 oz I&O - Last 24 hours: Intake & Output 02/01/19 02/02/19 02/02/19 22:59 06:59 14:59 Intake Total 2945 1152 Balance 2945 1152 Lab Results - Last 24 hrs: Laboratory Results - last 24 hr 02/01/19 02/02/19 02/02/19 Range/Units 14:12 04:33 04:33 WBC 8.4 (4.5-11.0) K/uL RBC 4.40 (4.30-5.90) M/uL Hgb 12.7 (12.0-15.0) g/dL Hct 38.0 L (40.0-54.0) % MCV 86 (80-98) fL MCH 29 (27-31) pg MCHC 33 (32-36) % Plt Count 375 (150-400) K/uL Sodium 140 142 (140-148) mmol/L Potassium 4.3 4.0 (3.6-5.2) mmol/L Chloride 106 108 (100-108) mmol/L Carbon Dioxide 26 26 (21-32) mmol/L Anion Gap 8.0 8.4 (5.0-14.0) mmol/L BUN 13 12 (7-18) mg/dL Creatinine 0.6 L 0.6 L (0.8-1.3) mg/dL Est Cr Clr Drug Dosing 172.27 172.27 mL/min Estimated GFR (MDRD) > 60 > 60 (>60) Glucose 151 H 105 (74-106) mg/dL Calcium 8.9 8.3 L (8.5-10.1) mg/dL Phosphorus 4.2 (2.5-4.9) mg/dL Magnesium 1.8 1.8 (1.8-2.4) mg/dL Total Bilirubin 0.3 D 0.3 (0.2-1.0) mg/dL AST 12 L 13 L (15-37) U/L ALT 18 16 (12-78) U/L Alkaline Phosphatase 114 102 (46-116) U/L C-Reactive Protein 3.12 H (0.0-0.3) mg/dL Total Protein 7.2 6.3 L (6.4-8.2) g/dL Albumin 3.0 L 2.5 L (3.4-5.0) g/dL Globulin 4.2 H 3.8 H (2.3-3.5) g/dL Albumin/Globulin Ratio 0.7 L 0.7 L (1.2-2.2) ELENA Results - Last 24 hrs: Microbiology 02/01/19 14:12 Aerobic Blood Culture - Preliminary Blood - Venous NO GROWTH AFTER 1 DAY Anaerobic Blood Culture - Preliminary NO GROWTH AFTER 1 DAY 02/01/19 14:12 Aerobic Blood Culture - Preliminary Blood - Venous - Lab Draw NO GROWTH AFTER 1 DAY Anaerobic Blood Culture - Preliminary NO GROWTH AFTER 1 DAY Med Orders - Current: Current Medications Acetaminophen (Tylenol Extra Strength) 1,000 mg PO Q6H [facility] Last Admin: 02/02/19 14:15 Dose: 1,000 mg Buspirone HCl (Buspar) 10 mg PO TID [facility] Last Admin: 02/02/19 14:15 Dose: 10 mg Dextrose/Lactated Ringer's (Dextrose 5%-Lactated Ringers) 1,000 mls @ 100 mls/ hr IV ASDIRECTED [facility] Last Admin: 02/02/19 07:30 Dose: 100 mls/hr Meropenem 1 gm/ Sodium (Chloride) 100 mls @ 200 mls/hr IV Q8H [facility] Last Admin: 02/02/19 07:30 Dose: 200 mls/hr Vancomycin HCl 1.5 gm/ Sodium (Chloride) 250 mls @ 250 mls/hr IV Q8H [facility] Last Admin: 02/02/19 09:20 Dose: 250 mls/hr Lactobacillus Rhamnosus (Culturelle) 1 cap PO BID [facility] Last Admin: 02/02/19 11:55 Dose: Not Given Pregabalin (Lyrica) 300 mg PO BID [facility] Last Admin: 02/02/19 11:56 Dose: Not Given Zolpidem Tartrate (Ambien) 10 mg PO BEDTIME PRN PRN Reason: SLEEP Last Admin: 02/01/19 21:34 Dose: 10 mg Discontinued Medications Alprazolam (Xanax) 0.25 mg PO ONETIME ONE Stop: 02/02/19 10:46 Last Admin: 02/02/19 10:43 Dose: 0.25 mg Gadoteridol (Prohance) 20 ml IV . DIRECTED [facility] Last Admin: 02/02/19 12:24 Dose: 20 ml Vancomycin HCl 2 gm/ Sodium (Chloride) 500 mls @ 333.333 mls/hr IV ONETIME ONE Stop: 02/01/19 17:29 Last Admin: 02/01/19 18:38 Dose: 333.333 mls/hr Influenza Virus Vaccine (Fluzone Quad Syringe) 60 mcg IM .ONCE ONE Stop: 02/02/19 14:01 Last Admin: 02/02/19 14:26 Dose: 60 mcg Vancomycin HCl (Vancomycin) 1 gm IV .PHARMACY TO DOSE [facility] Stop: 02/01/19 16:00 - Exam General: Reports: Alert, Oriented, Mild Distress Lungs: Reports: Clear to Auscultation, Normal Respiratory Effort Cardiovascular: Reports: Regular Rate, Regular Rhythm, No Murmurs GI/Abdominal Exam: Soft, Non-Tender, No Organomegaly, No Distention Extremities: Other (Swelling, pain, of the right hand, status post amputation left forefoot, status post amputation right second toe)
[2019-02-02 16:41] VITALS: BP 130/78; PULSE 98
== END 2019-02-02 17:15 | DRG 603 ==
LOC: JP.2SS 12:09 → JP.MS 17:16
PROVIDERS: ADMIT Surgery; ATTEND Surgery
DX: L03.113 Cellulitis of right upper limb (principal); L02.511 Cutaneous abscess of right hand; E51.9 Thiamine deficiency, unspecified; M65.831 Other synovitis and tenosynovitis, right forearm; E78.00 Pure hypercholesterolemia, unspecified; E11.9 Type 2 diabetes mellitus without complications; I10 Essential (primary) hypertension; F32.9 Major depressive disorder, single episode, unspecified; F41.9 Anxiety disorder, unspecified; E53.8 Deficiency of other specified B group vitamins; E55.9 Vitamin D deficiency, unspecified; Z23 Encounter for immunization; Z88.0 Allergy status to penicillin; Z98.84 Bariatric surgery status; Z88.1 Allergy status to other antibiotic agents; Z91.030 Bee allergy status; Z89.421 Acquired absence of other right toe(s)
CPT/HCPCS: 36415; 73223-RT; 76881-RT; 80053; 83735; 84100; 85025; 85027; 86140; 87040; 90686; A9270-GY; A9579; J2185; J3370; J7030; J7040; J7042; J7050

== ENCOUNTER 2019-02-14 12:36 | Emergency (ER) | payer MEDICAID ==
[2019-02-14 12:51] VITALS: BP 132/85; PULSE 92
--- NOTE | 2019-02-14 14:30 | EDM.PDOC ---
ED HPI GENERAL MEDICAL PROBLEM - General Chief Complaint: General Stated Complaint: RT BIG TOE PAINFUL,RT HAND PAIN Time Seen by Provider: 02/14/19 14:33 Source of Information: Reports: Patient History Limitations: Reports: No Limitations - History of Present Illness INITIAL COMMENTS - FREE TEXT/NARRATIVE: pt arrived with pain in the rt hand. He has had some redness present and is concerned about recurrent infection. He has a good looking wound on the left foot. His rt foot has alot of callaus and needs some work. Onset: Other (pt has been concerned about fevers and recurrent infection. ) Duration: Hour(s): Location: Reports: Upper Extremity, Right, Lower Extremity, Left Associated Symptoms: Reports: No Other Symptoms Right Hand Pain Score (Numeric/FACES): 8 Right Toe-[place]ailux Pain Score (Numeric/FACES): 8 - Related Data Allergies Allergy/AdvReac Type Severity Reaction Status Date / Time amoxicillin [Amoxicillin] Allergy Severe Cannot Verified 02/14/19 12:45 Remember Penicillins Allergy Severe Cannot Verified 02/14/19 12:45 Remember venom-honey bee Allergy Severe Swelling Verified 02/14/19 12:45 [bee venom (honey bee)] hydromorphone [From Dilaudid] AdvReac Nausea and Verified 02/14/19 12:45 Vomiting Home Meds: Home Meds Nortriptyline HCl [Pamelor] 10 mg PO TID 02/21/18 [History] Pregabalin [Lyrica] 300 mg PO BID 02/21/18 [History] Acetaminophen [Tylenol] 650 mg PO Q6H PRN tablet 08/31/18 [Rx] Escitalopram Oxalate [Lexapro] 20 mg PO DAILY 09/29/18 [History] Zolpidem Tartrate 10 mg PO BEDTIME 09/29/18 [History] clonazePAM [Klonopin] 1 mg PO BID 10/26/18 [History] Acetaminophen [Tylenol] 650 mg PO Q4H PRN tablet 10/31/18 [Rx] busPIRone [Buspar] 1 tab PO TID #30 tablet 10/31/18 [Rx] Past Medical History HEENT History: Reports: Impaired Vision Cardiovascular History: Reports: None Respiratory History: Reports: COPD, Sleep Apnea Gastrointestinal History: Reports: None Genitourinary History: Reports: None Musculoskeletal History: Reports: Amputation Neurological History: Reports: None Psychiatric History: Reports: Addiction, Anxiety, Depression, Panic Attack Endocrine/Metabolic History: Reports: Diabetes, Type II, Obesity/BMI 30+ Hematologic History: Reports: B12 Deficiency, Iron Deficiency Immunologic History: Reports: Other (See Below) Other Immunologic History: h/o mrsa, staff infection Oncologic (Cancer) History: Reports: Malignant Melanoma Other Oncologic History: patient states he had a mole removed from right wrist area that was melanoma Dermatologic History: Reports: Cellulitis - Infectious Disease History Infectious Disease History: Reports: Chicken Pox Other Infectious Disease History: Pt stated he was tested negative/been cleared of MRSA - Past Surgical History Head Surgeries/Procedures: Reports: None HEENT Surgical History: Reports: None Respiratory Surgical History: Reports: None GI Surgical History: Reports: Appendectomy, Bariatric Procedure Endocrine Surgical History: Reports: None Neurological Surgical History: Reports: Scoliosis Musculoskeletal Surgical History: Reports: Amputation, Other (See Below) Other Musculoskeletal Surgeries/Procedures:: 08-25-18 left great toe amputation, previous left toe amputations on left foot. 2nd digit on right foot, left front foot amputation heal is all that is left Oncologic Surgical History: Reports: None Dermatological Surgical History: Reports: Skin Biopsy Social & Family History - Family History Family Medical History: Noncontributory - Tobacco Use Smoking Status *Q: Current Every Day Smoker Years of Tobacco use: 15 Packs/Tins Daily: 0.5 Used Tobacco, but Quit: No Second Hand Smoke Exposure: Yes - Caffeine Use Caffeine Use: Reports: Coffee, Energy Drinks, Soda, Tea Other Caffeine Use: 1 cup/day - Recreational Drug Use Recreational Drug Use: Yes Drug Use in Last 12 Months: Yes Recreational Drug Type: Reports: Marijuana/Hashish Recreational Drug Use Frequency: Daily ED ROS GENERAL - Review of Systems Review Of Systems: See Below Constitutional: Reports: Chills, Other (pt has had the sensation that he is still infected. He had a recent staph infection and had surgery on the left foot and the rt hand was drained. ) HEENT: Reports: No Symptoms Respiratory: Reports: No Symptoms Cardiovascular: Reports: No Symptoms Endocrine: Reports: No Symptoms GI/Abdominal: Reports: No Symptoms : Reports: No Symptoms Musculoskeletal: Reports: No Symptoms Skin: Reports: Other ( there is slight redness on the rt hand, no drainage. ) Neurological: Reports: No Symptoms ED EXAM, GENERAL - Physical Exam Exam: See Below Free Text/Narrative:: pt returned concerned that he has slight redness on the dorsum of the rt hand. There has been no drainage. He has felt like he could be getting infected. Exam Limited By: No Limitations General Appearance: Alert, Anxious, Other (pt is not sleeping because of pain in the hand. ) Ears: Normal TMs Nose: Normal Inspection Throat/Mouth: Normal Inspection Head: Atraumatic Neck: Normal Inspection Respiratory/Chest: No Respiratory Distress Cardiovascular: Regular Rate, Rhythm GI/Abdominal: Soft, Non-Tender (Male) Exam: Deferred Rectal (Males) Exam: Deferred Back Exam: Normal Inspection Extremities: Other ( the wound on the left foot looks excellent. He has alot of callus and he may need some work on the rt foot. His rt hand has a few stitches. This is slightly red, no drainage is present. ) Neurological: Alert, Oriented Course - Vital Signs Last Recorded V/S: Last Vital Signs Temp 36 C 02/14/19 12:51 Pulse 92 02/14/19 12:51 Resp 16 02/14/19 12:51 BP 132/85 02/14/19 12:51 Pulse Ox 92 L 02/14/19 12:51 - Orders/Labs/Meds Orders: Active Orders 24 hr Category Date Time Status CULTURE BLOOD [BC] Urgent Lab 02/14/19 13:00 Received CULTURE BLOOD [BC] Urgent Lab 02/14/19 13:20 Received Blood Culture x2 Reflex Set [OM.PC] Urgent Oth 02/14/19 13:13 Ordered Labs: Laboratory Tests 02/14/19 02/14/19 Range/Units 13:09 13:09 WBC 9.2 (4.5-11.0) K/uL RBC 4.88 (4.30-5.90) M/uL Hgb 14.1 (12.0-15.0) g/dL Hct 42.0 (40.0-54.0) % MCV 86 (80-98) fL MCH 29 (27-31) pg MCHC 34 (32-36) % Plt Count 394 (150-400) K/uL Neut % (Auto) 66 (36-66) % Lymph % (Auto) 23 L (24-44) % [place] % (Auto) 10 H (2-6) % Eos % (Auto) 1 L (2-4) % Baso % (Auto) 0 (0-1) % Sodium 141 (140-148) mmol/L Potassium 4.2 (3.6-5.2) mmol/L Chloride 105 (100-108) mmol/L Carbon Dioxide 27 (21-32) mmol/L Anion Gap 9.0 (5.0-14.0) mmol/L BUN 17 (7-18) mg/dL Creatinine 0.7 L (0.8-1.3) mg/dL Est Cr Clr Drug Dosing 150.10 mL/min Estimated GFR (MDRD) > 60 (>60) Glucose 95 (74-106) mg/dL Calcium 9.6 D (8.5-10.1) mg/dL Total Bilirubin 0.7 D (0.2-1.0) mg/dL AST 17 (15-37) U/L ALT 28 (12-78) U/L Alkaline Phosphatase 112 (46-116) U/L Total Protein 7.9 (6.4-8.2) g/dL Albumin 3.8 (3.4-5.0) g/dL Globulin 4.1 H (2.3-3.5) g/dL Albumin/Globulin Ratio 0.9 L (1.2-2.2) - Re-Assessments/Exams Free Text/Narrative Re-Assessment/Exam: 02/14/19 14:43 pt has a noramal wbc. His blood was cultured x2. His chems are good. He will see Dr Bustamante will see him tomorrow afternoon, He has enough clindomycin until his visit tomorrow. 02/14/19 14:44 Departure - Departure Time of Disposition: 14:28 Disposition: Home, Self-Care 01 Condition: Fair Clinical Impression: Staph infection - Discharge Information Referrals: Bernarda Bustamante I, RELIGIOUS ACTIVITIES DIRECTOR [Primary Care Provider] - Forms: ED Department Discharge Care Plan Goals: cont clindomycin, appt with Dr Bustamante tomorrow to discuss further antibiotic therapy, perhaps a consult with jerald for the other foot. keep rt hand covered. norco 5/325 --1 tab at hs for pain #5 blood cultures are pending. - My Orders Last 24 Hours: My Active Orders 02/14/19 13:00 CULTURE BLOOD [BC] Urgent 02/14/19 13:13 Blood Culture x2 Reflex Set [OM.PC] Urgent 02/14/19 13:20 CULTURE BLOOD [BC] Urgent - Assessment/Plan Last 24 Hours: My Active Orders 02/14/19 13:00 CULTURE BLOOD [BC] Urgent 02/14/19 13:13 Blood Culture x2 Reflex Set [OM.PC] Urgent 02/14/19 13:20 CULTURE BLOOD [BC] Urgent
== END 2019-02-14 14:38 | disposition home or self-care (01) ==
LOC: JP.ED 12:36
DX: L08.89 Other specified local infections of the skin and subcutaneous tissue (principal); B95.8 Unspecified staphylococcus as the cause of diseases classified elsewhere; J44.9 Chronic obstructive pulmonary disease, unspecified; F41.9 Anxiety disorder, unspecified; F32.9 Major depressive disorder, single episode, unspecified; F41.0 Panic disorder [episodic paroxysmal anxiety]; E11.9 Type 2 diabetes mellitus without complications; E66.9 Obesity, unspecified; Z68.31 Body mass index [BMI] 31.0-31.9, adult; F17.210 Nicotine dependence, cigarettes, uncomplicated; Z88.0 Allergy status to penicillin; Z91.030 Bee allergy status; Z88.8 Allergy status to other drugs, medicaments and biological substances; Z79.899 Other long term (current) drug therapy
CPT/HCPCS: 36415; 80053; 85025; 87040; 87077; 99283

== ENCOUNTER 2019-10-19 20:31 | Inpatient (IN) | payer MEDICAID ==
[2019-10-19] MEDS ORDERED: Linezolid 600 MG in Premix Bag 1 BAG IV SCH (22:15)
[2019-10-19] MEDS ORDERED: Sodium Chloride 0.9% 1,000 ML IV SCH (22:15)
[2019-10-19] MEDS ORDERED: HYDROmorphone 1 MG/ML Syringe IVPUSH ONE (22:52)
--- NOTE | 2019-10-19 22:59 | EDM.PDOC ---
ED HPI GENERAL MEDICAL PROBLEM - General Chief Complaint: Skin Complaint Stated Complaint: [facility] Time Seen by Provider: 10/19/19 22:03 Source of Information: Reports: Patient History Limitations: Reports: No Limitations - History of Present Illness INITIAL COMMENTS - FREE TEXT/NARRATIVE: chief complaint: left upper arm infection This is a 34 year old male presents to the ER via ambulance. He reports IV drug use of Meth, Heroin and Ambien. He last injected into the left arm 2 weeks ago and developed a abscess. The abscess has expanded in size, constant deep burning sharp pain. The whole arm is painful to touch or move. Now with intermittent fever, chills, muscle and bone pain. IV drug use- last used 3 days ago. Onset: Gradual Duration: Week(s): (two), Getting Worse Location: Reports: Upper Extremity, Right Quality: Reports: Ache, Burning, Same as Previous Episode, Sharp Severity: Severe Improves with: Reports: None Worsens with: Reports: Movement Context: Reports: Other (IVDU) Associated Symptoms: Reports: Fever/Chills Left Upper Arm Pain Score (Numeric/FACES): 9 - Related Data Allergies Allergy/AdvReac Type Severity Reaction Status Date / Time amoxicillin [Amoxicillin] Allergy Severe Cannot Verified 10/19/19 21:51 Remember Penicillins Allergy Severe Cannot Verified 10/19/19 21:51 Remember venom-honey bee Allergy Severe Swelling Verified 10/19/19 21:51 [bee venom (honey bee)] hydromorphone [From Dilaudid] AdvReac Nausea and Verified 10/19/19 21:51 Vomiting Home Meds: Home Meds Nortriptyline HCl [Pamelor] 10 mg PO TID 02/21/18 [History] Pregabalin [Lyrica] 300 mg PO BID 02/21/18 [History] Zolpidem Tartrate 10 mg PO BEDTIME 09/29/18 [History] clonazePAM [Klonopin] 1 mg PO BID 10/26/18 [History] Acetaminophen [Tylenol] 650 mg PO Q4H PRN tablet 10/31/18 [Rx] busPIRone [Buspar] 1 tab PO TID #30 tablet 10/31/18 [Rx] Cyclobenzaprine [Flexeril] 10 mg PO TID 10/19/19 [History] Past Medical History HEENT History: Reports: Impaired Vision Cardiovascular History: Reports: None Respiratory History: Reports: COPD, Sleep Apnea Gastrointestinal History: Reports: None Genitourinary History: Reports: None Musculoskeletal History: Reports: Amputation Neurological History: Reports: None Psychiatric History: Reports: Addiction, Anxiety, Depression, Panic Attack Endocrine/Metabolic History: Reports: Diabetes, Type II, Obesity/BMI 30+ Hematologic History: Reports: B12 Deficiency, Iron Deficiency Immunologic History: Reports: Other (See Below) Other Immunologic History: h/o mrsa, staff infection Oncologic (Cancer) History: Reports: Malignant Melanoma Other Oncologic History: patient states he had a mole removed from right wrist area that was melanoma Dermatologic History: Reports: Cellulitis - Infectious Disease History Infectious Disease History: Reports: Chicken Pox, Measles, Mumps Other Infectious Disease History: Pt stated he was tested negative/been cleared of MRSA - Past Surgical History GI Surgical History: Reports: Appendectomy, Bariatric Procedure Neurological Surgical History: Reports: Scoliosis Musculoskeletal Surgical History: Reports: Amputation, Other (See Below) Other Musculoskeletal Surgeries/Procedures:: 08-25-18 left great toe amputation, previous left toe amputations on left foot. 2nd digit on right foot, left front foot amputation heal is all that is left Dermatological Surgical History: Reports: Skin Biopsy Social & Family History - Family History Family Medical History: Noncontributory - Tobacco Use Smoking Status *Q: Current Every Day Smoker Years of Tobacco use: 20 Packs/Tins Daily: 0.2 Used Tobacco, but Quit: No Second Hand Smoke Exposure: Yes - Caffeine Use Caffeine Use: Reports: Coffee, Energy Drinks, Soda, Tea Other Caffeine Use: 1 cup/day - Recreational Drug Use Recreational Drug Use: Yes Drug Use in Last 12 Months: Yes Recreational Drug Type: Reports: Heroin, Marijuana/Hashish, Methamphetamine, Other (see below) Other Recreational Drug Type: ambien Recreational Drug Use Frequency: Daily - Living Situation & Occupation Living situation: Reports: Single Occupation: Unemployed (lives alone in [facility]) [facility] - Review of Systems Review Of Systems: See Below Constitutional: Reports: Fever, Chills, Malaise, Fatigue HEENT: Reports: No Symptoms Respiratory: Reports: No Symptoms Cardiovascular: Reports: No Symptoms Endocrine: Reports: No Symptoms GI/Abdominal: Reports: No Symptoms : Reports: No Symptoms Musculoskeletal: Reports: Arm Pain, Back Pain (chronic), Hand Pain, Joint Pain (left AC), Muscle Pain, Other (left upper extremity with generalized edema) Skin: Reports: Rash (noted to back), Erythema (left upper arm), Wound (left upper arm), Change in Color (lt arm), Lumps (left upper arm), Other (large abscess 20+cm x 10+cm upper left arm, hx of MRSA) Neurological: Reports: No Symptoms Psychiatric: Reports: Cravings (concerns of withdrawal - last used 3 days ago.) Hematologic/Lymphatic: Reports: No Symptoms Immunologic: Reports: No Symptoms ED EXAM, SKIN/RASH Exam: See Below Exam Limited By: No Limitations General Appearance: Alert, WD/WN, Anxious, Other (grimaces with any movement of left arm) Eye Exam: Bilateral Eye: Normal Inspection, PERRL Ears: Normal External Exam, Normal Canal, Hearing Grossly Normal, Normal TMs Nose: Normal Inspection, Normal Mucosa, No Blood, Clear Rhinorrhea Throat/Mouth: Normal Inspection, Normal Lips, Normal Teeth, Normal Gums, Normal Oropharynx, Normal Voice, No Airway Compromise Head: Atraumatic, Normocephalic Neck: Normal Inspection, Supple, Non-Tender, Full Range of Motion Respiratory/Chest: No Respiratory Distress, Lungs Clear, Normal Breath Sounds, No Accessory Muscle Use, Chest Non-Tender Cardiovascular: Normal Peripheral Pulses, Regular Rate, Rhythm, No Edema, No Gallop, No JVD, No Murmur, No Rub Peripheral Pulses: 2+: Radial (L), Radial (R) GI/Abdominal: Normal Bowel Sounds, Soft, Non-Tender, No Organomegaly, No Distention, No Abnormal Bruit, No Mass (Male) Exam: Deferred Rectal (Males) Exam: Deferred Back Exam: Normal Inspection, Full Range of Motion, NT Extremities: No Pedal Edema, Arm Pain (left), Limited Range of Motion (left arm) Neurological: Alert, Oriented, CN II-XII Intact, Normal Cognition, Normal Gait, Normal Reflexes, No Motor/Sensory Deficits Psychiatric: Anxious, Tearful Skin: Warm, Erythema (left arm generalized redness and edema- large abscess noted to upper arm secondary to IVDU.), Increased Warmth (left arm), Wound/Incision (abscess.) Location, Skin: Upper Extremity, Left Characteristics: Erythematous Associated features: Warmth, Tenderness, Swelling, Inflammation, Crusting Lymphatic: No Adenopathy Course - Vital Signs Last Recorded V/S: Last Vital Signs Temp 36.7 C 10/19/19 22:03 Pulse 90 10/19/19 22:03 Resp 16 10/19/19 22:03 BP 116/73 10/19/19 22:03 Pulse Ox 98 10/19/19 22:03 - Orders/Labs/Meds Orders: Active Orders 24 hr Category Date Time Status Notify Provider Consults [RC] ASDIRECTED Care 10/19/19 22:08 Active Consult to Physician [CONS] Urgent Cons 10/19/19 22:07 Ordered CORONAVIRUS COVID-19 JEAN PIERRE [MOLEC] Urgent Lab 10/19/19 23:37 Received CULTURE BLOOD [BC] Urgent Lab 10/19/19 22:05 Ordered CULTURE BLOOD [BC] Urgent Lab 10/19/19 22:20 Received Linezolid [Zyvox] 600 mg Med 10/19/19 22:15 Active Premix Bag 1 bag IV Q12H Sodium Chloride 0.9% [Normal Saline] 1,000 ml Med 10/19/19 22:15 Active IV ASDIRECTED Blood Culture x2 Reflex Set [OM.PC] Urgent Oth 10/19/19 22:04 Ordered Medication Orders Sodium Chloride (Normal Saline) 1,000 mls @ 999 mls/hr IV ASDIRECTED SUKHDEV Linezolid 600 mg/ Premix 300 mls @ 300 mls/hr IV Q12H [facility] Labs: Laboratory Tests 10/19/19 10/19/19 10/19/19 Range/Units 22:20 22:20 22:20 WBC 13.9 H (4.5-11.0) K/uL RBC 4.10 L (4.30-5.90) M/uL Hgb 12.1 D (12.0-15.0) g/dL Hct 37.0 L (40.0-54.0) % MCV 90 (80-98) fL MCH 30 (27-31) pg MCHC 33 (32-36) % Plt Count 305 (150-400) K/uL Neut % (Auto) 70 H (36-66) % Lymph % (Auto) 18 L (24-44) % [place] % (Auto) 11 H (2-6) % Eos % (Auto) 1 L (2-4) % Baso % (Auto) 0 (0-1) % PT 10.5 (9.5-12.0) sec INR 0.97 (0.80-1.20) Sodium (140-148) mmol/L Potassium (3.6-5.2) mmol/L Chloride (100-108) mmol/L Carbon Dioxide (21-32) mmol/L Anion Gap (5.0-14.0) mmol/L BUN (7-18) mg/dL Creatinine (0.8-1.3) mg/dL Est Cr Clr Drug Dosing mL/min Estimated GFR (MDRD) (>60) Glucose (74-106) mg/dL Lactic Acid 1.1 (0.4-2.0) mmol/L Calcium (8.5-10.1) mg/dL Magnesium (1.8-2.4) mg/dL Total Bilirubin (0.2-1.0) mg/dL AST (15-37) U/L ALT (12-78) U/L Alkaline Phosphatase (46-116) U/L Total Protein (6.4-8.2) g/dL Albumin (3.4-5.0) g/dL Globulin (2.3-3.5) g/dL Albumin/Globulin Ratio (1.2-2.2) Amylase (25-115) U/L Lipase (73-393) U/L Procalcitonin ng/mL 10/19/19 10/19/19 Range/Units 22:20 22:20 WBC (4.5-11.0) K/uL RBC (4.30-5.90) M/uL Hgb (12.0-15.0) g/dL Hct (40.0-54.0) % MCV (80-98) fL MCH (27-31) pg MCHC (32-36) % Plt Count (150-400) K/uL Neut % (Auto) (36-66) % Lymph % (Auto) (24-44) % [place] % (Auto) (2-6) % Eos % (Auto) (2-4) % Baso % (Auto) (0-1) % PT (9.5-12.0) sec INR (0.80-1.20) Sodium 137 L (140-148) mmol/L Potassium 3.9 (3.6-5.2) mmol/L Chloride 103 (100-108) mmol/L Carbon Dioxide 24 (21-32) mmol/L Anion Gap 13.9 (5.0-14.0) mmol/L BUN 27 H D (7-18) mg/dL Creatinine 0.7 L (0.8-1.3) mg/dL Est Cr Clr Drug Dosing 143.86 mL/min Estimated GFR (MDRD) > 60 (>60) Glucose 95 (74-106) mg/dL Lactic Acid (0.4-2.0) mmol/L Calcium 8.2 L (8.5-10.1) mg/dL Magnesium 2.1 (1.8-2.4) mg/dL Total Bilirubin 0.4 (0.2-1.0) mg/dL AST 15 (15-37) U/L ALT 29 (12-78) U/L Alkaline Phosphatase 145 H (46-116) U/L Total Protein 7.2 (6.4-8.2) g/dL Albumin 3.1 L (3.4-5.0) g/dL Globulin 4.1 H (2.3-3.5) g/dL Albumin/Globulin Ratio 0.8 L (1.2-2.2) Amylase 27 (25-115) U/L Lipase 87 (73-393) U/L Procalcitonin < 0.05 ng/mL Meds: Medications Generic Name Dose Route Start Last Admin Trade Name Freq PRN Reason Stop Dose Admin Sodium Chloride 1,000 mls @ 999 mls/hr 10/19/19 22:15 Normal Saline IV ASDIRECTED [facility] Linezolid 600 mg/ Premix 300 mls @ 300 mls/hr 10/19/19 22:15 IV Q12H [facility] Discontinued Medications Generic Name Dose Route Start Last Admin Trade Name Freq PRN Reason Stop Dose Admin Hydromorphone HCl 1 mg 10/19/19 22:52 Dilaudid IVPUSH 10/19/19 22:53 ONETIME ONE Hydromorphone HCl 2 mg 10/19/19 23:06 10/19/19 23:26 Dilaudid PO 10/19/19 23:07 2 mg ONETIME ONE Administration Vancomycin HCl 1.5 gm 10/19/19 23:00 Vancomycin IV .PHARMACY TO DOSE SUKHDEV - Re-Assessments/Exams Free Text/Narrative Re-Assessment/Exam: 10-19-2019 -consult to Dr. Bustamante, who kindly reports to ER to evaluate Mr. Diallo. -Dr. Bustamante recommends admission to hospital for further care and treatment -IV Zovoxx 600mg every 12 hours -IV fluids -NPO after midnight -ultrasound of left AC to rule out pseudo aneurysm. -surgery in am reviewed with Mr. Diallo agrees with plan of care Departure - Departure Time of Disposition: 23:30 Disposition: Admitted As Inpatient 66 Condition: Fair Clinical Impression: Abscess - Discharge Information *PRESCRIPTION DRUG MONITORING PROGRAM REVIEWED*: No *COPY OF PRESCRIPTION DRUG MONITORING REPORT IN PATIENT MAURICIO: No Sepsis Event Note (ED) - Evaluation Sepsis Screening Result: No Definite Risk - Focused Exam Vital Signs: Vital Signs Temp Pulse Resp BP Pulse Ox 10/19/19 22:03 36.7 C 90 16 116/73 98 10/19/19 21:47 36.7 C 90 16 116/73 98 - My Orders Last 24 Hours: My Active Orders 10/19/19 22:04 Blood Culture x2 Reflex Set [OM.PC] Urgent 10/19/19 22:05 CULTURE BLOOD [BC] Urgent 10/19/19 22:07 Consult to Physician [CONS] Urgent 10/19/19 22:08 Notify Provider Consults [RC] ASDIRECTED 10/19/19 22:15 Linezolid [Zyvox] 600 mg Premix Bag 1 bag IV Q12H Sodium Chloride 0.9% [Normal Saline] 1,000 ml IV ASDIRECTED 10/19/19 22:20 CULTURE BLOOD [BC] Urgent 10/19/19 23:37 CORONAVIRUS COVID-19 JEAN PIERRE [MOLEC] Urgent - Assessment/Plan Last 24 Hours: My Active Orders 10/19/19 22:04 Blood Culture x2 Reflex Set [OM.PC] Urgent 10/19/19 22:05 CULTURE BLOOD [BC] Urgent 10/19/19 22:07 Consult to Physician [CONS] Urgent 10/19/19 22:08 Notify Provider Consults [RC] ASDIRECTED 10/19/19 22:15 Linezolid [Zyvox] 600 mg Premix Bag 1 bag IV Q12H Sodium Chloride 0.9% [Normal Saline] 1,000 ml IV ASDIRECTED 10/19/19 22:20 CULTURE BLOOD [BC] Urgent 10/19/19 23:37 CORONAVIRUS COVID-19 JEAN PIERRE [MOLEC] Urgent
[2019-10-19] MEDS ORDERED: Vancomycin 1 GM SDV IV SCH (23:00)
[2019-10-19] MEDS ORDERED: HYDROmorphone 2 MG Tab PO ONE (23:06)
--- NOTE | 2019-10-19 23:08 | CRLCR ---
INDICATION: Left arm abscess, drug use TECHNIQUE: Chest radiograph 2 views on 3 films COMPARISON: None FINDINGS: Mediastinum: The mediastinum is normal in appearance. The heart silhouette is normal in size and morphology. Lung: Both lungs are unremarkable in appearance. No sign of pleural effusion seen. No pneumothorax is identified. Bone and Soft tissue: Unremarkable for age. IMPRESSION: 1. No acute cardiopulmonary disease is seen. Dictated by: Dayton Coreas MD @ 10/19/2019 23:07:27 (Electronically Signed)
--- NOTE | 2019-10-19 23:32 | PCM.HP.2 ---
H&P History of Present Illness - General Date of Service: 10/19/19 Admit Problem/Dx: Admission Diagnosis/Problem Admission Diagnosis/Problem Abscess or cellulitis of upper extremity Source of Information: Patient History Limitations: Reports: No Limitations - History of Present Illness Initial Comments - Free Text/Narative: - History of Present Illness INITIAL COMMENTS - FREE TEXT/NARRATIVE: chief complaint: left upper arm infection This is a 34 year old male presents to the ER via ambulance. He reports IV drug use of Meth, Heroin and Ambien. He last injected into the left arm 2 weeks ago and developed a abscess. The abscess has expanded in size, constant deep burning sharp pain. The whole arm is painful to touch or move. Now with intermittent fever, chills, muscle and bone pain. IV drug use- last used 3 days ago. drug of choice Meth, other drugs Heroin and Ambien Onset: Gradual 2 weeks Onset of Symptoms: Reports: Gradual Duration of Symptoms: Reports: Week(s): (two), Getting Worse Location: Reports: Upper Extremity, Left Quality: Reports: Ache, Burning, Same as Previous Episode, Sharp, Stabbing Severity: Severe Improves with: Reports: None Worsens with: Reports: None Context: Reports: Other (current IVDU) Associated Symptoms: Reports: Fever/Chills Left Upper Arm Pain Score (Numeric/FACES): 9 - Related Data Allergies/Adverse Reactions: Allergies Allergy/AdvReac Type Severity Reaction Status Date / Time amoxicillin [Amoxicillin] Allergy Severe Cannot Verified 10/19/19 21:51 Remember Penicillins Allergy Severe Cannot Verified 10/19/19 21:51 Remember venom-honey bee Allergy Severe Swelling Verified 10/19/19 21:51 [bee venom (honey bee)] hydromorphone [From Dilaudid] AdvReac Nausea and Verified 10/19/19 21:51 Vomiting Home Medications: Home Meds Nortriptyline HCl [Pamelor] 10 mg PO TID 02/21/18 [History] Pregabalin [Lyrica] 300 mg PO BID 02/21/18 [History] Zolpidem Tartrate 10 mg PO BEDTIME 09/29/18 [History] clonazePAM [Klonopin] 1 mg PO BID 10/26/18 [History] Acetaminophen [Tylenol] 650 mg PO Q4H PRN tablet 10/31/18 [Rx] busPIRone [Buspar] 1 tab PO TID #30 tablet 10/31/18 [Rx] Cyclobenzaprine [Flexeril] 10 mg PO TID 10/19/19 [History] Past Medical History HEENT History: Reports: Impaired Vision Cardiovascular History: Reports: None Respiratory History: Reports: COPD, Sleep Apnea Gastrointestinal History: Reports: None Genitourinary History: Reports: None Musculoskeletal History: Reports: Amputation Neurological History: Reports: None Psychiatric History: Reports: Addiction, Anxiety, Depression, Panic Attack Endocrine/Metabolic History: Reports: Diabetes, Type II, Obesity/BMI 30+ Hematologic History: Reports: B12 Deficiency, Iron Deficiency Immunologic History: Reports: Other (See Below) Other Immunologic History: h/o mrsa, staff infection Oncologic (Cancer) History: Reports: Malignant Melanoma Other Oncologic History: patient states he had a mole removed from right wrist area that was melanoma Dermatologic History: Reports: Cellulitis - Infectious Disease History Infectious Disease History: Reports: Chicken Pox, Measles, Mumps Other Infectious Disease History: Pt stated he was tested negative/been cleared of MRSA - Past Surgical History GI Surgical History: Reports: Appendectomy, Bariatric Procedure Neurological Surgical History: Reports: Scoliosis Musculoskeletal Surgical History: Reports: Amputation, Other (See Below) Other Musculoskeletal Surgeries/Procedures:: 08-25-18 left great toe amputation, previous left toe amputations on left foot. 2nd digit on right foot, left front foot amputation heal is all that is left Dermatological Surgical History: Reports: Skin Biopsy Social & Family History - Family History Family Medical History: Noncontributory - Tobacco Use Smoking Status *Q: Current Every Day Smoker Years of Tobacco use: 20 Packs/Tins Daily: 0.2 Used Tobacco, but Quit: No Second Hand Smoke Exposure: Yes - Caffeine Use Caffeine Use: Reports: Coffee, Energy Drinks, Soda, Tea Other Caffeine Use: 1 cup/day - Recreational Drug Use Recreational Drug Use: Yes Drug Use in Last 12 Months: Yes Recreational Drug Type: Reports: Heroin, Marijuana/Hashish, Methamphetamine, Other (see below) Other Recreational Drug Type: ambien Recreational Drug Use Frequency: Daily - Living Situation & Occupation Living situation: Reports: Single Occupation: Unemployed (lives alone in [facility]) H&P Review of Systems - Review of Systems: Review Of Systems: See Below General: Reports: Fever, Chills HEENT: Reports: No Symptoms Pulmonary: Reports: No Symptoms Cardiovascular: Reports: No Symptoms Gastrointestinal: Reports: No Symptoms Genitourinary: Reports: No Symptoms Musculoskeletal: Reports: Arm Pain (left arm with large abscess), Back Pain (chronic back pain), Hand Pain (left), Joint Pain (left arm), Muscle Pain (left arm) Skin: Reports: Erythema, Wound, Change in Color Psychiatric: Reports: Anxiety, Agitation, Cravings (last IVDU 3 days ago) Neurological: Reports: No Symptoms Hematologic/Lymphatic: Reports: No Symptoms Immunologic: Reports: No Symptoms Exam - Exam Exam: See Below - Vital Signs Vital Signs: Last Vital Signs Temp 36.7 C 10/19/19 22:03 Pulse 90 10/19/19 22:03 Resp 16 10/19/19 22:03 BP 116/73 10/19/19 22:03 Pulse Ox 98 10/19/19 22:03 Weight: 90.8 kg - Exam Quality Assessment: DVT Prophylaxis General: Alert, Oriented, Cooperative, Moderate Distress HEENT: PERRLA, Hearing Intact, Mucosa Moist & Ocean Breeze, Nares Patent, Normal Nasal Septum, Posterior Pharynx Clear, Conjunctiva Clear, EOMI, EACs Clear, TMs Clear Neck: Supple Lungs: Clear to Auscultation, Normal Respiratory Effort Cardiovascular: Regular Rate, Regular Rhythm, Normal S1, Normal S2 GI/Abdominal Exam: Normal Bowel Sounds, Soft, Non-Tender, No Organomegaly, No Distention, No Abnormal Bruit, No Mass, Pelvis Stable (Male) Exam: Deferred Rectal (Males) Exam: Deferred Back Exam: Normal Inspection, Full Range of Motion, NT Extremities: No Pedal Edema, Slow Capillary Refill, Arm Pain, Limited Range of Motion, Increased Warmth, Redness Peripheral Pulses: 2+: Radial (L), Radial (R) Skin: Warm, Dry, Rash, Ecchymosis, Wound Neurological: Strength Equal Bilateral, Normal Gait, Normal Speech, Normal Tone, Sensation Intact Neuro Extensive - Mental Status: Alert, Oriented x3, Normal Mood/Affect, Normal Cognition Neuro Extensive - Motor, Sensory, Reflexes: CN II-XII Intact, Normal Gait, Normal Reflexes Psychiatric: Alert, Normal Affect, Normal Mood - Patient Data Lab Results Last 24 hrs: Laboratory Results - last 24 hr 07/02/20 07/02/20 07/02/20 Range/Units 22:20 22:20 22:20 WBC 13.9 H (4.5-11.0) K/uL RBC 4.10 L (4.30-5.90) M/uL Hgb 12.1 D (12.0-15.0) g/dL Hct 37.0 L (40.0-54.0) % MCV 90 (80-98) fL MCH 30 (27-31) pg MCHC 33 (32-36) % Plt Count 305 (150-400) K/uL Neut % (Auto) 70 H (36-66) % Lymph % (Auto) 18 L (24-44) % [place] % (Auto) 11 H (2-6) % Eos % (Auto) 1 L (2-4) % Baso % (Auto) 0 (0-1) % PT 10.5 (9.5-12.0) sec INR 0.97 (0.80-1.20) Sodium (140-148) mmol/L Potassium (3.6-5.2) mmol/L Chloride (100-108) mmol/L Carbon Dioxide (21-32) mmol/L Anion Gap (5.0-14.0) mmol/L BUN (7-18) mg/dL Creatinine (0.8-1.3) mg/dL Est Cr Clr Drug Dosing mL/min Estimated GFR (MDRD) (>60) Glucose (74-106) mg/dL Lactic Acid 1.1 (0.4-2.0) mmol/L Calcium (8.5-10.1) mg/dL Magnesium (1.8-2.4) mg/dL Total Bilirubin (0.2-1.0) mg/dL AST (15-37) U/L ALT (12-78) U/L Alkaline Phosphatase (46-116) U/L Total Protein (6.4-8.2) g/dL Albumin (3.4-5.0) g/dL Globulin (2.3-3.5) g/dL Albumin/Globulin Ratio (1.2-2.2) Amylase (25-115) U/L Lipase (73-393) U/L Procalcitonin ng/mL 10/19/19 10/19/19 Range/Units 22:20 22:20 WBC (4.5-11.0) K/uL RBC (4.30-5.90) M/uL Hgb (12.0-15.0) g/dL Hct (40.0-54.0) % MCV (80-98) fL MCH (27-31) pg MCHC (32-36) % Plt Count (150-400) K/uL Neut % (Auto) (36-66) % Lymph % (Auto) (24-44) % [place] % (Auto) (2-6) % Eos % (Auto) (2-4) % Baso % (Auto) (0-1) % PT (9.5-12.0) sec INR (0.80-1.20) Sodium 137 L (140-148) mmol/L Potassium 3.9 (3.6-5.2) mmol/L Chloride 103 (100-108) mmol/L Carbon Dioxide 24 (21-32) mmol/L Anion Gap 13.9 (5.0-14.0) mmol/L BUN 27 H D (7-18) mg/dL Creatinine 0.7 L (0.8-1.3) mg/dL Est Cr Clr Drug Dosing 143.86 mL/min Estimated GFR (MDRD) > 60 (>60) Glucose 95 (74-106) mg/dL Lactic Acid (0.4-2.0) mmol/L Calcium 8.2 L (8.5-10.1) mg/dL Magnesium 2.1 (1.8-2.4) mg/dL Total Bilirubin 0.4 (0.2-1.0) mg/dL AST 15 (15-37) U/L ALT 29 (12-78) U/L Alkaline Phosphatase 145 H (46-116) U/L Total Protein 7.2 (6.4-8.2) g/dL Albumin 3.1 L (3.4-5.0) g/dL Globulin 4.1 H (2.3-3.5) g/dL Albumin/Globulin Ratio 0.8 L (1.2-2.2) Amylase 27 (25-115) U/L Lipase 87 (73-393) U/L Procalcitonin < 0.05 ng/mL Result Diagrams: 10/19/19 22:20 10/19/19 22:20 Sepsis Event Note - Evaluation Sepsis Screening Result: No Definite Risk - Focused Exam Vital Signs: Vital Signs Temp Pulse Resp BP Pulse Ox 10/19/19 22:03 36.7 C 90 16 116/73 98 10/19/19 21:47 36.7 C 90 16 116/73 98 Date Exam was Performed: 10/20/19 Time Exam was Performed: 00:36 - Problem List (1) Abscess SNOMED Code(s): 372597878 ICD Code: L02.91 - CUTANEOUS ABSCESS, UNSPECIFIED Status: Acute Priority: High Current Visit: Yes (2) Status post partial gastrectomy SNOMED Code(s): 333856647080411, 81793280, 714741996831698 ICD Code: Z90.3 - ACQUIRED ABSENCE OF STOMACH [PART OF] Status: Chronic Priority: Low Current Visit: No Problem Details: with RNY Gastrojejenostomy (3) Tobacco use disorder SNOMED Code(s): 119102702 ICD Code: F17.200 - NICOTINE DEPENDENCE, UNSPECIFIED, UNCOMPLICATED Status: Chronic Priority: Low Current Visit: Yes (4) History of MRSA infection SNOMED Code(s): 904963874, 467641016 ICD Code: Z86.14 - PERSONAL HISTORY OF METHICILLIN RESIS STAPH INFECTION Status: Acute Priority: High Current Visit: Yes (5) Active intravenous drug use SNOMED Code(s): 82348085, 626694554 ICD Code: F19.90 - OTHER PSYCHOACTIVE SUBSTANCE USE, UNSPECIFIED, UNCOMPLICATED Status: Acute Priority: High Current Visit: Yes Problem List Initiated/Reviewed/Updated: Yes Orders Last 24hrs: Active Orders 24 hr Category Date Time Status Patient Status Manage Transfer [TRANSFER] Routine ADT 10/19/19 23:11 Active Notify Provider Consults [RC] ASDIRECTED Care 10/19/19 22:08 Active Consult to Physician [CONS] Urgent Cons 10/19/19 22:07 Ordered CORONAVIRUS COVID-19, JEAN PIERRE Urgent Lab 10/19/19 23:09 Ordered CULTURE BLOOD [BC] Urgent Lab 10/19/19 22:05 Ordered CULTURE BLOOD [BC] Urgent Lab 10/19/19 22:20 Received Linezolid [Zyvox] 600 mg Med 10/19/19 22:15 Active Premix Bag 1 bag IV Q12H Sodium Chloride 0.9% [Normal Saline] 1,000 ml Med 10/19/19 22:15 Active IV ASDIRECTED Blood Culture x2 Reflex Set [OM.PC] Urgent Oth 10/19/19 22:04 Ordered Resuscitation Status Routine Resus Stat 10/19/19 23:13 Ordered Medication Orders Sodium Chloride (Normal Saline) 1,000 mls @ 999 mls/hr IV ASDIRECTED SUKHDEV Linezolid 600 mg/ Premix 300 mls @ 300 mls/hr IV Q12H SUKHDEV Assessment/Plan Comment:: ASSESSMENT AND PLAN OF CARE: Abscess cellulitis of left upper arm Abscess cellulitis of left upper arm, past history of MRSA. Mr. Diallo reports injected Methamphetamine into the left arm about 2 weeks ago. The injection site developed a lump which expanded 20 + cm by 10+ cm. extremely painful to light touch or any movement of the arm. The whole left arm is tender, swollen and warm to touch. -Admit to [address] [place] [address] Darryl Bustamante evaluated in ER and will do surgery in am. -IV Fluids Normal Saline 125ml/hr -IV Zyvox 600 mg every 12 hours -NPO after midnight for surgery in am -medication for pain ordered -Ultrasound left arm to rule of pseudo aneurysm -Advise to notify nurses of any chest pain or other symptoms -And a.m. labs: CBC, BMP Current IV Drug use - reports last injection 3 days ago. Drug of choice Methamphetamine. Other drugs use includes Heroin and Ambien. -Monitor of drug withdrawal and treat as indicated Tobacco Use - reports smokes at least 1/2 pack or more of cigarettes daily -order for albuterol neb and duo nebs as needed. -Nicotine patch 14mg. daily History of Gastric bypass -monitor for any complication Maintenance issues -Orders home meds: chronic medication -Nutrition: regular diet NPO after midnight -Bautista catheter -not indicated at this time -DVT prophylaxis- SCD -PPI-IV Protonix 40mg daily CODE STATUS: FULL Admission status: Admit to [address] [place] [address] Admission justification. This patient will be admitted for inpatient services and is medically appropriate meeting medical necessity for inpatient admission as outlined in my documentation. I reasonably expect the patient will require inpatient services that span. Time over 2 midnights. I reasonably expect this patient to be discharged or transferred within 96 hours after admission to the critical access hospital. Disposition: home Primary care provider: Bernarda Bustamante NP., [facility] Hospitalist: Dr. Jimenez - Mortality Measure Prognosis:: Good
[2019-10-20] MEDS ORDERED: Albuterol 0.083% 2.5 MG/3 ML Neb Soln NEB PRN (00:22)
[2019-10-20] MEDS ORDERED: Ondansetron 4 MG Tab.DIS PO PRN (00:22)
[2019-10-20] MEDS ORDERED: Docusate Sodium 100 MG Cap PO PRN (00:22)
[2019-10-20] MEDS ORDERED: Ondansetron 4 MG/2 ML SDV IV PRN (00:22)
[2019-10-20] MEDS ORDERED: Acetaminophen 325 MG Tab PO PRN (00:22)
[2019-10-20] MEDS ORDERED: Cyclobenzaprine 10 MG Tab PO PRN (00:22)
[2019-10-20] MEDS ORDERED: Sodium Chloride 0.9% 1,000 ML IV SCH (00:22)
[2019-10-20] MEDS: Nicotine 14 MG/24 Hr Patch TRDERM SCH ×2 (02:01→14:29)
[2019-10-20] MEDS: ClonazePAM 1 MG Tab PO SCH ×3 (02:02→21:30)
[2019-10-20] MEDS ORDERED: HYDROmorphone 1 MG/ML Syringe IVPUSH PRN (05:46)
[2019-10-20] MEDS ORDERED: Ondansetron 4 MG/2 ML SDV ONE (08:05)
[2019-10-20] MEDS ORDERED: Neostigmine Methylsulfate 1 MG/ML 5 ML Syringe ONE (08:05)
[2019-10-20] MEDS ORDERED: Glycopyrrolate 0.2 MG/ML 5 ML MDV ONE (08:05)
[2019-10-20] MEDS ORDERED: Propofol 200 MG/20 ML SDV ONE (08:05)
[2019-10-20] MEDS ORDERED: fentaNYL 250 MCG/5 ML SDV ONE (08:05)
[2019-10-20] MEDS ORDERED: Rocuronium 50 MG/5 ML Vial ONE (08:05)
[2019-10-20] MEDS ORDERED: Dexamethasone 4 MG/ML SDV ONE (08:05)
[2019-10-20] MEDS ORDERED: Succinylcholine 200 MG/10 ML MDV ONE (08:05)
--- NOTE | 2019-10-20 08:07 | CRLUS ---
INDICATION: Left arm swelling and redness. Evaluate for pseudoaneurysm in the left antecubital fossa. FINDINGS: An ultrasound of the left upper extremity at the area of swelling in the antecubital fossa shows a 7.2 x 4.6 x 3.7 cm subcutaneous probable hematoma in the antecubital fossa. No evidence of a pseudoaneurysm. Normal flow in the left brachial and axillary arteries and veins. Impression : 1. Probable subcutaneous hematoma in the left antecubital fossa. 2. No pseudoaneurysm identified. Dictated by Thomas Berumen MD @ 10/20/2019 8:07:05 AM Dictated by: Thomas Berumen MD @ 10/20/2019 08:07:17 (Electronically Signed)
[2019-10-20] MEDS: Nortriptyline 10 MG Cap PO SCH ×3 (10:37→21:31)
[2019-10-20] MEDS: busPIRone 10 MG Tab PO SCH ×3 (10:37→21:31)
[2019-10-20] MEDS: Pregabalin 100 MG Cap PO SCH ×2 (10:37→21:30)
[2019-10-20] MEDS ORDERED: Bupivacaine 0.5% 50 ML MDV ONE (11:29)
[2019-10-20] MEDS ORDERED: Lidocaine 1% with EPINEPHrine 1:100,000 50 ML MDV ONE (11:29)
[2019-10-20] MEDS ORDERED: HYDROmorphone/Normal Saline 15 MG/30 ML PCA IV PRN (13:34)
[2019-10-20] MEDS ORDERED: Naloxone 0.4 MG/ML SDV IV PRN (14:00)
[2019-10-20] MEDS: Lactated Ringers 1,000 ML IV SCH (14:57)
[2019-10-20] MEDS ORDERED: Cyanocobalamin (Vitamin B12) 1,000 MCG/ML SDV IM ONE (15:00)
[2019-10-20] MEDS: Linezolid 600 MG in Premix Bag 1 BAG IV SCH (15:21)
[2019-10-20] MEDS: Meropenem 500 MG in Sodium Chloride 0.9% 50 ML IV SCH ×2 (17:24→21:20)
[2019-10-20] MEDS: LORazepam 2 MG/ML SDV IVPUSH PRN (17:39)
[2019-10-20] MEDS: Zolpidem 5 MG Tab PO SCH (21:30)
[2019-10-21] MEDS: Linezolid 600 MG in Premix Bag 1 BAG IV SCH ×2 (02:34→13:58)
[2019-10-21] MEDS: Lactated Ringers 1,000 ML IV SCH ×2 (04:26→10:33)
[2019-10-21] MEDS: Meropenem 500 MG in Sodium Chloride 0.9% 50 ML IV SCH ×4 (04:26→21:23)
[2019-10-21] MEDS: LORazepam 2 MG/ML SDV IVPUSH PRN ×5 (04:31→22:26)
[2019-10-21] MEDS ORDERED: Meropenem 500 MG SDV ONE (06:42)
[2019-10-21] MEDS ORDERED: Lidocaine 1% with EPINEPHrine 1:100,000 50 ML MDV ONE (06:42)
[2019-10-21] MEDS ORDERED: Bupivacaine 0.5% 50 ML MDV ONE (06:42)
[2019-10-21] MEDS ORDERED: fentaNYL 100 MCG/2 ML SDV ONE (07:15)
[2019-10-21] MEDS ORDERED: Midazolam 1 MG/ML 2 ML SDV ONE (07:15)
[2019-10-21] MEDS ORDERED: Propofol 200 MG/20 ML SDV ONE ×2 (07:16→09:39)
[2019-10-21] MEDS: busPIRone 10 MG Tab PO SCH ×3 (10:39→21:25)
[2019-10-21] MEDS: Nortriptyline 10 MG Cap PO SCH ×3 (10:39→21:25)
[2019-10-21] MEDS: Nicotine 14 MG/24 Hr Patch TRDERM SCH (10:44)
[2019-10-21] MEDS: ClonazePAM 1 MG Tab PO SCH ×2 (10:44→21:24)
[2019-10-21] MEDS: Pregabalin 100 MG Cap PO SCH ×2 (10:51→21:24)
[2019-10-21] MEDS: oxyCODONE 5 MG Tab PO PRN ×3 (13:57→22:26)
[2019-10-21] MEDS: Zolpidem 5 MG Tab PO SCH (21:24)
[2019-10-22] MEDS: Linezolid 600 MG in Premix Bag 1 BAG IV SCH (02:19)
[2019-10-22] MEDS: Meropenem 500 MG in Sodium Chloride 0.9% 50 ML IV SCH ×4 (04:05→21:09)
[2019-10-22] MEDS: oxyCODONE 5 MG Tab PO PRN ×5 (04:06→21:11)
[2019-10-22] MEDS: LORazepam 2 MG/ML SDV IVPUSH PRN (04:21)
[2019-10-22] MEDS: Nicotine 14 MG/24 Hr Patch TRDERM SCH (08:28)
[2019-10-22] MEDS: busPIRone 10 MG Tab PO SCH ×3 (08:29→21:12)
[2019-10-22] MEDS: Nortriptyline 10 MG Cap PO SCH ×3 (08:29→21:12)
[2019-10-22] MEDS: Acetaminophen 500 MG Tab PO SCH ×3 (08:30→21:12)
[2019-10-22] MEDS: Celecoxib 200 MG Cap PO SCH ×2 (08:31→21:12)
[2019-10-22] MEDS: ClonazePAM 1 MG Tab PO SCH ×2 (08:35→21:11)
[2019-10-22] MEDS: Pregabalin 100 MG Cap PO SCH ×2 (08:35→21:11)
[2019-10-22] MEDS: LORazepam 1 MG Tab PO PRN ×3 (12:36→23:39)
[2019-10-22] MEDS: Ciprofloxacin in D5W 400 MG in Premix Bag 1 BAG IV SCH ×2 (13:23)
[2019-10-22] MEDS: Lactated Ringers 1,000 ML IV SCH (17:50)
[2019-10-22] MEDS: Zolpidem 5 MG Tab PO SCH (23:38)
[2019-10-23] MEDS: Acetaminophen 500 MG Tab PO SCH ×2 (02:52→09:03)
[2019-10-23] MEDS: Ciprofloxacin in D5W 400 MG in Premix Bag 1 BAG IV SCH ×2 (02:52)
[2019-10-23] MEDS: Meropenem 500 MG in Sodium Chloride 0.9% 50 ML IV SCH (04:44)
[2019-10-23] MEDS: oxyCODONE 5 MG Tab PO PRN (06:49)
[2019-10-23] MEDS: Celecoxib 200 MG Cap PO SCH (09:03)
[2019-10-23] MEDS: Nortriptyline 10 MG Cap PO SCH (09:03)
[2019-10-23] MEDS: busPIRone 10 MG Tab PO SCH (09:03)
[2019-10-23 09:23] VITALS: BP 116/70; PULSE 80
--- NOTE | 2019-10-23 12:02 | DISCH ---
ADMISSION DIAGNOSES: Abscess and cellulitis of left upper extremity; history of IV drug use, methamphetamine, heroin, and Ambien; chronic obstructive pulmonary disease; sleep apnea; anxiety; depression; panic attacks; diabetes type 2; status post Power-en-Y gastric bypass surgery; unspecified surgical malabsorption; B12 deficiency; vitamin D deficiency; history of left great toe amputation, 2nd digit of right toe amputation, left front foot amputation. DISCHARGE DIAGNOSES: 1. Incision and drainage of abscess, left upper arm. 2. Debridement, necrotic soft tissue. 3. Excision of portion of the left cephalic vein. POSTOPERATIVE DIAGNOSES: 1. Multifocal abscess, left upper arm with extensive soft tissue necrosis and necrotic segment of cephalic vein. Date of surgery: 10/20/2019. Surgeon: Darryl Bustamante MD. 2. Exploration of left arm with: a. Debridement of necrotic tissue. b. Dressing change under anesthesia. 3. Open wound, left arm with minimal additional necrotic tissue. Date of surgery: 10/21/2019. Surgeon: Darryl Bustamante MD. HISTORY: Demarcus Diallo is a 34-year-old male who presented to the emergency department at [facility] by ambulance. He reports IV drug use of methamphetamine, heroin, and Ambien, and he injected Ambien into his left arm approximately 2 weeks ago and developed an abscess. The abscess expanded in size, increased pain, and he started having intermittent fevers, chills, muscle and bone pain. Last IV drug use 3 days ago. After preoperative evaluation and discussion of possible risks and possible complications, he wished to proceed with surgical procedure. He was admitted on 10/19/2019. Had his first surgical procedure on 10/20/2019 and the second on 10/21/2019. He was treated with Cipro, meropenem, and Zyvox IV. The culture came back Staphylococcus aureus, viridans streptococcus, and Haemophilus parainfluenza Ii. Pain was managed with oxycodone. Demarcus remained afebrile. Oral intake and output adequate and he was able to be discharged to home on 10/23/2019. HISTORY OF PRESENT ILLNESS: GENERAL: Demarcus Diallo is a 34-year-old male. VITAL SIGNS: Height is 5 feet 8.11 inches, weight is 204 pounds. TPR last checked on 10/22/2019 at 2339, it was 95.6; 85; 16; blood pressure 117/70. HEENT: Negative. NECK: Supple. HEART: Regular rate and rhythm. LUNGS: Clear. ABDOMEN: Deferred. EXTREMITIES: Left upper arm dressing dry and intact. Extremities without peripheral edema. DISPOSITION: Discharged to home with home health care. CONDITION: Stable and improving. FOLLOWUP: Appointment with Rayna Beverly PA-C, on 10/31/2019 at 11:00 a.m. DIET: Step 4 gastric bypass diet. Drink 8 to 10 glasses of water a day. ACTIVITY: As tolerated. Shower/bathing: May shower. Keep operative site clean and dry. Change dressing twice a day. Place gauze over open area and wrap with a rolled up gauze or Kerlix. DISCHARGE INSTRUCTIONS: Notify provider if any fever, increased pain, swelling, drainage. SPECIAL INSTRUCTION: Use incentive spirometer 10 times every hour while awake. HOME MEDICATIONS: 1. Cipro 500 mg b.i.d. for 10 days, #20 given. 2. Oxycodone 5 mg oral q.6 hours p.r.n. pain, #20. 3. Tylenol 1000 mg every 6 hours p.r.n. pain. 4. He is to resume his home medications as listed: a. Flexeril 10 mg 3 times a day p.r.n. muscle spasms. b. Nortriptyline 10 mg oral 3 times a day. c. Lyrica 300 mg oral twice a day. d. Ambien 10 mg oral at bedtime. e. BuSpar 10 mg 3 times a day. f. Clonazepam 1 mg oral twice daily. Demarcus was reminded to start taking his post bariatric vitamins and supplements.
--- NOTE | 2019-10-23 13:46 | PN ---
DATE OF SERVICE: 10/20/2019 This is a 34-year-old with long history of IV drug abuse, presenting with multifocal abscess in the left upper arm. He appeared to be trying to get the cephalic vein in that area. He has 3 large abscesses that are close together, probably connecting to some degree. The patient has some necrotic skin over that. We did do an ultrasound this morning, which did not show any evidence of a pseudoaneurysm. Of note, the patient did have a pseudoaneurysm of the basilic vein, which was excised last summer. The plan would be to proceed with drainage and debridement of this area, and there may need to be some venous excision or ligations, depending on the condition of the cephalic vein at the time of the exploration. Potential risks including further bleeding and infection were reviewed, and the patient wishes to proceed. The surgery will be undertaken later on today. Darryl Bustamante MD /[id number] MTDD
--- NOTE | 2019-10-23 14:23 | PN ---
DATE OF SERVICE: 10/22/2019 The patient has been afebrile with stable vital signs. The open wound is cleaned at the time of dressing change today and most of the IV dressing changes. Otherwise, the cultures have not been formalized in terms of sensitivities as of yet, so we will leave him on the present antibiotics. He is complaining of little bit of inadequate pain control and we will add Celebrex and Tylenol to the equation. Otherwise, he is receiving oxycodone 5 mg q.4 hours as needed. Upon discharge planning, set up home care for the patient starting probably on Wednesday. Darryl Bustamante MD /[id number]
--- NOTE | 2019-10-23 14:26 | PN ---
DATE OF SERVICE: 10/21/2019 The patient has been afebrile with stable vital signs. The Gram stain yesterday from the 3 abscesses showed variable mixed asa including both gram-positive rods and gram-positive cocci, the latter probably are MRSA based on his previous infections with that organism. We will continue the present antibiotics pending some C and S results. There is a reported Zyvox and nortriptyline interaction, but assuming this is MRSA, the Zyvox will have much better soft tissue penetration than vancomycin, and we will deescalate the Zyvox as soon as we can substitute this with another antibiotic hopefully covering that. Otherwise, the patient is going to undergo a dressing change and debridement under anesthesia this morning and whether or not we will do dressing change tomorrow with anesthesia will depend on the extent of debridement needed on today's exam. Otherwise, continue present management. Darryl Bustamante MD /[id number]
--- NOTE | 2019-10-23 20:51 | PN ---
DATE OF SERVICE: 10/20/2019 This is a 34-year-old male admitted overnight with abscess in his upper arm. This appeared to be multifocal and related to illicit drug injection. He has had previous abscesses and a pseudoaneurysm of the left brachial artery drained previously. The plan will be to obtain an ultrasound this morning to make sure there is not any arterial involvement at this point and then proceed with incision and drainage of the abscess in the left arm. Potential risks of the procedure were reviewed with the patient, and he wishes to proceed. He is aware that, if there is a pseudoaneurysm involved in the more upper arm, this may lead to some ischemia to the arm if the collaterals are not sufficient, and the sequelae of that were all reviewed with the patient. Darryl Bustamante MD /[id number]
--- NOTE | 2019-10-24 14:28 | OR ---
DATE OF PROCEDURE: 10/20/2019 SURGEON: Darryl Bustamante MD PREOPERATIVE DIAGNOSIS: Multifocal abscess of left upper arm. POSTOPERATIVE DIAGNOSES: 1. Multifocal abscess of left upper arm with extensive soft tissue necrosis. 2. Infected, thrombosed, and probably partially necrotic segment of cephalic vein of left upper arm. OPERATIVE PROCEDURE: 1. Incision and drainage of multifocal abscess of left upper arm (45113). 2. Debridement of necrotizing soft tissue involving skin, subcutaneous tissue, fascia, and muscle of left upper arm (32497). 3. Ligation and excision of a portion of left cephalic vein (28019). ANESTHESIA: General. INDICATIONS FOR PROCEDURE: This 34-year-old, who has been continuing to inject illicit drugs into the cephalic vein on his left upper arm, comes in with 3 abscesses more or less [id number]. The plan is to proceed with incision and drainage of these with most likely connecting these into 1 open wound with debridement as necessary. The patient in the past has had problems with vessel necrosis or pseudoaneurysm formation related to the injections, and he is aware that some vessel excision either arterial or venous might be required once again. Potential risks including bleeding, infection, and possible ischemia to the arm were reviewed, and the patient wishes to proceed. DETAILS OF PROCEDURE: The patient was taken to the operating room, and after general endotracheal anesthesia was induced, the upper arm was prepped and draped. The skin and subcutaneous tissue over the 3 abscesses was then sequentially opened. Three sets of cultures were obtained, which interestingly each had its own different Gram stain findings. As one drained the abscesses, the small bridging skin between the 3 was also divided. There was extensive necrosis of the skin and subcutaneous tissue, fascia, and outer rim of muscle, which was then debrided along the length of the 3 abscesses where the cephalic vein coursed. A portion of this was obviously necrotic and for the entire length of the various 3 abscesses was thrombosed. The vein was then ligated proximally and distally to the point of involvement. Some side branches also needed to be divided and ligated, all ligations being accomplished with 4-0 Vicryl stitch. At that point, no further problems were noted. After the cephalic vein between the points of ligation had been excised, the wound was then packed open with Iodoform gauze. The plan will be to proceed with a dressing change under anesthesia and possible additional debridement tomorrow. There were no evident complications. Darryl Bustamante MD /[id number] MTDD
--- NOTE | 2019-10-24 15:16 | OR ---
DATE OF PROCEDURE: 10/21/2019 SURGEON: Darryl Bustamante MD PREOPERATIVE DIAGNOSIS: Open wound in left arm, status post debridement of necrotizing soft tissue. POSTOPERATIVE DIAGNOSIS: Open wound in left arm with minimal additional necrotizing soft tissue. OPERATIVE PROCEDURE: Exploration of left arm wound with: 1. Debridement of necrotic tissue (87024). 2. Dressing change under anesthesia (94154). ANESTHESIA: Local plus IV sedation. INDICATION FOR PROCEDURE: This is a 34-year-old male status post debridement of a multifocal abscess in left arm along with ligation and excision of portion of the cephalic vein and undergo dressing change under anesthesia with debridement of any additional necrotic tissue likely present. Potential risks including further bleeding and infection were reviewed and the patient wished to proceed. DETAILS OF PROCEDURE: The patient was taken to the operating room and placed in a supine position. IV sedation was administered, after which the operative dressing was taken down and the wound prepped and draped. There was also some scattered additional necrotic material extending from the skin and subcutaneous tissue down to the level of the fascia. This was debrided. This was scant enough that we did not feel we needed to send this for pathology review. Once this was completed, there appeared to be hemostasis and iodoform dressing was applied. The patient was taken to the recovery room in satisfactory condition. Darryl Bustamante MD /[id number]
== END 2019-10-23 09:25 | disposition home health service (06) | DRG 571 ==
LOC: JP.ED 20:31 → JP.MS 23:11
PROVIDERS: ADMIT Internal Medicine; ATTEND Surgery
PROC: 05BF0ZZ Excision of Left Cephalic Vein, Open Approach (ICD-10-PCS; 2019-10-20)
PROC: 0JBF0ZZ Excision of Left Upper Arm Subcutaneous Tissue and Fascia, Open Approach (ICD-10-PCS; principal; 2019-10-21)
DX: L03.114 Cellulitis of left upper limb (principal); I96 Gangrene, not elsewhere classified; K90.9 Intestinal malabsorption, unspecified; I82.612 Acute embolism and thrombosis of superficial veins of left upper extremity; L02.414 Cutaneous abscess of left upper limb; J44.9 Chronic obstructive pulmonary disease, unspecified; G47.30 Sleep apnea, unspecified; F32.9 Major depressive disorder, single episode, unspecified; F41.0 Panic disorder [episodic paroxysmal anxiety]; E11.9 Type 2 diabetes mellitus without complications; E53.8 Deficiency of other specified B group vitamins; E55.9 Vitamin D deficiency, unspecified; H54.7 Unspecified visual loss; F41.9 Anxiety disorder, unspecified; F19.90 Other psychoactive substance use, unspecified, uncomplicated; E66.9 Obesity, unspecified; Z86.14 Personal history of Methicillin resistant Staphylococcus aureus infection; Z85.820 Personal history of malignant melanoma of skin; Z90.49 Acquired absence of other specified parts of digestive tract; Z89.412 Acquired absence of left great toe; Z89.432 Acquired absence of left foot; Z98.84 Bariatric surgery status; Z95.1 Presence of aortocoronary bypass graft; Z88.0 Allergy status to penicillin; Z88.5 Allergy status to narcotic agent; Z91.030 Bee allergy status; Z88.1 Allergy status to other antibiotic agents; Z79.899 Other long term (current) drug therapy; F17.210 Nicotine dependence, cigarettes, uncomplicated; Z90.3 Acquired absence of stomach [part of]; Z11.59 Encounter for screening for other viral diseases; Z68.30 Body mass index [BMI] 30.0-30.9, adult
CPT/HCPCS: 36415; 71046; 76881-LT; 80053; 82150; 82728; 82962; 83605; 83690; 83735; 84100; 84132; 84145; 84295; 85025; 85027; 85610; 87040; 87070; 87075; 87077; 87186; 87205; 88304; 88305; 94762; 99222-AI; 99284; 99285-25; A9270-GY; J0330; J0744; J1100; J1170; J2020; J2060; J2185; J2250; J2405; J2704; J2710; J3010; J3420; J3490; J7030; J7050; J7120; U0002

== ENCOUNTER 2021-06-22 15:45 | Emergency (ER) | payer MEDICAID ==
[2021-06-22 16:14] VITALS: BP 129/66; PULSE 89
[2021-06-22] MEDS ORDERED: Clindamycin Phosphate 900 MG in Sodium Chloride 0.9% 100 ML IV ONE (16:58)
== END 2021-06-22 18:13 | disposition critical access hospital (66) ==
LOC: JP.ED 15:45
DX: L03.116 Cellulitis of left lower limb (principal); E11.621 Type 2 diabetes mellitus with foot ulcer; L97.525 Non-pressure chronic ulcer of other part of left foot with muscle involvement without evidence of necrosis; J44.9 Chronic obstructive pulmonary disease, unspecified; E66.9 Obesity, unspecified; Z88.0 Allergy status to penicillin; Z91.030 Bee allergy status; Z72.0 Tobacco use; Z68.29 Body mass index [BMI] 29.0-29.9, adult
CPT/HCPCS: 87070; 87077; 87186; 87205; 96374; 99283; 99283-25; J3490

== ENCOUNTER 2021-07-06 17:48 | Emergency (ER) | payer MEDICAID ==
[2021-07-06] MEDS ORDERED: Buprenorphine/Naloxone 8-2 MG Tab.SL SL ONE (18:19)
[2021-07-06 18:21] VITALS: BP 152/89; PULSE 62
== END 2021-07-06 20:04 | disposition home or self-care (01) ==
LOC: JP.ED 17:48
DX: Z51.81 Encounter for therapeutic drug level monitoring (principal); J44.9 Chronic obstructive pulmonary disease, unspecified; E11.9 Type 2 diabetes mellitus without complications; E66.9 Obesity, unspecified; Z88.0 Allergy status to penicillin; Z91.030 Bee allergy status; Z72.0 Tobacco use; Z68.29 Body mass index [BMI] 29.0-29.9, adult
CPT/HCPCS: 99283; J0574

== ENCOUNTER 2022-06-28 13:15 | Inpatient (IN) | payer MEDICAID ==
[2022-06-28] MEDS ORDERED: Sodium Chloride 0.9% 10 ML Syringe FLUSH PRN (14:38)
[2022-06-28] MEDS ORDERED: HYDROmorphone 0.5 MG/0.5 ML Syringe IVPUSH ONE (14:38)
[2022-06-28 15:18] LABS: ESTIMATED GFR 100 mL/min (>60)
[2022-06-28 17:13] LABS: CORONAVIRUS COVID-19 NAA NEGATIVE (NEGATIVE)
[2022-06-28] MEDS ORDERED: Ondansetron 4 MG Tab.DIS PO PRN (17:35)
[2022-06-28] MEDS ORDERED: Potassium Chloride 20 MEQ Tab.ER PO ONE (17:35)
[2022-06-28] MEDS ORDERED: Magnesium Hydroxide 400 MG/5 ML Susp 30 ML Cup PO PRN (17:35)
[2022-06-28] MEDS ORDERED: Ondansetron 4 MG/2 ML SDV IV PRN (17:35)
[2022-06-28] MEDS: oxyCODONE 5 MG Tab PO PRN (18:12)
[2022-06-28] MEDS: Meropenem 1 GM in Sodium Chloride 0.9% 100 ML IV SCH (18:13)
[2022-06-28] MEDS: Lactobacillus Rhamnosus GG (Probiotic) Cap PO SCH (20:43)
[2022-06-28] MEDS: Enoxaparin 40 MG/0.4 ML Syringe SUBCUT SCH (20:43)
[2022-06-28] MEDS: Acetaminophen 325 MG Tab PO PRN (20:44)
[2022-06-28] MEDS: Pregabalin 100 MG Cap PO SCH (20:44)
[2022-06-28] MEDS: Amitriptyline 25 MG Tab PO SCH (20:44)
[2022-06-28] MEDS: Nicotine 14 MG/24 Hr Patch TRDERM PRN (20:45)
[2022-06-29] MEDS: Meropenem 1 GM in Sodium Chloride 0.9% 100 ML IV SCH ×3 (01:38→17:00)
[2022-06-29] MEDS: oxyCODONE 5 MG Tab PO PRN ×3 (02:37→12:16)
[2022-06-29] MEDS: Acetaminophen 325 MG Tab PO PRN ×4 (02:37→16:21)
[2022-06-29] MEDS: Lactobacillus Rhamnosus GG (Probiotic) Cap PO SCH ×2 (08:25→20:06)
[2022-06-29] MEDS: Pregabalin 100 MG Cap PO SCH ×2 (08:25→20:06)
[2022-06-29] MEDS: Nicotine 14 MG/24 Hr Patch TRDERM PRN (10:51)
[2022-06-29] MEDS: HYDROmorphone 1 MG/ML Syringe IVPUSH PRN ×3 (16:46→22:30)
[2022-06-29] MEDS: Enoxaparin 40 MG/0.4 ML Syringe SUBCUT SCH (20:06)
[2022-06-29] MEDS: Amitriptyline 25 MG Tab PO SCH (21:53)
[2022-06-30] MEDS: Meropenem 1 GM in Sodium Chloride 0.9% 100 ML IV SCH ×3 (01:23→17:52)
[2022-06-30] MEDS: HYDROmorphone 1 MG/ML Syringe IVPUSH PRN ×3 (03:55→11:28)
[2022-06-30] MEDS: Pregabalin 100 MG Cap PO SCH ×2 (08:01→20:27)
[2022-06-30] MEDS: Lactobacillus Rhamnosus GG (Probiotic) Cap PO SCH ×2 (08:01→20:27)
[2022-06-30] MEDS: Acetaminophen 325 MG Tab PO PRN (09:10)
[2022-06-30] MEDS: oxyCODONE 5 MG Tab PO PRN (09:10)
[2022-06-30] MEDS ORDERED: Furosemide 40 MG/4 ML VIAL IVPUSH ONE (12:30)
[2022-06-30] MEDS: Amitriptyline 25 MG Tab PO SCH (20:27)
[2022-06-30] MEDS: Enoxaparin 40 MG/0.4 ML Syringe SUBCUT SCH (20:28)
[2022-07-01] MEDS: Meropenem 1 GM in Sodium Chloride 0.9% 100 ML IV SCH ×3 (01:33→17:10)
[2022-07-01] MEDS: Nicotine 14 MG/24 Hr Patch TRDERM PRN (06:44)
[2022-07-01] MEDS: Pregabalin 100 MG Cap PO SCH ×2 (08:08→20:42)
[2022-07-01] MEDS: Lactobacillus Rhamnosus GG (Probiotic) Cap PO SCH ×2 (08:08→21:28)
[2022-07-01] MEDS ORDERED: Furosemide 40 MG/4 ML VIAL IVPUSH ONE (10:30)
[2022-07-01] MEDS: Amitriptyline 25 MG Tab PO SCH (20:37)
[2022-07-01] MEDS: Enoxaparin 40 MG/0.4 ML Syringe SUBCUT SCH (20:38)
[2022-07-02] MEDS: Meropenem 1 GM in Sodium Chloride 0.9% 100 ML IV SCH ×3 (01:35→17:00)
[2022-07-02] MEDS: Nicotine 14 MG/24 Hr Patch TRDERM PRN (06:05)
[2022-07-02] MEDS: Lactobacillus Rhamnosus GG (Probiotic) Cap PO SCH ×2 (09:14→20:50)
[2022-07-02] MEDS: Pregabalin 100 MG Cap PO SCH ×2 (09:17→20:53)
[2022-07-02] MEDS ORDERED: Furosemide 40 MG/4 ML VIAL IVPUSH ONE (10:40)
[2022-07-02] MEDS: Enoxaparin 40 MG/0.4 ML Syringe SUBCUT SCH (20:50)
[2022-07-02] MEDS: Amitriptyline 25 MG Tab PO SCH (22:10)
[2022-07-03] MEDS: Meropenem 1 GM in Sodium Chloride 0.9% 100 ML IV SCH ×2 (02:22→09:00)
[2022-07-03 07:23] VITALS: BP 132/70; PULSE 74
[2022-07-03] MEDS: Lactobacillus Rhamnosus GG (Probiotic) Cap PO SCH (08:44)
[2022-07-03] MEDS: Pregabalin 100 MG Cap PO SCH (08:44)
== END 2022-07-03 10:30 | disposition home or self-care (01) | DRG 638 ==
LOC: JP.ED 13:15 → JP.MS 17:12
PROVIDERS: ADMIT Internal Medicine; ATTEND Internal Medicine
DX: E11.628 Type 2 diabetes mellitus with other skin complications (principal); F11.20 Opioid dependence, uncomplicated; L03.115 Cellulitis of right lower limb; E11.65 Type 2 diabetes mellitus with hyperglycemia; J44.9 Chronic obstructive pulmonary disease, unspecified; G47.30 Sleep apnea, unspecified; F41.9 Anxiety disorder, unspecified; F32.A Depression, unspecified; E66.9 Obesity, unspecified; E53.8 Deficiency of other specified B group vitamins; F17.210 Nicotine dependence, cigarettes, uncomplicated; E61.1 Iron deficiency; F15.10 Other stimulant abuse, uncomplicated; Z20.822 Contact with and (suspected) exposure to COVID-19; Z85.820 Personal history of malignant melanoma of skin; Z98.890 Other specified postprocedural states; Z98.84 Bariatric surgery status; Z90.49 Acquired absence of other specified parts of digestive tract; Z86.14 Personal history of Methicillin resistant Staphylococcus aureus infection; Z89.412 Acquired absence of left great toe; Z89.432 Acquired absence of left foot; Z89.431 Acquired absence of right foot; Z79.899 Other long term (current) drug therapy; Z91.030 Bee allergy status; Z56.0 Unemployment, unspecified; Z90.3 Acquired absence of stomach [part of]; Z88.0 Allergy status to penicillin
CPT/HCPCS: 0241U; 36415; 73701-RT; 80048; 80053; 80202; 80305-QW; 83605; 84145; 85025; 85027; 86140; 87040; 96365; 96366; 96375; 99222; 99232; 99238; 99285; 99285-25; A9270-GY; J1170; J1650; J1940; J2185; J3370; J3490; J7050

== ENCOUNTER 2023-10-16 21:17 | Emergency (ER) | payer OTHER, MEDICAID ==
[2023-10-16 21:31] VITALS: BP 117/64; PULSE 59
[2023-10-16] MEDS: Ibuprofen 600 MG Tab PO ONE (21:44)
[2023-10-16] MEDS: Doxycycline 100 MG Cap PO ONE (21:45)
== END 2023-10-16 21:52 ==
LOC: JP.ED 21:17
DX: L98.9 Disorder of the skin and subcutaneous tissue, unspecified (principal); E11.9 Type 2 diabetes mellitus without complications; E66.9 Obesity, unspecified; Z68.23 Body mass index [BMI] 23.0-23.9, adult; Z91.030 Bee allergy status; Z88.8 Allergy status to other drugs, medicaments and biological substances; Z88.0 Allergy status to penicillin; Z90.49 Acquired absence of other specified parts of digestive tract
CPT/HCPCS: 99283; A9270

== ENCOUNTER 2023-11-18 13:28 | Emergency (ER) | payer OTHER, MEDICAID ==
[2023-11-18 13:44] VITALS: BP 122/74; PULSE 73
[2023-11-18 14:35] LABS: BASOPHILS ABSOLUTE AUTO 0.04 K/uL (0.00-0.10); BASOPHILS PERCENT AUTO 0.7 % (0.1-1.3); EOSINOPHILS ABSOLUTE AUTO 0.24 K/uL (0.00-0.40); HEMATOCRIT 36.2 % (38.4-49.7); HEMOGLOBIN 11.9 g/dL (12.9-16.9); IMMATURE GRAN ABSOLUTE AUTO 0.02 K/uL (0.00-0.23); IMMATURE GRAN PERCENT AUTO 0.3 % (0.0-0.7); LYMPHOCYTES ABSOLUTE AUTO 1.81 K/uL (0.8-3.3); MEAN CORPUSCULAR HEMOGLOBIN 31.2 pg (31.6-35.5); MEAN CORPUSCULAR HGB CONC 32.9 g/dL (31.6-35.5); MEAN CORPUSCULAR VOLUME 94.8 fL (81.4-99.0); MONOCYTES ABSOLUTE AUTO 0.34 K/uL (0.20-0.90); MONOCYTES PERCENT AUTO 5.6 % (3.3-12.6); NEUTROPHILS ABSOLUTE AUTO 3.58 K/uL (1.0-7.6); NEUTROPHILS PERCENT AUTO 59.4 % (40.0-78.1); PLATELET COUNT,PLT 291 K/uL (130-375); RED BLOOD CELL COUNT 3.82 M/uL (4.14-5.76)
[2023-11-18 14:39] LABS: AMPHETAMINES SCREEN, URINE PRESUMPTIVE POSITIVE (NEGATIVE); BARBITURATE SCREEN,URINE NEGATIVE (NEGATIVE); BENZODIAZEPINES SCREEN,URINE NEGATIVE (NEGATIVE); METHADONE SCREEN, URINE NEGATIVE (NEGATIVE); METHAMPHETAMINES SCREEN, URINE PRESUMPTIVE POSITIVE (NEGATIVE); OXYCODONE SCREEN,URINE NEGATIVE (NEGATIVE); PROPOXYPHENE SCREEN,URINE NEGATIVE (NEGATIVE); THC SCREEN,URINE 50 NG/ML PRESUMPTIVE POSITIVE (NEGATIVE)
[2023-11-18 14:49] LABS: ANION GAP 10.5 mmol/L (5.0-14.0); CALCIUM 8.2 mg/dL (8.5-10.1); CREATININE 0.8 mg/dL (0.8-1.3); EST CRCL DRUG DOSING (CG) 119.53 mL/min; POTASSIUM,K 4.5 mmol/L (3.6-5.2)
== END 2023-11-18 16:57 | disposition home or self-care (01) ==
LOC: JP.ED 13:28
DX: F15.10 Other stimulant abuse, uncomplicated (principal); J44.9 Chronic obstructive pulmonary disease, unspecified; E11.9 Type 2 diabetes mellitus without complications; F17.210 Nicotine dependence, cigarettes, uncomplicated; E66.9 Obesity, unspecified; Z68.22 Body mass index [BMI] 22.0-22.9, adult; Z79.899 Other long term (current) drug therapy; Z88.0 Allergy status to penicillin; Z88.1 Allergy status to other antibiotic agents; Z91.030 Bee allergy status
CPT/HCPCS: 36415; 80048; 80305-QW; 80307; 85025; 99283; 99284